=== PATIENT | female | born 1930 | race Caucasian/White ===

== ENCOUNTER → 2017-01-14 | Outpatient (CLI) | payer MEDICARE, OTHER ==
--- NOTE | 2017-01-14 13:16 | Diagnostic Imaging Report ---
INDICATION: Followup renal cyst. COMPARISON: 02/08/2016 and 02/04/2015. DISCUSSION: Transabdominal sonographic evaluation of the bilateral kidneys was performed. Multiple cysts are again noted bilaterally. The largest on the right measures up to 12.1 cm. The largest on the left measures 8.8 cm. Overall appearance is very similar to the previous exam. The bilateral ureteral jets were visualized. Urinary bladder is unremarkable. The right kidney measures 12.7 cm. Left kidney measures 10 cm. No suspicious solid renal mass identified. IMPRESSION: 1. Extensive cystic changes of the bilateral kidneys appear stable. Dictated by: Dictated on workstation # [id number]
== END ==
LOC: RAD 11:58
PROVIDERS: ATTEND Nurse Practitioner
DX: I13.10 Hypertensive heart and chronic kidney disease without heart failure, with stage 1 through stage 4 chronic kidney disease, or unspecified chronic kidney disease (principal); N18.3 Chronic kidney disease, stage 3 (moderate); E66.9 Obesity, unspecified; E78.5 Hyperlipidemia, unspecified; R73.01 Impaired fasting glucose; R80.9 Proteinuria, unspecified; Q61.2 Polycystic kidney, adult type; N25.81 Secondary hyperparathyroidism of renal origin; E88.09 Other disorders of plasma-protein metabolism, not elsewhere classified; E87.1 Hypo-osmolality and hyponatremia; E87.6 Hypokalemia; D64.9 Anemia, unspecified
CPT/HCPCS: 76770

== ENCOUNTER 2018-08-15 10:44 | Inpatient (IN) | payer MEDICARE, OTHER ==
[~2018-08-15] VITALS: Ht 152.4 cm; Wt 76.8 kg
[2018-08-15 11:07] LABS: BASOPHILS # (AUTO) 0.1 10^3/uL (0.0-0.1); BASOPHILS % (AUTO) 1 % (0-10); EOSINOPHILS # (AUTO) 0.3 10^3/uL (0.0-0.3); EOSINOPHILS % (AUTO) 4 % (0-10); HEMATOCRIT 47 % (35-52); HEMOGLOBIN 15.6 G/DL (11.5-16.0); LYMPHOCYTES # (AUTO) 1.8 X 10^3 (1.0-4.0); LYMPHOCYTES % (AUTO) 23 % (12-44); MEAN CORPUSCULAR HEMOGLOBIN 29 PG (25-34); MEAN CORPUSCULAR HGB CONC 33 G/DL (32-36); MEAN CORPUSCULAR VOLUME 88 FL (80-99); MEAN PLATELET VOLUME 9.9 FL (7.4-10.4); MONOCYTES # (AUTO) 0.6 X 10^3 (0.0-1.0); MONOCYTES % (AUTO) 7 % (0-12); NEUTROPHILS # (AUTO) 4.9 X 10^3 (1.8-7.8); NEUTROPHILS % (AUTO) 65 % (42-75); PLATELET COUNT 254 10^3/uL (130-400); RED BLOOD COUNT 5.36 10^6/uL (4.35-5.85); RED CELL DISTRIBUTION WIDTH 13.7 % (10.0-14.5); WHITE BLOOD COUNT 7.6 10^3/uL (4.3-11.0)
[2018-08-15] MEDS ORDERED: RECEIVED CONTRAST (Hold Metformin) IV SCH (11:15)
[2018-08-15] MEDS ORDERED: IOHEXOL 350 MG/ML 100 ML (OMNIPAQUE 350) VIAL IV ONE (11:15)
[2018-08-15] MEDS ORDERED: NS 250 ML (IVPB) BAG IV ONE (11:15)
--- NOTE | 2018-08-15 11:15 | Diagnostic Imaging Report ---
PROCEDURE: CT head wo r/o stroke. TECHNIQUE: Multiple contiguous axial images were obtained through the brain without the use of intravenous contrast. INDICATION: Facial droop and slurred speech. COMPARISON: No prior studies are available for comparison. FINDINGS: Ventricles and sulci are appropriate for the patient's age. There is moderate periventricular hypodensity noted consistent with senescent change. No sulcal effacement is seen. There is no midline shift. No acute intra-axial or extra-axial hemorrhage is detected. Cisterns are patent. Visualized paranasal sinuses are clear. IMPRESSION: No acute intracranial process is detected. Results were discussed with Dr. Atkins of the emergency department prior to this dictation. Dictated by: Dictated on workstation # [id number]
[2018-08-15 11:31] LABS: ALANINE AMINOTRANSFERASE 17 U/L (0-55); ALBUMIN 4.1 GM/DL (3.2-4.5); ALKALINE PHOSPHATASE 64 U/L (40-136); BILIRUBIN,TOTAL 0.8 MG/DL (0.1-1.0); BUN/CREATININE RATIO 16; CALCIUM 10.8 MG/DL (8.5-10.1); CARBON DIOXIDE 25 MMOL/L (21-32); CHLORIDE 102 MMOL/L (98-107); CREATININE SERUM 1.02 MG/DL (0.60-1.30); GFR ESTIMATED 51; GLUCOSE 103 MG/DL (70-105); POTASSIUM 3.8 MMOL/L (3.6-5.0); SODIUM 139 MMOL/L (135-145); TOTAL PROTEIN 8.4 GM/DL (6.4-8.2)
[2018-08-15 11:39] LABS: FIBRIN DEGRADATION PRODUCTS 2.2 UG/ML (0.00-0.49)
--- NOTE | 2018-08-15 12:00 | Diagnostic Imaging Report ---
INDICATION: Facial droop and possible stroke. TIME OF EXAM: 11:26 AM No prior studies are available for comparison. FINDINGS: There is eventration of right hemidiaphragm. Lungs are clear. No infiltrate, effusion or pneumothorax is seen. There is some ectasia and tortuosity of the descending thoracic aorta. IMPRESSION: No acute cardiopulmonary process is detected. Dictated by: Dictated on workstation # [id number]
--- NOTE | 2018-08-15 12:02 | Diagnostic Imaging Report ---
PROCEDURE: CT angiography of the head and CT angiography of the neck with and without contrast. TECHNIQUE: Contiguous noncontrast images were obtained from the skull base through the vertex. After intravenous contrast administration, helical CT angiography of the neck was performed. Source data was reformatted into multiple MIP projections. Delayed post contrast acquisition was also obtained. INDICATION: Stroke. FINDINGS: The overall quality of the study is suboptimal. There is suboptimal opacification of the arterial system. There is dense opacification of the venous system. Findings are consistent with poor bolus timing. There is marked tortuosity of the brachiocephalic artery as well as the left common carotid artery. A moderate calcified plaque at the great vessel origins is seen. No high-grade stenosis is identified. Both common carotid arteries show calcified plaque. There is some plaquing identified at the bifurcations. Assessment for stenosis is difficult due to poor opacification. Both internal carotid arteries appear to be patent. There is a moderate plaque identified in the carotid siphons. No large branch occlusion is seen. Both middle cerebral arteries are opacified. No definite filling defect is seen. There is an azygos anterior cerebral artery, a normal variant which shows large amount of calcified plaque. There is calcified plaquing in both vertebral arteries and the basilar artery. Posterior cerebral arteries appear to be opacified. No large branch occlusion is seen. IMPRESSION: Significantly limited study due to poor arterial opacification. No large branch occlusion is identified. Dictated by: Dictated on workstation # [id number]
[2018-08-15 12:07] LABS: BILIRUBIN,URINE NEGATIVE (NEGATIVE); CLARITY,URINE CLEAR; COLOR,URINE YELLOW; GLUCOSE, URINE (UA) NEGATIVE (NEGATIVE); KETONES,URINE NEGATIVE (NEGATIVE); LEUKOCYTE ESTERASE ,URINE 1+ (NEGATIVE); NITRITE,URINE NEGATIVE (NEGATIVE); PH,URINE 8 (5-9); PROTEIN,URINE 2+ (NEGATIVE); UROBILINOGEN,URINE NORMAL (NORMAL)
--- NOTE | 2018-08-15 12:08 | ED Neurological Problem ---
General Chief Complaint: Neuro-Stroke Like Symptoms Stated Complaint: STROKE SYMPTOMS Source: patient, family Exam Limitations: no limitations History of Present Illness Date Seen by Provider: Aug 15, 2018 Time Seen by Provider: 11:50 Initial Comments Here onset of right facial droop. Noted at 10 a.m. when the patient woke up. Patient arrives with her daughter via POV. Last night went to bed without any symptoms. Does have advanced dementia but does not have history of stroke. Does have history of kidney disease that apparently is better. She is now living with her daughter. Patient is able to transfer with some assistance and the daughter was able to move her from the house to the car and the car to the emergency department without any other assistance besides herself and a wheelchair. No report of recent illness. Patient denies chest pain, breathing problems or problems with urination but has had some constipation. Denies pain overall. Timing/Duration: unknown (some time in the last 14 hours) Severity: moderate Associated Symptoms: No confusion, No fever/chills, No loss of consciousness, No nausea/vomiting; slurred speech, weakness Allergies and Home Medications Allergies Coded Allergies: No Known Drug Allergies (Unverified , 08/15/18) Patient Home Medication List Home Medication List Reviewed: Yes Review of Systems Review of Systems Constitutional: see HPI; No chills, No fever Eyes: No Symptoms Reported Ears, Nose, Mouth, Throat: no symptoms reported Respiratory: No short of breath, No wheezing Cardiovascular: chest pain (*), edema Gastrointestinal: No abdominal pain; constipation; No nausea, No vomiting Genitourinary: no symptoms reported Musculoskeletal: no symptoms reported All Other Systems Reviewed Negative Unless Noted: Yes Past [place] Hx Past Med/Social Hx: Reviewed Nursing Past Med/Soc Hx Patient Social History Alcohol Use: Denies Use Recreational Drug Use: No Smoking Status: Unknown if Ever Smoked Past Medical History Respiratory: No Cardiac: Yes High Cholesterol, Hypertension Neurological: Yes Dementia Psychosocial: Yes Depression Family Medical History Reviewed Nursing Family Hx Physical Exam Vital Signs Vital Signs - First Documented 08/15/18 10:58 Temp 99.1 Pulse 95 Resp 22 B/P (MAP) 200/111 (140) Pulse Ox 96 O2 Delivery Room Air Capillary Refill : Height, Weight, BMI Height: '" Weight: lbs. oz. kg; BMI Method: General Appearance: WD/WN, no apparent distress HEENT: PERRL/EOMI, other (tongue weakness noted on right and right facial droop ) Neck: full range of motion, supple Respiratory: lungs clear, normal breath sounds Cardiovascular: regular rate, rhythm, no murmur Gastrointestinal: non tender, soft Extremities: non-tender, normal inspection Neurologic/Psychiatric: alert, normal mood/affect, oriented x 3 Crainal Nerves: PERRL, abnormal speech, facial asymmetry, facial droop (and right-sided), facial weakness (right-sided) Coordination/Gait: normal gait, ABN nose to finger (R) Motor/Sensory: no sensory deficit, pronator drift (R), weak motor strength RUE , weak motor strength RLE, other (barely able to lift right arm off the bed. Able to hold his right leg off the bed for approximately 4-5 seconds bit weaker than left. Unable to do finger to nose on right.) Skin: normal color, warm/dry Progress/Results/Core Measures Results/Orders Lab Results Laboratory Tests Test 08/15/18 10:58 08/15/18 12:00 Range/Units White Blood Count 7.6 4.3-11.0 10^3/uL Red Blood Count 5.36 4.35-5.85 10^6/uL Hemoglobin 15.6 11.5-16.0 G/DL Hematocrit 47 35-52 % Mean Corpuscular Volume 88 80-99 FL Mean Corpuscular Hemoglobin 29 25-34 PG Mean Corpuscular Hemoglobin Concent 33 32-36 G/DL Red Cell Distribution Width 13.7 10.0-14.5 % Platelet Count 254 130-400 10^3/uL Mean Platelet Volume 9.9 7.4-10.4 FL Neutrophils (%) (Auto) 65 42-75 % Lymphocytes (%) (Auto) 23 12-44 % Monocytes (%) (Auto) 7 0-12 % Eosinophils (%) (Auto) 4 0-10 % Basophils (%) (Auto) 1 0-10 % Neutrophils # (Auto) 4.9 1.8-7.8 X 10^3 Lymphocytes # (Auto) 1.8 1.0-4.0 X 10^3 Monocytes # (Auto) 0.6 0.0-1.0 X 10^3 Eosinophils # (Auto) 0.3 0.0-0.3 10^3/uL Basophils # (Auto) 0.1 0.0-0.1 10^3/uL Prothrombin Time 13.0 12.2-14.7 SEC INR Comment 1.0 0.8-1.4 Activated Partial Thromboplast Time 31 24-35 SEC D-Dimer 2.20 H 0.00-0.49 UG/ML Sodium Level 139 135-145 MMOL/L Potassium Level 3.8 3.6-5.0 MMOL/L Chloride Level 102 98-107 MMOL/L Carbon Dioxide Level 25 21-32 MMOL/L Anion Gap 12 5-14 MMOL/L Blood Urea Nitrogen 16 7-18 MG/DL Creatinine 1.02 0.60-1.30 MG/DL Estimat Glomerular Filtration Rate 51 BUN/Creatinine Ratio 16 Glucose Level 103 70-105 MG/DL Calcium Level 10.8 H 8.5-10.1 MG/DL Corrected Calcium 10.7 H 8.5-10.1 MG/DL Total Bilirubin 0.8 0.1-1.0 MG/DL Aspartate Amino Transf (AST/SGOT) 34 5-34 U/L Alanine Aminotransferase (ALT/SGPT) 17 0-55 U/L Alkaline Phosphatase 64 40-136 U/L Troponin I < 0.30 <0.30 NG/ML Total Protein 8.4 H 6.4-8.2 GM/DL Albumin 4.1 3.2-4.5 GM/DL Urine Color YELLOW Urine Clarity CLEAR Urine pH 8 5-9 Urine Specific [place] 1.010 L 1.016-1.022 Urine Protein 2+ H NEGATIVE Urine Glucose (UA) NEGATIVE NEGATIVE Urine Ketones NEGATIVE NEGATIVE Urine Nitrite NEGATIVE NEGATIVE Urine Bilirubin NEGATIVE NEGATIVE Urine Urobilinogen NORMAL NORMAL MG/DL Urine Leukocyte Esterase 1+ H NEGATIVE Urine RBC (Auto) 1+ H NEGATIVE Urine RBC 2-5 H /HPF Urine WBC 2-5 /HPF Urine Crystals PRESENT H /LPF Urine Amorphous Sediment LARGE DEN PHOSPHATE H /LPF Urine Bacteria FEW H /HPF Urine Casts NONE /LPF Urine Mucus NEGATIVE /LPF Urine Culture Indicated YES My Orders Orders - NAMITA DESIR MD Cbc With Automated Diff (08/15/18 10:56) Protime With Inr (08/15/18 10:56) Partial Thromboplastin Time (08/15/18 10:56) Comprehensive Metabolic Panel (08/15/18 10:56) Fibrin Degradation Products (08/15/18 10:56) Troponin I (08/15/18 10:56) Ua Culture If Indicated (08/15/18 10:56) Chest 1 View, Ap/Pa Only (08/15/18 10:56) Catheter(Urinary) Insert & Ass 03,15 (08/15/18 10:56) Ekg Tracing (08/15/18 10:56) Nothing By Mouth (08/15/18 Dinner) Accucheck Stat ONCE (08/15/18 10:56) Saline Lock/Iv-Start (08/15/18 10:56) Saline Lock/Iv-Start (08/15/18 10:56) Vital Signs Stroke Patient Q15M (08/15/18 10:56) Ct Head Wo-R/O Stroke (08/15/18 10:56) O2 (08/15/18 10:56) Intake & Output 06,14,22 (08/15/18 10:56) Monitor-Rhythm Ecg Trace Only (08/15/18 10:56) Dysphagia Screening Tool (08/15/18 10:56) Lipid Panel (08/16/18 06:00) I-Stat Bedside Testing (08/15/18 10:56) Ct Angio Head/Neck (08/15/18 11:13) Iohexol Injection (Omnipaque 350 Mg/Ml 1 (08/15/18 11:15) Contrast Received (Contrast Received) (08/15/18 11:15) Ns (Ivpb) (Sodium Chloride 0.9%) (08/15/18 11:15) Urine Culture (08/15/18 12:00) Aspirin Suppository (Aspirin Suppository (08/15/18 12:45) Vital Signs/I&O 08/15/18 10:58 Temp 99.1 Pulse 95 Resp 22 B/P (MAP) 200/111 (140) Pulse Ox 96 O2 Delivery Room Air iStat Bedside Lab Testing Sodium (Na): 140.00 Potassium (K): 3.30 Chloride (CI): 100.00 TCO2: 28.00 Glucose (Glu): 106.00 Urea Nitrogen (BUN)/Urea: 19.00 Creatinine (Crea): 1.00 Anion Gap*: 16.00 Progress Progress Note : Progress Note Seen and evaluated on arrival. Stroke team activation initiated. Initially reported as onset at 10 a.m. but found that patient was wakeup stroke with last known well time at approximately 9 p.m. last night. We will initiate stroke order set and i-STAT and evaluate for possibility of CT angiogram of the head and neck. We will go ahead and send to CT for noncontrast study while i-STAT is pending. I-STAT does show patient can receive contrast CT angiogram of the head and neck was ordered. Monitor patient. 1230: No large vessel occlusion. Patient does have findings of stroke. Aspirin 300 mg per rectum ordered as patient failed dysphagia screening. I did discuss the findings and concerns with the patient and daughter and they accepted admission to the hospital, inpatient status for further evaluation. Patient is outside the TPA window as patient arrived with unknown last well time. That an age would exclude her. There is no large vessel occlusion requiring transfer. 1310: I did discuss the case with Dr. NAVARRO and he accepts patient for admission, inpatient status. Initial ECG Impression Date: Aug 15, 2018 Initial ECG Impression Time: 11:44 Initial ECG Rate: 81 Initial ECG Rhythm: Normal Sinus Comment Sinus rhythm with flat T waves inferiorly leads. Normal axis. No evidence of ST elevation MT. No previous available for comparison. Interpreted by me. Departure Communication (Admissions) Time/Spoke to Admitting Phy: 13:10 Impression Primary Impression: Cerebrovascular accident due to cerebral artery occlusion Additional Impression: Acute right-sided weakness Disposition: ADMITTED INPATIENT Condition: Stable Admissions Decision to Admit Reason: Admit from ER (General) Decision to Admit/Date: Aug 15, 2018 Time/Decision to Admit Time: 13:10 Departure-Patient Inst. Referrals: JUVENAL NAVARRO MD (PCP) Primary Care Physician TYE FARLEY DO (Family) Primary Care Physician NAMITA DESIR MD Aug 15, 2018 12:08
[2018-08-15 12:15] LABS: AMORPHOUS SEDIMENT,UR LARGE AMOR PHOSPHATE /LPF; BACTERIA,URINE FEW /HPF
[2018-08-15] MEDS ORDERED: ASPIRIN 300 MG (5 GR) SUPPOSITORY PR PRN (12:45)
--- OUTSIDE RECORDS SUMMARY | 2018-08-15 13:12 | XMS REPORT | Continuity of Care Document ---
Author Author [facility] Organization [facility] Address Unknown Phone Unavailable Allergies Active Description Code Type Severity Reaction Onset Reported/Identified Relationship to Patient Clinical Status Yes No Allergy Information Available [id number] Drug Allergy Unknown N/A 2017 Medications There is no data. Problems Date Dx Coded Attending Type Code Diagnosis Diagnosed By 03/11/2015 GRICELDA MADDOX RN UROLOGY-C Ot 585.9 03/16/2015 NEWGRICELDA RN UROLOGY-C Ot 585.9 02/08/2016 NEWGRICELDA CahseMichelle RN UROLOGY-C Ot 585.9 CHRONIC KIDNEY DISEASE, UNSPECIFIED 02/09/2016 NEW GRICELDA ChaseMichelle RN UROLOGY-C Ot N18.3 CHRONIC KIDNEY DISEASE, STAGE 3 (MODERAT 02/10/2016 NEW, GRICELDA ChaseMichelle RN UROLOGY-C Ot N18.9 CHRONIC KIDNEY DISEASE, UNSPECIFIED 02/14/2016 NEW, GRICELDA ChaseMcihelle RN UROLOGY-C Ot N18.9 CHRONIC KIDNEY DISEASE, UNSPECIFIED 03/06/2016 NEW, GRICELDA ChaseMichelle RN UROLOGY-C Ot N18.9 CHRONIC KIDNEY DISEASE, UNSPECIFIED 03/27/2016 NEW, GRICELDA ChaseMichelle RN UROLOGY-C Ot N18.9 CHRONIC KIDNEY DISEASE, UNSPECIFIED 01/14/2017 NEWGRICELDA ChaseMichelle RN UROLOGY-C Ot 585.9 CHRONIC KIDNEY DISEASE, UNSPECIFIED 01/14/2017 NEW, GRICELDA GMichelle RN UROLOGY-C Ot N18.9 CHRONIC KIDNEY DISEASE, UNSPECIFIED 01/20/2017 NEWCYNTHIAA G. RN UROLOGY-C Ot D64.9 ANEMIA, UNSPECIFIED 01/20/2017 NEW, GRICELDA G. RN UROLOGY-C Ot E66.9 OBESITY, UNSPECIFIED 01/20/2017 NEW, GRICELDA G. RN UROLOGY-C Ot E78.5 HYPERLIPIDEMIA, UNSPECIFIED 01/20/2017 NEW GRICELDA G. RN UROLOGY-C Ot E87.1 HYPO-OSMOLALITY AND HYPONATREMIA 01/20/2017 NEW, GRICELDA G. 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 RN UROLOGY-C Ot E87.6 HYPOKALEMIA 02/12/2017 NEW, GRICELDA G. 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, ADULT TYPE 02/12/2017 NEW, GRICELDA GMichelle RN UROLOGY-C Ot R73.01 IMPAIRED FASTING GLUCOSE 02/12/2017 NEW, GRICELDA ChaseMichelle RN UROLOGY-C Ot R80.9 PROTEINURIA, UNSPECIFIED 03/05/2017 NEW, GRICELDA ChaseMichelle RN UROLOGY-C Ot D64.9 ANEMIA, UNSPECIFIED 03/05/2017 GRICELDA MADDOX NP-C Ot E66.9 OBESITY, UNSPECIFIED 03/05/2017 GRICELDA MADDOX NP-C Ot E78.5 HYPERLIPIDEMIA, UNSPECIFIED 03/05/2017 GRICELDA MADDOX NP-C Ot E87.1 HYPO-OSMOLALITY AND HYPONATREMIA 03/05/2017 GRICELDA MADDOX NP-C Ot E87.6 HYPOKALEMIA 03/05/2017 GRICELDA MADDOX NP-C Ot E88.09 OTH DISORDERS OF PLASMA-PROTEIN METABOLI 03/05/2017 VARSHAGRICELDAC Ot 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 Results Test Result Range Complete blood count (CBC) with automated white blood cell (WBC) differential - 08/15/18 10:58 Blood leukocytes automated count (number/volume) 7.6 10*3/uL 4.3-11.0 Blood erythrocytes automated count (number/volume) 5.36 10*6/uL 4.35-5.85 Venous blood hemoglobin measurement (mass/volume) 15.6 g/dL 11.5-16.0 Blood hematocrit (volume fraction) 47 % 35-52 Automated erythrocyte mean corpuscular volume 88 [foz_us] 80-99 Automated erythrocyte mean corpuscular hemoglobin (mass per erythrocyte) 29 pg 25-34 Automated erythrocyte mean corpuscular hemoglobin concentration measurement ( mass/volume) 33 g/dL 32-36 Automated erythrocyte distribution width ratio 13.7 % 10.0-14.5 Automated blood platelet count (count/volume) 254 10*3/uL 130-400 Automated blood platelet mean volume measurement 9.9 [foz_us] 7.4-10.4 Automated blood neutrophils/100 leukocytes 65 % 42-75 Automated blood lymphocytes/100 leukocytes 23 % 12-44 Blood monocytes/100 leukocytes 7 % 0-12 Automated blood eosinophils/100 leukocytes 4 % 0-10 Automated blood basophils/100 leukocytes 1 % 0-10 Blood neutrophils automated count (number/volume) 4.9 10*3 1.8-7.8 Blood lymphocytes automated count (number/volume) 1.8 10*3 1.0-4.0 Blood monocytes automated count (number/volume) 0.6 10*3 0.0-1.0 Automated eosinophil count 0.3 10*3/uL 0.0-0.3 Automated blood basophil count (count/volume) 0.1 10*3/uL 0.0-0.1 Comprehensive metabolic panel - 08/15/18 10:58 Serum or plasma sodium measurement (moles/volume) 139 mmol/L 135-145 Serum or plasma potassium measurement (moles/volume) 3.8 mmol/L 3.6-5.0 Serum or plasma chloride measurement (moles/volume) 102 mmol/L 98-107 Carbon dioxide 25 mmol/L 21-32 Serum or plasma anion gap determination (moles/volume) 12 mmol/L 5-14 Serum or plasma urea nitrogen measurement (mass/volume) 16 mg/dL 7-18 Serum or plasma creatinine measurement (mass/volume) 1.02 mg/dL 0.60-1.30 Serum or plasma urea nitrogen/creatinine mass ratio 16 NRG Serum or plasma creatinine measurement with calculation of estimated glomerular filtration rate 51 NRG Serum or plasma glucose measurement (mass/volume) 103 mg/dL 70-105 Serum or plasma calcium measurement (mass/volume) 10.8 mg/dL 8.5-10.1 Serum or plasma total bilirubin measurement (mass/volume) 0.8 mg/dL 0.1-1.0 Serum or plasma alkaline phosphatase measurement (enzymatic activity/volume) 64 U/L 40-136 Serum or plasma aspartate aminotransferase measurement (enzymatic activity/ volume) 34 U/L 5-34 Serum or plasma alanine aminotransferase measurement (enzymatic activity/volume ) 17 U/L 0-55 Serum or plasma protein measurement (mass/volume) 8.4 g/dL 6.4-8.2 Serum or plasma albumin measurement (mass/volume) 4.1 g/dL 3.2-4.5 CALCIUM CORRECTED 10.7 mg/dL 8.5-10.1 Encounters ACCT No. Visit Date/Time Discharge Status Pt. Type Provider Facility Loc./Unit Complaint [id number] 01/14/2017 11:58:00 01/14/2017 23:59:59 CLS Outpatient GRICELDA MADDOX RN UROLOGY-C [facility] RAD OBESE,HYPERLIPIDEMIA [id number] 02/08/2016 12:49:00 02/08/2016 23:59:59 CLS Outpatient GRICELDA MADDOX RN UROLOGY-C [facility] RAD CKD [id number] 02/04/2015 10:08:00 02/04/2015 23:59:59 CLS Outpatient GRICELDA MADDOX RN UROLOGY-C [facility] RAD CHRONIC KIDNEY DISEASE [id number] 12/29/2018 09:00:00 PEN Preadmit MARISABEL HOFF APRN [facility] RAD OBESE,HYPERLIPIDEMIA,PROTEINURIA [id number] 08/15/2018 10:46:00 ACT Emergency NAMITA DESIR MD [facility] ER STROKE SYMPTOMS
[2018-08-15] MEDS ORDERED: NS IV 500 ML 500 ML IV ONE (13:26)
--- OUTSIDE RECORDS SUMMARY | 2018-08-15 13:50 | XMS REPORT | Continuity of Care Document ---
Author Author [facility] Organization [facility] Address Unknown Phone Unavailable Allergies Active Description Code Type Severity Reaction Onset Reported/Identified Relationship to Patient Clinical Status Yes No Allergy Information Available [id number] Drug Allergy Unknown N/A 2017 Yes No Known Drug Allergies [id number] Drug Allergy Unknown N/A 08/15/2018 Medications There is no data. Problems Date Dx Coded Attending Type Code Diagnosis Diagnosed By 03/11/2015 GRICELDA MADDOX JUDICIAL REGISTRAR-C Ot 585.9 03/16/2015 GRICELDA MADDOX JUDICIAL REGISTRAR-C Ot 585.9 02/08/2016 GRICELDA MADDOX JUDICIAL REGISTRAR-C Ot 585.9 CHRONIC KIDNEY DISEASE, UNSPECIFIED 02/09/2016 GRICELDA MADDOX JUDICIAL REGISTRAR-C Ot N18.3 CHRONIC KIDNEY DISEASE, STAGE 3 (MODERAT 02/10/2016 NEW, GRICELDA ChaseMichelle JUDICIAL REGISTRAR-C Ot N18.9 CHRONIC KIDNEY DISEASE, UNSPECIFIED 02/14/2016 NEWGRICELDA ChaseMichelle JUDICIAL REGISTRAR-C Ot N18.9 CHRONIC KIDNEY DISEASE, UNSPECIFIED 03/06/2016 NEWGRICELDA ChaseMichelle JUDICIAL REGISTRAR-C Ot N18.9 CHRONIC KIDNEY DISEASE, UNSPECIFIED 03/27/2016 NEWGRICELDA JUDICIAL REGISTRAR-C Ot N18.9 CHRONIC KIDNEY DISEASE, UNSPECIFIED 01/14/2017 NEWGRICELDA ChaseMichelle JUDICIAL REGISTRAR-C Ot 585.9 CHRONIC KIDNEY DISEASE, UNSPECIFIED 01/14/2017 NEWGRICELDA ChaseMichelle JUDICIAL REGISTRAR-C Ot N18.9 CHRONIC KIDNEY DISEASE, UNSPECIFIED 01/20/2017 NEWGRICELDA JUDICIAL REGISTRAR-C Ot D64.9 ANEMIA, UNSPECIFIED 01/20/2017 NEWGRICELDA JUDICIAL REGISTRAR-C Ot E66.9 OBESITY, UNSPECIFIED 01/20/2017 NEWGRICELDA JUDICIAL REGISTRAR-C Ot E78.5 HYPERLIPIDEMIA, UNSPECIFIED 01/20/2017 NEWGRICELDA GMichelle JUDICIAL REGISTRAR-C Ot E87.1 HYPO-OSMOLALITY AND HYPONATREMIA 01/20/2017 NEW, GRICELDA Reese JUDICIAL REGISTRAR-C Ot E87.6 HYPOKALEMIA 01/20/2017 NEW, GRICELDA Reese JUDICIAL REGISTRAR-C Ot E88.09 OTH DISORDERS OF PLASMA-PROTEIN METABOLI 01/20/2017 NEW, GRICELDA Reese JUDICIAL REGISTRAR-C Ot 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, W S 01/20/2017 NEW, GRICELDA Reese JUDICIAL REGISTRAR-C Ot N18.3 CHRONIC KIDNEY DISEASE, STAGE 3 (MODERAT 01/20/2017 NEW, GRICELDA Reese JUDICIAL REGISTRAR-C Ot N25.81 SECONDARY HYPERPARATHYROIDISM OF RENAL O 01/20/2017 NEW, GRICELDA Reese JUDICIAL REGISTRAR-C Ot 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 JUDICIAL REGISTRAR-C Ot E87.1 HYPO-OSMOLALITY AND HYPONATREMIA 02/12/2017 NEW, GRICELDA G. 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, ADULT TYPE 02/12/2017 NEW, GRICELDA Reese JUDICIAL REGISTRAR-C Ot R73.01 IMPAIRED FASTING GLUCOSE 02/12/2017 NEW, GRICELDA Reese JUDICIAL REGISTRAR-C Ot R80.9 PROTEINURIA, UNSPECIFIED 03/05/2017 GRICELDA MADDOX NP-C Ot D64.9 ANEMIA, UNSPECIFIED 03/05/2017 NEWGRICELDA JUDICIAL REGISTRAR-C Ot E66.9 OBESITY, UNSPECIFIED 03/05/2017 NEWGRICELDA JUDICIAL REGISTRAR-C Ot E78.5 HYPERLIPIDEMIA, UNSPECIFIED 03/05/2017 GRICELDA MADDOX NP-C Ot E87.1 HYPO-OSMOLALITY AND HYPONATREMIA 03/05/2017 GRICELDA MADDOX NP-C Ot E87.6 HYPOKALEMIA 03/05/2017 NEWGRICELDA NP-C Ot E88.09 OTH DISORDERS OF PLASMA-PROTEIN METABOLI 03/05/2017 GRICELDA MADDOX NP-C Ot 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, W S 03/05/2017 GRICELDA MADDOX NP-C Ot N18.3 CHRONIC KIDNEY DISEASE, STAGE 3 (MODERAT 03/05/2017 GRICELDA MADDOX NP-C Ot N25.81 SECONDARY HYPERPARATHYROIDISM OF RENAL O 03/05/2017 VARSHA GRICELDA Reese NP-C Ot 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, ADULT TYPE 03/05/2017 GRICELDA MADDOX NP-C Ot R73.01 IMPAIRED FASTING GLUCOSE 03/05/2017 GRICELDA MADDOX JUDICIAL REGISTRAR-C Ot R80.9 PROTEINURIA, UNSPECIFIED Procedures There is [...] g/dL 3.2-4.5 CALCIUM CORRECTED 10.7 mg/dL 8.5-10.1 Complete urinalysis with reflex to culture - 08/15/18 12:00 Urine color determination YELLOW NRG Urine clarity determination CLEAR NRG Urine pH measurement by test strip 8 5-9 Specific gravity of urine by test strip 1.010 1.016- 1.022 Urine protein assay by test strip, semi-quantitative 2+ NEGATIVE Urine glucose detection by automated test strip NEGATIVE NEGATIVE Erythrocytes detection in urine sediment by light microscopy 1+ NEGATIVE Urine ketones detection by automated test strip NEGATIVE NEGATIVE Urine nitrite detection by test strip NEGATIVE NEGATIVE Urine total bilirubin detection by test strip NEGATIVE NEGATIVE Urine urobilinogen measurement by automated test strip (mass/volume) NORMAL NORMAL Urine leukocyte esterase detection by dipstick 1+ NEGATIVE Automated urine sediment erythrocyte count by microscopy (number/high power field) [HPF] NRG Automated urine sediment leukocyte count by microscopy (number/high power field ) [HPF] NRG Bacteria detection in urine sediment by light microscopy FEW NRG Crystals detection in urine sediment by light microscopy PRESENT NRG Casts detection in urine sediment by light microscopy NONE NRG Mucus detection in urine sediment by light microscopy NEGATIVE NRG Complete urinalysis with reflex to culture YES NRG Amorphous sediment detection in urine sediment by light microscopy LARGE DEN PHOSPHATE NRG Encounters ACCT No. Visit Date/Time Discharge Status Pt. Type Provider Facility Loc./Unit Complaint [id number] 01/14/2017 11:58:00 01/14/2017 23:59:59 CLS Outpatient GRICELDA MADDOX JUDICIAL REGISTRAR-C [facility] OBESE,HYPERLIPIDEMIA [id number] 02/08/2016 12:49:00 02/08/2016 23:59:59 CLS Outpatient GRICELDA MADDOX JUDICIAL REGISTRAR-C [facility] CKD [id number] 02/04/2015 10:08:00 02/04/2015 23:59:59 CLS Outpatient GRICELDA MADDOX JUDICIAL REGISTRAR-C [facility] CHRONIC KIDNEY DISEASE [id number] 12/29/2018 09:00:00 PEN Preadmit MARISABEL HOFF APRN [facility] OBESE,HYPERLIPIDEMIA,PROTEINURIA [id number] 08/15/2018 13:32:00 ACT Inpatient RAMON SON, JUVENAL Heart [facility] 4TH CVA;RT SIDED WEAKNESS
[2018-08-15 15:40] VITALS: BP 129/60
[2018-08-15] MEDS ORDERED: CATHETER FLUSH 10 ML SYR IV PRN (15:45)
[2018-08-15] MEDS: NS IV 1000 ML 1,000 ML IV SCH (15:50)
[2018-08-15] MEDS ORDERED: RIVA1PAT3 TD (15:51)
[2018-08-15] MEDS ORDERED: UBID1CAP53 PO (15:51)
[2018-08-15] MEDS ORDERED: VERA120T2 PO (15:51)
[2018-08-15] MEDS ORDERED: MULT-1029 PO (15:51)
[2018-08-15] MEDS ORDERED: ATOR10TA66 PO (15:51)
[2018-08-15] MEDS ORDERED: GLUC100016 PO (15:51)
[2018-08-15] MEDS ORDERED: CITA10TA7 PO (15:51)
[2018-08-15] MEDS ORDERED: HYDR12.56 PO (15:51)
[2018-08-15] MEDS ORDERED: COCO1000 PO (15:51)
[2018-08-15] MEDS ORDERED: VERA120T84 PO (15:51)
--- NOTE | 2018-08-15 17:27 | Diagnostic Imaging Report ---
PROCEDURE: US carotid duplex, bilateral. TECHNIQUE: Multiple real-time grayscale images were obtained over the carotid arteries in various projections, bilaterally. Additional duplex Doppler and color Doppler images were also obtained. INDICATION: CVA. COMPARISON: None. FINDINGS: There is moderate plaque in the left common carotid artery which partially obscures the lumen, but no elevated velocity is seen. Mild plaque is seen at the origin of the left ECA. The right mid common carotid artery demonstrates moderate calcific plaque, with approximately 40% narrowing. There is moderate plaque with 40% narrowing at the proximal ICA on the right as well. There is tortuosity of the right internal carotid artery, causing mildly elevated velocity, no narrowing is seen in this region. The vertebral arteries are antegrade bilaterally. Parameters based on the consensus panel Cui-Scale and Doppler ultrasound criteria published July 2003, Radiology, Volume 229. DOPPLER (peak systolic velocity M/S Right Left CCA .49 .61 ICA Proximal .60 .57 ICA Mid 1.17 .82 ICA Distal .73 .92 RATIO 2.4 1.3 ECA .98 .91 VERT .66 .95 IMPRESSION: 1. Moderate atherosclerosis in the bilateral common carotid arteries and in the right internal carotid artery. There is mildly elevated velocity in the right ICA due to tortuosity, however no hemodynamically significant stenosis is seen. Dictated by: Dictated on workstation # [id number]
[2018-08-15] MEDS ORDERED: GADOBUTROL 10 MMOL/10 ML (GADAVIST) VIAL IV ONE (18:45)
[2018-08-15 19:25] VITALS: BP 175/72
--- NOTE | 2018-08-15 20:46 | Diagnostic Imaging Report ---
PROCEDURE: MR imaging of the brain with and without contrast. TECHNIQUE: Multiplanar, multisequence MR imaging of the brain was performed with and without contrast. INDICATION: Question CVA. Slurred speech and right-sided weakness. EXAMINATION: MRI brain with and without contrast 08/15/2018 Correlation is made to CT brain from 08/15/2018 FINDINGS: There is restricted diffusion within the left parietal lobe slightly posteriorly and towards the vertex. It extends down towards the [place] radiata. A few smaller linear foci of slightly restricted diffusion anterior to this region towards the vertex could represent separate areas of acute infarct as well but much smaller in nature. On FLAIR imaging diffuse periventricular and deep white matter chronic appearing ischemic disease seen. There is no mass effect or midline shift. Ventricles are prominent but likely due to the surrounding age-appropriate atrophy. No acute hemorrhage is appreciated. Postcontrast images demonstrate no evidence for any significant abnormal enhancement. There is, however, a single tiny rounded focus of hyperintensity noted within the left lenticular region, image #13 of 24 on axial sequence also seen on the coronal sequence. This is of uncertain etiology. It appears far separate from the adjacent MCA to suggest aneurysm. A small enhancing nodule would be the primary consideration. Followup recommended. There is an additional area of enhancement in the right posterior cerebellum. This is nonspecific but given the enhancement and a second smaller nodularity, metastatic process cannot be excluded and clinical correlation and followup would be recommended. Visualized paranasal sinuses and mastoid air cells grossly unremarkable. On diffusion-weighted imaging, not mentioned above, there are few linear foci of hyperintensity posteriorly and in the posterior fossa likely areas of restricted diffusion versus artifact. These are rather small in nature. IMPRESSION: 1. Acute appearing infarct small in nature but involving the left parietal lobe as described and extending towards the vertex. Second more linear areas of possible acute infarct versus artifact in the posterior cerebellum. 2. Two enhancing nodular densities as described above; see above discussion and recommendations. Dictated by: Dictated on workstation # [id number]
[2018-08-16] VITALS: BP 160/91
[2018-08-16 04:00] VITALS: BP 181/84
[2018-08-16 05:57] LABS: BASOPHILS % (AUTO) 0 % (0-10); EOSINOPHILS # (AUTO) 0.1 10^3/uL (0.0-0.3); EOSINOPHILS % (AUTO) 1 % (0-10); HEMATOCRIT 40 % (35-52); HEMOGLOBIN 13.4 G/DL (11.5-16.0); LYMPHOCYTES % (AUTO) 15 % (12-44); MEAN CORPUSCULAR HEMOGLOBIN 29 PG (25-34); MEAN CORPUSCULAR HGB CONC 33 G/DL (32-36); MEAN CORPUSCULAR VOLUME 88 FL (80-99); MEAN PLATELET VOLUME 9.7 FL (7.4-10.4); MONOCYTES # (AUTO) 0.5 X 10^3 (0.0-1.0); MONOCYTES % (AUTO) 7 % (0-12); NEUTROPHILS # (AUTO) 5.3 X 10^3 (1.8-7.8); NEUTROPHILS % (AUTO) 76 % (42-75); PLATELET COUNT 209 10^3/uL (130-400); RED BLOOD COUNT 4.58 10^6/uL (4.35-5.85); RED CELL DISTRIBUTION WIDTH 13.5 % (10.0-14.5); WHITE BLOOD COUNT 6.9 10^3/uL (4.3-11.0)
[2018-08-16 06:18] LABS: ALBUMIN 3.4 GM/DL (3.2-4.5); BILIRUBIN,TOTAL 0.7 MG/DL (0.1-1.0); CALCIUM 9.7 MG/DL (8.5-10.1); CREATININE SERUM 0.9 MG/DL (0.60-1.30); POTASSIUM 3.3 MMOL/L (3.6-5.0); TOTAL PROTEIN 6.6 GM/DL (6.4-8.2)
[2018-08-16 08:00] VITALS: BP 168/82
[2018-08-16] MEDS: VERAPAMIL SR 240 MG (CALAN SR) TAB PO SCH (10:26)
[2018-08-16] MEDS: HYDROCHLOROTHIAZIDE 12.5 MG (HCTZ) CAP PO SCH (10:27)
[2018-08-16] MEDS ORDERED: PATIENT MAY USE OWN MED,SINGLE MED PO SCH (11:00)
--- NOTE | 2018-08-16 11:18 | Occupational Therapy Eval ---
OT Evaluation-General/PLF Medical Diagnosis Admission Date Aug 15, 2018 at 13:32 Medical Diagnosis: CVA with right sided weakness Onset Date: Aug 15, 2018 Therapy Diagnosis Therapy Diagnosis: Weakness Height/Weight Height (Feet): 5 Height (Inches): 0.00 Weight (Pounds): 169 Weight (Ounces): 6.4 Precautions Precautions/Isolations: Fall Prevention, Standard Precautions Safety Interventions: Bed Exit Alarm Weight Bear Status Weight Bearing Restriction: Weight Bearing/Tolerated Referral Physician: Dr. Atkins Referral Reason: Activity Tolerance, Self Care, Evaluation/Treatment, Strengthening/ROM Medical History Pertinent Medical History: HTN Additional Medical History Advanced dementia, Kidney disease Current History Pt. lives with daughter. Daughter woke her up and found that she had right facial droop. Brought her to hospital. Reviewed History: Yes Social History Home: Single Level Current Living Status: Children Entry Into Home: Level Entry ADL-Prior Level of Function Functional [place] Measure 0=Not Assessed/NA 4=Minimal Assistance 1=Total Assistance 5=Supervision or Setup 2=Maximal Assistance 6=Modified [place] 3=Moderate Assistance 7=Complete [place] ADL PLOF Comments Daughter assists her with all ADLs, including bathing and dressing. Pt. is able to ambulate to bathroom with walker. Self Care Self Care: (Code the patient's need for assistance with bathing, dressing, using the toilet, or eating prior to the current illness, exacerbation, or injury.) Functional Cognition Functional Cognition: (Code the patient's need for assistance with planning regular tasks, such as shopping or remembering to take medicaiton prior to the current illness, exacerbation, or injury.) DME/Equipment: Tub/Shower DME/Equipment Comments Pt. has walker. Either daughter or son in law are with her at all times. OT Current Status Subjective Pt. reports no pain. Appearance Pt. is in bed smiling. Attempts to speak but speech is garbled. Daughter in room and is able to give history. Pt. is agreeable to work with OT. Mental Status/Objective Patient Orientation: Person, Place Attachments: Hernandez Catheter, IV Current Glasses/Contacts: Yes Upper Extremity ROM Pt. is able to flex right shoulder to approximately 80 degrees. Daughter states that this is substantially better than yesterday. Left shoulder is WFL. Upper Extremity Coordination Right is limited. Left WFL. Note that pt. does have right sided neglect and requires cues to attend to right side at times. Daughter does verbalize that she is unaware if pt. requires cues due to possible CVA or baseline dementia. ADL-Treatment Functional [place] Measure 0=Not Assessed/NA 4=Minimal Assistance 1=Total Assistance 5=Supervision or Setup 2=Maximal Assistance 6=Modified [place] 3=Moderate Assistance 7=Complete IndependenceIRFPAI Quality Coding Scale 6 Independent with activity with or without an assistive device 5 Patient requires set up or clean up by helper. Patient completes activity by themselves 4 Supervision or touching assist (CGA). [place] provide cues , steadying assist 3 The helper provides less than half the effort to complete the activity 2 The helper provides more than half the effort to complete the activity 1 Dependent. The helper does all the effort to complete an activity 7 Patient refused to complete or attempt activity 9 The patient did not perform the activity before the current illness or injury 88 Not attempted due to Medical conditions or safety concerns Grooming (FIM): 2 (Pt. attempts to brush hair, but only "dabs" at it with brush. OT does this for her.) Bathing (FIM): 2 (Pt. will hold washcloth and wash parts briefly with cues. Washed shoulders but then did not wash under arms, even with cues. OT did this for her. Pt. able to wash under breasts but OT washed rest of chest and torso. OT pointed to pt's upper thigh on right side and pt. unable to attend to that side to initiate washing. OT washed bilateral legs and feet. Stood with min assist and required full assist to wash front and rear pravin areas.) Lower Body Dressing (FIM): 1 (Pt. is dependent with doffing/donning slipper socks.) Transfers (B, C, W/C) (FIM): 3 (Pt. is able to transfer supine-sit with min assist but requires increased time and struggles greatly with this. Min assist to scoot to EOB and to stand at walker. Able to take steps toward HOB. Mod assist sit-supine. Max assist bed mobility.) Other Treatments Pt. is agreeable to work with OT. Declines showering but does agree to spongebathe on side of bed. Daughter is very supportive and provides a lot of assistance at home. Pt. has difficulty swallowing and speaking. Will continue to address mobility, ADL skills, and right UE strength/ROM needs. Education OT Patient Education: Modified ADL techniques, Progress toward Goal/Update tx plan, Purpose of tx/functional activities, Reviewed precautions, Rehab process, Transfer techniques Teaching Recipient: Patient Teaching Methods: Demonstration, Discussion Response to Teaching: Verbalize Understanding, Return Demonstration OT Short Term Goals Short Term Goals Time Frame: Aug 23, 2018 Eating(FIM): 4 Grooming(FIM): 4 Bathing(FIM): 3 Upper Body Dressing(FIM): 3 Lower Body Dressing(FIM): 3 Toileting(FIM): 3 Transfers (B,C,W/C) (FIM): 5 Toilet/Commode Transfer(FIM): 5 Shower Transfer(FIM): 4 Additional Short Term Goals: 1-Demonstrate ADL Tasks, 2-Verbalize Understanding , 3-ImproveStrength/[place] 1=Demonstrate adherence to instructed precautions during ADL tasks. 2=Patient will verbalize/demonstrate understanding of assistive devices/ modifications for ADL. 3=Patient will improve strength/tolerance for activity to enable patient to perform ADL's. OT Quality Control Director Goals Quality Control Director Goals Time Frame: Aug 30, 2018 Eating (FIM): 5 Grooming(FIM): 5 Bathing(FIM): 4 Upper Body Dressing(FIM): 4 Lower Body Dressing(FIM): 4 Toileting(FIM): 6 Transfers (B,C,W/C) (FIM): 6 Toilet/Commode Transfer(FIM): 6 Shower Transfer(FIM): 5 Additional Goals: 1-Demonstrate ADL Tasks, 2-Verbalize Understanding, 3- ImproveStrength/[place] 1=Demonstrate adherence to instructed precautions during ADL tasks. 2=Patient will verbalize/demonstrate understanding of assistive devices/ modifications for ADL. 3=Patient will improve strength/tolerance for activity to enable patient to perform ADL's. OT Education/Plan Problem List/Assessment Assessment: Decreased Activ Tolerance, Decreased UE Strength, Dependent Transfers, Impaired Bed Mobility, Impaired Cognition, Impaired Coordination, Impaired Funct Balance, Impaired I ADL's, Impaired Self-Care Skills, Restricted Funct UE ROM Discharge Recommendations Plan/Recommendations: Continue POC Therapy D/C Recommendations: 24 hr Supervision Treatment Plan/Plan of Care Treatment,Training & Education: Yes Patient would benefit from OT for education, treatment and training to promote independence in ADL's, mobility, safety and/or upper extremity function for ADL' s. Plan of Care: ADL Retraining, Functional Mobility, UE Funct Exercise/Act Treatment Duration: Aug 30, 2018 Frequency: 5 times per week Estimated Hrs Per Day: .5 hour per day Agreement: Yes Rehab Potential: Fair Time/GCodes Start Time: 10:40 Stop Time: 11:05 Total Time Billed (hr/min): 25 Billed Treatment Time 1, EVH x 10minutes, ADL x 15minutes KATIE MCGRATH OT Aug 16, 2018 11:18
[2018-08-16] MEDS: EXELON PATCH REMOVAL TP SCH (11:32)
[2018-08-16] MEDS: RIVASTIGMINE 9.5 MG PATCH (EXELON) NON-FORMULARY TD SCH (11:36)
--- NOTE | 2018-08-16 11:43 | History & Physical-Hospitalist ---
History of Present Illness HPI/Chief Complaint The patient is an 88-year-old white female who was brought to the emergency room yesterday by her daughter with whom she lives. The daughter noted that at approximately 10 a.m. when the patient awakened, she had a right facial droop and altered speech. The daughter was able to get her to the car and bring her to the emergency room. She required a wheelchair and was able to unload her to the wheelchair and bring her to the emergency room waiting room. The patient has moderately advanced to advanced dementia which is what caused the daughter to assume her care. There is no past history of heart disease or stroke. The last known well time was 15 hours. She had a bedside swallowing test done after admission and was thought to be capable of eating and drinking. This morning this has not proven to be the case and she is back on nothing by mouth status. Date Seen 08/16/18 Time Seen by a Provider: 11:38 Attending Physician Charbel Navarro MD PCP Charbel Navarro MD Referring Physician Date of Admission Aug 15, 2018 at 13:32 Home Medications & Allergies Home Medications Reviewed patient Home Medication Reconciliation performed by pharmacy medication reconciliations phone technician and/or nursing. Patients Allergies have been reviewed. Allergies Allergies Coded Allergies No Known Drug Allergies (Fipoivmzfw26/16/18) Past Psxklfs-Sqhzpn-Wbuakr Hx Past Med/Social Hx: Reviewed Nursing Past Med/Soc Hx Patient Social History Alcohol Use: Denies Use Recreational Drug Use: No Smoking Status: Unknown if Ever Smoked Physical Abuse Screen: No Sexual Abuse: No Recent Foreign Travel: No Contact w/other who traveled: No Recent Hopitalizations: No Recent Infectious Disease Expo: No Immunizations Up To Date Date of Pneumonia Vaccine: Nov 08, 2016 Date of Influenza Vaccine: Jul 02, 2018 Seasonal Allergies Seasonal Allergies: No Past Medical History Surgeries: Abdominal, Hysterectomy Cardiac: High Cholesterol, Hypertension Neurological: Dementia HEENT: Cataract Psychosocial: Depression Family History Reviewed Nursing Family Hx Review of Systems Constitutional: see HPI EENTM: hearing loss, dental problems Respiratory: no symptoms reported Cardiovascular: no symptoms reported Gastrointestinal: constipation Genitourinary: incontinence Musculoskeletal: muscle weakness Skin: no symptoms reported Psychiatric/Neurological: No Symptoms Reported Physical Exam Physical Exam Vital Signs Vital Signs - First Documented 08/15/18 10:58 Temp 99.1 Pulse 95 Resp 22 B/P (MAP) 200/111 (140) Pulse Ox 96 O2 Delivery Room Air Capillary Refill : Less Than 3 Seconds Height, Weight, BMI Height: 5'0.00" Weight: 169lbs. 6.4oz. 76.296475qd; 33.1 BMI Method:Estimated General Appearance: No Apparent Distress, WD/WN, Other (there is an obvious right facial droop. Her speech is unintelligible.) Eyes: Bilateral Eye Normal Inspection HEENT: Normal ENT Inspection Neck: Normal Inspection Respiratory: Chest Non Tender, Lungs Clear, Normal Breath Sounds, No Accessory Muscle Use, No Respiratory Distress Cardiovascular: Regular Rate, Rhythm, No Edema, No Gallop, No JVD, No Murmur, Normal Peripheral Pulses Gastrointestinal: Normal Bowel Sounds, No Organomegaly, No Pulsatile Mass, Non Tender, Soft, Other (no bowel movement since Saturday) Back: Normal Inspection Comments There is an obvious right facial droop. The tongue points to the right on extrusion. Speech is without recognizable words. The lap welder bilaterally appears to be 2+ and equal. She is not able to perform alternating finger to thumb movements. It is not clear whether she does not understand the instructions or whether this is a coordination problem. Extremities show equal and normal straight leg lift bilaterally. Results Results/Procedures Labs Laboratory Tests 08/15/18 10:58 08/16/18 05:45 Patient resulted labs reviewed. Assessment/Plan Admission Diagnosis CVA with right facial nerve weakness. 2. There is dysphasia and apparent loss of dexterity. 3.dysphagia. 4.moderate to moderately severe dementia Admission Status: Inpatient Order (span 2 midnights) Reason for Inpatient Admission: Stabilization and physical and occupational therapy Clinical Quality Measures DVT/VTE Risk/Contraindication: Risk Factor Score Per Nursin RFS Level Per Nursing on Admit: 4+=Very High CHARBEL NAVARRO MD Aug 16, 2018 11:43
[2018-08-16 12:00] VITALS: BP 147/65
[2018-08-16] MEDS: NS IV 1000 ML 1,000 ML IV SCH ×2 (12:12→22:48)
[2018-08-16 16:00] VITALS: BP 170/75
[2018-08-16 19:20] VITALS: BP 160/82
[2018-08-16] MEDS: ATORVASTATIN 10 MG (LIPITOR) TABLET PO SCH (20:02)
[2018-08-17] VITALS: BP 170/80
[2018-08-17 04:00] VITALS: BP 172/80
[2018-08-17 08:00] VITALS: BP 174/82
[2018-08-17] MEDS ORDERED: NON-FORMULARY MEDICATION 1 EA EA (Rivastigmine (Exelon) 9.5 MG) TD SCH (09:00)
[2018-08-17] MEDS ORDERED: VERAPAMIL HCL 120 MG PO SCH (09:00)
[2018-08-17] MEDS ORDERED: NON-FORMULARY MEDICATION 1 EA EA (Hydrochlorothiazide 12.5 MG) PO SCH (09:00)
[2018-08-17] MEDS: NS IV 1000 ML 1,000 ML IV SCH ×2 (09:04→19:28)
[2018-08-17] MEDS: EXELON PATCH REMOVAL TP SCH (09:04)
[2018-08-17] MEDS: RIVASTIGMINE 9.5 MG PATCH (EXELON) NON-FORMULARY TD SCH (09:05)
[2018-08-17] MEDS: VERAPAMIL SR 240 MG (CALAN SR) TAB PO SCH (09:34)
[2018-08-17] MEDS: HYDROCHLOROTHIAZIDE 12.5 MG (HCTZ) CAP PO SCH (09:34)
[2018-08-17 12:00] VITALS: BP 135/70
--- NOTE | 2018-08-17 13:46 | Progress Note-Hospitalist ---
Progress Note Progress Notes/Assess & Plan Date Seen 08/17/18 Time Seen by Provider: 13:43 Assessment & Plan The patient shows evidence of improvement today. She appears bright and alert. She is now able to speak such that I can understand albeit with some slurring. Physical exam: There remains a right facial droop. There is effacement of the right nasolabial fold. The tongue deviates to the right on extrusion. Lungs are clear to auscultation. CV is regular. She is able to straight leg lift bilaterally and equally. Today her diet supervisor is 2+ and equal bilaterally. She is able to perform alternating finger to thumb movements bilaterally when yesterday she could not. Impression: CVA with speech, swallowing and minor right sided weakness. Plan: PT and OT eval plus IRF JUVENAL NAVARRO MD Aug 17, 2018 13:46
[2018-08-17 16:40] VITALS: BP 138/88
[2018-08-17] MEDS: ATORVASTATIN 10 MG (LIPITOR) TABLET PO SCH (19:32)
[2018-08-17 19:35] VITALS: BP 166/78
[2018-08-18] VITALS (7 sets, daily range): BP systolic 148–189; BP diastolic 68–85
[2018-08-18] MEDS: NS IV 1000 ML 1,000 ML IV SCH (05:30)
[2018-08-18] MEDS: VERAPAMIL SR 240 MG (CALAN SR) TAB PO SCH (09:50)
[2018-08-18] MEDS: HYDROCHLOROTHIAZIDE 12.5 MG (HCTZ) CAP PO SCH (09:50)
[2018-08-18] MEDS: RIVASTIGMINE 9.5 MG PATCH (EXELON) NON-FORMULARY TD SCH (09:51)
[2018-08-18] MEDS: EXELON PATCH REMOVAL TP SCH (09:51)
--- NOTE | 2018-08-18 10:33 | Occupational Ther Daily Note ---
OT Current Status-Daily Note Subjective Pt alert, lying in bed. Nrsg in room. Pt agrees to therapy. Aphasic, no c/o pain. Mental Status/Objective Patient Orientation: Person, Place, Time, Situation Functional [place] Measure 0=Not Assessed/NA 4=Minimal Assistance 1=Total Assistance 5=Supervision or Setup 2=Maximal Assistance 6=Modified [place] 3=Moderate Assistance 7=Complete [place] Attachments: Hernandez Catheter, IV ADL-Treatment Pt agrees to sponge bath. Supine to EOB with min A. Dancing SPT from EOB to recliner. Pt required verbal and physical cues to wash parts of body. Pt able to standing with FWW and CGA while assist to wash buttocks and pravin area. Pt unable to doff/don hospital gown or socks, assist needed. After therapy, pt sitting in recliner with call light/phone in reach. Reported to nrsg, breakfast tray beside pt. All needs met in room. Eating (FIM): 3 Bathing (FIM): 2 Lower Body Dressing (FIM): 2 OT Short Term Goals Short Term Goals Time Frame: Aug 23, 2018 Eating(FIM): 4 Grooming(FIM): 4 Bathing(FIM): 3 Upper Body Dressing(FIM): 3 Lower Body Dressing(FIM): 3 Toileting(FIM): 3 Transfers (B,C,W/C) (FIM): 5 Toilet/Commode Transfer(FIM): 5 Shower Transfer(FIM): 4 Additional Short Term Goals: 1-Demonstrate ADL Tasks, 2-Verbalize Understanding , 3-ImproveStrength/[place] 1=Demonstrate adherence to instructed precautions during ADL tasks. 2=Patient will verbalize/demonstrate understanding of assistive devices/ modifications for ADL. 3=Patient will improve strength/tolerance for activity to enable patient to perform ADL's. OT Residential Goals Residential Goals Time Frame: Aug 30, 2018 Eating (FIM): 5 Grooming(FIM): 5 Bathing(FIM): 4 Upper Body Dressing(FIM): 4 Lower Body Dressing(FIM): 4 Toileting(FIM): 6 Transfers (B,C,W/C) (FIM): 6 Toilet/Commode Transfer(FIM): 6 Shower Transfer(FIM): 5 Additional Goals: 1-Demonstrate ADL Tasks, 2-Verbalize Understanding, 3- ImproveStrength/Mal[place] 1=Demonstrate adherence to instructed precautions during ADL tasks. 2=Patient will verbalize/demonstrate understanding of assistive devices/ modifications for ADL. 3=Patient will improve strength/tolerance for activity to enable patient to perform ADL's. OT Education/Plan Discharge Recommendations Plan/Recommendations: Continue POC Treatment Plan/Plan of Care Patient would benefit from OT for education, treatment and training to promote independence in ADL's, mobility, safety and/or upper extremity function for ADL' s. Plan of Care: ADL Retraining, Functional Mobility, UE Funct Exercise/Act Treatment Duration: Aug 30, 2018 Frequency: 5 times per week Estimated Hrs Per Day: .5 hour per day Agreement: Yes Rehab Potential: Fair Time/GCodes Start Time: 10:55 Stop Time: 10:25 Total Time Billed (hr/min): 30 Billed Treatment Time 1 visit-ADL 2 (30 min) VIC BAKER Aug 18, 2018 10:33
--- NOTE | 2018-08-18 11:14 | ST Dysphagia Evaluation ---
Speech Evaluation-General Medical Diagnosis CVA with right sided weakness Onset Date: Aug 15, 2018 Therapy Diagnosis Therapy Diagnosis: Dysphagia Precautions Precautions: Aspiration Precautions/Isolations: Fall Prevention, Standard Precautions Referral Referring Physician: Dr. Charbel Atkins Reason for Referral: Evaluation/Treatment Medical History Pertinent Medical History: HTN Current History CVA Reviewed History: Yes Social History Current Living Status: Children Speech PLF/Current-Dysphagia Prior Level of Function Pt has hx of moderately advanced hx of Dementia. Pt lives with her dtr due to this. Subjective Pt in bed. Alert and cooperative. Oral Motor Skills Dentition: Natural Ability to Follow Directions: Fair Pt is currently NPO. Oral Expression Ability: Severe Impairment (pt has significant word retrieval deficits.) Voice Voice Phonatory-Based Quality: Normal Voice Pitch: Normal Voice Loudness: Normal Face Facial Symmetry: Asymmetrical (droop on right) Oral-Facial Assessment Oral-Facial Dentition: Normal Labial Seal Description: Droops Right Smile: Droops Right Puff Cheeks: Reduced Strength Lingual Protrusion: Abnormal (deviates off to right) Lingual ROM: Abnormal DNT Dysphagia Evaluation Consistencies Presented: Thin Liquid, Mechanical Soft, [place] Thick Liquid, Pureed Oral Phase: Reduced Oral Transit (for mech soft texture) Pharyngeal Phase: Delayed Laryngeal Elevation Funct. Velo/Pharyngeal Symptom: Cough After Swallow (for thin liquids) Dietary Recommendations: Pureed Liquid Recommendations: [place] Consistancy Swallowing Precautions: Oral Supervision Staff, Small Bites and Sips, Sitting Upright 90 Degrees, Sitting 90 Degrees 30 Post Intake Dysphagia Evaluation Summary Pt has moderate oropharyngeal dysphagia. Pt is dysphagic for thin liquids. Pt noted to cough x1 after the swallow. When thickened to nectar consistency the pt did not display any s/s of aspiration. Pt unable to propel the mech soft texture posteriorly to swallow. She had no difficulty with the pureed texture. Speech Short Term Goals Short Term Goals Short Term Goals Pt will tolerate current recommended diet without s/s of aspiration. Time Frame-ST week Speech Director Of Social Work Goals Longterm Goals Pt will tolerate least restrictive diet with no s/s of aspiration. Time Frame: 1.5 weeks Speech-Plan Patient/Family Goals Patient/Family Goals: Pt unable to state goals due to dementia and word retrieval difficulty. Treatment Plan Speech Therapy Treatment Plan: Modify Plan, See Comments (Skilled ST recommended to address pt's dysphagia.) Skilled ST indicated for oropharyngeal dysphagia. Frequency: 3 times per week Estimated Hrs Per Day: .25 hour per day Rehab Potential: Fair Safety Risks/Education Teaching Recipient: Patient Teaching Methods: Discussion Response to Teaching: Unable to Comprehend Time Speech Therapy Time In: 08:30 Speech Therapy Time Out: 08:50 Total Billed Time: 20 Billed Treatment Time 1, JULIANNE Schwartz Aug 18, 2018 11:14
--- NOTE | 2018-08-18 11:35 | Progress Note-Hospitalist ---
Subjective HPI/CC On Admission Date Seen by Provider: Aug 18, 2018 Time Seen by Provider: 08:30 The patient is an 88-year-old white female who was brought to the emergency room yesterday by her daughter with whom she lives. The daughter noted that at approximately 10 a.m. when the patient awakened, she had a right facial droop and altered speech. The daughter was able to get her to the car and bring her to the emergency room. She required a wheelchair and was able to unload her to the wheelchair and bring her to the emergency room waiting room. The patient has moderately advanced to advanced dementia which is what caused the daughter to assume her care. There is no past history of heart disease or stroke. The last known well time was 15 hours. She had a bedside swallowing test done after admission and was thought to be capable of eating and drinking. This morning this has not proven to be the case and she is back on nothing by mouth status. Subjective/Events-last exam Pt reports doing well. Just met with speech therapy. Has not been up and ambulated yet. Objective Exam Vital Signs Vital Signs Date Time Temp Pulse Resp B/P (MAP) Pulse Ox O2 Delivery O2 Flow Rate FiO2 08/18/18 12:00 99.8 70 16 150/78 (102) 94 Room Air Capillary Refill : Less Than 3 Seconds General Appearance: No Apparent Distress, Chronically ill Respiratory: Lungs Clear, No Respiratory Distress Cardiovascular: Regular Rate, Rhythm, No Murmur Neurologic/Psychiatric: Other (alert, pleasant) Results/Procedures Lab Patient resulted labs reviewed. Assessment/Plan Assessment and Plan Assess & Plan/Chief Complaint Acute CVA Diagnosis/Problems Diagnosis/Problems (1) Acute ischemic stroke Assessment & Plan: MRI shows acute infarct ASA given and statin ordered but held for NPO status due to dysphagia PT/OT/ST consulted Likely will DC to IRU tomorrow pending PT eval Called and discussed with daughter Dulce who is agreeable with plan (2) Acute right-sided weakness Status: Acute Assessment & Plan: PT/OT as above (3) Dysphagia due to recent cerebrovascular accident Assessment & Plan: ST ordered Pureed diet and [place] thick liquids (4) Essential (primary) hypertension Assessment & Plan: Improving control trend Clinical Quality Measures DVT/VTE Risk/Contraindication: Risk Factor Score Per Nursin RFS Level Per Nursing on Admit: 4+=Very High JOEL VAZQUEZ MD Aug 18, 2018 11:35 am
--- NOTE | 2018-08-18 14:24 | Physical Therapy Evaluation ---
PT Evaluation-General Medical Diagnosis Admission Date Aug 15, 2018 at 13:32 Medical Diagnosis: CVA with right sided weakness Onset Date: Aug 15, 2018 Therapy Diagnosis Therapy Diagnosis: General weakness, Right side weakness, Height/Weight Height (Feet): 5 Height (Inches): 0.00 Weight (Pounds): 169 Weight (Ounces): 6.4 Precautions Precautions/Isolations: Fall Prevention, Standard Precautions Weight Bear Status Right Lower Extremity: Right Weight Bearing/Tolerated Left Lower Extremity: Left Weight Bearing/Tolerated Referral Physician: oJcelyne Mckeon MD Reason for Referral: Evaluation/Treatment Medical History Pertinent Medical History: Dementia, HTN Current History Pt brought into ER by daughter Reviewed History: Yes Social History Home: Single Level Current Living Status: Children Entry Into Home: Level Entry PT Steps Into Home: 0 PT Steps Inside Home: 0 Prior/Core FIM Prior Level of Function Functional [place] Measure 0=Not Assessed/NA 4=Minimal Assistance 1=Total Assistance 5=Supervision or Setup 2=Maximal Assistance 6=Modified [place] 3=Moderate Assistance 7=Complete IndependenceIRFPAI Quality Coding Scale 6 Independent with activity with or without an assistive device 5 Patient requires set up or clean up by helper. Patient completes activity by themselves 4 Supervision or touching assist (CGA). [place] provide cues , steadying assist 3 The helper provides less than half the effort to complete the activity 2 The helper provides more than half the effort to complete the activity 1 Dependent. The helper does all the effort to complete an activity 7 Patient refused to complete or attempt activity 9 The patient did not perform the activity before the current illness or injury 88 Not attempted due to Medical conditions or safety concerns Bed Mobility: 4 Transfers (B,C,W/C) (FIM): 4 Gait: 4 Stairs: 4 PT Evaluation-Current Subjective Pt awake in chair visiting with her daughter when PT arrived. Pt agreed to evaluation by PT. Pain Numeric Pain Scale: 0-No Pain Location: No Pain Reported Objective Patient Orientation: Confused, [place] Attachments: Hernandez Catheter, IV ROM/Strength ROM Upper Extremities WNL ROM Lower Extremities WNL Strength Upper Extremities Unable to follow directions for strength testing. Strength Lower Extremities Patient unable to follow direction to perform gross motor assessment, Integumentary/Posture Bowel Incontinence: No Bladder Incontinence: No Sensory Hearing: Functional Sensation Right Upper Extremit: Intact Sensation Left Upper Extremity: Intact Sensation Right Lower Extremit: Intact Sensation Left Lower Extremity: Intact Transfers Functional [place] Measure 0=Not Assessed/NA 4=Minimal Assistance 1=Total Assistance 5=Supervision or Setup 2=Maximal Assistance 6=Modified [place] 3=Moderate Assistance 7=Complete [place] Transfers (B, C, W/C) (FIM): 4 Scootin Supine to/from Sit: 4 Gait Mode of Locomotion: Walk Anticipated Mode of Locomotion: Walk Gait (FIM): 2 Distance (FIM): 1=733-51 ft Distance: 50' Gait Level of Assist: 4 Gait Persons Needed: 1 Gait Assistive Device: FWW Balance Sitting Static: Good Sitting Dynamic: Good Standing Static: Fair Standing Dynamic: Fair Assessment/Needs Pt has trouble following direction for proper muscle grading. Patient showed normal ROM for UE and LEs during evaluation. Patient was able to ambulate for 50 ' with a FWW requiring CGA. Patients speech has been impacted by stroke and difficult to understand responses. Patients daughter stated that her PLOF is similar to where she is currently at. Patient will be looked at closer and assessed on being move to inpatient rehabilitation. Rehab Potential: Fair PT Short Term Goals Short Term Goals Transfers (B,C,W/C) (FIM): 5 PT Snf Goals Chef Concierge Goals PT Chef Concierge Goals Time Frame: Aug 30, 2018 Transfers (B,C,W/C) (FIM): 5 Gait (FIM): 2 Gait distance (FIM): 9=554-20 ft Distance: 75' Gait Level of Assist: 4 Gait Assistive Device: FWW PT Plan Problem List Problem List: Activity Tolerance, Functional Strength, Safety, Balance, Gait, Transfer, Bed Mobility, ROM Treatment/Plan Treatment Plan: Continue Plan of Care Treatment Plan: Bed Mobility, Education, Functional Activity [place], Functional Strength, Group Therapy, Gait, Safety, Therapeutic Exercise, Transfers Treatment Duration: Aug 30, 2018 Frequency: 6 times per week Estimated Hrs Per Day: .25 hour per day Patient and/or Family Agrees t: Yes Time/GCodes Time In: 1340 Time Out: 1355 Total Billed Treatment Time: 15 Total [facility] Aug 18, 2018 14:24
[2018-08-18] MEDS: ATORVASTATIN 10 MG (LIPITOR) TABLET PO SCH (21:50)
[2018-08-19 03:30] VITALS: BP 188/85
[2018-08-19 07:50] VITALS: BP 180/90
[2018-08-19] MEDS ORDERED: ASPI-586 PO (08:00)
--- NOTE | 2018-08-19 08:30 | Discharge Summary-Hospitalist ---
Diagnosis/Chief Complaint Date of Admission Aug 15, 2018 at 1:32 pm Date of Discharge Discharge Date: Aug 19, 2018 Admission Diagnosis CVA with right facial nerve weakness. 2. There is dysphasia and apparent loss of dexterity. 3.dysphagia. 4.moderate to moderately severe dementia Discharge Diagnosis (1) Acute ischemic stroke Assessment & Plan: MRI shows acute infarct ASA given and statin ordered but held for NPO status due to dysphagia PT/OT/ST consulted Likely will DC to IRU tomorrow pending PT jasmin Called and discussed with daughter Dulce who is agreeable with plan (2) Acute right-sided weakness Status: Acute Assessment & Plan: PT/OT as above (3) Dysphagia due to recent cerebrovascular accident Assessment & Plan: ST ordered Pureed diet and [place] thick liquids (4) Essential (primary) hypertension Assessment & Plan: Improving control trend Discharge Summary Discharge Physical Exam Allergies: Coded Allergies: No Known Drug Allergies (Unverified , 08/15/18) Vitals & I&Os Vital Signs Date Time Temp Pulse Resp B/P (MAP) Pulse Ox O2 Delivery O2 Flow Rate FiO2 08/19/18 10:45 71 18 180/90 96 Room Air 08/19/18 07:50 98.4 General Appearance: No Apparent Distress, WD/WN Respiratory: Lungs Clear, No Respiratory Distress Cardiovascular: Regular Rate, Rhythm, No Murmur Hospital Course Pt was admitted for focal deficits and right sided weakness and found to have an acute CVA on MRI. She had residual weakness and dysphagia and was evaluated by therapy services and deemed an appropriate candidate for inpatient rehab. She was discharged to IRU for intensive therapy. Labs (last 24 hrs) Microbiology 08/15/18 Urine Culture - Final, Complete Aerococcus sanguinicola Aerococcus urinae Patient resulted labs reviewed. Discussion & Recommendations Discharge Planning: >30 minutes discharge planning Discharge Home Medications: Active Scripts Active Reported Calan Sr (Verapamil HCl) 120 Mg Tablet.er 120 Mg PO DAILY Exelon (Rivastigmine) 9.5 Mg Patch 9.5 Mg TD DAILY Hydrochlorothiazide 12.5 Mg Tablet 12.5 Mg PO DAILY Glucosamine (Glucosamine Sulfate 2Kcl) 1,000 Mg Tablet 1,000 Mg PO DAILY Co Q-10 100 mg Softgel (Ubidecarenone/Vit E Acetate) 1 Each Capsule 100 Mg PO DAILY Coconut Oil 1,000 Mg Capsule 1,000 Mg PO DAILY Citalopram HBr (Citalopram Hydrobromide) 10 Mg Tablet 10 Mg PO DAILY Centrum Silver Tablet (Multivit-Min/FA/Lycopene/Lut) 1 Each Tablet 1 Tab PO DAILY Atorvastatin Calcium 10 Mg Tablet 10 Mg PO DAILY Instructions to patient/family Please see electronic discharge instructions given to patient. Clinical Quality Measures DVT/VTE Risk/Contraindication: Risk Factor Score Per Nursin RFS Level Per Nursing on Admit: 4+=Very High OJEL VAZQUEZ MD Aug 19, 2018 08:30
[2018-08-19] MEDS: VERAPAMIL SR 240 MG (CALAN SR) TAB PO SCH (08:49)
[2018-08-19] MEDS: HYDROCHLOROTHIAZIDE 12.5 MG (HCTZ) CAP PO SCH (08:49)
[2018-08-19] MEDS: RIVASTIGMINE 9.5 MG PATCH (EXELON) NON-FORMULARY TD SCH (08:50)
[2018-08-19] MEDS: EXELON PATCH REMOVAL TP SCH (08:50)
--- NOTE | 2018-08-19 10:30 | Speech Therapy Daily Note ---
Speech Daily Progress Note Subjective Date Seen by Provider: Aug 19, 2018 Time Seen by Provider: 08:00 Pt in bed....breakfast try next to bed. Pt pleasant as always. Pain Numeric Pain Scale: 0-No Pain Objective Set pt up with tray. Pt began feeding herself. Pt would place food in mouth and attempt to swallow. Pt observed to push food out of mouth with her tongue. Pt verbally cued to swallow food but this continued on. Pt noted to cough x2 after swallow of food. Instructed pt to drink some thickened liquids. Same result, with some unintentional leakage from mouth. No coughing noted for the nectar thick liquid. Attempted feeding of pt but got the same results. Informed nursing and will call Dr to inform her of results. Pt is to be transferred to the ARU today according to nursing. Will reassess when she moves to ARU and when pt more alert. Assessment Assessment Current Status: Poor Progress Treatment Plan Continue Plan of Care Speech Short Term Goals Short Term Goals Short Term Goals Pt will tolerate current recommended diet without s/s of aspiration. Time Frame-ST week Speech Photo Lab Technician Goals [facility] Goals Pt will tolerate least restrictive diet with no s/s of aspiration. Time Frame: 1.5 weeks Speech-Plan Patient/Family Goals Patient/Family Goals: Pt unable to state goals due to speech difficulty. Treatment Plan Speech Therapy Treatment Plan: Discontinue ST (DC skilled ST from acute. Will follow on ARU.) Continue to follow pt for swallowing/communication deficits on ARU. Frequency: 3 times per week Estimated Hrs Per Day: .25 hour per day Rehab Potential: Guarded Barriers to Learning: Decreased cognition Safety Risks/Education Teaching Recipient: Patient Teaching Methods: Discussion Response to Teaching: Unable to Comprehend Time Speech Therapy Time In: 08:00 Speech Therapy Time Out: 08:20 Total Billed Time: 20 Billed Treatment Time 1, DYST No JULIANNE ZULUAGA Aug 19, 2018 10:30
[2018-08-19 10:45] VITALS: BP 180/90
== END 2018-08-19 10:45 | DRG 65 ==
LOC: EDUNIT# 10:44 → ER 10:46 → 4TH 13:32
PROVIDERS: ADMIT Internal Medicine; ATTEND Family Medicine
DX: I63.50 Cerebral infarction due to unspecified occlusion or stenosis of unspecified cerebral artery (principal); G81.91 Hemiplegia, unspecified affecting right dominant side; R29.810 Facial weakness; R47.02 Dysphasia; I69.391 Dysphagia following cerebral infarction; R13.10 Dysphagia, unspecified; F03.90 Unspecified dementia, unspecified severity, without behavioral disturbance, psychotic disturbance, mood disturbance, and anxiety; I10 Essential (primary) hypertension; Z66 Do not resuscitate; K59.00 Constipation, unspecified; E78.00 Pure hypercholesterolemia, unspecified; F32.9 Major depressive disorder, single episode, unspecified; R32 Unspecified urinary incontinence; N28.9 Disorder of kidney and ureter, unspecified
CPT/HCPCS: 36415; 51702; 70450; 70496; 70498; 70553; 71045; 80053; 80061; 81000; 84484; 85025; 85379; 85610; 85730; 87077; 87088; 93005; 93041; 93880; 96360

== ENCOUNTER 2018-09-23 14:11 | Emergency (ER) | payer MEDICARE, OTHER ==
[~2018-09-23] VITALS: Ht 152.4 cm; Wt 72.3 kg
[~2018-09-23 14:11] MED LIST: ASPI-586 PO; ATOR10TA66 PO; CEPH250C PO; CITA10TA7 PO; COCO1000 PO; GLUC100016 PO; HYDR12.56 PO; MULT-1029 PO; POTA10TA6 PO; RIVA1PAT3 TD; UBID1CAP53 PO; VERA120T2 PO; VERA120T84 PO
--- OUTSIDE RECORDS SUMMARY | 2018-09-23 14:20 | XMS REPORT | Continuity of Care Document ---
Author Author [facility] Organization [facility] Address Unknown Phone Unavailable Allergies Active Description Code Type Severity Reaction Onset Reported/Identified Relationship to Patient Clinical Status Yes No Allergy Information Available [id number] Drug Allergy Unknown N/A 2017 Yes No Known Drug Allergies [id number] Drug Allergy Unknown N/A 08/15/2018 Medications There is no data. Problems Date Dx Coded Attending Type Code Diagnosis Diagnosed By 03/11/2015 GRICELDA MADDOX COMMERCIAL ACCOUNT EXECUTIVE-C Ot 585.9 03/16/2015 GRICELDA MADDOX COMMERCIAL ACCOUNT EXECUTIVE-C Ot 585.9 02/08/2016 GRICELDA MADDOX COMMERCIAL ACCOUNT EXECUTIVE-C Ot 585.9 CHRONIC KIDNEY DISEASE, UNSPECIFIED 02/09/2016 GRICELDA MADDOX [employer] COMMERCIAL ACCOUNT EXECUTIVE-C Ot N18.3 CHRONIC KIDNEY DISEASE, STAGE 3 (MODERAT 02/10/2016 NEW, GRICELDA [employer]le COMMERCIAL ACCOUNT EXECUTIVE-C Ot N18.9 CHRONIC KIDNEY DISEASE, UNSPECIFIED 02/14/2016 NEW GRICELDA StoneMichelle COMMERCIAL ACCOUNT EXECUTIVE-C Ot N18.9 CHRONIC KIDNEY DISEASE, UNSPECIFIED 03/06/2016 NEW GRICELDA StoneMichelle COMMERCIAL ACCOUNT EXECUTIVE-C Ot N18.9 CHRONIC KIDNEY DISEASE, UNSPECIFIED 03/27/2016 NEWGRICELDA [employer]Michelle COMMERCIAL ACCOUNT EXECUTIVE-C Ot N18.9 CHRONIC KIDNEY DISEASE, UNSPECIFIED 01/14/2017 NEW GRICELDA [employer]le COMMERCIAL ACCOUNT EXECUTIVE-C Ot 585.9 CHRONIC KIDNEY DISEASE, UNSPECIFIED 01/14/2017 NEW, GRICELDA StoneMichelle COMMERCIAL ACCOUNT EXECUTIVE-C Ot N18.9 CHRONIC KIDNEY DISEASE, UNSPECIFIED 01/20/2017 NEWGRICELDA [employer]Michelle COMMERCIAL ACCOUNT EXECUTIVE-C Ot D64.9 ANEMIA, UNSPECIFIED 01/20/2017 NEWGRICELDA [employer]Michelle COMMERCIAL ACCOUNT EXECUTIVE-C Ot E66.9 OBESITY, UNSPECIFIED 01/20/2017 NEWGRICELDA COMMERCIAL ACCOUNT EXECUTIVE-C Ot E78.5 HYPERLIPIDEMIA, UNSPECIFIED 01/20/2017 NEWGRICELDA COMMERCIAL ACCOUNT EXECUTIVE-C Ot E87.1 HYPO-OSMOLALITY AND HYPONATREMIA 01/20/2017 NEW, GRICELDA Reese COMMERCIAL ACCOUNT EXECUTIVE-C Ot E87.6 HYPOKALEMIA 01/20/2017 NEW, GRICELDA Reese COMMERCIAL ACCOUNT EXECUTIVE-C Ot E88.09 OTH DISORDERS OF PLASMA-PROTEIN METABOLI 01/20/2017 NEW, GRICELDA Reese COMMERCIAL ACCOUNT EXECUTIVE-C Ot 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, W S 01/20/2017 NEW, GRICELDA Reese COMMERCIAL ACCOUNT EXECUTIVE-C Ot N18.3 CHRONIC KIDNEY DISEASE, STAGE 3 (MODERAT 01/20/2017 NEW, GRICELDA Reese COMMERCIAL ACCOUNT EXECUTIVE-C Ot N25.81 SECONDARY HYPERPARATHYROIDISM OF RENAL O 01/20/2017 NEW, GRICELDA Reese COMMERCIAL ACCOUNT EXECUTIVE-C Ot 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, ADULT TYPE 01/20/2017 NEW, GRICELDA Reese COMMERCIAL ACCOUNT EXECUTIVE-C Ot R73.01 IMPAIRED FASTING GLUCOSE 01/20/2017 NEW, GRICELDA Reese COMMERCIAL ACCOUNT EXECUTIVE-C Ot R80.9 PROTEINURIA, UNSPECIFIED 02/12/2017 NEW, GRICELDA Reese COMMERCIAL ACCOUNT EXECUTIVE-C Ot D64.9 ANEMIA, UNSPECIFIED 02/12/2017 NEW, GRICELDA Reese COMMERCIAL ACCOUNT EXECUTIVE-C Ot E66.9 OBESITY, UNSPECIFIED 02/12/2017 NEW, GRICELDA Reese COMMERCIAL ACCOUNT EXECUTIVE-C Ot E78.5 HYPERLIPIDEMIA, UNSPECIFIED 02/12/2017 NEW, GRICELDA Reese COMMERCIAL ACCOUNT EXECUTIVE-C Ot E87.1 HYPO-OSMOLALITY AND HYPONATREMIA 02/12/2017 NEW, GRICELDA Reese COMMERCIAL ACCOUNT EXECUTIVE-C Ot E87.6 HYPOKALEMIA 02/12/2017 NEW, GRICELDA Reese COMMERCIAL ACCOUNT EXECUTIVE-C Ot E88.09 OTH DISORDERS OF PLASMA-PROTEIN METABOLI 02/12/2017 NEW, GRICELDA Reese COMMERCIAL ACCOUNT EXECUTIVE-C Ot 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, W S 02/12/2017 NEW, GRICELDA Reese COMMERCIAL ACCOUNT EXECUTIVE-C Ot N18.3 CHRONIC KIDNEY DISEASE, STAGE 3 (MODERAT 02/12/2017 NEW, GRICELDA Reese COMMERCIAL ACCOUNT EXECUTIVE-C Ot N25.81 SECONDARY HYPERPARATHYROIDISM OF RENAL O 02/12/2017 NEW, GRICELDA Reese COMMERCIAL ACCOUNT EXECUTIVE-C Ot 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, ADULT TYPE 02/12/2017 NEW, GRICELDA Reese COMMERCIAL ACCOUNT EXECUTIVE-C Ot R73.01 IMPAIRED FASTING GLUCOSE 02/12/2017 NEW, GRICELDA Reese COMMERCIAL ACCOUNT EXECUTIVE-C Ot R80.9 PROTEINURIA, UNSPECIFIED 03/05/2017 NEW, GRICELDA Reese COMMERCIAL ACCOUNT EXECUTIVE-C Ot D64.9 ANEMIA, UNSPECIFIED 03/05/2017 NEW, GRICELDA Reese COMMERCIAL ACCOUNT EXECUTIVE-C Ot E66.9 OBESITY, UNSPECIFIED 03/05/2017 NEW, GRICELDA Reese COMMERCIAL ACCOUNT EXECUTIVE-C Ot E78.5 HYPERLIPIDEMIA, UNSPECIFIED 03/05/2017 NEW, GRICELDA Reese COMMERCIAL ACCOUNT EXECUTIVE-C Ot E87.1 HYPO-OSMOLALITY AND HYPONATREMIA 03/05/2017 NEW, GRICELDA G. COMMERCIAL ACCOUNT EXECUTIVE-C Ot E87.6 HYPOKALEMIA 03/05/2017 NEW, GRICELDA G. 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 COMMERCIAL ACCOUNT EXECUTIVE-C Ot 585.9 CHRONIC KIDNEY DISEASE, UNSPECIFIED 08/15/2018 NEW, GRICELDA G. COMMERCIAL ACCOUNT EXECUTIVE-C Ot N18.9 CHRONIC KIDNEY DISEASE, UNSPECIFIED 08/15/2018 NEW, GRICELDA Reese COMMERCIAL ACCOUNT EXECUTIVE-C Ot D64.9 ANEMIA, UNSPECIFIED 08/15/2018 NEW, GRICELDA G. COMMERCIAL ACCOUNT EXECUTIVE-C Ot E66.9 OBESITY, UNSPECIFIED 08/15/2018 NEW, GRICELDA Reese COMMERCIAL ACCOUNT EXECUTIVE-C Ot E78.5 HYPERLIPIDEMIA, UNSPECIFIED 08/15/2018 NEW, GRICELDA G. COMMERCIAL ACCOUNT EXECUTIVE-C Ot E87.1 HYPO-OSMOLALITY AND HYPONATREMIA 08/15/2018 NEW, GRICELDA Mary Ann COMMERCIAL ACCOUNT EXECUTIVE-C Ot E87.6 HYPOKALEMIA 08/15/2018 NEW, GRICELDA G. 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, ADULT TYPE 08/15/2018 CYNTHIA MADDOXPorsha [employer]le COMMERCIAL ACCOUNT EXECUTIVE-C Ot R73.01 IMPAIRED FASTING GLUCOSE 08/15/2018 CYNTHIA MADDOXPorsha [employer]le COMMERCIAL ACCOUNT EXECUTIVE-C Ot R80.9 PROTEINURIA, UNSPECIFIED 08/18/2018 JOEL VAZQUEZ MD Ot E78.00 PURE HYPERCHOLESTEROLEMIA, UNSPECIFIED 08/18/2018 JOEL VAZQUEZ MD Ot F03.90 UNSPECIFIED DEMENTIA WITHOUT BEHAVIORAL 08/18/2018 JOEL VAZQUEZ MD Ot F32.9 MAJOR DEPRESSIVE DISORDER, SINGLE EPISOD 08/18/2018 JOEL VAZQUEZ MD Ot G81.91 HEMIPLEGIA, UNSPECIFIED AFFECTING RIGHT 08/18/2018 JOEL VAZQUEZ MD Ot I10 ESSENTIAL (PRIMARY) HYPERTENSION 08/18/2018 JOEL VAZQUEZ MD Ot 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 08/18/2018 JOEL VAZQUEZ MD, Ot K59.00 CONSTIPATION, UNSPECIFIED 08/18/2018 JOEL VAZQUEZ MD Ot N28.9 DISORDER OF KIDNEY AND URETER, UNSPECIFI 08/18/2018 JOEL VAZQUEZ MD Ot R13.10 DYSPHAGIA, UNSPECIFIED 08/18/2018 JOEL VAZQUEZ MD Ot R29.810 FACIAL WEAKNESS 08/18/2018 JOEL VAZQUEZ MD Ot R32 UNSPECIFIED URINARY INCONTINENCE 08/18/2018 JOEL VAZQUEZ MD Ot R47.02 DYSPHASIA 08/18/2018 JOEL VAZQUEZ MD Ot Z66 DO NOT RESUSCITATE 08/19/2018 JOEL VAZQUEZ MD, Ot E78.00 PURE HYPERCHOLESTEROLEMIA, UNSPECIFIED 08/19/2018 JOEL VAZQUEZ MD Ot F03.90 UNSPECIFIED DEMENTIA WITHOUT BEHAVIORAL 08/19/2018 JOEL VAZQUEZ MD Ot F32.9 MAJOR DEPRESSIVE DISORDER, SINGLE EPISOD 08/19/2018 JOEL VAZQUEZ MD Ot G81.91 HEMIPLEGIA, UNSPECIFIED AFFECTING RIGHT 08/19/2018 JOEL VAZQUEZ MD Ot I10 ESSENTIAL (PRIMARY) HYPERTENSION 08/19/2018 JOEL VAZQUEZ MD Ot 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 08/19/2018 JOEL VAZQUEZ MD Ot K59.00 CONSTIPATION, UNSPECIFIED 08/19/2018 JOEL VAZQUEZ MD Ot N28.9 DISORDER OF KIDNEY AND URETER, UNSPECIFI 08/19/2018 JOEL VAZQUEZ MD Ot R13.10 DYSPHAGIA, UNSPECIFIED 08/19/2018 JOEL VAZQUEZ MD Ot R29.810 FACIAL WEAKNESS 08/19/2018 JOEL VAZQUEZ MD Ot R32 UNSPECIFIED URINARY INCONTINENCE 08/19/2018 JOEL VAZQUEZ MD Ot R47.02 DYSPHASIA 08/19/2018 JOEL VAZQUEZ MD Ot Z66 DO NOT RESUSCITATE 08/19/2018 JOEL VAZQUEZ MD Ot E78.00 PURE HYPERCHOLESTEROLEMIA, UNSPECIFIED 08/19/2018 JOEL VAZQUEZ MD Ot F03.90 UNSPECIFIED DEMENTIA WITHOUT BEHAVIORAL 08/19/2018 JOEL VAZQUEZ MD Ot F32.9 MAJOR DEPRESSIVE DISORDER, SINGLE EPISOD 08/19/2018 JOEL VAZQUEZ MD Ot G81.91 HEMIPLEGIA, UNSPECIFIED AFFECTING RIGHT 08/19/2018 JOEL VAZQUEZ MD Ot I10 ESSENTIAL (PRIMARY) HYPERTENSION 08/19/2018 JOEL VAZQUEZ MD Ot 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 08/19/2018 JOEL VAZQUEZ MD Ot I69.391 DYSPHAGIA FOLLOWING CEREBRAL INFARCTION 08/19/2018 JOEL VAZQUEZ MD Ot K59.00 CONSTIPATION, UNSPECIFIED 08/19/2018 JOEL VAZQUEZ MD Ot N28.9 DISORDER OF KIDNEY AND URETER, UNSPECIFI 08/19/2018 JOEL VAZQUEZ MD Ot R13.10 DYSPHAGIA, UNSPECIFIED 08/19/2018 JOEL VAZQUEZ MD, Ot R29.810 FACIAL WEAKNESS 08/19/2018 JOEL VAZQUEZ MD Ot R32 UNSPECIFIED URINARY INCONTINENCE 08/19/2018 JOEL VAZQUEZ MD Ot R47.02 DYSPHASIA 08/19/2018 JOEL VAZQUEZ MD Ot Z66 DO NOT RESUSCITATE 08/30/2018 SHAQUILLE BERMUDEZ MD Ot B96.20 UNSP ESCHERICHIA COLI THE CAUSE OF DI 08/30/2018 SHAQUILLE BERMUDEZ MD E Ot E87.6 HYPOKALEMIA 08/30/2018 SHAQUILLE BERMUDEZ MD E Ot F03.90 UNSPECIFIED DEMENTIA WITHOUT BEHAVIORAL 08/30/2018 SHAQUILLE BERMUDEZ MD E Ot I10 ESSENTIAL (PRIMARY) HYPERTENSION 08/30/2018 SHAQUILLE BERMUDEZ MD Ot I69.320 APHASIA FOLLOWING CEREBRAL INFARCTION 08/30/2018 SHAQUILLE BERMUDEZ MD Ot I69.322 DYSARTHRIA FOLLOWING CEREBRAL INFARCTION 08/30/2018 SHAQUILLE BERMUDEZ MD Ot I69.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 Results Test [...] by light microscopy LARGE DEN PHOSPHATE NRG Bacterial urine culture - 08/15/18 12:00 Bacterial urine culture [id number] NRG COLONY COUNT >100,000/ML NRG FTX;REPORTABLE SEE COMMENTS NRG Complete blood count (CBC) with automated white blood cell (WBC) differential - 08/16/18 05:45 Blood leukocytes automated count (number/volume) 6.9 10*3/uL 4.3-11.0 Blood erythrocytes automated count (number/volume) 4.58 10*6/uL 4.35-5.85 Venous blood hemoglobin measurement (mass/volume) 13.4 g/dL 11.5-16.0 Blood hematocrit (volume fraction) 40 % 35-52 Automated erythrocyte mean corpuscular volume 88 [foz_us] 80-99 Automated erythrocyte mean corpuscular hemoglobin (mass per erythrocyte) 29 pg 25-34 Automated erythrocyte mean corpuscular hemoglobin concentration measurement ( mass/volume) 33 g/dL 32-36 Automated erythrocyte distribution width ratio 13.5 % 10.0-14.5 Automated blood platelet count (count/volume) 209 10*3/uL 130-400 Automated blood platelet mean volume measurement 9.7 [foz_us] 7.4-10.4 Automated blood neutrophils/100 leukocytes 76 % 42-75 Automated blood lymphocytes/100 leukocytes 15 % 12-44 Blood monocytes/100 leukocytes 7 % 0-12 Automated blood eosinophils/100 leukocytes 1 % 0-10 Automated blood basophils/100 leukocytes 0 % 0-10 Blood neutrophils automated count (number/volume) 5.3 10*3 1.8-7.8 Blood lymphocytes automated count (number/volume) 1.0 10*3 1.0-4.0 Blood monocytes automated count (number/volume) 0.5 10*3 0.0-1.0 Automated eosinophil count 0.1 10*3/uL 0.0-0.3 Automated blood basophil count (count/volume) 0.0 10*3/uL 0.0-0.1 Comprehensive metabolic panel - 08/16/18 05:45 Serum or plasma sodium measurement (moles/volume) 140 mmol/L 135-145 Serum or plasma potassium measurement (moles/volume) 3.3 mmol/L 3.6-5.0 Serum or plasma chloride measurement (moles/volume) 106 mmol/L 98-107 Carbon dioxide 26 mmol/L 21-32 Serum or plasma anion gap determination (moles/volume) 8 mmol/L 5-14 Serum or plasma urea nitrogen measurement (mass/volume) 14 mg/dL 7-18 Serum or plasma creatinine measurement (mass/volume) 0.90 mg/dL 0.60-1.30 Serum or plasma urea nitrogen/creatinine mass ratio 16 NRG Serum or plasma creatinine measurement with calculation of estimated glomerular filtration rate 59 NRG Serum or plasma glucose measurement (mass/volume) 98 mg/dL 70-105 Serum or plasma calcium measurement (mass/volume) 9.7 mg/dL 8.5-10.1 Serum or plasma total bilirubin measurement (mass/volume) 0.7 mg/dL 0.1-1.0 Serum or plasma alkaline phosphatase measurement (enzymatic activity/volume) 53 U/L 40-136 Serum or plasma aspartate aminotransferase measurement (enzymatic activity/ volume) 18 U/L 5-34 Serum or plasma alanine aminotransferase measurement (enzymatic activity/volume ) 14 U/L 0-55 Serum or plasma protein measurement (mass/volume) 6.6 g/dL 6.4-8.2 Serum or plasma albumin measurement (mass/volume) 3.4 g/dL 3.2-4.5 CALCIUM CORRECTED 10.2 mg/dL 8.5-10.1 Lipid 1996 panel - 08/16/18 05:45 Serum or plasma triglyceride measurement (mass/volume) 98 mg/dL <150 Serum or plasma cholesterol measurement (mass/volume) 177 mg/dL < 200 Serum or plasma cholesterol in HDL measurement (mass/volume) 45 mg/ dL 40-60 Cholesterol in LDL [mass/volume] in serum or plasma by direct assay 110 mg/dL 1-129 Serum or plasma cholesterol in VLDL measurement (mass/volume) 20 mg/ dL 5-40 Whole blood basic metabolic panel - 08/28/18 05:48 Serum or plasma sodium measurement (moles/volume) 141 mmol/L 135-145 Serum or plasma potassium measurement (moles/volume) 3.1 mmol/L 3.6-5.0 Serum or plasma chloride measurement (moles/volume) 99 mmol/L 98-107 Carbon dioxide 30 mmol/L 21-32 Serum or plasma anion gap determination (moles/volume) 12 mmol/L 5-14 Serum or plasma urea nitrogen measurement (mass/volume) 25 mg/dL 7-18 Serum or plasma creatinine measurement (mass/volume) 0.88 mg/dL 0.60-1.30 Serum or plasma urea nitrogen/creatinine mass ratio 28 NRG Serum or plasma creatinine measurement with calculation of estimated glomerular filtration rate > NRG Serum or plasma glucose measurement (mass/volume) 98 mg/dL 70-105 Serum or plasma calcium measurement (mass/volume) 10.3 mg/dL 8.5-10.1 Complete urinalysis with reflex to culture - 08/29/18 13:10 Urine color determination MARGARITA NRG Urine clarity determination VERY CLOUDY NRG Urine pH measurement by test strip 8 5-9 Specific gravity of urine by test strip 1.010 1.016- 1.022 Urine protein assay by test strip, semi-quantitative 2+ NEGATIVE Urine glucose detection by automated test strip NEGATIVE NEGATIVE Erythrocytes detection in urine sediment by light microscopy 1+ NEGATIVE Urine ketones detection by automated test strip 2+ NEGATIVE Urine nitrite detection by test strip POSITIVE NEGATIVE Urine total bilirubin detection by test strip 1+ NEGATIVE Urine urobilinogen measurement by automated test strip (mass/volume) 1 mg/dL NORMAL Urine leukocyte esterase detection by dipstick 2+ NEGATIVE Automated urine sediment erythrocyte count by microscopy (number/high power field) RARE NRG Automated urine sediment leukocyte count by microscopy (number/high power field ) [HPF] NRG Bacteria detection in urine sediment by light microscopy LARGE NRG Squamous epithelial cells detection in urine sediment by light microscopy NONE NRG Crystals detection in urine sediment by light microscopy NONE NRG Casts detection in urine sediment by light microscopy NONE NRG Mucus detection in urine sediment by light microscopy NEGATIVE NRG Complete urinalysis with reflex to culture YES NRG Bacterial urine culture - 08/29/18 13:10 Bacterial urine culture [id number] NRG COLONY COUNT >100,000/ML NRG FTX;REPORTABLE SUSCEPTIBILITY REPORT 08-31-18,1205 NRG FREE TEXT ENTRY 2 PLUS >100,000 CFU/ML OF GRAM POSITIVE NRG FREE TEXT ENTRY 3 MIXED BACTERIAL TOMMIE NRG RML Sensitivity Panel - 08/29/18 13:10 Gentamicin susceptibility test by minimum inhibitory concentration < = NRG Trimethoprim/sulfamethoxazole susceptibility test by minimum inhibitoryconcentration <= NRG Levofloxacin susceptibility test by minimum inhibitory concentration <= NRG Ampicillin susceptibility test by minimum inhibitory concentration < = NRG Cefazolin susceptibility test by minimum inhibitory concentration 2 NRG Ceftriaxone susceptibility test by minimum inhibitory concentration <= NRG Ciprofloxacin susceptibility test by minimum inhibitory concentration <= NRG Meropenem susceptibility test by minimum inhibitory concentration < = NRG Nitrofurantoin susceptibility test by minimum inhibitory concentration <= NRG Amoxicillin and clavulanate potassium susc RANJAN <= NRG Encounters ACCT No. Visit Date/Time Discharge Status Pt. Type Provider Facility Loc./Unit Complaint [id number] 08/19/2018 11:00:00 08/30/2018 14:00:00 DIS Inpatient AIDAN SON, SHAQUILLE Bueno [facility] IRF CVA [id number] 08/15/2018 13:32:00 08/19/2018 10:45:00 DIS Inpatient GEORGE SON, JOEL Trejo 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 RAD OBESE,HYPERLIPIDEMIA [id number] 02/08/2016 12:49:00 02/08/2016 23:59:59 CLS Outpatient GRICELDA MADDOX NP-C [facility] CKD [id number] 02/04/2015 10:08:00 02/04/2015 23:59:59 CLS Outpatient GRICELDA MADDOX COMMERCIAL ACCOUNT EXECUTIVE-C [facility] RAD CHRONIC KIDNEY DISEASE [id number] 12/29/2018 09:00:00 MARISABEL Kay APRN [facility] RAD OBESE,HYPERLIPIDEMIA,PROTEINURIA
[2018-09-23 14:43] LABS: BASOPHILS # (AUTO) 0.1 10^3/uL (0.0-0.1); BASOPHILS % (AUTO) 1 % (0-10); EOSINOPHILS # (AUTO) 0.2 10^3/uL (0.0-0.3); EOSINOPHILS % (AUTO) 2 % (0-10); HEMATOCRIT 43 % (35-52); HEMOGLOBIN 14.1 G/DL (11.5-16.0); LYMPHOCYTES # (AUTO) 1.4 X 10^3 (1.0-4.0); LYMPHOCYTES % (AUTO) 19 % (12-44); MEAN CORPUSCULAR HEMOGLOBIN 29 PG (25-34); MEAN CORPUSCULAR HGB CONC 33 G/DL (32-36); MEAN CORPUSCULAR VOLUME 88 FL (80-99); MEAN PLATELET VOLUME 9.8 FL (7.4-10.4); MONOCYTES # (AUTO) 0.6 X 10^3 (0.0-1.0); MONOCYTES % (AUTO) 9 % (0-12); NEUTROPHILS # (AUTO) 4.9 X 10^3 (1.8-7.8); NEUTROPHILS % (AUTO) 69 % (42-75); PLATELET COUNT 259 10^3/uL (130-400); RED BLOOD COUNT 4.85 10^6/uL (4.35-5.85); RED CELL DISTRIBUTION WIDTH 13.8 % (10.0-14.5); WHITE BLOOD COUNT 7.1 10^3/uL (4.3-11.0)
[2018-09-23 14:58] LABS: BILIRUBIN,URINE NEGATIVE (NEGATIVE); CLARITY,URINE VERY CLOUDY; COLOR,URINE YELLOW; GLUCOSE, URINE (UA) NEGATIVE (NEGATIVE); KETONES,URINE NEGATIVE (NEGATIVE); LEUKOCYTE ESTERASE ,URINE 3+ (NEGATIVE); NITRITE,URINE POSITIVE (NEGATIVE); PH,URINE 7 (5-9); PROTEIN,URINE 2+ (NEGATIVE); UROBILINOGEN,URINE NORMAL (NORMAL)
[2018-09-23 15:00] LABS: ALBUMIN 3.5 GM/DL (3.2-4.5); BILIRUBIN,TOTAL 0.7 MG/DL (0.1-1.0); CALCIUM 9.9 MG/DL (8.5-10.1); CREATININE SERUM 1.18 MG/DL (0.60-1.30); POTASSIUM 3.5 MMOL/L (3.6-5.0); TOTAL PROTEIN 6.9 GM/DL (6.4-8.2)
[2018-09-23 15:05] LABS: BACTERIA,URINE LARGE /HPF; WBC,URINE 25-50 /HPF
[2018-09-23] MEDS ORDERED: cefTRIAXone FOR IV USE 1,000 MG in NS (IVPB) 50 ML IV ONE (15:15)
[2018-09-23] MEDS ORDERED: CEFU250T80 PO (15:37)
--- NOTE | 2018-09-23 15:37 | ED Syncope ---
General Chief Complaint: Dizziness/Syncope Stated Complaint: SYNCOPE Nursing Triage Note: TO ED PER EMS WHO REPORTS PATIENT PASSED OUT. ON ADMIT APPEARS CONFUSED AND SLOW TO RESPOND TO QUESTIONS. EMS REPORT FAMILY STATES THIS IS HER NORMAL Source of Information: Patient, EMS, Family Exam Limitations: No Limitations History of Present Illness Date Seen by Provider: Sep 23, 2018 Time Seen by Provider: 15:33 Initial Comments To ER per EMS from home with reports of syncope. Patient had a stroke around things giving of this year with deficits of dysphasia and facial droop. Today, she had been in the bathroom at her daughter's house having an episode of diarrhea. She been standing up for some time as the daughter was cleaning her. While walking back to the living room she then had a syncopal episode and was out for less than a minute. She seems back to baseline at this time according to the daughter. Patient is alert. Timing/Prior Episodes: No Prior History Symptoms Prior to Episode: None Loss of Consciousness: Brief (Seconds) Current Symptoms: Back to Normal Allergies and Home Medications Allergies Coded Allergies: No Known Drug Allergies (Unverified , 08/15/18) Home Medications Atorvastatin Calcium 10 Mg Tablet, 10 MG PO DAILY, (Reported) Cephalexin 250 Mg Capsule, 500 MG PO Q8HR TAKE FOR 5 DAYS TOTAL. STARTED 08-29-18 AT 10:00 PM Prescribed by: DANNY BUENROSTRO on 08/29/18 1815 Citalopram Hydrobromide 10 Mg Tablet, 10 MG PO DAILY, (Reported) Coconut Oil 1,000 Mg Capsule, 1,000 MG PO DAILY, (Reported) Glucosamine Sulfate 2Kcl 1,000 Mg Tablet, 1,000 MG PO DAILY, (Reported) Hydrochlorothiazide 12.5 Mg Tablet, 12.5 MG PO DAILY, (Reported) Multivit-Min/FA/Lycopene/Lut 1 Each Tablet, 1 TAB PO DAILY, (Reported) Potassium Chloride 10 Meq Tablet.er, 10 MEQ PO DAILY@0700 Prescribed by: SHAQUILLE BERMUDEZ on 08/29/18 0845 Rivastigmine 9.5 Mg Patch, 9.5 MG TD DAILY, (Reported) Ubidecarenone/Vit E Acetate 1 Each Capsule, 100 MG PO DAILY, (Reported) Verapamil HCl 120 Mg Tablet.er, 120 MG PO DAILY, (Reported) Patient Home Medication List Home Medication List Reviewed: Yes Review of Systems Constitutional: see HPI EENTM: see HPI Respiratory: no symptoms reported Cardiovascular: see HPI, syncope Genitourinary: no symptoms reported Musculoskeletal: no symptoms reported Skin: no symptoms reported Psychiatric/Neurological: No Symptoms Reported Past Twgmnei-Qjyjar-Htghpx Hx Patient Social History Alcohol Use: Denies Use Recreational Drug Use: No Smoking Status: Never a Smoker Recent Foreign Travel: No Contact w/Someone Who Travel: No Recent Infectious Disease Expo: No Recent Hopitalizations: Yes (CVA) Immunizations Up To Date Date of Pneumonia Vaccine: Nov 08, 2016 Date of Influenza Vaccine: Jul 02, 2018 Seasonal Allergies Seasonal Allergies: No Past Medical History Surgeries: Yes Abdominal, Hysterectomy Respiratory: No Cardiac: Yes High Cholesterol, Hypertension Neurological: Yes Dementia Genitourinary: Yes (KIDNEY DISEASE) Gastrointestinal: No Chronic Constipation Musculoskeletal: Yes Arthritis Endocrine: No HEENT: Yes Cataract Hearing Impairment: Hard of Hearing Cancer: No Psychosocial: Yes Depression Integumentary: Yes (SCRATCHY AREAS OF ABDOMEN) Physical Exam Vital Signs Vital Signs - First Documented 09/23/18 14:11 Temp 98.5 Pulse 65 Resp 18 B/P (MAP) 142/78 (99) Pulse Ox 94 O2 Delivery Room Air Capillary Refill : Less Than 3 Seconds Height, Weight, BMI Height: 5'0.00" Weight: 159lbs. 6.4oz. [id number]; 32.2 BMI Method:Estimated General Appearance: No Apparent Distress, WD/WN HEENT: PERRL/EOMI, TMs Normal, Other (persistent right facial droop as well as some dysphasia though she is able to speak. She is smiling and very pleasant) Neck: Full Range of Motion, Normal Inspection Cardiovascular: Regular Rate, Rhythm, Normal Peripheral Pulses Respiratory: Normal Breath Sounds, No Accessory Muscle Use, No Respiratory Distress Gastrointestinal: Normal Bowel Sounds, Non Tender, Soft Neurologic/Psychiatric: Alert, Oriented x3 Cranial Nerves: Normal Hearing, Normal Speech Progress/Results/Core Measures Results/Orders Lab Results Laboratory Tests Test 09/23/18 14:27 09/23/18 14:50 Range/Units White Blood Count 7.1 4.3-11.0 10^3/uL Red Blood Count 4.85 4.35-5.85 10^6/uL Hemoglobin 14.1 11.5-16.0 G/DL Hematocrit 43 35-52 % Mean Corpuscular Volume 88 80-99 FL Mean Corpuscular Hemoglobin 29 25-34 PG Mean Corpuscular Hemoglobin Concent 33 32-36 G/DL Red Cell Distribution Width 13.8 10.0-14.5 % Platelet Count 259 130-400 10^3/uL Mean Platelet Volume 9.8 7.4-10.4 FL Neutrophils (%) (Auto) 69 42-75 % Lymphocytes (%) (Auto) 19 12-44 % Monocytes (%) (Auto) 9 0-12 % Eosinophils (%) (Auto) 2 0-10 % Basophils (%) (Auto) 1 0-10 % Neutrophils # (Auto) 4.9 1.8-7.8 X 10^3 Lymphocytes # (Auto) 1.4 1.0-4.0 X 10^3 Monocytes # (Auto) 0.6 0.0-1.0 X 10^3 Eosinophils # (Auto) 0.2 0.0-0.3 10^3/uL Basophils # (Auto) 0.1 0.0-0.1 10^3/uL Sodium Level 140 135-145 MMOL/L Potassium Level 3.5 L 3.6-5.0 MMOL/L Chloride Level 102 98-107 MMOL/L Carbon Dioxide Level 25 21-32 MMOL/L Anion Gap 13 5-14 MMOL/L Blood Urea Nitrogen 16 7-18 MG/DL Creatinine 1.18 0.60-1.30 MG/DL Estimat Glomerular Filtration Rate 43 BUN/Creatinine Ratio 14 Glucose Level 110 H 70-105 MG/DL Calcium Level 9.9 8.5-10.1 MG/DL Corrected Calcium 10.3 H 8.5-10.1 MG/DL Total Bilirubin 0.7 0.1-1.0 MG/DL Aspartate Amino Transf (AST/SGOT) 16 5-34 U/L Alanine Aminotransferase (ALT/SGPT) 12 0-55 U/L Alkaline Phosphatase 61 40-136 U/L Total Protein 6.9 6.4-8.2 GM/DL Albumin 3.5 3.2-4.5 GM/DL Urine Color YELLOW Urine Clarity VERY CLOUDY H Urine pH 7 5-9 Urine Specific [place] 1.010 L 1.016-1.022 Urine Protein 2+ H NEGATIVE Urine Glucose (UA) NEGATIVE NEGATIVE Urine Ketones NEGATIVE NEGATIVE Urine Nitrite POSITIVE H NEGATIVE Urine Bilirubin NEGATIVE NEGATIVE Urine Urobilinogen NORMAL NORMAL MG/DL Urine Leukocyte Esterase 3+ H NEGATIVE Urine RBC (Auto) 4+ H NEGATIVE Urine RBC 10-25 H /HPF Urine WBC 25-50 H /HPF Urine Squamous Epithelial Cells 2-5 /HPF Urine Crystals NONE /LPF Urine Bacteria LARGE H /HPF Urine Casts NONE /LPF Urine Mucus MODERATE H /LPF Urine Culture Indicated YES My Orders Orders - LIBAN WEISS APRN Cbc With Automated Diff (09/23/18 14:21) Ekg Tracing (09/23/18 14:21) Comprehensive Metabolic Panel (09/23/18 14:21) Ct Head Wo (09/23/18 14:21) Ua Culture If Indicated (09/23/18 14:21) Iv Heplock-Insert (Order) (09/23/18 14:21) Urine Culture (09/23/18 14:50) Ceftriaxone For Iv Use (Rocephin For I (09/23/18 15:15) Medications Given in ED Current Medications Medications Dose Ordered Sig/Wil Route Start Time Stop Time Status Last Admin Dose Admin Ceftriaxone Sodium 1000 mg/ Sodium Chloride 50 ml @ 100 mls/hr ONCE ONCE IV 09/23/18 15:15 09/23/18 15:44 09/23/18 15:25 100 MLS/HR Vital Signs/I&O 09/23/18 14:11 Temp 98.5 Pulse 65 Resp 18 B/P (MAP) 142/78 (99) Pulse Ox 94 O2 Delivery Room Air Blood Pressure Mean: 99 Departure Impression Primary Impression: Urinary tract infection Qualified Codes: N30.00 - Acute cystitis without hematuria Additional Impression: Syncope Qualified Codes: R55 - Syncope and collapse Disposition: 01 HOME, SELF-CARE Condition: Stable Departure-Patient Inst. Referrals: NO,LOCAL PHYSICIAN (PCP) Primary Care Physician TYE FARLEY DO (Family) Primary Care Physician Patient Instructions: Syncope (Fainting) (DC), Urinary Tract Infection, Adult ( DC) Add. Discharge Instructions: 1. Increase her fluid intake. Antibiotic as directed. Call your family physician later this week for recheck. Return to ER for any recurrent or worsening symptoms. All discharge instructions reviewed with patient and/or family. Voiced understanding. Scripts Cefuroxime Axetil (Cefuroxime) 250 Mg Tablet 250 MG PO BID, #10 TAB Prov: LIBAN WEISS APRN 09/23/18 LIBAN WEISS APRN Sep 23, 2018 15:37
--- NOTE | 2018-09-23 15:41 | Diagnostic Imaging Report ---
Clinical indication: Patient with syncope. Exam: Head CT without IV contrast. Comparison: MRI of the brain performed without and with IV contrast dated 08/15/2018. Head CT without contrast dated 08/15/2018. Findings: There is no significant change to the small areas of chronic cerebral infarct involving the posterior left frontal lobe and left parietal lobe region. There is no significant change to the patchy and confluent diffuse low-attenuation white matter changes throughout both cerebral hemispheres involving the centrum semiovale and [place] radiata regions. There is stable diffuse brain parenchymal volume loss. There is no brain herniation or midline shift. There are no new areas of acute cerebral infarct, intracranial hemorrhage, brain herniation, or midline shift. Atherosclerotic disease of the [place] vascular structures are seen. The visualized portions of the brainstem are obscured by skull base streak artifact. The extracranial soft tissue, skull, and orbits are unremarkable. Hyperostosis frontalis interna and laterally is noted. Paranasal sinuses and mastoid air cells are clear. Impression: 1: There is no definite CT evidence of interval acute cerebral infarction, intracranial hemorrhage, or mass seen. Given the diffuse low attenuation changes throughout the brain parenchyma which can obscure more subtle findings, if there is clinical concern for acute cerebral infarction, MRI of the brain would better evaluate. 2: Again seen, diffuse chronic small vessel ischemic disease and leukoaraiosis. 3: Again seen, small chronic cerebral infarcts involving the posterior left frontal lobe and left parietal lobe. Dictated by: Dictated on workstation # [id number]
[2018-09-23] MEDS ORDERED: NS IV 500 ML 500 ML IV SCH (15:45)
[2018-09-23 16:46] VITALS: BP 103/78
[2018-09-26] MEDS ORDERED: SULF1TAB35 PO (15:46)
== END 2018-09-23 16:46 | disposition home or self-care (01) ==
LOC: EDUNIT# 14:11 → ER 14:12
DX: R55 Syncope and collapse (principal); N39.0 Urinary tract infection, site not specified; I10 Essential (primary) hypertension; E78.00 Pure hypercholesterolemia, unspecified; F03.90 Unspecified dementia, unspecified severity, without behavioral disturbance, psychotic disturbance, mood disturbance, and anxiety; F32.9 Major depressive disorder, single episode, unspecified; Z90.710 Acquired absence of both cervix and uterus
CPT/HCPCS: 36415; 70450; 80053; 81000; 85025; 87077; 87088; 87186; 93005

== ENCOUNTER → 2018-11-17 | Outpatient (CLI) | payer MEDICARE, OTHER ==
[~2018-11-17] MED LIST changes: +CEFU250T80 PO; +GADOBUTROL 7.5 MMOL/7.5 ML (GADAVIST) VIAL IV ONE; +SULF1TAB35 PO
[2018-11-17 11:54] LABS: CREATININE SERUM 1.1 MG/DL (0.60-1.30)
--- NOTE | 2018-11-17 14:23 | Diagnostic Imaging Report ---
PROCEDURE: MR imaging of the brain with and without contrast. TECHNIQUE: Multiplanar, multisequence MR imaging of the brain was performed with and without contrast. INDICATION: Prior history of stroke and dementia. In addition, prior MRI demonstrated questionable enhancing nodule in the left basal ganglia region. Study is performed for followup. COMPARISON: Correlation is made with prior MRI from 08/15/2018. FINDINGS: Previously noted regions of diffusion restriction have resolved. Normal expected flow-voids within the carotid siphons are seen. There continues to be extensive periventricular and subcortical white matter signal abnormalities consistent with chronic microvascular ischemia. There is a small area of enhancement identified in the right cerebellar hemisphere measuring 9-10 mm in size, not definitely seen on prior MRI. There was a small region of enhancement in the right occipital lobe on prior exam that was not appreciated on today's study. The small region of nodular enhancement in the left basal ganglia on prior study is not appreciated on today's study. No definite supratentorial enhancement is seen. Enhancement does have some linear component to it. It is possible that this represents an enhancing subacute infarct. No significant mass effect is seen. No other abnormalities are identified. Corpus callosum is unremarkable. Sella and parasellar structures are unremarkable. IMPRESSION: Cerebral atrophy, senescent changes and changes of chronic microvascular ischemia. Previously noted nodular enhancement in the left lentiform nucleus is not appreciated on today's study. There is a new area of enhancement in the right cerebellar hemisphere, indeterminate. This could conceivably represent an area of enhancement within a subacute infarct. Continued close MRI followup is recommended with repeat study in 3-4 months. Dictated by: Dictated on workstation # [id number]
== END ==
LOC: RAD 11:26
PROVIDERS: ATTEND Family Medicine
DX: D49.6 Neoplasm of unspecified behavior of brain (principal); G31.9 Degenerative disease of nervous system, unspecified; I67.82 Cerebral ischemia; Z86.73 Personal history of transient ischemic attack (TIA), and cerebral infarction without residual deficits
CPT/HCPCS: 36415; 70553; 82565; 84520

== ENCOUNTER → 2018-12-04 | Outpatient (CLI) | payer MEDICARE, OTHER ==
[~2018-12-04] MED LIST changes: -GADOBUTROL 7.5 MMOL/7.5 ML (GADAVIST) VIAL IV ONE; +VERA120T10 PO; -VERA120T84 PO
--- NOTE | 2018-12-04 12:32 | Diagnostic Imaging Report ---
CLINICAL INDICATION: Patient with hypertension and CVA. COMPARISON: Ultrasound of the carotid arteries dated 08/15/2018. EXAM: Real-time carotid Doppler duplex imaging is performed bilaterally. Peak systolic velocity, ICA/CCA peak systolic ratio, spectral analysis, and vascular morphology are studied. FINDINGS: ARTERY VELOCITY Right Left CCA 0.60 m/s 0.45 m/s ICA 0.94 m/s 0.64 m/s ECA 1.14 m/s 0.96 m/s ICA/CCA 1.55 1.40 VERT.ART Antegrade Antegrade There is progression of bilateral carotid artery atherosclerotic disease shows no significant grayscale evidence of stenosis. Tortuous proximal to mid left ICA is noted. Tortuous left ECA is seen. IMPRESSION: There is progression of bilateral carotid artery atherosclerotic disease with no grayscale or Doppler evidence of significant vascular stenosis. Dictated by: Dictated on workstation # [id number]
== END ==
LOC: RAD 08:57
PROVIDERS: ATTEND Family Medicine
DX: I65.23 Occlusion and stenosis of bilateral carotid arteries (principal); I63.9 Cerebral infarction, unspecified; I10 Essential (primary) hypertension
CPT/HCPCS: 93880

== ENCOUNTER → 2018-12-29 | Outpatient (CLI) | payer MEDICARE, OTHER ==
--- NOTE | 2018-12-29 14:07 | Diagnostic Imaging Report ---
PROCEDURE: US Renal Bilateral. INDICATION: Hyperlipidemia, proteinuria, renal cysts. TECHNIQUE: Multiple real-time grayscale sonographic images were obtained of the kidneys. COMPARISON: 01/14/2017. FINDINGS: RIGHT KIDNEY: 10.7 x 6.8 x 6.0 cm. LEFT KIDNEY: 10.3 x 4.6 x 5.3 cm. Hypoechoic masses noted in both kidneys, compatible with cysts. Largest on the right 11.5 x 7.5 x 11.5 cm. Largest on the left 10.7 x 7.0 x 6.7 cm. Large portion of the renal parenchyma is replaced by the cystic changes. No overt hydronephrosis. URINARY BLADDER: Urinary bladder is unremarkable. The left ureteral jet is present. Right ureteral jet is not visualized. Volume of 52 mL. IMPRESSION: 1. Bilateral renal cysts with a significant amount of renal parenchyma replaced by the cysts. No overt hydronephrosis. Dictated by: Dictated on workstation # [id number]
== END ==
LOC: RAD 11:53
PROVIDERS: ATTEND Nurse Practitioner
DX: I13.10 Hypertensive heart and chronic kidney disease without heart failure, with stage 1 through stage 4 chronic kidney disease, or unspecified chronic kidney disease (principal); N18.3 Chronic kidney disease, stage 3 (moderate); E66.9 Obesity, unspecified; E78.5 Hyperlipidemia, unspecified; R73.01 Impaired fasting glucose; N25.81 Secondary hyperparathyroidism of renal origin; E87.1 Hypo-osmolality and hyponatremia; E87.6 Hypokalemia; D64.9 Anemia, unspecified; E87.3 Alkalosis; E55.9 Vitamin D deficiency, unspecified; N28.1 Cyst of kidney, acquired
CPT/HCPCS: 76770

== ENCOUNTER 2019-01-27 14:12 | Outpatient (CLI) | payer MEDICARE, OTHER ==
[~2019-01-27] VITALS: Ht 152.4 cm; Wt 72.3 kg
[2019-01-27] MEDS ORDERED: NS IV 1000 ML 1,000 ML ONE (14:32)
[2019-01-27 14:35] VITALS: BP 171/86
[2019-01-27 14:39] LABS: HEMOGLOBIN 14.1 G/DL (11.5-16.0); MEAN PLATELET VOLUME 10.1 FL (7.4-10.4); RED CELL DISTRIBUTION WIDTH 13.8 % (10.0-14.5); WHITE BLOOD COUNT 7.8 10^3/uL (4.3-11.0)
[2019-01-27] MEDS ORDERED: NS IV 1000 ML 1,000 ML IV SCH (14:45)
[2019-01-27 15:02] LABS: ALBUMIN 3.7 GM/DL (3.2-4.5); BILIRUBIN,TOTAL 0.7 MG/DL (0.1-1.0); CALCIUM 10.6 MG/DL (8.5-10.1); CREATININE SERUM 1.01 MG/DL (0.60-1.30); TOTAL PROTEIN 7.2 GM/DL (6.4-8.2)
[2019-01-27] MEDS ORDERED: CLOP75TA28 PO (15:27)
--- NOTE | 2019-01-27 16:40 | NUR ---
FLUIDS INFUSED, PATIENT TOLERATED WELL, UA OBTAINED AND SENT TO LAB, DISMISSED PER W/C WITH DAUGHTERS.
[2019-01-27 16:56] LABS: BILIRUBIN,URINE NEGATIVE (NEGATIVE); CLARITY,URINE SLIGHTLY CLOUDY; COLOR,URINE YELLOW; GLUCOSE, URINE (UA) NEGATIVE (NEGATIVE); KETONES,URINE NEGATIVE (NEGATIVE); LEUKOCYTE ESTERASE ,URINE 3+ (NEGATIVE); NITRITE,URINE NEGATIVE (NEGATIVE); PH,URINE 7 (5-9); PROTEIN,URINE 1+ (NEGATIVE); UROBILINOGEN,URINE NORMAL (NORMAL)
[2019-01-27 17:06] LABS: BACTERIA,URINE FEW /HPF
== END 2019-01-27 16:50 | disposition home or self-care (01) ==
LOC: SDC 14:12
PROVIDERS: ATTEND Nurse Practitioner Family
DX: E86.0 Dehydration (principal); N39.0 Urinary tract infection, site not specified; R19.7 Diarrhea, unspecified
CPT/HCPCS: 36415; 80053; 81000; 85027; 87088; 96360; 96361

== ENCOUNTER 2019-05-04 15:21 | Emergency (ER) | payer MEDICARE, OTHER ==
[~2019-05-04] VITALS: Ht 152.4 cm; Wt 72.6 kg
[~2019-05-04 15:21] MED LIST changes: +CLOP75TA28 PO
--- NOTE | 2019-05-04 15:31 | ED General ---
General Stated Complaint: SYNCOPE Source of Information: Patient, EMS Exam Limitations: No Limitations History of Present Illness Date Seen by Provider: May 04, 2019 Time Seen by Provider: 15:28 Initial Comments To ER per EMS with reports of near syncope. Patient was on the toilet having an episode of diarrhea when her vision went black but she could still hear people talking around her. She never completely lost consciousness. She's had 2-3 episodes of diarrhea today. She's had several episodes of urinary tract infections this year and has been on antibiotics, but diarrhea just started today she states. Has had reduced fluid intake and urine output. No chest pain no palpitations. Upon arrival to ER she feels back to normal. Severity: Moderate Associated Systoms: No Nausea/Vomiting; Weakness Allergies and Home Medications Allergies Coded Allergies: No Known Drug Allergies (Unverified , 08/15/18) Home Medications Atorvastatin Calcium 10 Mg Tablet, 10 MG PO DAILY, (Reported) Citalopram Hydrobromide 10 Mg Tablet, 10 MG PO DAILY, (Reported) Clopidogrel Bisulfate 75 Mg Tablet, 75 MG PO DAILY, (Reported) Glucosamine Sulfate 2Kcl 1,000 Mg Tablet, 1,000 MG PO DAILY, (Reported) Multivit-Min/FA/Lycopene/Lut 1 Each Tablet, 1 TAB PO DAILY, (Reported) Rivastigmine 9.5 Mg Patch, 9.5 MG TD DAILY, (Reported) Ubidecarenone/Vit E Acetate 1 Each Capsule, 100 MG PO DAILY, (Reported) Verapamil HCl 120 Mg Tablet.er, 120 MG PO DAILY, (Reported) Patient Home Medication List Home Medication List Reviewed: Yes Review of Systems Review of Systems Constitutional: see HPI EENTM: see HPI Respiratory: no symptoms reported Cardiovascular: no symptoms reported Gastrointestinal: diarrhea Genitourinary: no symptoms reported Musculoskeletal: no symptoms reported Skin: no symptoms reported Psychiatric/Neurological: No Symptoms Reported Past Rabgweo-Ftloml-Vgukep Hx Patient Social History Recent Foreign Travel: No Contact w/Someone Who Travel: No Recent Hopitalizations: Yes (CVA) Immunizations Up To Date Date of Pneumonia Vaccine: Nov 08, 2016 Date of Influenza Vaccine: Jul 02, 2018 Seasonal Allergies Seasonal Allergies: No Past Medical History Surgeries: Yes Abdominal, Hysterectomy Respiratory: No Cardiac: Yes High Cholesterol, Hypertension Neurological: Yes Dementia Genitourinary: Yes (KIDNEY DISEASE) Gastrointestinal: No Chronic Constipation Musculoskeletal: Yes Arthritis Endocrine: No HEENT: Yes Cataract Hearing Impairment: Hard of Hearing Cancer: No Psychosocial: Yes Depression Integumentary: Yes (SCRATCHY AREAS OF ABDOMEN) Physical Exam Vital Signs Vital Signs - First Documented 05/04/19 15:22 Temp 98.1 Pulse 76 Resp 18 B/P (MAP) 133/63 (86) Pulse Ox 97 O2 Delivery Room Air Capillary Refill : Height, Weight, BMI Height: 5'0.00" Weight: 159lbs. 6.4oz. 72.984463dp; 32.2 BMI Method:Estimated General Appearance: No Apparent Distress, WD/WN Eyes: Bilateral Eye Normal Inspection, Bilateral Eye PERRL, Bilateral Eye EOMI HEENT: PERRL/EOMI Neck: Full Range of Motion, Normal Inspection Respiratory: No Accessory Muscle Use, No Respiratory Distress Cardiovascular: Regular Rate, Rhythm, Normal Peripheral Pulses Gastrointestinal: Normal Bowel Sounds, Non Tender, Soft Extremity: Normal Capillary Refill, Normal Inspection, Normal Range of Motion Neurologic/Psychiatric: Alert, Oriented x3, No Motor/Sensory Deficits Progress/Results/Core Measures Suspected Sepsis SIRS Temperature: Pulse: Respiratory Rate: Laboratory Tests 05/04/19 15:25: White Blood Count 7.4 Blood Pressure / Mean: Laboratory Tests 05/04/19 15:25: Creatinine 1.01, Platelet Count 232, Total Bilirubin 0.5 Results/Orders Lab Results Laboratory Tests Test 05/04/19 15:25 05/04/19 15:50 Range/Units White Blood Count 7.4 4.3-11.0 10^3/uL Red Blood Count 5.02 4.35-5.85 10^6/uL Hemoglobin 14.4 11.5-16.0 G/DL Hematocrit 45 35-52 % Mean Corpuscular Volume 89 80-99 FL Mean Corpuscular Hemoglobin 29 25-34 PG Mean Corpuscular Hemoglobin Concent 32 32-36 G/DL Red Cell Distribution Width 13.6 10.0-14.5 % Platelet Count 232 130-400 10^3/uL Mean Platelet Volume 10.3 7.4-10.4 FL Neutrophils (%) (Auto) 76 H 42-75 % Lymphocytes (%) (Auto) 15 12-44 % Monocytes (%) (Auto) 6 0-12 % Eosinophils (%) (Auto) 2 0-10 % Basophils (%) (Auto) 0 0-10 % Neutrophils # (Auto) 5.6 1.8-7.8 X 10^3 Lymphocytes # (Auto) 1.1 1.0-4.0 X 10^3 Monocytes # (Auto) 0.4 0.0-1.0 X 10^3 Eosinophils # (Auto) 0.2 0.0-0.3 10^3/uL Basophils # (Auto) 0.0 0.0-0.1 10^3/uL Sodium Level 140 135-145 MMOL/L Potassium Level 4.1 3.6-5.0 MMOL/L Chloride Level 106 98-107 MMOL/L Carbon Dioxide Level 22 21-32 MMOL/L Anion Gap 12 5-14 MMOL/L Blood Urea Nitrogen 12 7-18 MG/DL Creatinine 1.01 0.60-1.30 MG/DL Estimat Glomerular Filtration Rate 52 BUN/Creatinine Ratio 12 Glucose Level 109 H 70-105 MG/DL Calcium Level 9.9 8.5-10.1 MG/DL Corrected Calcium 10.2 H 8.5-10.1 MG/DL Total Bilirubin 0.5 0.1-1.0 MG/DL Aspartate Amino Transf (AST/SGOT) 25 5-34 U/L Alanine Aminotransferase (ALT/SGPT) 24 0-55 U/L Alkaline Phosphatase 73 40-136 U/L Troponin I < 0.028 <0.028 NG/ML Total Protein 7.0 6.4-8.2 GM/DL Albumin 3.6 3.2-4.5 GM/DL Urine Color YELLOW Urine Clarity SLIGHTLY CLOUDY Urine pH 6.5 5-9 Urine Specific [place] 1.015 L 1.016-1.022 Urine Protein 2+ H NEGATIVE Urine Glucose (UA) NEGATIVE NEGATIVE Urine Ketones NEGATIVE NEGATIVE Urine Nitrite POSITIVE H NEGATIVE Urine Bilirubin NEGATIVE NEGATIVE Urine Urobilinogen 1 NORMAL MG/DL Urine Leukocyte Esterase 3+ H NEGATIVE Urine RBC (Auto) 1+ H NEGATIVE Urine RBC NONE /HPF Urine WBC 50-100 H /HPF Urine Squamous Epithelial Cells NONE /HPF Urine Crystals NONE /LPF Urine Bacteria LARGE H /HPF Urine Casts NONE /LPF Urine Mucus NEGATIVE /LPF Urine Culture Indicated YES My Orders Orders - LIBAN WEISS APRN Cbc With Automated Diff (05/04/19 15:25) Troponin I (8/5/19 15:25) Ekg Tracing (05/04/19 15:25) Comprehensive Metabolic Panel (05/04/19 15:25) Ed Iv/Invasive Line Start (05/04/19 15:25) Ua Culture If Indicated (05/04/19 15:25) Urine Culture (05/04/19 15:50) Ceftriaxone For Iv Use (Rocephin For I (05/04/19 16:30) Vital Signs/I&O 05/04/19 15:22 Temp 98.1 Pulse 76 Resp 18 B/P (MAP) 133/63 (86) Pulse Ox 97 O2 Delivery Room Air Capillary Refill : Departure Communication (Admissions) 1631-she is feeling much better at this time we will discharge to home after 1 g of Rocephin IV on oral Ceftin. Impression Primary Impression: Urinary tract infection Qualified Codes: N30.00 - Acute cystitis without hematuria Disposition: HOME, SELF-CARE Condition: Stable Departure-Patient Inst. Decision time for Depature: 16:31 Referrals: AVANI JARA MD (PCP/Family) Primary Care Physician Patient Instructions: Urinary Tract Infections in Adults Add. Discharge Instructions: 1. Increase her fluid intake 2. Take the antibiotics as directed and follow-up with your doctor later this week. Scripts Cefuroxime Axetil (Cefuroxime) 250 Mg Tablet 250 MG PO BID, #10 TAB Prov: LIBAN WEISS APRN 05/04/19 LIBAN WEISS APRN May 04, 2019 15:31
--- NOTE | 2019-05-04 15:38 | NUR ---
ekg by me and to by me
[2019-05-04 15:51] LABS: BASOPHILS % (AUTO) 0 % (0-10); EOSINOPHILS # (AUTO) 0.2 10^3/uL (0.0-0.3); EOSINOPHILS % (AUTO) 2 % (0-10); HEMATOCRIT 45 % (35-52); HEMOGLOBIN 14.4 G/DL (11.5-16.0); LYMPHOCYTES # (AUTO) 1.1 X 10^3 (1.0-4.0); LYMPHOCYTES % (AUTO) 15 % (12-44); MEAN CORPUSCULAR HEMOGLOBIN 29 PG (25-34); MEAN CORPUSCULAR HGB CONC 32 G/DL (32-36); MEAN CORPUSCULAR VOLUME 89 FL (80-99); MEAN PLATELET VOLUME 10.3 FL (7.4-10.4); MONOCYTES # (AUTO) 0.4 X 10^3 (0.0-1.0); MONOCYTES % (AUTO) 6 % (0-12); NEUTROPHILS # (AUTO) 5.6 X 10^3 (1.8-7.8); NEUTROPHILS % (AUTO) 76 % (42-75); PLATELET COUNT 232 10^3/uL (130-400); RED CELL DISTRIBUTION WIDTH 13.6 % (10.0-14.5); WHITE BLOOD COUNT 7.4 10^3/uL (4.3-11.0)
[2019-05-04 15:57] LABS: BILIRUBIN,URINE NEGATIVE (NEGATIVE); CLARITY,URINE SLIGHTLY CLOUDY; COLOR,URINE YELLOW; GLUCOSE, URINE (UA) NEGATIVE (NEGATIVE); KETONES,URINE NEGATIVE (NEGATIVE); LEUKOCYTE ESTERASE ,URINE 3+ (NEGATIVE); NITRITE,URINE POSITIVE (NEGATIVE); PH,URINE 6.5 (5-9); PROTEIN,URINE 2+ (NEGATIVE); UROBILINOGEN,URINE 1 MG/DL (NORMAL)
[2019-05-04 16:06] LABS: ALANINE AMINOTRANSFERASE 24 U/L (0-55); ALBUMIN 3.6 GM/DL (3.2-4.5); ALKALINE PHOSPHATASE 73 U/L (40-136); BILIRUBIN,TOTAL 0.5 MG/DL (0.1-1.0); BUN/CREATININE RATIO 12; CALCIUM 9.9 MG/DL (8.5-10.1); CARBON DIOXIDE 22 MMOL/L (21-32); CHLORIDE 106 MMOL/L (98-107); CREATININE SERUM 1.01 MG/DL (0.60-1.30); GFR ESTIMATED 52; GLUCOSE 109 MG/DL (70-105); POTASSIUM 4.1 MMOL/L (3.6-5.0); SODIUM 140 MMOL/L (135-145)
[2019-05-04 16:16] LABS: WBC,URINE 50-100 /HPF
[2019-05-04 16:17] LABS: BACTERIA,URINE LARGE /HPF
[2019-05-04] MEDS ORDERED: cefTRIAXone FOR IV USE 1,000 MG in WATER (STERILE) FOR INJECTION 10 ML IV ONE (16:30)
[2019-05-04] MEDS ORDERED: CEFU250T80 PO (16:32)
[2019-05-04 16:49] VITALS: BP 155/86
== END 2019-05-04 16:49 | disposition home or self-care (01) ==
LOC: EDUNIT# 15:21 → ER 15:22
DX: N39.0 Urinary tract infection, site not specified (principal); I10 Essential (primary) hypertension; F32.9 Major depressive disorder, single episode, unspecified; F03.90 Unspecified dementia, unspecified severity, without behavioral disturbance, psychotic disturbance, mood disturbance, and anxiety; E78.00 Pure hypercholesterolemia, unspecified; Z90.710 Acquired absence of both cervix and uterus; Z79.02 Long term (current) use of antithrombotics/antiplatelets; Z86.73 Personal history of transient ischemic attack (TIA), and cerebral infarction without residual deficits
CPT/HCPCS: 36415; 80053; 81000; 84484; 85025; 87077; 87088; 87186; 93005

== ENCOUNTER 2019-05-06 10:55 | Inpatient (IN) | payer MEDICARE, OTHER ==
[~2019-05-06] VITALS: Ht 152.4 cm; Wt 71.8 kg
--- OUTSIDE RECORDS SUMMARY | 2019-05-06 10:59 | XMS REPORT | CCD ---
Author Author [facility]ita H[facility]ins Organization [facility] Address [address] [place] [address] Phone Care Team Providers Care O And M Supervisor Name Role Phone PP Unavailable CCM Unavailable Summary Purpose Interface Exchange Insurance Providers Payer name Policy type / Coverage type Covered republican ID Effective Begin Date Effective End Date WPS Medicare Part B Medicare Part B [id number] Unknown Unknown FOR LIFE WPS Medicare Part B No Plan Member ID Provided Unknown Unknown Family history Son Diagnosis Age At Onset kidney disease Unknown Hypertension Unknown Daughter Diagnosis Age At Onset Hypertension Unknown Coronary Artery Disease Unknown Social History Social History Element Codes Description Effective Dates Marital status Unknown 10/21/2018 Number of children Unknown 4 10/21/2018 Employment Unknown Retired 10/21/[address]: 620689525 Never smoker 10/21/[address]: 967392344 Never drinks alcohol 10/21/2018 Allergies, Adverse Reactions, Alerts Substance Reaction Codes Entered Date Inactivated Date Status * NO KNOWN DRUG ALLERGIES Unknown 10/21/2018 No Inactive Date Active Past Medical History Illness Codes Condition Status Onset Date Resolved Date 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 disturbance ICD-9: 294.10 ICD-10: F02.80 Active 11/27/2018 Unknown Essential (primary) hypertension ICD-9: 401.1 ICD-10: I10 Active 10/21/2018 Unknown Major depressive disorder, recurrent, moderate ICD-9: 296.32 ICD-10: F33.1 Active 10/21/2018 Unknown Dehydration ICD-9: 276.51 ICD-10: E86.0 Active 01/27/2019 Unknown Diarrhea, unspecified ICD- 9: 787.91 ICD-10: R19.7 Active 01/27/2019 Unknown Urinary tract infection, site not specified ICD-9: 599.0 ICD-10: N39.0 Active 01/27/2019 Unknown Mixed hyperlipidemia ICD- 9: 272.2 ICD-10: E78.2 Active 10/21/2018 Unknown chronic kidney disease Unknown Active 10/21/2018 Unknown Dementia Unknown Active 10/21/2018 Unknown Hypertension Unknown Active 10/21/2018 Unknown Stroke Unknown Active 10/21/2018 Unknown 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 10/21/2018 Unknown Problems Condition Codes Effective Dates Condition Status 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 disturbance ICD-9: 294.10 ICD-10: F02.80 11/27/2018 Active Essential (primary) hypertension ICD-9: 401.1 ICD-10: I10 10/21/2018 Active Major depressive disorder, recurrent, moderate ICD-9: 296.32 ICD-10: F33.1 10/21/2018 Active Dehydration ICD-9: 276.51 ICD-10: E86.0 01/27/2019 Active Diarrhea, unspecified ICD- 9: 787.91 ICD-10: R19.7 01/27/2019 Active Urinary tract infection, site not specified ICD-9: 599.0 ICD-10: N39.0 01/27/2019 Active Mixed hyperlipidemia ICD- 9: 272.2 ICD-10: E78.2 10/21/2018 Active chronic kidney disease Unknown 10/21/2018 Active Dementia Unknown 10/21/2018 Active Hypertension Unknown 10/21/2018 Active Stroke Unknown 10/21/2018 Active 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 10/21/2018 Active Medications Medication Codes Instructions Start Date Stop Date Status Fill Instructions Exelon Patch 9.5 mg/24 hr transdermal RxNorm: 947975 1 TD daily 02/18/2019 02/12/2020 Active Plavix 75 mg tablet RxNorm: 319261 1 Tablet(s) PO daily 02/18/2019 02/12/2020 Active citalopram 10 mg tablet RxNorm: 002421 1 Tablet(s) PO daily 02/18/2019 02/12/2020 Active atorvastatin 10 mg tablet RxNorm: 941890 1 Tablet(s) PO daily 02/18/2019 02/12/2020 Active verapamil 120 mg tablet RxNorm: 107576 1 Tablet(s) PO daily 02/18/2019 02/12/2020 Active Diflucan 150 mg tablet RxNorm: 024785 1 Tablet(s) PO daily 01/30/2019 02/05/2019 Inactive Diflucan 150 mg tablet RxNorm: 154408 1 Tablet(s) PO daily 01/30/2019 01/29/2019 Inactive Augmentin 500 mg-125 mg tablet RxNorm: 164510 1 Tablet(s) PO TID 01/20/2019 01/26/2019 Inactive Augmentin 500 mg-125 mg tablet RxNorm: 359384 1 Tablet(s) PO TID 01/20/2019 01/19/2019 Inactive Augmentin 250 mg-125 mg tablet RxNorm: 711536 1 Tablet(s) PO TID 01/19/2019 01/20/2019 Inactive Augmentin 250 mg-125 mg tablet RxNorm: 186929 1 Tablet(s) PO TID 01/19/2019 01/18/2019 Inactive Keflex 500 mg capsule RxNorm: 179200 1 Capsule(s) PO TID 01/16/2019 01/22/2019 Inactive Keflex 500 mg capsule RxNorm: 624498 1 Capsule(s) PO TID 12/26/2018 01/01/2019 Inactive Keflex 500 mg capsule RxNorm: 141699 1 Capsule(s) PO TID 12/26/2018 12/25/2018 Inactive Plavix 75 mg tablet RxNorm: 594729 1 Tablet(s) PO daily 11/20/2018 02/17/2019 Inactive Plavix 75 mg tablet RxNorm: 662189 1 Tablet(s) PO daily 11/20/2018 11/19/2018 Inactive Centrum Silver Women 8 mg iron-400 mcg-300 mcg tablet RxNorm: 1 Tablet(s) PO daily No Start Date Active Glucosamine Relief 1,000 mg tablet RxNorm: 529371 1 Tablet(s) PO daily No Start Date Active coenzyme Q10 100 mg capsule RxNorm: 798744 1 Capsule(s) PO daily No Start Date Active atorvastatin 10 mg tablet RxNorm: 943476 1 Tablet(s) PO daily No Start Date 02/16/2019 Inactive verapamil 120 mg tablet RxNorm: 355011 1 Tablet(s) PO daily No Start Date 02/17/2019 Inactive hydrochlorothiazide 12.5 mg tablet RxNorm: 791811 1 Tablet(s) PO daily No Start Date 11/26/2018 Inactive citalopram 10 mg tablet RxNorm: 026577 1 Tablet(s) PO daily No Start Date 02/17/2019 Inactive Exelon Patch 9.5 mg/24 hr transdermal RxNorm: 502357 1 TD daily No Start Date 02/17/2019 Inactive Medication Administered No Medication Administered data Immunizations Vaccine Codes Date Status Influenza CVX: 141 07/02/2018 completed Pneumococcal CVX: 133 11/24/2015 completed Pneumococcal CVX: 33 04/28/2013 completed Assessments Condition Codes Effective Dates Essential (primary) hypertension ICD-10: I10 ICD-9: 401.1 03/12/2019 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 disturbance ICD-10: F02.80 ICD-9: 294.10 03/12/2019 Major depressive disorder, recurrent, moderate ICD-10: F33.1 ICD-9: 296.32 03/12/2019 Diarrhea, unspecified ICD-10: R19.7 ICD-9: 787.91 01/27/2019 Dehydration ICD-10: E86.0 ICD-9: 276.51 01/27/2019 Urinary tract infection, site not specified ICD-10: N39.0 ICD-9: 599.0 01/27/2019 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 10/21/2018 Mixed hyperlipidemia ICD-10: E78.2 ICD-9: 272.2 10/21/2018 Reason For Visit Reason For Visit Effective Dates Notes hypertension 03/12/2019 diarrhea 01/27/2019 hypertension 11/27/2018 hypertension 10/21/2018 Results Observation Observation Code Item Item Code Result Date Comp Metabolic Get673 NA 142 mEq/L 03/09/2019 Comp Metabolic Ljh936 K 3.6 mEq/L 03/09/2019 Comp Metabolic Jzw543 CL 106 mEq/L 03/09/2019 Comp Metabolic Scx897 CO2 28.0 mEq/L 03/09/2019 Comp Metabolic Ari869 ANION GAP 12 03/09/2019 Comp Metabolic Lev652 GLUCOSE 100 mg/dL 03/09/2019 Comp Metabolic Det687 Creat 1.0 mg/dL 03/09/2019 Comp Metabolic Rvt763 eGFR 57 ml/min/1.73m2 03/09/2019 Comp Metabolic Php250 BUN 10 mg/dL 03/09/2019 Comp Metabolic Bgi850 B/C Ratio 10.3 Ratio 03/09/2019 Comp Metabolic Ndh432 CALCIUM 9.5 mg/dL 03/09/2019 Comp Metabolic Ojb875 ALK PHOS 50 U/L 03/09/2019 Comp Metabolic Vkw744 AST(SGOT) 14 U/L 03/09/2019 Comp Metabolic Uyh654 ALT(SGPT) 11 U/L 03/09/2019 Comp Metabolic Liy193 BILI T 0.7 mg/dL 03/09/2019 Comp Metabolic Yon567 ALBUMIN 3.6 g/dL 03/09/2019 Comp Metabolic Ocw262 TPRO 6.5 g/dL 03/09/2019 Comp Metabolic Oew186 GLOB 3.0 g/dL 03/09/2019 Comp Metabolic Pot806 A/G Ratio 1.2 Ratio 03/09/2019 Comp Metabolic Vla779 Osmo 282 mOsmo 03/09/2019 B12 Aml514 B12 573.00 pg/ml 03/09/2019 Lipid Ord30 CHOL 175 mg/dL 03/09/2019 Lipid Ord30 HDL 44.0 mg/dl 03/09/2019 Lipid Ord30 TRIG 170 mg/dL 03/09/2019 Lipid Ord30 LDL 97 mg/dL 03/09/2019 Lipid Ord30 C/HDL 4.0 Ratio 03/09/2019 Tsh Ord6 TSH (3rd IS) 2.22 uIU/mL 03/09/2019 Cbc With Differential Ord2 WBC 6.29 K/ul 03/09/2019 Cbc With Differential Ord2 RBC 4.84 M/ul 03/09/2019 Cbc With Differential Ord2 HGB 14.1 g/dl 03/09/2019 Cbc With Differential Ord2 HCT 43.1 % 03/09/2019 Cbc With Differential Ord2 Neut% 65.8 % 03/09/2019 Cbc With Differential Ord2 MCV 89.0 fl 03/09/2019 Cbc With Differential Ord2 Lymph% 21.8 % 03/09/2019 Cbc With Differential Ord2 MCH 29.1 pg 03/09/2019 Cbc With Differential Ord2 Nance% 6.8 % 03/09/2019 Cbc With Differential Ord2 MCHC 32.7 pg 03/09/2019 Cbc With Differential Ord2 Eos% 4.8 % 03/09/2019 Cbc With Differential Ord2 PLT 206 K/ul 03/09/2019 Cbc With Differential Ord2 Baso% 0.8 % 03/09/2019 Cbc With Differential Ord2 RDW 14.1 % 03/09/2019 Cbc With Differential Ord2 Neut ABS# 4.14 K/ul 03/09/2019 Cbc With Differential Ord2 Lymph ABS# 1.37 K/ul 03/09/2019 Cbc With Differential Ord2 Nance ABS# 0.4 K/ul 03/09/2019 Cbc With Differential Ord2 Eos ABS# 0.3 K/ul 03/09/2019 Cbc With Differential Ord2 Baso ABS# 0.1 K/ul 03/09/2019 Urinalysis Ord28 U-Color Yellow 01/16/2019 Urinalysis Ord28 U-Clarity Slightly Cloudy 01/16/2019 Urinalysis Ord28 U-Gluc Negative 01/16/2019 Urinalysis Ord28 U-Bili Negative 01/16/2019 Urinalysis Ord28 U-Ketone Negative 01/16/2019 Urinalysis Ord28 U-SG 1.015 01/16/2019 Urinalysis Ord28 U-Blood Negative 01/16/2019 Urinalysis Ord28 U-pH 7.5 01/16/2019 Urinalysis Ord28 U-Protein Negative 01/16/2019 Urinalysis Ord28 U-Urobilin 0.2 E.U./dL E.U./dL 01/16/2019 Urinalysis Ord28 U-Nitrites Negative 01/16/2019 Urinalysis Ord28 U-Leuk Trace 01/16/2019 Urinalysis Ord28 U-Bact 1+ 01/16/2019 Urinalysis Ord28 U-Squamous Epi 0-5 per/HPF 01/16/2019 Urinalysis Ord28 U-Crystal None per/HPF 01/16/2019 Urinalysis Ord28 U-Mucus 1+ 01/16/2019 Urinalysis Ord28 U-Renal tubular epi None 01/16/2019 Urinalysis Ord28 U-RBC None per/HPF 01/16/2019 Urinalysis Ord28 U-Transitional epi None per/HPF 01/16/2019 Urinalysis Ord28 U-WBC 10-20 per/HPF 01/16/2019 Urinalysis Ord28 U-Cast None per/lpf 01/16/2019 Urinalysis Ord28 U-VOL VOLUME SUFFICIENT (10mL) 01/16/2019 Urinalysis Ord28 U-Com Culture to follow 01/16/2019 Urinalysis Ord28 U-Yeast NEGATIVE 01/16/2019 Urinalysis Ord28 U-Color Yellow 12/26/2018 Urinalysis Ord28 U-Clarity Cloudy 12/26/2018 Urinalysis Ord28 U-Gluc Negative 12/26/2018 Urinalysis Ord28 U-Bili Negative 12/26/2018 Urinalysis Ord28 U-Ketone Negative 12/26/2018 Urinalysis Ord28 U-SG 1.020 12/26/2018 Urinalysis Ord28 U-Blood Negative 12/26/2018 Urinalysis Ord28 U-pH 6.5 12/26/2018 Urinalysis Ord28 U-Protein Trace 12/26/2018 Urinalysis Ord28 U-Urobilin 0.2 E.U./dL E.U./dL 12/26/2018 Urinalysis Ord28 U-Nitrites Negative 12/26/2018 Urinalysis Ord28 U-Leuk Small 12/26/2018 Urinalysis Ord28 U-Bact 3+ 12/26/2018 Urinalysis Ord28 U-Squamous Epi 0-5 per/HPF 12/26/2018 Urinalysis Ord28 U-Crystal None per/HPF 12/26/2018 Urinalysis Ord28 U-Mucus 1+ 12/26/2018 Urinalysis Ord28 U-Renal tubular epi None 12/26/2018 Urinalysis Ord28 U-RBC None per/HPF 12/26/2018 Urinalysis Ord28 U-Transitional epi None per/HPF 12/26/2018 Urinalysis Ord28 U-WBC 10-20 per/HPF 12/26/2018 Urinalysis Ord28 U-Cast None per/lpf 12/26/2018 Urinalysis Ord28 U-VOL VOLUME SUFFICIENT (10mL) 12/26/2018 Urinalysis Ord28 U-Com Culture to follow 12/26/2018 Urinalysis Ord28 U-Yeast NEGATIVE 12/26/2018 Review of Systems System Result Effective Dates Constitutional No recent illness 03/12/2019 Constitutional No chills 03/12/2019 Constitutional fatigue 03/12/2019 Constitutional No fever 03/12/2019 Constitutional No insomnia 03/12/2019 Constitutional malaise 03/12/2019 Eyes No vision change 03/12/2019 Ears/Nose/Throat/Neck No dizziness 03/12/2019 Ears/Nose/Throat/Neck No dysphagia 03/12/2019 Ears/Nose/Throat/Neck No headache 03/12/2019 Ears/Nose/Throat/Neck No hearing loss 03/12/2019 Ears/Nose/Throat/Neck No nasal allergies 03/12/2019 Ears/Nose/Throat/Neck No sore throat 03/12/2019 Ears/Nose/Throat/Neck No postnasal drip 03/12/2019 Ears/Nose/Throat/Neck No sinus congestion 03/12/2019 Cardiovascular No chest pain/pressure 03/12/2019 Cardiovascular No dyspnea 03/12/2019 Cardiovascular No edema 03/12/2019 Cardiovascular No exercise intolerance 03/12/2019 Cardiovascular fatigue 03/12/2019 Cardiovascular hypertension 03/12/2019 Cardiovascular No near-syncope/dizziness 03/12/2019 Respiratory No chest tightness 03/12/2019 Respiratory No cough 03/12/2019 Respiratory No dyspnea 03/12/2019 Respiratory No pedal edema 03/12/2019 Gastrointestinal No abdominal pain 03/12/2019 Gastrointestinal No constipation 03/12/2019 Gastrointestinal No diarrhea 03/12/2019 Gastrointestinal No gastroesophageal reflux 03/12/2019 Gastrointestinal No nausea 03/12/2019 Gastrointestinal No vomiting 03/12/2019 Genitourinary/Nephrology No dysuria 03/12/2019 Genitourinary/Nephrology No urinary incontinence 03/12/2019 Musculoskeletal stiffness 03/12/2019 Musculoskeletal No swelling 03/12/2019 Musculoskeletal muscle weakness 03/12/2019 Musculoskeletal No myalgias 03/12/2019 Dermatologic No rash 03/12/2019 Neurologic No dizziness 03/12/2019 Neurologic No headache 03/12/2019 Neurologic No neck pain 03/12/2019 Neurologic paresis 03/12/2019 Neurologic No syncope 03/12/2019 Neurologic weakness 03/12/2019 Psychiatric No anxiety 03/12/2019 Psychiatric No depression 03/12/2019 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 Constitutional recent illness 01/27/2019 Constitutional No night sweats 01/27/2019 Constitutional No chills 01/27/2019 Constitutional No diaphoresis 01/27/2019 Constitutional fatigue 01/27/2019 Constitutional No fever 01/27/2019 Constitutional No insomnia 01/27/2019 Constitutional No malaise 01/27/2019 Constitutional No weight loss 01/27/2019 Constitutional No weight gain 01/27/2019 Eyes No eye erythema 01/27/2019 Eyes No eye discharge 01/27/2019 Ears/Nose/Throat/Neck dizziness 01/27/2019 Ears/Nose/Throat/Neck No headache 01/27/2019 Cardiovascular No chest pain/pressure 01/27/2019 Cardiovascular No dyspnea 01/27/2019 Cardiovascular edema 01/27/2019 Respiratory No cough 01/27/2019 Gastrointestinal No abdominal pain 01/27/2019 Gastrointestinal No constipation 01/27/2019 Gastrointestinal diarrhea 01/27/2019 Gastrointestinal nausea 01/27/2019 Gastrointestinal vomiting 01/27/2019 Genitourinary/Nephrology dysuria 01/27/2019 Musculoskeletal No joint complaint 01/27/2019 Dermatologic No rash 01/27/2019 Neurologic memory loss 01/27/2019 Endocrine No dry or coarse skin 01/27/2019 Constitutional No recent illness 11/27/2018 Constitutional No chills 11/27/2018 Constitutional fatigue 11/27/2018 Constitutional No fever 11/27/2018 Constitutional No insomnia 11/27/2018 Constitutional malaise 11/27/2018 Eyes No vision change 11/27/2018 Ears/Nose/Throat/Neck No dizziness 11/27/2018 Ears/Nose/Throat/Neck No dysphagia 11/27/2018 Ears/Nose/Throat/Neck No headache 11/27/2018 Ears/Nose/Throat/Neck No hearing loss 11/27/2018 Ears/Nose/Throat/Neck No nasal allergies 11/27/2018 Ears/Nose/Throat/Neck No sore throat 11/27/2018 Ears/Nose/Throat/Neck No postnasal drip 11/27/2018 Ears/Nose/Throat/Neck No sinus congestion 11/27/2018 Cardiovascular No chest pain/pressure 11/27/2018 Cardiovascular No dyspnea 11/27/2018 Cardiovascular No edema 11/27/2018 Cardiovascular No exercise intolerance 11/27/2018 Cardiovascular fatigue 11/27/2018 Cardiovascular hypertension 11/27/2018 Cardiovascular No near-syncope/dizziness 11/27/2018 Respiratory No chest tightness 11/27/2018 Respiratory No cough 11/27/2018 Respiratory No dyspnea 11/27/2018 Respiratory No pedal edema 11/27/2018 Gastrointestinal No abdominal pain 11/27/2018 Gastrointestinal No constipation 11/27/2018 Gastrointestinal No diarrhea 11/27/2018 Gastrointestinal No gastroesophageal reflux 11/27/2018 Gastrointestinal No nausea 11/27/2018 Gastrointestinal No vomiting 11/27/2018 Genitourinary/Nephrology No dysuria 11/27/2018 Genitourinary/Nephrology No urinary incontinence 11/27/2018 Musculoskeletal stiffness 11/27/2018 Musculoskeletal No swelling 11/27/2018 Musculoskeletal muscle weakness 11/27/2018 Musculoskeletal No myalgias 11/27/2018 Dermatologic No rash 11/27/2018 Neurologic No dizziness 11/27/2018 Neurologic No headache 11/27/2018 Neurologic No neck pain 11/27/2018 Neurologic paresis 11/27/2018 Neurologic No syncope 11/27/2018 Neurologic weakness 11/27/2018 Psychiatric No anxiety 11/27/2018 Psychiatric No depression 11/27/2018 Constitutional No recent illness 10/21/2018 Constitutional No chills 10/21/2018 Constitutional fatigue 10/21/2018 Constitutional No fever 10/21/2018 Constitutional No insomnia 10/21/2018 Constitutional malaise 10/21/2018 Eyes No vision change 10/21/2018 Ears/Nose/Throat/Neck No dizziness 10/21/2018 Ears/Nose/Throat/Neck No dysphagia 10/21/2018 Ears/Nose/Throat/Neck No headache 10/21/2018 Ears/Nose/Throat/Neck No hearing loss 10/21/2018 Ears/Nose/Throat/Neck No nasal allergies 10/21/2018 Ears/Nose/Throat/Neck No sore throat 10/21/2018 Ears/Nose/Throat/Neck No postnasal drip 10/21/2018 Ears/Nose/Throat/Neck No sinus congestion 10/21/2018 Cardiovascular No chest pain/pressure 10/21/2018 Cardiovascular No dyspnea 10/21/2018 Cardiovascular No edema 10/21/2018 Cardiovascular No exercise intolerance 10/21/2018 Cardiovascular fatigue 10/21/2018 Cardiovascular No near-syncope/dizziness 10/21/2018 Respiratory No chest tightness 10/21/2018 Respiratory No cough 10/21/2018 Respiratory No dyspnea 10/21/2018 Respiratory No pedal edema 10/21/2018 Gastrointestinal No abdominal pain 10/21/2018 Gastrointestinal No constipation 10/21/2018 Gastrointestinal No diarrhea 10/21/2018 Gastrointestinal No gastroesophageal reflux 10/21/2018 Gastrointestinal No nausea 10/21/2018 Gastrointestinal No vomiting 10/21/2018 Genitourinary/Nephrology No dysuria 10/21/2018 Genitourinary/Nephrology No nocturia 10/21/2018 Genitourinary/Nephrology No urinary incontinence 10/21/2018 Musculoskeletal stiffness 10/21/2018 Musculoskeletal No swelling 10/21/2018 Musculoskeletal muscle weakness 10/21/2018 Musculoskeletal No myalgias 10/21/2018 Dermatologic No rash 10/21/2018 Dermatologic No sores 10/21/2018 Neurologic No dizziness 10/21/2018 Neurologic No headache 10/21/2018 Neurologic No neck pain 10/21/2018 Neurologic No syncope 10/21/2018 Psychiatric No anxiety 10/21/2018 Psychiatric No depression 10/21/2018 Neurologic weakness 10/21/2018 Neurologic paresis 10/21/2018 Cardiovascular hypertension 10/21/2018 Physical Exam Exam Name System Name Item Name Status Result Effective Dates Notes Full Exam - General 1994 Constitutional general appearance Development: well developed 03/12/2019 None Full Exam - General 1994 Constitutional general appearance Development: appears stated age 0603/12/2019 None Full Exam - General 1994 Constitutional general appearance Hygiene/Attention to Grooming: good hygiene 03/12/2019 None Full Exam - General 1994 Eyes conjunctiva/eyelids Overall: conjunctiva clear 03/12/2019 None Full Exam - General 1994 Eyes conjunctiva/eyelids Overall: cornea clear 03/12/2019 None Full Exam - General 1994 Eyes conjunctiva/eyelids Overall: eyelids normal 03/12/2019 None Full Exam - General 1994 Eyes pupils and irises Overall: pupils equal, round, reactive to light and accomodation 03/12/2019 None Full Exam - General 1994 Ears/Nose/Throat otoscopic exam Overall: external auditory canals clear 03/12/2019 None Full Exam - General 1994 Ears/Nose/Throat otoscopic exam Overall: tympanic membranes clear 03/12/2019 None Full Exam - General 1994 Ears/Nose/Throat lips/teeth/gingiva Overall: benign lips 03/12/2019 None Full Exam - General 1994 Ears/Nose/Throat lips/teeth/gingiva Overall: normal dentition 03/12/2019 None Full Exam - General 1994 Ears/Nose/Throat oral cavity/pharynx/larynx Overall: oral mucosa clear 03/12/2019 None Full Exam - General 1994 Ears/Nose/Throat oral cavity/pharynx/larynx Overall: oropharyngeal mucosa clear 03/12/2019 None Full Exam - General 1994 Ears/Nose/Throat oral cavity/pharynx/larynx Overall: hypopharynx benign 03/12/2019 None Full Exam - General 1994 Ears/Nose/Throat oral cavity/pharynx/larynx Overall: no masses 03/12/2019 None Full Exam - General 1994 Respiratory auscultation Overall: breath sounds clear bilaterally 03/12/2019 None Full Exam - General 1994 Respiratory respiratory effort/rhythm Overall: no retractions 03/12/2019 None Full Exam - General 1994 Respiratory respiratory effort/rhythm Overall: normal rate 03/12/2019 None Full Exam - General 1994 Cardiovascular extremities Overall: no clubbing 03/12/2019 None Full Exam - General 1994 Cardiovascular auscultation of heart Overall: regular rate 03/12/2019 None Full Exam - General 1994 Cardiovascular auscultation of heart Overall: normal heart sounds 03/12/2019 None Full Exam - General 1994 Abdomen abdominal exam Overall: no tenderness 03/12/2019 None Full Exam - General 1994 Abdomen abdominal exam Overall: normal bowel sounds 03/12/2019 None Full Exam - General 1994 Lymphatic neck nodes Overall: anterior cervical chain benign 03/12/2019 None Full Exam - General 1994 Lymphatic neck nodes Overall: posterior cervical chain benign 03/12/2019 None Full Exam - General 1994 Musculoskeletal spine, ribs and pelvis Posture: kyphosis 03/12/2019 None Full Exam - General 1994 Musculoskeletal head and neck Overall: head atraumatic 03/12/2019 None Full Exam - General 1994 Musculoskeletal head and neck Overall: cervical spine benign 03/12/2019 None Full Exam - General 1994 Integument inspection of skin Overall: few scattered moles, no gross abnormalities 03/12/2019 None Full Exam - General 1994 Neurologic cranial nerves Overall: crainial nerves 2 - 12 grossly intact 03/12/2019 None Full Exam - General 1994 Psychiatric orientation/consciousness Overall: oriented to person, place and time 03/12/2019 None Full Exam - General 1994 Psychiatric mood and affect Overall: normal mood and affect 03/12/2019 None Full Exam - General 1994 Constitutional general appearance Development: well developed 01/27/2019 None Full Exam - General 1994 Constitutional general appearance Development: appears stated age 0401/27/2019 None Full Exam - General 1994 Constitutional general appearance Hygiene/Attention to Grooming: good hygiene 01/27/2019 None Full Exam - General 1994 Eyes conjunctiva/eyelids Overall: conjunctiva clear 01/27/2019 None Full Exam - General 1994 Eyes conjunctiva/eyelids Overall: cornea clear 01/27/2019 None Full Exam - General 1994 Eyes conjunctiva/eyelids Overall: eyelids normal 01/27/2019 None Full Exam - General 1994 Eyes pupils and irises Overall: pupils equal, round, reactive to light and accomodation 01/27/2019 None Full Exam - General 1994 Ears/Nose/Throat otoscopic exam Overall: external auditory canals clear 01/27/2019 None Full Exam - General 1994 Ears/Nose/Throat otoscopic exam Overall: tympanic membranes clear 01/27/2019 None Full Exam - General 1994 Ears/Nose/Throat lips/teeth/gingiva Overall: benign lips 01/27/2019 None Full Exam - General 1994 Ears/Nose/Throat lips/teeth/gingiva Overall: normal dentition 01/27/2019 None Full Exam - General 1994 Ears/Nose/Throat oral cavity/pharynx/larynx Overall: oral mucosa clear 01/27/2019 None Full Exam - General 1994 Ears/Nose/Throat oral cavity/pharynx/larynx Overall: oropharyngeal mucosa clear 01/27/2019 None Full Exam - General 1994 Ears/Nose/Throat oral cavity/pharynx/larynx Overall: hypopharynx benign 01/27/2019 None Full Exam - General 1994 Ears/Nose/Throat oral cavity/pharynx/larynx Overall: no masses 01/27/2019 None Full Exam - General 1994 Respiratory auscultation Overall: breath sounds clear bilaterally 01/27/2019 None Full Exam - General 1994 Respiratory respiratory effort/rhythm Overall: no retractions 01/27/2019 None Full Exam - General 1994 Respiratory respiratory effort/rhythm Overall: normal rate 01/27/2019 None Full Exam - General 1994 Cardiovascular extremities Overall: no clubbing 01/27/2019 None Full Exam - General 1994 Cardiovascular auscultation of heart Overall: regular rate 01/27/2019 None Full Exam - General 1994 Cardiovascular auscultation of heart Overall: normal heart sounds 01/27/2019 None Full Exam - General 1994 Abdomen abdominal exam Overall: no tenderness 01/27/2019 None Full Exam - General 1994 Abdomen abdominal exam Overall: normal bowel sounds 01/27/2019 None Full Exam - General 1994 Lymphatic neck nodes Overall: anterior cervical chain benign 01/27/2019 None Full Exam - General 1994 Lymphatic neck nodes Overall: posterior cervical chain benign 01/27/2019 None Full Exam - General 1994 Musculoskeletal spine, ribs and pelvis Posture: kyphosis 01/27/2019 None Full Exam - General 1994 Musculoskeletal head and neck Overall: head atraumatic 01/27/2019 None Full Exam - General 1994 Musculoskeletal head and neck Overall: cervical spine benign 01/27/2019 None Full Exam - General 1994 Integument inspection of skin Overall: few scattered moles, no gross abnormalities 01/27/2019 None Full Exam - General 1994 Neurologic cranial nerves Overall: crainial nerves 2 - 12 grossly intact 01/27/2019 None Full Exam - General 1994 Psychiatric orientation/consciousness Overall: oriented to person, place and time 01/27/2019 None Full Exam - General 1994 Psychiatric mood and affect Overall: normal mood and affect 01/27/2019 None Full Exam - Cardiology Constitutional general appearance Assistive Device: wheelchair 01/27/2019 None Full Exam - Cardiology Ears/Nose/Throat oral mucosa Oral mucosa: dry 01/27/2019 None Full Exam - General 1994 Constitutional general appearance Development: well developed 11/27/2018 None Full Exam - General 1994 Constitutional general appearance Development: appears stated age 0211/27/2018 None Full Exam - General 1994 Constitutional general appearance Hygiene/Attention to Grooming: good hygiene 11/27/2018 None Full Exam - General 1994 Eyes conjunctiva/eyelids Overall: conjunctiva clear 11/27/2018 None Full Exam - General 1994 Eyes conjunctiva/eyelids Overall: cornea clear 11/27/2018 None Full Exam - General 1994 Eyes conjunctiva/eyelids Overall: eyelids normal 11/27/2018 None Full Exam - General 1994 Eyes pupils and irises Overall: pupils equal, round, reactive to light and accomodation 11/27/2018 None Full Exam - General 1994 Ears/Nose/Throat otoscopic exam Overall: external auditory canals clear 11/27/2018 None Full Exam - General 1994 Ears/Nose/Throat otoscopic exam Overall: tympanic membranes clear 11/27/2018 None Full Exam - General 1994 Ears/Nose/Throat lips/teeth/gingiva Overall: benign lips 11/27/2018 None Full Exam - General 1994 Ears/Nose/Throat lips/teeth/gingiva Overall: normal dentition 11/27/2018 None Full Exam - General 1994 Ears/Nose/Throat oral cavity/pharynx/larynx Overall: oral mucosa clear 11/27/2018 None Full Exam - General 1995 Ears/Nose/Throat oral cavity/pharynx/larynx Overall: oropharyngeal mucosa clear 11/27/2018 None Full Exam - General 1994 Ears/Nose/Throat oral cavity/pharynx/larynx Overall: hypopharynx benign 11/27/2018 None Full Exam - General 1994 Ears/Nose/Throat oral cavity/pharynx/larynx Overall: no masses 11/27/2018 None Full Exam - General 1994 Respiratory auscultation Overall: breath sounds clear bilaterally 11/27/2018 None Full Exam - General 1994 Respiratory respiratory effort/rhythm Overall: no retractions 11/27/2018 None Full Exam - General 1994 Respiratory respiratory effort/rhythm Overall: normal rate 11/27/2018 None Full Exam - General 1994 Cardiovascular extremities Overall: no clubbing 11/27/2018 None Full Exam - General 1994 Cardiovascular auscultation of heart Overall: regular rate 11/27/2018 None Full Exam - General 1994 Cardiovascular auscultation of heart Overall: normal heart sounds 11/27/2018 None Full Exam - General 1994 Abdomen abdominal exam Overall: no tenderness 11/27/2018 None Full Exam - General 1994 Abdomen abdominal exam Overall: normal bowel sounds 11/27/2018 None Full Exam - General 1994 Lymphatic neck nodes Overall: anterior cervical chain benign 11/27/2018 None Full Exam - General 1994 Lymphatic neck nodes Overall: posterior cervical chain benign 11/27/2018 None Full Exam - General 1994 Musculoskeletal spine, ribs and pelvis Posture: kyphosis 11/27/2018 None Full Exam - General 1994 Musculoskeletal head and neck Overall: head atraumatic 11/27/2018 None Full Exam - General 1994 Musculoskeletal head and neck Overall: cervical spine benign 11/27/2018 None Full Exam - General 1994 Integument inspection of skin Overall: few scattered moles, no gross abnormalities 11/27/2018 None Full Exam - General 1994 Neurologic cranial nerves Overall: crainial nerves 2 - 12 grossly intact 11/27/2018 None Full Exam - General 1994 Psychiatric orientation/consciousness Overall: oriented to person, place and time 11/27/2018 None Full Exam - General 1994 Psychiatric mood and affect Overall: normal mood and affect 11/27/2018 None Full Exam - General 1994 Constitutional general appearance Development: well developed 10/21/2018 None Full Exam - General 1994 Constitutional general appearance Development: appears stated age 0110/21/2018 None Full Exam - General 1994 Constitutional general appearance Hygiene/Attention to Grooming: good hygiene 10/21/2018 None Full Exam - General 1994 Eyes conjunctiva/eyelids Overall: conjunctiva clear 10/21/2018 None Full Exam - General 1994 Eyes conjunctiva/eyelids Overall: cornea clear 10/21/2018 None Full Exam - General 1994 Eyes conjunctiva/eyelids Overall: eyelids normal 10/21/2018 None Full Exam - General 1994 Eyes pupils and irises Overall: pupils equal, round, reactive to light and accomodation 10/21/2018 None Full Exam - General 1994 Ears/Nose/Throat otoscopic exam Overall: external auditory canals clear 10/21/2018 None Full Exam - General 1994 Ears/Nose/Throat otoscopic exam Overall: tympanic membranes clear 10/21/2018 None Full Exam - General 1994 Ears/Nose/Throat lips/teeth/gingiva Overall: benign lips 10/21/2018 None Full Exam - General 1994 Ears/Nose/Throat lips/teeth/gingiva Overall: normal dentition 10/21/2018 None Full Exam - General 1994 Ears/Nose/Throat oral cavity/pharynx/larynx Overall: oral mucosa clear 10/21/2018 None Full Exam - General 1994 Ears/Nose/Throat oral cavity/pharynx/larynx Overall: oropharyngeal mucosa clear 10/21/2018 None Full Exam - General 1994 Ears/Nose/Throat oral cavity/pharynx/larynx Overall: hypopharynx benign 10/21/2018 None Full Exam - General 1994 Ears/Nose/Throat oral cavity/pharynx/larynx Overall: no masses 10/21/2018 None Full Exam - General 1994 Respiratory auscultation Overall: breath sounds clear bilaterally 10/21/2018 None Full Exam - General 1994 Respiratory respiratory effort/rhythm Overall: no retractions 10/21/2018 None Full Exam - General 1994 Respiratory respiratory effort/rhythm Overall: normal rate 10/21/2018 None Full Exam - General 1994 Cardiovascular extremities Overall: no clubbing 10/21/2018 None Full Exam - General 1994 Cardiovascular auscultation of heart Overall: regular rate 10/21/2018 None Full Exam - General 1994 Cardiovascular auscultation of heart Overall: normal heart sounds 10/21/2018 None Full Exam - General 1994 Abdomen abdominal exam Overall: no tenderness 10/21/2018 None Full Exam - General 1994 Abdomen abdominal exam Overall: normal bowel sounds 10/21/2018 None Full Exam - General 1994 Musculoskeletal head and neck Overall: head atraumatic 10/21/2018 None Full Exam - General 1994 Musculoskeletal head and neck Overall: cervical spine benign 10/21/2018 None Full Exam - General 1994 Integument inspection of skin Overall: few scattered moles, no gross abnormalities 10/21/2018 None Full Exam - General 1994 Neurologic cranial nerves Overall: crainial nerves 2 - 12 grossly intact 10/21/2018 None Full Exam - General 1994 Psychiatric orientation/consciousness Overall: oriented to person, place and time 10/21/2018 None Full Exam - General 1994 Psychiatric mood and affect Overall: normal mood and affect 10/21/2018 None Full Exam - General 1994 Musculoskeletal spine, ribs and pelvis Posture: kyphosis 10/21/2018 None Full Exam - General 1994 Lymphatic neck nodes Overall: anterior cervical chain benign 10/21/2018 None Full Exam - General 1994 Lymphatic neck nodes Overall: posterior cervical chain benign 10/21/2018 None Procedures No Procedures data Vital Signs Date Vital 03/12/2019 Blood Pressure 1: 146/66 Code: 8480-6 Heart Rate 1: 75 bpm Height: Respiratory Rate: 16 bpm SpO2: 97% Weight: 01/27/2019 Blood Pressure 1: 122/74 Code: 8480-6 Heart Rate 1: 67 bpm Height: SpO2: 97% Temperature: 37.1 (C) / 98.7 (F) Weight: 11/27/2018 Blood Pressure 1: 122/78 Code: 8480-6 Heart Rate 1: 76 bpm Height: 5' SpO2: 97% Weight: 10/21/2018 Blood Pressure 1: 130/82 Code: 8480-6 BMI: 31.8 Code: 92322-3 Heart Rate 1: 75 bpm Height: 5' SpO2: 95% Weight: 163 lbs Functional Status No Functional Status data History of Present Illness Symptom Name Status Result Effective Date Notes Quality chronic 03/12/2019 None Quality primary hypertension 03/12/2019 None Onset and Resolution ongoing 03/12/2019 None Blood Pressure Values patient checking blood pressure at home - did not bring in readings 03/12/2019 None Severity mild 03/12/2019 None Pertinent Findings Denies dizziness 03/12/2019 None Pertinent Findings dyspnea 03/12/2019 occ with walking Quality constant 01/27/2019 None Quality loose 01/27/2019 None Quality watery 01/27/2019 None Onset and Resolution sudden in onset 01/27/2019 None Onset of Symptom 4 days ago 01/27/2019 None Frequency of Episodes 4-6 stools per day 01/27/2019 None Onset of Symptom 4 days ago 01/27/2019 None Quality chronic 11/27/2018 None Quality primary hypertension 11/27/2018 None Onset and Resolution ongoing 11/27/2018 None Blood Pressure Values patient checking blood pressure at home - did not bring in readings 11/27/2018 None Severity mild 11/27/2018 None Pertinent Findings Denies dizziness 11/27/2018 None Pertinent Findings dyspnea 11/27/2018 occ with walking Quality primary hypertension 10/21/2018 None Onset and Resolution ongoing 10/21/2018 None Blood Pressure Values patient checking blood pressure at home - did not bring in readings 10/21/2018 None Pertinent Findings Denies dizziness 10/21/2018 None Pertinent Findings dyspnea 10/21/2018 occ with walking Quality chronic 10/21/2018 None Severity mild 10/21/2018 None Advance Directives No Advance Directive data Encounters Encounter Performer Location Codes Date ([id number]) [id number] EST. 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 CPT-4: 87684 03/12/2019 ([id number]) [id number] EST. PATIENT, LEVEL IV Diagnosis: Dehydration[ICD10: E86.0] Diagnosis: Diarrhea, unspecified[ICD10: R19.7] Diagnosis: Urinary tract infection, site not specified[ICD10: N39.0] Jeny Haskins MD, [facility] CPT-4: [id number] 01/27/2019 ([id number]) [id number] EST. 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 Pt has been encouraged to exercise daily. The pt has been advised to call the office if there are any acute concerns about change in blood pressure readings at home. Chronic Depression and anxiety - the pt has symptoms of chronic anxiety and depression that have been fairly well controlled since the last office visit. The pt has expected periods of exacerbation with abatement of the symptoms with change in situational exposure. No change in current medications. 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 We will no pursue an MRI of the head on repeat recommendations as there is not any surgical intervention that the pt would desire to have done, her dtr is in agreement with this recommendation. 03/12/2019 [facility]ment[facility] [phone] [id number] [place] (15 min) Moderate 03/12/2019 Patient Education: Patient Medication Summary Completed 03/12/2019 Patient Education: Depression Completed 03/12/2019 Visit Plan: Dehydration -patient sent to the hospital for IVF and labs -will treat as appropriate -discussed encouraging adequate intake Diarrhea- recent abx use -recommend probiotics twice daily -call if not impro ving or if any worse Recurrent UTI-check UA today 01/27/2019 [facility]ment: [facility] [phone] [phone] [place] (30 min) Complex 01/27/2019 Patient Education: Patient Medication Summary Completed 01/27/2019 Visit Plan: Hypertension - well controlled - continue with current medications, continue with no added salt diet. Pt has been encouraged to exercise daily. The pt has been advised to call the office if there are any acute concerns about change in blood pressure readings at home. Chronic Depression and anxiety - the pt has symptoms of chronic anxiety and depression that have been fairly well controlled since the last office visit. The pt has expected periods of exacerbation with abatement of the symptoms with change in situational exposure. No change in current medications. 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 11/27/2018 Appointment: [facility] [phone] [phone] (15 min) Moderate 11/27/2018 Patient Education: Patient Medication Summary Completed 11/27/2018 Patient Education: Depression Completed 11/27/2018 Patient Education: Cholesterol Management Completed 11/27/2018 Visit Plan: HX of stroke - Pt needs a repeat MRI of brain with and without contrast in Oct 2017 - follow up appt about 1 week later. There were possible tumors seen on the scan - this is to see if these tumors are enlarging. Hypertension - well controlled - continue with current medications, continue with no added salt diet. Pt has been encouraged to exercise daily. The pt has been advised to call the office if there are any acute concerns about change in blood pressure readings at home. Hyperlipidemia - pt has been counseled about appropriate diet, exercise, and need for low fat food choices. I have discussed the need for the patient to take medications as prescribed. If the patient has negative side effects from the medication, they are to CALL the office and not abruptly discontinue the medication without discussion with a practitioner in the office. We will check labs in 3-6 months for follow up on the patient's chronic medical problem and to assure normal liver response to medications. Depression - continue with citalopram. Brain tumor - three lesions seen on MRI from hospitalization - these needs follow up - will do the MRI about a week prior to appt in October. 10/21/2018 Appointment: [facility]askins [facility] [phone] [phone] New Patient 10/21/2018 Patient Education: Patient Medication Summary Completed 10/21/2018 Patient Education: Cholesterol Management Completed 10/21/2018 Patient Education: Depression Completed 10/21/2018 Instructions Comment NS 1 LITER IV CHECK LABS -CBC,CMP,UA PROBIOTIC TWICE DAILY . Dehydration -patient sent to the hospital for IVF and labs -will treat as appropriate -discussed encouraging adequate intake Diarrhea- recent abx use -recommend probiotics twice daily -call if not improving or if any worse Recurrent UTI-check UA today . Hypertension - well controlled - continue with current medications, continue with no added salt diet. Pt has been encouraged to exercise daily. The pt has been advised to call the office if there are any acute concerns about change in blood pressure readings at home. Chronic Depression and anxiety - the pt has symptoms of chronic anxiety and depression that have been fairly well controlled since the last office visit. The pt has expected periods of exacerbation with abatement of the symptoms with change in situational exposure. No change in current medications. 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 . Hypertension - well controlled - continue with current medications, continue with no added salt diet. Pt has been encouraged to exercise daily. The pt has been advised to call the office if there are any acute concerns about change in blood pressure readings at home. Chronic Depression and anxiety - the pt has symptoms of chronic anxiety and depression that have been fairly well controlled since the last office visit. The pt has expected periods of exacerbation with abatement of the symptoms with change in situational exposure. No change in current medications. 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 We will no pursue an MRI of the head on repeat recommendations as there is not any surgical intervention that the pt would desire to have done, her dtr is in agreement with this recommendation. . HX of stroke - Pt needs a repeat MRI of brain with and without contrast in Oct 2017 - follow up appt about 1 week later. There were possible tumors seen on the scan - this is to see if these tumors are enlarging. Hypertension - well controlled - continue with current medications, continue with no added salt diet. Pt has been encouraged to exercise daily. The pt has been advised to call the office if there are any acute concerns about change in blood pressure readings at home. Hyperlipidemia - pt has been counseled about appropriate diet, exercise, and need for low fat food choices. I have discussed the need for the patient to take medications as prescribed. If the patient has negative side effects from the medication, they are to CALL the office and not abruptly discontinue the medication without discussion with a practitioner in the office. We will check labs in 3-6 months for follow up on the patient's chronic medical problem and to assure normal liver response to medications. Depression - continue with citalopram. Brain tumor - three lesions seen on MRI from hospitalization - these needs follow up - will do the MRI about a week prior to appt in October.
--- OUTSIDE RECORDS SUMMARY | 2019-05-06 11:00 | XMS REPORT | CCD ---
Author Author Annita Haskins Organization [facility] Address [address] [place] [address] Phone Care Team Providers Care Receptionist Scheduler Name Role Phone PP Unavailable CCM Unavailable Summary Purpose Interface Exchange Insurance Providers Payer name Policy type / Coverage type Covered alliance party ID Effective Begin Date Effective End Date WPS Medicare Part B Medicare Part B [id number] Unknown Unknown FOR LIFE WPS Medicare Part [...] Unknown Retired 10/21/[address]: 844675710 Never smoker 10/21/[address]: 999093435 Never drinks alcohol 10/21/2018 Allergies, Adverse Reactions, Alerts Substance Reaction Codes Entered Date Inactivated Date Status * NO KNOWN DRUG ALLERGIES Unknown 10/21/2018 No Inactive Date Active Past Medical History Illness Codes Condition Status Onset Date Resolved Date Dehydration ICD-9: 276.51 ICD-10: E86.0 Active 01/27/2019 Unknown Diarrhea, unspecified ICD- 9: 787.91 ICD-10: R19.7 Active 01/27/2019 Unknown Urinary tract infection, site not specified ICD-9: 599.0 ICD-10: N39.0 Active 01/27/2019 Unknown 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 disturbance ICD-9: 294.10 ICD-10: F02.80 Active 11/27/2018 Unknown Essential (primary) hypertension ICD-9: 401.1 ICD-10: I10 Active 10/21/2018 Unknown Major depressive disorder, recurrent, moderate ICD-9: 296.32 ICD-10: F33.1 Active 10/21/2018 Unknown Mixed hyperlipidemia ICD- 9: 272.2 ICD-10: E78.2 Active 10/21/2018 Unknown chronic kidney disease Unknown Active 10/21/2018 Unknown Dementia Unknown Active 10/21/2018 Unknown Hypertension Unknown Active 10/21/2018 Unknown Stroke Unknown Active 10/21/2018 Unknown 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 10/21/2018 Unknown Problems Condition Codes Effective Dates Condition Status Dehydration ICD-9: 276.51 ICD-10: E86.0 01/27/2019 Active Diarrhea, unspecified ICD- 9: 787.91 ICD-10: R19.7 01/27/2019 Active Urinary tract infection, site not specified ICD-9: 599.0 ICD-10: N39.0 01/27/2019 Active 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 disturbance ICD-9: 294.10 ICD-10: F02.80 11/27/2018 Active Essential (primary) hypertension ICD-9: 401.1 ICD-10: I10 10/21/2018 Active Major depressive disorder, recurrent, moderate ICD-9: 296.32 ICD-10: F33.1 10/21/2018 Active Mixed hyperlipidemia ICD- 9: 272.2 ICD-10: E78.2 10/21/2018 Active chronic kidney disease Unknown 10/21/2018 Active Dementia Unknown 10/21/2018 Active Hypertension Unknown 10/21/2018 Active Stroke Unknown 10/21/2018 Active 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 10/21/2018 Active Medications Medication Codes Instructions Start Date Stop Date Status Fill Instructions Exelon Patch 9.5 mg/24 hr transdermal RxNorm: 358740 1 TD daily 02/18/2019 02/12/2020 Active Plavix 75 mg tablet RxNorm: 700556 1 Tablet(s) PO daily 02/18/2019 02/12/2020 Active citalopram 10 mg tablet RxNorm: 286065 1 Tablet(s) PO daily 02/18/2019 02/12/2020 Active atorvastatin 10 mg tablet RxNorm: 364145 1 Tablet(s) PO daily 02/18/2019 02/12/2020 Active verapamil 120 mg tablet RxNorm: 807641 1 Tablet(s) PO daily 02/18/2019 02/12/2020 Active Diflucan 150 mg tablet RxNorm: 444971 1 Tablet(s) PO daily 01/30/2019 02/05/2019 Inactive Diflucan 150 mg tablet RxNorm: 401989 1 Tablet(s) PO daily 01/30/2019 01/29/2019 Inactive Augmentin 500 mg-125 mg tablet RxNorm: 983606 1 Tablet(s) PO TID 01/20/2019 01/26/2019 Inactive Augmentin 500 mg-125 mg tablet RxNorm: 386736 1 Tablet(s) PO TID 01/20/2019 01/19/2019 Inactive Augmentin 250 mg-125 mg tablet RxNorm: 459258 1 Tablet(s) PO TID 01/19/2019 01/20/2019 Inactive Augmentin 250 mg-125 mg tablet RxNorm: 262312 1 Tablet(s) PO TID 01/19/2019 01/18/2019 Inactive Keflex 500 mg capsule RxNorm: 829325 1 Capsule(s) PO TID 01/16/2019 01/22/2019 Inactive Keflex 500 mg capsule RxNorm: 078142 1 Capsule(s) PO TID 12/26/2018 01/01/2019 Inactive Keflex 500 mg capsule RxNorm: 394974 1 Capsule(s) PO TID 12/26/2018 12/25/2018 Inactive Plavix 75 mg tablet RxNorm: 558935 1 Tablet(s) PO daily 11/20/2018 02/17/2019 Inactive Plavix 75 mg tablet RxNorm: 430597 1 Tablet(s) PO daily 11/20/2018 11/19/2018 Inactive Centrum Silver Women 8 mg iron-400 mcg-300 mcg tablet RxNorm: 1 Tablet(s) PO daily No Start Date Active Glucosamine Relief 1,000 mg tablet RxNorm: 261613 1 Tablet(s) PO daily No Start Date Active coenzyme Q10 100 mg capsule RxNorm: 098909 1 Capsule(s) PO daily No Start Date Active atorvastatin 10 mg tablet RxNorm: 684737 1 Tablet(s) PO daily No Start Date 02/16/2019 Inactive verapamil 120 mg tablet RxNorm: 721694 1 Tablet(s) PO daily No Start Date 02/17/2019 Inactive hydrochlorothiazide 12.5 mg tablet RxNorm: 010443 1 Tablet(s) PO daily No Start Date 11/26/2018 Inactive citalopram 10 mg tablet RxNorm: 649695 1 Tablet(s) PO daily No Start Date 02/17/2019 Inactive Exelon Patch 9.5 mg/24 hr transdermal RxNorm: 145573 1 TD daily No Start Date 02/17/2019 Inactive Medication Administered No Medication Administered data Immunizations Vaccine Codes Date Status Influenza CVX: 141 07/02/2018 completed Pneumococcal CVX: 133 11/24/2015 completed Pneumococcal CVX: 33 04/28/2013 completed Assessments Condition Codes Effective Dates Diarrhea, unspecified ICD-10: R19.7 ICD-9: 787.91 01/27/2019 Dehydration ICD-10: E86.0 ICD-9: 276.51 01/27/2019 Urinary tract infection, site not specified ICD-10: N39.0 ICD-9: 599.0 01/27/2019 Major depressive disorder, recurrent, moderate ICD-10: F33.1 ICD-9: 296.32 11/27/2018 Essential (primary) hypertension ICD-10: I10 ICD-9: 401.1 11/27/2018 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 disturbance ICD-10: F02.80 ICD-9: 294.10 11/27/2018 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 10/21/2018 Mixed hyperlipidemia ICD-10: E78.2 ICD-9: 272.2 10/21/2018 Reason For Visit Reason For Visit Effective Dates Notes diarrhea 01/27/2019 hypertension 11/27/2018 hypertension 10/21/2018 Results Observation Observation Code Item Item Code Result Date Cbc With Differential Ord2 WBC 6.29 K/ul [...] 29.1 pg 03/09/2019 Cbc With Differential Ord2 [place]% 6.8 % 03/09/2019 Cbc With Differential Ord2 [...] 1.37 K/ul 03/09/2019 Cbc With Differential Ord2 [place] ABS# 0.4 K/ul 03/09/2019 Cbc With Differential [...] of Systems System Result Effective Dates 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 Constitutional recent illness 01/27/2019 [...] lips 11/27/2018 None Full Exam - General 1995 Ears/Nose/Throat lips/teeth/gingiva Overall: normal dentition 11/27/2018 None [...] sounds 11/27/2018 None Full Exam - General 1995 Abdomen abdominal exam Overall: no tenderness 11/27/2018 [...] dentition 10/21/2018 None Full Exam - General 1995 Ears/Nose/Throat oral cavity/pharynx/larynx Overall: oral mucosa clear 10/21/2018 None Full Exam - General 1995 Ears/Nose/Throat [...] No Procedures data Vital Signs Date Vital 01/27/2019 Blood Pressure 1: 122/74 Code: 8480-6 Heart Rate 1: 67 bpm Height: SpO2: 97% Temperature: 37.1 (C) / 98.7 (F) Weight: 11/27/2018 Blood Pressure 1: 122/78 Code: 8480-6 Heart Rate 1: 76 bpm Height: 5' SpO2: 97% Weight: 10/21/2018 Blood Pressure 1: 130/82 Code: 8480-6 BMI: 31.8 Code: 16078-1 Heart Rate 1: 75 bpm Height: 5' SpO2: 95% Weight: 163 lbs Functional Status No Functional Status data History of Present Illness Symptom Name Status Result Effective Date Notes Quality constant 01/27/2019 None Quality loose 01/27/2019 [...] data Encounters Encounter Performer Location Codes Date ([id number]) 23081 EST. PATIENT, LEVEL IV Diagnosis: Dehydration[ICD10: E86.0] Diagnosis: Diarrhea, unspecified[ICD10: R19.7] Diagnosis: Urinary tract infection, site not specified[ICD10: N39.0] Jeny Haskins MD, [facility] CPT-4: 11002 01/27/2019 ([id number]) 87766 EST. 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] [facility] CPT-4: 02800 11/27/2018 ([id number]) OFFICE VISIT, NEW - LEVEL 4 Diagnosis: Essential (primary) hypertension[ICD10: I10] Diagnosis: Mixed hyperlipidemia[ICD10: E78.2] Diagnosis: Major depressive disorder, recurrent, moderate[ICD10: F33.1] Diagnosis: Neoplasm of unspecified behavior of brain[ICD10: D49.6] [facility] CPT-4: 22372 10/21/2018 Plan of Care Planned Activity Notes Codes Status Date Visit Plan: Dehydration -patient sent to the hospital for IVF and labs -will treat as appropriate -discussed encouraging adequate intake Diarrhea- recent abx use -recommend probiotics twice daily -call if not impro ving or if any worse Recurrent UTI-check UA today 01/27/2019 Appointment: Jeny Romero WPtel: [phone] [phone] [place] (30 min) Complex 01/27/2019 Patient Education: [...] up. 11/27/2018 Appointment: Annita Haskins WPtel: [phone] [facility] [place] (15 min) Moderate 11/27/2018 Patient Education: Patient [...] in October. 10/21/2018 Appointment: Annita Haskins WPtel: [address] [place], [place] [address] [place] New Patient 10/21/2018 Patient Education: Patient Medication [...] the ultrasound has been set up. . HX of stroke - Pt needs [...]
--- OUTSIDE RECORDS SUMMARY | 2019-05-06 11:02 | XMS REPORT | CCD ---
Author Author Annita Haskins Organization [facility] Address [address] [place] [address] Phone Care Team Providers Care Cosmetic Sales Consultant Name Role Phone PP Unavailable CCM Unavailable Summary Purpose Interface Exchange Insurance Providers Payer name Policy type / Coverage type Covered alliance party ID Effective Begin Date Effective End Date WPS Medicare Part B Medicare Part B [id number] Unknown Unknown FOR LIFE WPS Medicare Part [...] Unknown Retired 10/21/[address]: 338534027 Never smoker 10/21/[address]: 757284102 Never drinks alcohol 10/21/2018 Allergies, Adverse Reactions, [...] Exelon Patch 9.5 mg/24 hr transdermal RxNorm: 446354 1 TD daily 02/18/2019 02/12/2020 Active Plavix 75 mg tablet RxNorm: 353269 1 Tablet(s) PO daily 02/18/2019 02/12/2020 Active citalopram 10 mg tablet RxNorm: 062331 1 Tablet(s) PO daily 02/18/2019 02/12/2020 Active atorvastatin 10 mg tablet RxNorm: 259046 1 Tablet(s) PO daily 02/18/2019 02/12/2020 Active verapamil 120 mg tablet RxNorm: 975868 1 Tablet(s) PO daily 02/18/2019 02/12/2020 Active Diflucan 150 mg tablet RxNorm: 774904 1 Tablet(s) PO daily 01/30/2019 02/05/2019 Inactive Diflucan 150 mg tablet RxNorm: 128706 1 Tablet(s) PO daily 01/30/2019 01/29/2019 Inactive Augmentin 500 mg-125 mg tablet RxNorm: 388061 1 Tablet(s) PO TID 01/20/2019 01/26/2019 Inactive Augmentin 500 mg-125 mg tablet RxNorm: 340969 1 Tablet(s) PO TID 01/20/2019 01/19/2019 Inactive Augmentin 250 mg-125 mg tablet RxNorm: 204632 1 Tablet(s) PO TID 01/19/2019 01/20/2019 Inactive Augmentin 250 mg-125 mg tablet RxNorm: 403711 1 Tablet(s) PO TID 01/19/2019 01/18/2019 Inactive Keflex 500 mg capsule RxNorm: 697582 1 Capsule(s) PO TID 01/16/2019 01/22/2019 Inactive Keflex 500 mg capsule RxNorm: 909196 1 Capsule(s) PO TID 12/26/2018 01/01/2019 Inactive Keflex 500 mg capsule RxNorm: 699486 1 Capsule(s) PO TID 12/26/2018 12/25/2018 Inactive Plavix 75 mg tablet RxNorm: 353908 1 Tablet(s) PO daily 11/20/2018 02/17/2019 Inactive Plavix 75 mg tablet RxNorm: 879625 1 Tablet(s) PO daily 11/20/2018 11/19/2018 Inactive Centrum Silver Women 8 mg iron-400 mcg-300 mcg tablet RxNorm: 1 Tablet(s) PO daily No Start Date Active Glucosamine Relief 1,000 mg tablet RxNorm: 745258 1 Tablet(s) PO daily No Start Date Active coenzyme Q10 100 mg capsule RxNorm: 339656 1 Capsule(s) PO daily No Start Date Active atorvastatin 10 mg tablet RxNorm: 638349 1 Tablet(s) PO daily No Start Date 02/16/2019 Inactive verapamil 120 mg tablet RxNorm: 474637 1 Tablet(s) PO daily No Start Date 02/17/2019 Inactive hydrochlorothiazide 12.5 mg tablet RxNorm: 862480 1 Tablet(s) PO daily No Start Date 11/26/2018 Inactive citalopram 10 mg tablet RxNorm: 711500 1 Tablet(s) PO daily No Start Date 02/17/2019 Inactive Exelon Patch 9.5 mg/24 hr transdermal RxNorm: 217318 1 TD daily No Start Date 02/17/2019 [...] Observation Code Item Item Code Result Date Urinalysis Ord28 U-Color Yellow 01/16/2019 Urinalysis Ord28 [...] dentition 11/27/2018 None Full Exam - General 1995 Ears/Nose/Throat oral cavity/pharynx/larynx Overall: oral mucosa clear 11/27/2018 None Full Exam - General 1995 Ears/Nose/Throat oral cavity/pharynx/larynx Overall: oropharyngeal mucosa clear 11/27/2018 None Full Exam - General 1995 Ears/Nose/Throat oral cavity/pharynx/larynx Overall: hypopharynx benign 11/27/2018 [...] lips 10/21/2018 None Full Exam - General 1995 Ears/Nose/Throat lips/teeth/gingiva Overall: normal dentition 10/21/2018 None [...] benign 10/21/2018 None Full Exam - General 1995 Lymphatic neck nodes Overall: posterior cervical chain [...] 1: 130/82 Code: 8480-6 BMI: 31.8 Code: 64939-3 Heart Rate 1: 75 bpm Height: 5' [...] data Encounters Encounter Performer Location Codes Date () 75100 EST. PATIENT, LEVEL IV Diagnosis: Dehydration[ICD10: E86.0] Diagnosis: Diarrhea, unspecified[ICD10: R19.7] Diagnosis: Urinary tract infection, site not specified[ICD10: N39.0] Jeny Haskins MD, [facility] CPT-4: 31599 01/27/2019 ([id number]) 79504 EST. 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 11/27/2018 [facility]ment[phone] [facility] ([facility]) Moderate 11/27/2018 Patient Education: Patient [...] October. 10/21/2018 [facility]ment[facility] [phone] [facility] [facility] 10/21/2018 Patient Education: Patient Medication [...]
--- OUTSIDE RECORDS SUMMARY | 2019-05-06 11:03 | XMS REPORT | CCD ---
Author Author Annita Haskins Organization [facility] Address [address] [place] [address] Phone Care Team Providers Care Applications Engineer Name Role Phone PP Unavailable CCM Unavailable Summary Purpose Interface Exchange Insurance Providers Payer name Policy type / Coverage type Covered constitution party ID Effective Begin Date Effective End Date WPS Medicare Part B Medicare Part B [id number] Unknown Unknown FOR LIFE WPS Medicare Part [...] Unknown Retired 10/21/[address]: 579587850 Never smoker 10/21/[address]: 869378095 Never drinks alcohol 10/21/2018 Allergies, Adverse Reactions, [...] Start Date Stop Date Status Fill Instructions Diflucan 150 mg tablet RxNorm: 378437 1 Tablet(s) PO daily 01/30/2019 02/05/2019 Active Diflucan 150 mg tablet RxNorm: 447808 1 Tablet(s) PO daily 01/30/2019 01/29/2019 Inactive Augmentin 500 mg-125 mg tablet RxNorm: 608257 1 Tablet(s) PO TID 01/20/2019 01/26/2019 Inactive Augmentin 500 mg-125 mg tablet RxNorm: 758322 1 Tablet(s) PO TID 01/20/2019 01/19/2019 Inactive Augmentin 250 mg-125 mg tablet RxNorm: 941798 1 Tablet(s) PO TID 01/19/2019 01/20/2019 Inactive Augmentin 250 mg-125 mg tablet RxNorm: 321577 1 Tablet(s) PO TID 01/19/2019 01/18/2019 Inactive Keflex 500 mg capsule RxNorm: 451883 1 Capsule(s) PO TID 01/16/2019 01/22/2019 Inactive Keflex 500 mg capsule RxNorm: 498444 1 Capsule(s) PO TID 12/26/2018 01/01/2019 Inactive Keflex 500 mg capsule RxNorm: 530698 1 Capsule(s) PO TID 12/26/2018 12/25/2018 Inactive Plavix 75 mg tablet RxNorm: 950694 1 Tablet(s) PO daily 11/20/2018 03/19/2019 Active Plavix 75 mg tablet RxNorm: 501095 1 Tablet(s) PO daily 11/20/2018 11/19/2018 Inactive Centrum Silver Women 8 mg iron-400 mcg-300 mcg tablet RxNorm: 1 Tablet(s) PO daily No Start Date Active atorvastatin 10 mg tablet RxNorm: 067152 1 Tablet(s) PO daily No Start Date Active verapamil 120 mg tablet RxNorm: 982641 1 Tablet(s) PO daily No Start Date Active citalopram 10 mg tablet RxNorm: 165373 1 Tablet(s) PO daily No Start Date Active Exelon Patch 9.5 mg/24 hr transdermal RxNorm: 965021 1 TD daily No Start Date Active Glucosamine Relief 1,000 mg tablet RxNorm: 978539 1 Tablet(s) PO daily No Start Date Active coenzyme Q10 100 mg capsule RxNorm: 638414 1 Capsule(s) PO daily No Start Date Active hydrochlorothiazide 12.5 mg tablet RxNorm: 927008 1 Tablet(s) PO daily No Start Date 11/26/2018 Inactive Medication Administered No Medication Administered data [...] benign 11/27/2018 None Full Exam - General 1995 Ears/Nose/Throat oral cavity/pharynx/larynx Overall: no masses 11/27/2018 [...] 1: 130/82 Code: 8480-6 BMI: 31.8 Code: 42586-2 Heart Rate 1: 75 bpm Height: 5' [...] data Encounters Encounter Performer Location Codes Date ([id number]) 23502 EST. PATIENT, LEVEL IV Diagnosis: Dehydration[ICD10: E86.0] Diagnosis: Diarrhea, unspecified[ICD10: R19.7] Diagnosis: Urinary tract infection, site not specified[ICD10: N39.0] Jeny Haskins MD, [facility] CPT-4: 24162 01/27/2019 ([id number]) 89228 EST. 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 11/27/2018 Appointment: Annita Haskins WPtel: [facility] [place] (15 min) Moderate 11/27/2018 Patient Education: [...] in October. 10/21/2018 Appointment: Annita Haskins WPtel: [address] [place], [place] [address] [place] New Patient 10/21/2018 Patient Education: Patient [...]
--- OUTSIDE RECORDS SUMMARY | 2019-05-06 11:03 | XMS REPORT | CCD ---
Author Author Annita Haskins Organization [facility] Address [address] [place] [address] Phone Care Team Providers Care Caddy/Caddie Supervisor Name Role Phone PP Unavailable CCM Unavailable Summary Purpose Interface Exchange Insurance Providers Payer name Policy type / Coverage type Covered alliance party ID Effective Begin Date Effective End Date WPS Medicare Part B Medicare Part B [id number] Unknown Unknown FOR LIFE WPS Medicare Part [...] Unknown Retired 10/21/[address]: 069783850 Never smoker 10/21/[address]: 834047421 Never drinks alcohol 10/21/2018 Allergies, Adverse Reactions, [...] Start Date Stop Date Status Fill Instructions Augmentin 500 mg-125 mg tablet RxNorm: 140906 1 Tablet(s) PO TID 01/20/2019 01/26/2019 Inactive Augmentin 500 mg-125 mg tablet RxNorm: 929504 1 Tablet(s) PO TID 01/20/2019 01/19/2019 Inactive Augmentin 250 mg-125 mg tablet RxNorm: 680947 1 Tablet(s) PO TID 01/19/2019 01/20/2019 Inactive Augmentin 250 mg-125 mg tablet RxNorm: 939574 1 Tablet(s) PO TID 01/19/2019 01/18/2019 Inactive Keflex 500 mg capsule RxNorm: 978075 1 Capsule(s) PO TID 01/16/2019 01/22/2019 Inactive Keflex 500 mg capsule RxNorm: 502718 1 Capsule(s) PO TID 12/26/2018 01/01/2019 Inactive Keflex 500 mg capsule RxNorm: 004503 1 Capsule(s) PO TID 12/26/2018 12/25/2018 Inactive Plavix 75 mg tablet RxNorm: 236563 1 Tablet(s) PO daily 11/20/2018 03/19/2019 Active Plavix 75 mg tablet RxNorm: 537834 1 Tablet(s) PO daily 11/20/2018 11/19/2018 Inactive Centrum Silver Women 8 mg iron-400 mcg-300 mcg tablet RxNorm: 1 Tablet(s) PO daily No Start Date Active atorvastatin 10 mg tablet RxNorm: 051723 1 Tablet(s) PO daily No Start Date Active verapamil 120 mg tablet RxNorm: 611148 1 Tablet(s) PO daily No Start Date Active citalopram 10 mg tablet RxNorm: 326687 1 Tablet(s) PO daily No Start Date Active Exelon Patch 9.5 mg/24 hr transdermal RxNorm: 917647 1 TD daily No Start Date Active Glucosamine Relief 1,000 mg tablet RxNorm: 783227 1 Tablet(s) PO daily No Start Date Active coenzyme Q10 100 mg capsule RxNorm: 479047 1 Capsule(s) PO daily No Start Date Active hydrochlorothiazide 12.5 mg tablet RxNorm: 607826 1 Tablet(s) PO daily No Start Date [...] hygiene 11/27/2018 None Full Exam - General 1995 Eyes conjunctiva/eyelids Overall: conjunctiva clear 11/27/2018 None Full Exam - General 1995 Eyes conjunctiva/eyelids Overall: cornea clear 11/27/2018 None Full Exam - General 1995 Eyes conjunctiva/eyelids Overall: eyelids normal 11/27/2018 None Full Exam - General 1994 Eyes pupils and irises Overall: pupils equal, round, reactive to light and accomodation 11/27/2018 None Full Exam - General 1995 Ears/Nose/Throat otoscopic exam Overall: external auditory canals clear 11/27/2018 None Full Exam - General 1995 Ears/Nose/Throat otoscopic exam Overall: tympanic membranes clear 11/27/2018 None Full Exam - General 1995 Ears/Nose/Throat lips/teeth/gingiva Overall: benign lips 11/27/2018 None [...] kyphosis 11/27/2018 None Full Exam - General 1995 Musculoskeletal head and neck Overall: head atraumatic 11/27/2018 None Full Exam - General 1995 Musculoskeletal head and neck Overall: cervical spine [...] 1995 Ears/Nose/Throat oral cavity/pharynx/larynx Overall: hypopharynx benign 10/21/2018 [...] 1: 130/82 Code: 8480-6 BMI: 31.8 Code: 20267-0 Heart Rate 1: 75 bpm Height: 5' [...] data Encounters Encounter Performer Location Codes Date ([id number]) 60216 EST. PATIENT, LEVEL IV Diagnosis: Dehydration[ICD10: E86.0] Diagnosis: Diarrhea, unspecified[ICD10: R19.7] Diagnosis: Urinary tract infection, site not specified[ICD10: N39.0] Jeny Haskins MD, [facility] CPT-4: 31718 01/27/2019 ([id number]) 11048 EST. 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 11/27/2018 Appointment: [facility] [phone] [facility] [place] [place] (15 min) Moderate 11/27/2018 Patient Education: [...] in October. 10/21/2018 Appointment: Annita Haskins WPtel: [address] [place], [place] [id number] New Patient 10/21/2018 Patient Education: Patient Medication [...]
--- OUTSIDE RECORDS SUMMARY | 2019-05-06 11:04 | XMS REPORT | CCD ---
Author Author Annita Haskins Organization [facility] Address [address] [place] [address] Phone Care Team Providers Care Software Programmer Name Role Phone PP Unavailable CCM Unavailable Summary Purpose Interface Exchange Insurance Providers Payer name Policy type / Coverage type Covered libertarian ID Effective Begin Date Effective End Date WPS Medicare Part B Medicare Part B [id number] Unknown Unknown FOR LIFE WPS Medicare Part [...] Unknown Retired 10/21/[address]: 572096535 Never smoker 10/21/[address]: 562795504 Never drinks alcohol 10/21/2018 Allergies, Adverse Reactions, [...] Instructions Augmentin 500 mg-125 mg tablet RxNorm: 634080 1 Tablet(s) PO TID 01/20/2019 01/26/2019 Inactive Augmentin 500 mg-125 mg tablet RxNorm: 283819 1 Tablet(s) PO TID 01/20/2019 01/19/2019 Inactive Augmentin 250 mg-125 mg tablet RxNorm: 193479 1 Tablet(s) PO TID 01/19/2019 01/20/2019 Inactive Augmentin 250 mg-125 mg tablet RxNorm: 115406 1 Tablet(s) PO TID 01/19/2019 01/18/2019 Inactive Keflex 500 mg capsule RxNorm: 840947 1 Capsule(s) PO TID 01/16/2019 01/22/2019 Inactive Keflex 500 mg capsule RxNorm: 710387 1 Capsule(s) PO TID 12/26/2018 01/01/2019 Inactive Keflex 500 mg capsule RxNorm: 557378 1 Capsule(s) PO TID 12/26/2018 12/25/2018 Inactive Plavix 75 mg tablet RxNorm: 230432 1 Tablet(s) PO daily 11/20/2018 03/19/2019 Active Plavix 75 mg tablet RxNorm: 046983 1 Tablet(s) PO daily 11/20/2018 11/19/2018 Inactive Centrum Silver Women 8 mg iron-400 mcg-300 mcg tablet RxNorm: 1 Tablet(s) PO daily No Start Date Active atorvastatin 10 mg tablet RxNorm: 893606 1 Tablet(s) PO daily No Start Date Active verapamil 120 mg tablet RxNorm: 614843 1 Tablet(s) PO daily No Start Date Active citalopram 10 mg tablet RxNorm: 145570 1 Tablet(s) PO daily No Start Date Active Exelon Patch 9.5 mg/24 hr transdermal RxNorm: 691337 1 TD daily No Start Date Active Glucosamine Relief 1,000 mg tablet RxNorm: 554244 1 Tablet(s) PO daily No Start Date Active coenzyme Q10 100 mg capsule RxNorm: 623230 1 Capsule(s) PO daily No Start Date Active hydrochlorothiazide 12.5 mg tablet RxNorm: 883284 1 Tablet(s) PO daily No Start Date [...] 1: 130/82 Code: 8480-6 BMI: 31.8 Code: 20272-6 Heart Rate 1: 75 bpm Height: 5' [...] data Encounters Encounter Performer Location Codes Date (55269) 71593 EST. PATIENT, LEVEL IV Diagnosis: Dehydration[ICD10: E86.0] Diagnosis: Diarrhea, unspecified[ICD10: R19.7] Diagnosis: Urinary tract infection, site not specified[ICD10: N39.0] Jeny Haskins MD, [facility] CPT-4: 76256 01/27/2019 ([id number]) 73749 EST. 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 11/27/2018 Appointment: Annita Haskins WPtel: [address] [place], [place] [id number] [place] (15 min) Moderate 11/27/2018 Patient Education: [...] in October. 10/21/2018 Appointment: Annita Haskins WPtel: [address] [place], [place] [id number] New Patient 10/21/2018 Patient Education: Patient Medication [...]
--- OUTSIDE RECORDS SUMMARY | 2019-05-06 11:04 | XMS REPORT | CCD ---
Author Author Annita Haskins Organization [facility] Address [address] [place] [address] Phone Care Team Providers Care Railroad Brake Operator Name Role Phone PP Unavailable CCM Unavailable Summary Purpose Interface Exchange Insurance Providers Payer name Policy type / Coverage type Covered republican ID Effective Begin Date Effective End Date WPS Medicare Part B Medicare Part B [id number] Unknown Unknown FOR LIFE WPS Medicare Part [...] Unknown Retired 10/21/[address]: 928455648 Never smoker 10/21/[address]: 426163593 Never drinks alcohol 10/21/2018 Allergies, Adverse Reactions, [...] Instructions Augmentin 500 mg-125 mg tablet RxNorm: 170193 1 Tablet(s) PO TID 01/20/2019 01/26/2019 Active Augmentin 500 mg-125 mg tablet RxNorm: 083034 1 Tablet(s) PO TID 01/20/2019 01/19/2019 Inactive Augmentin 250 mg-125 mg tablet RxNorm: 708164 1 Tablet(s) PO TID 01/19/2019 01/20/2019 Inactive Augmentin 250 mg-125 mg tablet RxNorm: 761239 1 Tablet(s) PO TID 01/19/2019 01/18/2019 Inactive Keflex 500 mg capsule RxNorm: 873099 1 Capsule(s) PO TID 01/16/2019 01/22/2019 Active Keflex 500 mg capsule RxNorm: 672672 1 Capsule(s) PO TID 12/26/2018 01/01/2019 Inactive Keflex 500 mg capsule RxNorm: 080608 1 Capsule(s) PO TID 12/26/2018 12/25/2018 Inactive Plavix 75 mg tablet RxNorm: 989494 1 Tablet(s) PO daily 11/20/2018 03/19/2019 Active Plavix 75 mg tablet RxNorm: 844071 1 Tablet(s) PO daily 11/20/2018 11/19/2018 Inactive Centrum Silver Women 8 mg iron-400 mcg-300 mcg tablet RxNorm: 1 Tablet(s) PO daily No Start Date Active atorvastatin 10 mg tablet RxNorm: 574195 1 Tablet(s) PO daily No Start Date Active verapamil 120 mg tablet RxNorm: 659357 1 Tablet(s) PO daily No Start Date Active citalopram 10 mg tablet RxNorm: 540968 1 Tablet(s) PO daily No Start Date Active Exelon Patch 9.5 mg/24 hr transdermal RxNorm: 704259 1 TD daily No Start Date Active Glucosamine Relief 1,000 mg tablet RxNorm: 487149 1 Tablet(s) PO daily No Start Date Active coenzyme Q10 100 mg capsule RxNorm: 179165 1 Capsule(s) PO daily No Start Date Active hydrochlorothiazide 12.5 mg tablet RxNorm: 374070 1 Tablet(s) PO daily No Start Date 11/26/2018 Inactive Medication Administered No Medication Administered data Immunizations Vaccine Codes Date Status Influenza CVX: 141 07/02/2018 completed Pneumococcal CVX: 133 11/24/2015 completed Pneumococcal CVX: 33 04/28/2013 completed Assessments Condition Codes Effective Dates Major depressive disorder, recurrent, moderate ICD-10: F33.1 ICD-9: 296.32 11/27/2018 Essential (primary) hypertension ICD-10: I10 ICD-9: 401.1 11/27/2018 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 disturbance ICD-10: F02.80 ICD-9: 294.10 11/27/2018 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 10/21/2018 Mixed hyperlipidemia ICD-10: E78.2 ICD-9: 272.2 10/21/2018 Reason For Visit Reason For Visit Effective Dates Notes hypertension 11/27/2018 hypertension 10/21/2018 Results Observation Observation [...] Result Effective Dates Constitutional No recent illness 11/27/2018 Constitutional No [...] No Procedures data Vital Signs Date Vital 11/27/2018 Blood Pressure 1: 122/78 Code: 8480-6 Heart Rate 1: 76 bpm Height: 5' SpO2: 97% Weight: 10/21/2018 Blood Pressure 1: 130/82 Code: 8480-6 BMI: 31.8 Code: 56762-8 Heart Rate 1: 75 bpm Height: 5' SpO2: 95% Weight: 163 lbs Functional Status No Functional Status data History of Present Illness Symptom Name Status Result Effective Date Notes Quality chronic 11/27/2018 None Quality primary hypertension [...] data Encounters Encounter Performer Location Codes Date (62926) 98995 EST. 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 11/27/2018 Appointment: Annita Haskins WPtel: [address] [place], [place] [phone] [place] (15 min) Moderate 11/27/2018 Patient Education: [...] in October. 10/21/2018 Appointment: [facility] [phone] [facility] [place] New Patient 10/21/2018 Patient Education: Patient Medication Summary Completed 10/21/2018 Patient Education: Cholesterol Management Completed 10/21/2018 Patient Education: Depression Completed 10/21/2018 Instructions Comment . Hypertension - well controlled - continue [...]
--- OUTSIDE RECORDS SUMMARY | 2019-05-06 11:05 | XMS REPORT | CCD ---
Author Author Annita Haskins Organization [facility] Address [address] [place] [address] Phone Care Team Providers Care Director Of Exhibit Development Name Role Phone PP Unavailable CCM Unavailable Summary Purpose Interface Exchange Insurance Providers Payer name Policy type / Coverage type Covered constitution party ID Effective Begin Date Effective End Date WPS Medicare Part B Medicare Part B [id number] Unknown Unknown FOR LIFE WPS Medicare Part [...] Unknown Retired 10/21/[address]: 121444675 Never smoker 10/21/[address]: 319405444 Never drinks alcohol 10/21/2018 Allergies, Adverse Reactions, [...] Start Date Stop Date Status Fill Instructions Keflex 500 mg capsule RxNorm: 226901 1 Capsule(s) PO TID 12/26/2018 01/01/2019 Inactive Keflex 500 mg capsule RxNorm: 856906 1 Capsule(s) PO TID 12/26/2018 12/25/2018 Inactive Plavix 75 mg tablet RxNorm: 913062 1 Tablet(s) PO daily 11/20/2018 03/19/2019 Active Plavix 75 mg tablet RxNorm: 966261 1 Tablet(s) PO daily 11/20/2018 11/19/2018 Inactive Centrum Silver Women 8 mg iron-400 mcg-300 mcg tablet RxNorm: 1 Tablet(s) PO daily No Start Date Active atorvastatin 10 mg tablet RxNorm: 514901 1 Tablet(s) PO daily No Start Date Active verapamil 120 mg tablet RxNorm: 899059 1 Tablet(s) PO daily No Start Date Active citalopram 10 mg tablet RxNorm: 468689 1 Tablet(s) PO daily No Start Date Active Exelon Patch 9.5 mg/24 hr transdermal RxNorm: 835031 1 TD daily No Start Date Active Glucosamine Relief 1,000 mg tablet RxNorm: 578872 1 Tablet(s) PO daily No Start Date Active coenzyme Q10 100 mg capsule RxNorm: 885855 1 Capsule(s) PO daily No Start Date Active hydrochlorothiazide 12.5 mg tablet RxNorm: 182000 1 Tablet(s) PO daily No Start Date [...] Effective Dates Notes Full Exam - General 1995 Constitutional general appearance Development: well developed 11/27/2018 [...] 1: 130/82 Code: 8480-6 BMI: 31.8 Code: 44206-9 Heart Rate 1: 75 bpm Height: 5' [...] Encounters Encounter Performer Location Codes Date () 95436 EST. 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 11/27/2018 Appointment: [facility] [phone] [facility] (15 min) Moderate 11/27/2018 Patient Education: [...] October. 10/21/2018 App[facility]ment: [facility] [phone] [facility] [facility] Patient 10/21/2018 Patient Education: Patient [...]
--- OUTSIDE RECORDS SUMMARY | 2019-05-06 11:05 | XMS REPORT | CCD ---
Author Author Annita Haskins Organization [facility] Address [address] [place] [address] Phone Care Team Providers Care Loose Hand Packer Name Role Phone PP Unavailable CCM Unavailable Summary Purpose Interface Exchange Insurance Providers Payer name Policy type / Coverage type Covered alliance party ID Effective Begin Date Effective End Date WPS Medicare Part B Medicare Part B [id number] Unknown Unknown FOR LIFE WPS Medicare Part [...] Unknown Retired 10/21/[address]: 809817239 Never smoker 10/21/[address]: 675275363 Never drinks alcohol 10/21/2018 Allergies, Adverse Reactions, [...] Date Stop Date Status Fill Instructions Augmentin 250 mg-125 mg tablet RxNorm: 386177 1 Tablet(s) PO TID 01/19/2019 01/25/2019 Active Augmentin 250 mg-125 mg tablet RxNorm: 379593 1 Tablet(s) PO TID 01/19/2019 01/18/2019 Inactive Keflex 500 mg capsule RxNorm: 127797 1 Capsule(s) PO TID 01/16/2019 01/22/2019 Active Keflex 500 mg capsule RxNorm: 528884 1 Capsule(s) PO TID 12/26/2018 01/01/2019 Inactive Keflex 500 mg capsule RxNorm: 598214 1 Capsule(s) PO TID 12/26/2018 12/25/2018 Inactive Plavix 75 mg tablet RxNorm: 286589 1 Tablet(s) PO daily 11/20/2018 03/19/2019 Active Plavix 75 mg tablet RxNorm: 120953 1 Tablet(s) PO daily 11/20/2018 11/19/2018 Inactive Centrum Silver Women 8 mg iron-400 mcg-300 mcg tablet RxNorm: 1 Tablet(s) PO daily No Start Date Active atorvastatin 10 mg tablet RxNorm: 721319 1 Tablet(s) PO daily No Start Date Active verapamil 120 mg tablet RxNorm: 147504 1 Tablet(s) PO daily No Start Date Active citalopram 10 mg tablet RxNorm: 736612 1 Tablet(s) PO daily No Start Date Active Exelon Patch 9.5 mg/24 hr transdermal RxNorm: 346956 1 TD daily No Start Date Active Glucosamine Relief 1,000 mg tablet RxNorm: 256832 1 Tablet(s) PO daily No Start Date Active coenzyme Q10 100 mg capsule RxNorm: 217219 1 Capsule(s) PO daily No Start Date Active hydrochlorothiazide 12.5 mg tablet RxNorm: 895515 1 Tablet(s) PO daily No Start Date [...] 1: 130/82 Code: 8480-6 BMI: 31.8 Code: 79932-4 Heart Rate 1: 75 bpm Height: 5' [...] data Encounters Encounter Performer Location Codes Date (04924) 72093 EST. 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 11/27/2018 Appointment: Annita Haskins WPtel: [facility] [place] (15 min) Moderate 11/27/2018 Patient Education: [...] October. 10/21/2018 Appointment: [facility]ins [facility]Ptel[facility] [phone] [facility] New Patient 10/21/2018 Patient Education: Patient Medication [...]
--- OUTSIDE RECORDS SUMMARY | 2019-05-06 11:05 | XMS REPORT | CCD ---
Author Author Annita Haskins Organization [facility] Address [address] [place] [address] Phone Care Team Providers Care Inspector Glass Or Mirror Name Role Phone PP Unavailable CCM Unavailable Summary Purpose Interface Exchange Insurance Providers Payer name Policy type / Coverage type Covered libertarian ID Effective Begin Date Effective End Date WPS Medicare Part B Medicare Part B [id number] Unknown Unknown FOR LIFE WPS Medicare Part [...] Unknown Retired 10/21/[address]: 329825659 Never smoker 10/21/[address]: 893599216 Never drinks alcohol 10/21/2018 Allergies, Adverse Reactions, [...] Fill Instructions Keflex 500 mg capsule RxNorm: 771801 1 Capsule(s) PO TID 01/16/2019 01/22/2019 Active Keflex 500 mg capsule RxNorm: 205901 1 Capsule(s) PO TID 12/26/2018 01/01/2019 Inactive Keflex 500 mg capsule RxNorm: 726816 1 Capsule(s) PO TID 12/26/2018 12/25/2018 Inactive Plavix 75 mg tablet RxNorm: 432889 1 Tablet(s) PO daily 11/20/2018 03/19/2019 Active Plavix 75 mg tablet RxNorm: 151773 1 Tablet(s) PO daily 11/20/2018 11/19/2018 Inactive Centrum Silver Women 8 mg iron-400 mcg-300 mcg tablet RxNorm: 1 Tablet(s) PO daily No Start Date Active atorvastatin 10 mg tablet RxNorm: 855583 1 Tablet(s) PO daily No Start Date Active verapamil 120 mg tablet RxNorm: 939460 1 Tablet(s) PO daily No Start Date Active citalopram 10 mg tablet RxNorm: 814216 1 Tablet(s) PO daily No Start Date Active Exelon Patch 9.5 mg/24 hr transdermal RxNorm: 908097 1 TD daily No Start Date Active Glucosamine Relief 1,000 mg tablet RxNorm: 943742 1 Tablet(s) PO daily No Start Date Active coenzyme Q10 100 mg capsule RxNorm: 792649 1 Capsule(s) PO daily No Start Date Active hydrochlorothiazide 12.5 mg tablet RxNorm: 638020 1 Tablet(s) PO daily No Start Date [...] 11/27/2018 None Full Exam - General 1995 Lymphatic neck nodes Overall: anterior cervical chain [...] 1: 130/82 Code: 8480-6 BMI: 31.8 Code: 00742-0 Heart Rate 1: 75 bpm Height: 5' [...] data Encounters Encounter Performer Location Codes Date ) 22514 EST. 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 11/27/2018 Appointment: [facility]el[facility] [phone] [facility] (15 min) Moderate 11/27/2018 Patient Education: Patient [...] in October. 10/21/2018 Appointment: Annita Haskins WPtel: [facility] [facility] 10/21/2018 Patient Education: [...]
--- OUTSIDE RECORDS SUMMARY | 2019-05-06 11:06 | XMS REPORT | CCD ---
Author Author [facility]ita H[facility]ins Organization [facility] Address [address] [place] [address] Phone Care Team Providers Care Passenger Agent Name Role Phone PP Unavailable CCM Unavailable Summary Purpose Interface Exchange Insurance Providers Payer name Policy type / Coverage type Covered republican ID Effective Begin Date Effective End Date WPS Medicare Part B Medicare Part B [id number] Unknown Unknown FOR LIFE WPS Medicare Part [...] Unknown Retired 10/21/[address]: 774718132 Never smoker 10/21/[address]: 357204733 Never drinks alcohol 10/21/2018 Allergies, Adverse Reactions, [...] Fill Instructions Keflex 500 mg capsule RxNorm: 888459 1 Capsule(s) PO TID 12/26/2018 01/01/2019 Active Keflex 500 mg capsule RxNorm: 060109 1 Capsule(s) PO TID 12/26/2018 12/25/2018 Inactive Plavix 75 mg tablet RxNorm: 864367 1 Tablet(s) PO daily 11/20/2018 03/19/2019 Active Plavix 75 mg tablet RxNorm: 862195 1 Tablet(s) PO daily 11/20/2018 11/19/2018 Inactive Centrum Silver Women 8 mg iron-400 mcg-300 mcg tablet RxNorm: 1 Tablet(s) PO daily No Start Date Active atorvastatin 10 mg tablet RxNorm: 236430 1 Tablet(s) PO daily No Start Date Active verapamil 120 mg tablet RxNorm: 860944 1 Tablet(s) PO daily No Start Date Active citalopram 10 mg tablet RxNorm: 363859 1 Tablet(s) PO daily No Start Date Active Exelon Patch 9.5 mg/24 hr transdermal RxNorm: 102446 1 TD daily No Start Date Active Glucosamine Relief 1,000 mg tablet RxNorm: 704691 1 Tablet(s) PO daily No Start Date Active coenzyme Q10 100 mg capsule RxNorm: 733318 1 Capsule(s) PO daily No Start Date Active hydrochlorothiazide 12.5 mg tablet RxNorm: 130783 1 Tablet(s) PO daily No Start Date [...] Code Result Date Urinalysis Ord28 U-Color Yellow 12/26/2018 Urinalysis Ord28 [...] 1: 130/82 Code: 8480-6 BMI: 31.8 Code: 62892-2 Heart Rate 1: 75 bpm Height: 5' [...] data Encounters Encounter Performer Location Codes Date [address] EST. 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 11/27/2018 Appointment: [facility] [place] (15 min) Moderate 11/27/2018 [...] October. 10/21/2018 Appointment: [facility] [phone] [facility] New Patient 10/21/2018 Patient Education: [...]
--- OUTSIDE RECORDS SUMMARY | 2019-05-06 11:06 | XMS REPORT | CCD ---
Author Author Annita Haskins Organization [facility] Address [address] [place] [address] Phone Care Team Providers Care Centrex Radio Operator Name Role Phone PP Unavailable CCM Unavailable Summary Purpose Interface Exchange Insurance Providers Payer name Policy type / Coverage type Covered constitution party ID Effective Begin Date Effective End Date WPS Medicare Part B Medicare Part B [id number] Unknown Unknown FOR LIFE WPS Medicare Part [...] Unknown Retired 10/21/[address]: 280914176 Never smoker 10/21/[address]: 798840936 Never drinks alcohol 10/21/2018 Allergies, Adverse Reactions, [...] Start Date Stop Date Status Fill Instructions Plavix 75 mg tablet RxNorm: 385253 1 Tablet(s) PO daily 11/20/2018 03/19/2019 Active Plavix 75 mg tablet RxNorm: 381746 1 Tablet(s) PO daily 11/20/2018 11/19/2018 Inactive Centrum Silver Women 8 mg iron-400 mcg-300 mcg tablet RxNorm: 1 Tablet(s) PO daily No Start Date Active atorvastatin 10 mg tablet RxNorm: 289251 1 Tablet(s) PO daily No Start Date Active verapamil 120 mg tablet RxNorm: 258707 1 Tablet(s) PO daily No Start Date Active citalopram 10 mg tablet RxNorm: 923401 1 Tablet(s) PO daily No Start Date Active Exelon Patch 9.5 mg/24 hr transdermal RxNorm: 603877 1 TD daily No Start Date Active Glucosamine Relief 1,000 mg tablet RxNorm: 529429 1 Tablet(s) PO daily No Start Date Active coenzyme Q10 100 mg capsule RxNorm: 443256 1 Capsule(s) PO daily No Start Date Active hydrochlorothiazide 12.5 mg tablet RxNorm: 521487 1 Tablet(s) PO daily No Start Date [...] 1: 130/82 Code: 8480-6 BMI: 31.8 Code: 83397-9 Heart Rate 1: 75 bpm Height: 5' [...] data Encounters Encounter Performer Location Codes Date ( EST. 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 11/27/2018 [facility] [phone] [facility] [place] (15 min) Moderate 11/27/2018 Patient Education: [...] October. 10/21/2018 [facility]: [facility] [phone] [facility] New Patient 10/21/2018 Patient Education: Patient Medication [...]
--- OUTSIDE RECORDS SUMMARY | 2019-05-06 11:06 | XMS REPORT | CCD ---
Author Author Annita Haskins Organization [facility] Address [address] [place] [address] Phone Care Team Providers Care Gift Manager Name Role Phone PP Unavailable CCM Unavailable Summary Purpose Interface Exchange Insurance Providers Payer name Policy type / Coverage type Covered democrat ID Effective Begin Date Effective End Date WPS Medicare Part B Medicare Part B [id number] Unknown Unknown FOR LIFE WPS Medicare Part [...] Unknown Retired 10/21/[address]: 541665459 Never smoker 10/21/[address]: 871153925 Never drinks alcohol 10/21/2018 Allergies, Adverse Reactions, Alerts Substance Reaction Codes Entered Date Inactivated Date Status * NO KNOWN DRUG ALLERGIES Unknown 10/21/2018 No Inactive Date Active Past Medical History Illness Codes Condition Status Onset Date Resolved Date chronic kidney disease Unknown Active 10/21/2018 Unknown Dementia Unknown Active 10/21/2018 Unknown Hypertension Unknown Active 10/21/2018 Unknown Stroke Unknown Active 10/21/2018 Unknown Essential (primary) hypertension ICD-9: 401.1 ICD-10: I10 Active 10/21/2018 Unknown Major depressive disorder, recurrent, moderate ICD-9: 296.32 ICD-10: F33.1 Active 10/21/2018 Unknown Mixed hyperlipidemia ICD- 9: 272.2 ICD-10: E78.2 Active 10/21/2018 Unknown 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 10/21/2018 Unknown Problems Condition Codes Effective Dates Condition Status chronic kidney disease Unknown 10/21/2018 Active Dementia Unknown 10/21/2018 Active Hypertension Unknown 10/21/2018 Active Stroke Unknown 10/21/2018 Active Essential (primary) hypertension ICD-9: 401.1 ICD-10: I10 10/21/2018 Active Major depressive disorder, recurrent, moderate ICD-9: 296.32 ICD-10: F33.1 10/21/2018 Active Mixed hyperlipidemia ICD- 9: 272.2 ICD-10: E78.2 10/21/2018 Active 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 10/21/2018 Active Medications Medication Codes Instructions Start Date Stop Date Status Fill Instructions Plavix 75 mg tablet RxNorm: 747864 1 Tablet(s) PO daily 11/20/2018 03/19/2019 Active Plavix 75 mg tablet RxNorm: 062928 1 Tablet(s) PO daily 11/20/2018 11/19/2018 Inactive Centrum Silver Women 8 mg iron-400 mcg-300 mcg tablet RxNorm: 1 Tablet(s) PO daily No Start Date Active atorvastatin 10 mg tablet RxNorm: 950688 1 Tablet(s) PO daily No Start Date Active verapamil 120 mg tablet RxNorm: 310316 1 Tablet(s) PO daily No Start Date Active hydrochlorothiazide 12.5 mg tablet RxNorm: 998475 1 Tablet(s) PO daily No Start Date Active citalopram 10 mg tablet RxNorm: 237668 1 Tablet(s) PO daily No Start Date Active Exelon Patch 9.5 mg/24 hr transdermal RxNorm: 731393 1 TD daily No Start Date Active coenzyme Q10 100 mg capsule RxNorm: 265303 1 Capsule(s) PO daily No Start Date Active Medication Administered No Medication Administered data Immunizations Vaccine Codes Date Status Influenza CVX: 141 07/02/2018 completed Pneumococcal CVX: 133 11/24/2015 completed Pneumococcal CVX: 33 04/28/2013 completed Assessments Condition Codes Effective Dates Essential (primary) hypertension ICD-10: I10 ICD-9: 401.1 10/21/2018 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 10/21/2018 Mixed hyperlipidemia ICD-10: E78.2 ICD-9: 272.2 10/21/2018 Major depressive disorder, recurrent, moderate ICD-10: F33.1 ICD-9: 296.32 10/21/2018 Reason For Visit Reason For Visit Effective Dates Notes hypertension 10/21/2018 Results No Results data Review of Systems System Result Effective Dates Constitutional No recent illness 10/21/2018 Constitutional No [...] No Procedures data Vital Signs Date Vital 10/21/2018 Blood Pressure 1: 130/82 Code: 8480-6 BMI: 31.8 Code: 47690-1 Heart Rate 1: 75 bpm Height: 5' SpO2: 95% Weight: 163 lbs Functional Status No Functional Status data History of Present Illness Symptom Name Status Result Effective Date Notes Quality primary hypertension 10/21/2018 None Onset and Resolution ongoing 10/21/2018 None Blood Pressure Values patient checking blood pressure at home - did not bring in readings 10/21/2018 None Pertinent Findings Denies dizziness 10/21/2018 None Pertinent Findings dyspnea 10/21/2018 occ with walking Quality chronic 10/21/2018 None Severity mild 10/21/2018 None Advance Directives No Advance Directive data Encounters Encounter Performer Location Codes Date ([id number]) OFFICE VISIT, NEW - LEVEL 4 Diagnosis: Essential (primary) hypertension[ICD10: I10] Diagnosis: Mixed hyperlipidemia[ICD10: E78.2] Diagnosis: Major depressive disorder, recurrent, moderate[ICD10: F33.1] Diagnosis: 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 10/21/2018 Appointment: [facility] [phone] [facility] [place] New Patient 10/21/2018 Patient Education: Patient Medication Summary Completed 10/21/2018 Patient Education: Cholesterol Management Completed 10/21/2018 Patient Education: Depression Completed 10/21/2018 Instructions Comment . HX of stroke - Pt needs [...]
--- OUTSIDE RECORDS SUMMARY | 2019-05-06 11:07 | XMS REPORT | Continuity of Care Document ---
Author Organization Unknown Address Unknown Phone Unavailable Allergies Active Description Code Type Severity Reaction Onset Reported/Identified Relationship to Patient Clinical Status Yes No Allergy Information Available [id number] Drug Allergy Unknown N/A 08/15/2018 Yes No Known Drug Allergies [id number] Drug Allergy Unknown N/A 08/15/2018 Medications There is no data. Problems Date Dx Coded Attending Type Code Diagnosis Diagnosed By 03/11/2015 GRICELDA MADDOX MANUFACTURING CHIEF ENGINEER-C Ot 585.9 03/16/2015 NEWGRICELDA MANUFACTURING CHIEF ENGINEER-C Ot 585.9 02/08/2016 GRICELDA MADDOX MANUFACTURING CHIEF ENGINEER-C Ot 585.9 CHRONIC KIDNEY DISEASE, UNSPECIFIED 02/09/2016 NEWGRICELDA ChaseMichelle MANUFACTURING CHIEF ENGINEER-C Ot N18.3 CHRONIC KIDNEY DISEASE, STAGE 3 (MODERAT 02/10/2016 NEWGRICELDA ChaseMichelle MANUFACTURING CHIEF ENGINEER-C Ot N18.9 CHRONIC KIDNEY DISEASE, UNSPECIFIED 02/14/2016 NEW, GRICELDA ChaseMichelle MANUFACTURING CHIEF ENGINEER-C Ot N18.9 CHRONIC KIDNEY DISEASE, UNSPECIFIED 03/06/2016 NEW, GRICELDA GMichelle MANUFACTURING CHIEF ENGINEER-C Ot N18.9 CHRONIC KIDNEY DISEASE, UNSPECIFIED 03/27/2016 NEW GRICELDA ChaseMichelle MANUFACTURING CHIEF ENGINEER-C Ot N18.9 CHRONIC KIDNEY DISEASE, UNSPECIFIED 01/14/2017 NEW GRICELDA ChaseMichelle MANUFACTURING CHIEF ENGINEER-C Ot 585.9 CHRONIC KIDNEY DISEASE, UNSPECIFIED 01/14/2017 NEW, GRICELDA G. MANUFACTURING CHIEF ENGINEER-C Ot N18.9 CHRONIC KIDNEY DISEASE, UNSPECIFIED 01/20/2017 NEWGRICELDA G. MANUFACTURING CHIEF ENGINEER-C Ot D64.9 ANEMIA, UNSPECIFIED 01/20/2017 NEW GRICELDA G. MANUFACTURING CHIEF ENGINEER-C Ot E66.9 OBESITY, UNSPECIFIED 01/20/2017 NEW GRICELDA G. MANUFACTURING CHIEF ENGINEER-C Ot E78.5 HYPERLIPIDEMIA, UNSPECIFIED 01/20/2017 NEW GRICELDA G. MANUFACTURING CHIEF ENGINEER-C Ot E87.1 HYPO-OSMOLALITY AND HYPONATREMIA 01/20/2017 NEW GRICELDA G. 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, W S 02/12/2017 NEW, GRICELDA Reese MANUFACTURING CHIEF ENGINEER-C Ot N18.3 CHRONIC KIDNEY DISEASE, STAGE 3 (MODERAT 02/12/2017 NEW, GRICELDA GMichelle MANUFACTURING CHIEF ENGINEER-C Ot N25.81 SECONDARY HYPERPARATHYROIDISM OF RENAL O 02/12/2017 NEW, GRICELDA GMichelle MANUFACTURING CHIEF ENGINEER-C Ot 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, ADULT TYPE 02/12/2017 NEW, GRICELDA ChaseMichelle MANUFACTURING CHIEF ENGINEER-C Ot R73.01 IMPAIRED FASTING GLUCOSE 02/12/2017 NEW, GRICELDA Reese MANUFACTURING CHIEF ENGINEER-C Ot R80.9 PROTEINURIA, UNSPECIFIED 03/05/2017 NEW, GRICELDA Reese MANUFACTURING CHIEF ENGINEER-C Ot D64.9 ANEMIA, UNSPECIFIED 03/05/2017 NEW, GRICELDA Reese MANUFACTURING CHIEF ENGINEER-C Ot E66.9 OBESITY, UNSPECIFIED 03/05/2017 NEW, GRICELDA Reese MANUFACTURING CHIEF ENGINEER-C Ot E78.5 HYPERLIPIDEMIA, UNSPECIFIED 03/05/2017 NEW, GRICELDA Reese MANUFACTURING CHIEF ENGINEER-C Ot E87.1 HYPO-OSMOLALITY AND HYPONATREMIA 03/05/2017 NEW, GRICELDA Reese MANUFACTURING CHIEF ENGINEER-C Ot E87.6 HYPOKALEMIA 03/05/2017 NEW, GRICELDA Reese MANUFACTURING CHIEF ENGINEER-C Ot E88.09 OTH DISORDERS OF PLASMA-PROTEIN METABOLI 03/05/2017 NEW, GRICELDA Reese 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 MANUFACTURING CHIEF ENGINEER-C Ot 585.9 CHRONIC KIDNEY DISEASE, UNSPECIFIED 08/15/2018 NEW, GRICELDA G. MANUFACTURING CHIEF ENGINEER-C Ot N18.9 CHRONIC KIDNEY DISEASE, UNSPECIFIED 08/15/2018 NEW, GRICELDA Reese MANUFACTURING CHIEF ENGINEER-C Ot D64.9 ANEMIA, UNSPECIFIED 08/15/2018 NEW, GRICELDA Reese MANUFACTURING CHIEF ENGINEER-C Ot E66.9 OBESITY, UNSPECIFIED 08/15/2018 NEW, GRICELDA Reese MANUFACTURING CHIEF ENGINEER-C Ot E78.5 HYPERLIPIDEMIA, UNSPECIFIED 08/15/2018 NEW, GRICELDA Chase. MANUFACTURING CHIEF ENGINEER-C Ot E87.1 HYPO-OSMOLALITY AND HYPONATREMIA 08/15/2018 NEW, GRICELDA G. MANUFACTURING CHIEF ENGINEER-C Ot E87.6 HYPOKALEMIA 08/15/2018 NEW, GRICELDA G. MANUFACTURING CHIEF ENGINEER-C Ot E88.09 OTH DISORDERS OF PLASMA-PROTEIN METABOLI 08/15/2018 NEW, GRICELDA G. 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, ADULT TYPE 08/15/2018 VARSHA GRICELDA StoneMichelle MANUFACTURING CHIEF ENGINEER-C Ot R73.01 IMPAIRED FASTING GLUCOSE 08/15/2018 CYNTHIA MADDOXPorsha StoneMichelle MANUFACTURING CHIEF ENGINEER-C Ot R80.9 PROTEINURIA, UNSPECIFIED 08/18/2018 JOEL VAZQUEZ MD, Ot E78.00 PURE HYPERCHOLESTEROLEMIA, UNSPECIFIED 08/18/2018 JOEL VAZQUEZ MD, Ot F03.90 UNSPECIFIED DEMENTIA WITHOUT BEHAVIORAL 08/18/2018 JOEL VAZQUEZ MD, Ot F32.9 MAJOR DEPRESSIVE DISORDER, SINGLE EPISOD 08/18/2018 JOEL VAZQUEZ MD Ot G81.91 HEMIPLEGIA, UNSPECIFIED AFFECTING RIGHT 08/18/2018 JOEL VAZQUEZ MD Ot I10 ESSENTIAL (PRIMARY) HYPERTENSION 08/18/2018 JOEL VAZQUEZ MD Ot 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 08/18/2018 JOEL VAZQUEZ MD Ot K59.00 CONSTIPATION, UNSPECIFIED 08/18/2018 JOEL VAZQUEZ MD, Ot N28.9 DISORDER OF KIDNEY AND URETER, UNSPECIFI 08/18/2018 JOEL VAZQUEZ MD Ot R13.10 DYSPHAGIA, UNSPECIFIED 08/18/2018 JOEL VAZQUEZ MD, Ot R29.810 FACIAL WEAKNESS 08/18/2018 JOEL VAZQUEZ MD Ot R32 UNSPECIFIED URINARY INCONTINENCE 08/18/2018 JOEL VAZQUEZ MD Ot R47.02 DYSPHASIA 08/18/2018 JOEL VAZQUEZ MD Ot Z66 DO NOT RESUSCITATE 08/19/2018 JOEL VAZQUEZ MD, Ot E78.00 PURE HYPERCHOLESTEROLEMIA, UNSPECIFIED 08/19/2018 JOEL VAZQUEZ MD Ot F03.90 UNSPECIFIED DEMENTIA WITHOUT BEHAVIORAL 08/19/2018 GEORGE MD, JOEL M Ot F32.9 MAJOR DEPRESSIVE DISORDER, SINGLE EPISOD [...] UNSPECIFIED DEMENTIA WITHOUT BEHAVIORAL 08/19/2018 JOEL VAZQUEZ MD, Ot F32.9 MAJOR DEPRESSIVE DISORDER, SINGLE EPISOD [...] CAUSE OF DI 08/30/2018 SHAQUILLE BERMUDEZ MD Ot E87.6 HYPOKALEMIA 08/30/2018 AIDAN SON, SHAQUILLE E Ot F03.90 UNSPECIFIED DEMENTIA WITHOUT BEHAVIORAL 08/30/2018 SHAQUILLE BERMUDEZ MD E Ot I10 ESSENTIAL (PRIMARY) HYPERTENSION 08/30/2018 SHAQUILLE BERMUDEZ MD E Ot I69.320 APHASIA FOLLOWING CEREBRAL INFARCTION 08/30/2018 SHAQUILLE BERMUDEZ MD Ot I69.322 DYSARTHRIA FOLLOWING CEREBRAL INFARCTION 08/30/2018 SHAQUILLE BERMUDEZ MD E Ot 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 MANUFACTURING CHIEF ENGINEER-C Ot 585.9 CHRONIC KIDNEY DISEASE, UNSPECIFIED 09/23/2018 VARSHA GRICELDA G. MANUFACTURING CHIEF ENGINEER-C Ot N18.9 CHRONIC KIDNEY DISEASE, UNSPECIFIED 09/23/2018 NEWGRICELDA G. MANUFACTURING CHIEF ENGINEER-C Ot D64.9 ANEMIA, UNSPECIFIED 09/23/2018 NEW GRICELDA G. MANUFACTURING CHIEF ENGINEER-C Ot E66.9 OBESITY, UNSPECIFIED 09/23/2018 VARSHA GRICELDA G. MANUFACTURING CHIEF ENGINEER-C Ot E78.5 HYPERLIPIDEMIA, UNSPECIFIED 09/23/2018 GRICELDA MADDOX G. MANUFACTURING CHIEF ENGINEER-C Ot E87.1 HYPO-OSMOLALITY AND HYPONATREMIA 09/23/2018 GRICELDA MADDOX. MANUFACTURING CHIEF ENGINEER-C Ot E87.6 HYPOKALEMIA 09/23/2018 GRICELDA MADDOX G. 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, ADULT TYPE 09/23/2018 CYNTHIA MADDOXPorsha StoneMichelle MANUFACTURING CHIEF ENGINEER-C Ot R73.01 IMPAIRED FASTING GLUCOSE 09/23/2018 CYNTHIA MADDOXPorsha StoneMichelle MANUFACTURING CHIEF ENGINEER-C Ot R80.9 PROTEINURIA, UNSPECIFIED 09/23/2018 LIBAN WEISS APRN Ot E78.00 PURE HYPERCHOLESTEROLEMIA, UNSPECIFIED 09/23/2018 LIBAN WEISS MEDIA MARKETING DIRECTOR Ot F03.90 UNSPECIFIED DEMENTIA WITHOUT BEHAVIORAL 09/23/2018 LIBAN WEISS MEDIA MARKETING DIRECTOR Ot F32.9 MAJOR DEPRESSIVE DISORDER, SINGLE EPISOD 09/23/2018 LIBAN WEISS MEDIA MARKETING DIRECTOR Ot I10 ESSENTIAL (PRIMARY) HYPERTENSION 09/23/2018 LIBAN WEISS MEDIA MARKETING DIRECTOR Ot N39.0 URINARY TRACT INFECTION, SITE NOT SPECIF 09/23/2018 LIBAN WEISS APRN Ot R55 SYNCOPE AND COLLAPSE 09/23/2018 LIBAN WEISS MEDIA MARKETING DIRECTOR Ot Z90.710 ACQUIRED ABSENCE OF BOTH CERVIX AND UTER 09/25/2018 LIBAN WEISS APRN Ot E78.00 PURE HYPERCHOLESTEROLEMIA, UNSPECIFIED 09/25/2018 LIBAN WEISS MEDIA MARKETING DIRECTOR Ot F03.90 UNSPECIFIED DEMENTIA WITHOUT BEHAVIORAL 09/25/2018 LIBAN WEISS MEDIA MARKETING DIRECTOR Ot F32.9 MAJOR DEPRESSIVE DISORDER, SINGLE EPISOD 09/25/2018 LIBAN WEISS MEDIA MARKETING DIRECTOR Ot I10 ESSENTIAL (PRIMARY) HYPERTENSION 09/25/2018 LIBAN WEISS MEDIA MARKETING DIRECTOR Ot N39.0 URINARY TRACT INFECTION, SITE NOT SPECIF 09/25/2018 LIBAN WEISS MEDIA MARKETING DIRECTOR Ot R55 SYNCOPE AND COLLAPSE 09/25/2018 LIBAN WEISS MEDIA MARKETING DIRECTOR Ot Z90.710 ACQUIRED ABSENCE OF BOTH CERVIX AND UTER 11/17/2018 MAREK SON, AVANI Story Ot 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 11/17/2018 AVANI JARA MD Ot 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, 11/17/2018 AVANI JARA MD Ot I67.82 CEREBRAL ISCHEMIA 11/17/2018 AVANI JARA MD Ot Z86.73 PRSNL HX OF TIA (TIA), AND CEREB INFRC W 11/24/2018 AVANI JARA MD Ot 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 11/24/2018 AVANI JARA MD Ot 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 12/03/2018 AVANI JARA MD Ot 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 12/04/2018 AVANI JARA MD Ot 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 12/04/2018 AVANI JARA MD Ot 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 12/12/2018 AVANI JARA MD Ot 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 12/12/2018 AVANI JARA MD, Ot 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, 12/12/2018 AVANI JARA MD Ot I67.82 CEREBRAL ISCHEMIA 12/12/2018 AVANI JARA MD, Ot Z86.73 PRSNL HX OF TIA (TIA), AND CEREB INFRC W 12/14/2018 AVANI JARA MD Ot I10 ESSENTIAL (PRIMARY) HYPERTENSION 12/14/2018 AVANI JARA MD Ot I63.9 CEREBRAL INFARCTION, UNSPECIFIED 12/14/2018 AVANI JARA MD Ot 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1 HYPO-OSMOLALITY AND HYPONATREMIA 12/31/2018 MARISABEL HOFF APRN Ot E87.3 ALKALOSIS 12/31/2018 MARISABEL HOFF APRN Ot E87.6 HYPOKALEMIA 12/31/2018 MARISABEL HOFF APRN Ot 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, W S 12/31/2018 MARISABEL HOFF APRN Ot N18.3 CHRONIC KIDNEY DISEASE, STAGE 3 (MODERAT 12/31/2018 MARISABEL HOFF APRN Ot N25.81 SECONDARY HYPERPARATHYROIDISM OF RENAL O 12/31/2018 MARISABEL HOFF APRN Ot N28.1 CYST OF KIDNEY, ACQUIRED 12/31/2018 MARISABEL HOFF APRN Ot R73.01 IMPAIRED FASTING GLUCOSE 12/31/2018 MAREK SON, AVANI Story Ot I10 ESSENTIAL (PRIMARY) HYPERTENSION 12/31/2018 AVANI JARA MD Ot I63.9 CEREBRAL INFARCTION, UNSPECIFIED 12/31/2018 AVANI JARA MD Ot 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 01/19/2019 AVANI JARA MD Ot I10 ESSENTIAL (PRIMARY) HYPERTENSION 01/19/2019 AVANI JARA MD Ot I63.9 CEREBRAL INFARCTION, UNSPECIFIED 01/19/2019 AVANI JARA MD Ot 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 01/26/2019 MARISABEL HOFF APRN Ot D64.9 ANEMIA, UNSPECIFIED 01/26/2019 MARISABEL HOFF APRN Ot E55.9 VITAMIN D DEFICIENCY, UNSPECIFIED 01/26/2019 MARISABEL HOFF APRN Ot E66.9 OBESITY, UNSPECIFIED 01/26/2019 MARISABEL HOFF APRN Ot E78.5 HYPERLIPIDEMIA, UNSPECIFIED 01/26/2019 MARISABEL HOFF APRN Ot E87.1 HYPO-OSMOLALITY AND HYPONATREMIA 01/26/2019 MARISABEL HOFF APRN Ot E87.3 ALKALOSIS 01/26/2019 MARISABEL HOFF APRN Ot E87.6 HYPOKALEMIA 01/26/2019 MARISABEL HOFF APRN Ot 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, W S 01/26/2019 MARISABEL HOFF APRN Ot N18.3 CHRONIC KIDNEY DISEASE, STAGE 3 (MODERAT 01/26/2019 MARISABEL HOFF APRN Ot N25.81 SECONDARY HYPERPARATHYROIDISM OF RENAL O 01/26/2019 MARISABEL HOFF APRN Ot N28.1 CYST OF KIDNEY, ACQUIRED 01/26/2019 MARISABEL HOFF APRN Ot R73.01 IMPAIRED FASTING GLUCOSE 01/27/2019 ELIO WHITESIDE MACHINE DESIGNER Ot E86.0 DEHYDRATION 01/27/2019 ELIO WHITESIDE MACHINE DESIGNER Ot N39.0 URINARY TRACT INFECTION, SITE NOT SPECIF 01/27/2019 ELIO WHITESIDE MACHINE DESIGNER Ot R19.7 DIARRHEA, UNSPECIFIED 01/28/2019 ELIO WHITESIDE MACHINE DESIGNER Ot E86.0 DEHYDRATION 01/28/2019 ELIO WHITESIDE MACHINE DESIGNER Ot N39.0 URINARY TRACT INFECTION, SITE NOT SPECIF 01/28/2019 ELIO WHITESIDE MACHINE DESIGNER Ot R19.7 DIARRHEA, UNSPECIFIED 02/18/2019 MARISABEL HOFF APRN Ot D64.9 ANEMIA, UNSPECIFIED 02/18/2019 MARISABEL HOFF APRN Ot E55.9 VITAMIN D DEFICIENCY, UNSPECIFIED 02/18/2019 MARISABEL HOFF APRN Ot E66.9 OBESITY, UNSPECIFIED 02/18/2019 MARISABEL HOFF APRN Ot E78.5 HYPERLIPIDEMIA, UNSPECIFIED 02/18/2019 MARISABEL HOFF APRN Ot E87.1 HYPO-OSMOLALITY AND HYPONATREMIA 02/18/2019 MARISABEL HOFF APRN Ot E87.3 ALKALOSIS 02/18/2019 MARISABEL HOFF APRN Ot E87.6 HYPOKALEMIA 02/18/2019 MARISABEL HOFF APRN Ot 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 Results Test [...] Automated erythrocyte mean corpuscular hemoglobin concentration measurement (mass/volume) 33 g/dL 32-36 Automated erythrocyte distribution width ratio 13.7 % 10.0- 14.5 Automated blood platelet count (count/volume) 254 10*3/uL [...] Blood monocytes automated count (number/volume) 0.6 10*3 0.0- 1.0 Automated eosinophil count 0.3 10*3/uL 0.0-0.3 Automated [...] Serum or plasma aspartate aminotransferase measurement (enzymatic activity/volume) 34 U/L 5-34 Serum or plasma alanine aminotransferase measurement (enzymatic activity/volume) 17 U/L 0-55 Serum or plasma protein measurement (mass/volume) 8.4 g/dL 6.4-8.2 Serum or plasma albumin measurement (mass/volume) 4.1 g/dL 3.2-4.5 CALCIUM CORRECTED 10.7 mg/dL 8.5-10.1 Complete urinalysis with reflex to culture - 08/15/18 12:00 Urine color determination YELLOW NRG Urine clarity determination CLEAR NRG Urine pH measurement by test strip 8 5-9 Specific gravity of urine by test strip 1.010 1.016-1.022 Urine protein assay by test strip, semi-quantitative [...] sediment leukocyte count by microscopy (number/high power field) [HPF] NRG Bacteria detection in urine sediment [...] culture - 08/15/18 12:00 Bacterial urine culture [id number] NRG COLONY COUNT >100,000/ML NRG FTX;REPORTABLE SEE [...] Automated erythrocyte mean corpuscular hemoglobin concentration measurement (mass/volume) 33 g/dL 32-36 Automated erythrocyte distribution width ratio 13.5 % 10.0- 14.5 Automated blood platelet count (count/volume) 209 10*3/uL [...] Blood monocytes automated count (number/volume) 0.5 10*3 0.0- 1.0 Automated eosinophil count 0.1 10*3/uL 0.0-0.3 Automated [...] Serum or plasma aspartate aminotransferase measurement (enzymatic activity/volume) 18 U/L 5-34 Serum or plasma alanine aminotransferase measurement (enzymatic activity/volume) 14 U/L 0-55 Serum or plasma protein measurement (mass/volume) 6.6 g/dL 6.4-8.2 Serum or plasma albumin measurement (mass/volume) 3.4 g/dL 3.2-4.5 CALCIUM CORRECTED 10.2 mg/dL 8.5-10.1 Lipid 1996 panel - 08/16/18 05:45 Serum or plasma triglyceride measurement (mass/volume) 98 mg/dL <150 Serum or plasma cholesterol measurement (mass/volume) 177 mg/dL < 200 Serum or plasma cholesterol in HDL measurement (mass/volume) 45 mg/dL 40-60 Cholesterol in LDL [mass/volume] in serum or plasma by direct assay 110 mg/dL 1-129 Serum or plasma cholesterol in VLDL measurement (mass/volume) 20 mg/dL 5-40 Whole blood basic metabolic panel - [...] gravity of urine by test strip 1.010 1.016-1.022 Urine protein assay by test strip, semi-quantitative [...] sediment leukocyte count by microscopy (number/high power field) [HPF] NRG Bacteria detection in urine sediment [...] culture - 08/29/18 13:10 Bacterial urine culture [id number] NRG COLONY COUNT >100,000/ML NRG FTX;REPORTABLE SUSCEPTIBILITY REPORT [id number] NRG FREE TEXT ENTRY 2 PLUS >100,000 CFU/ML OF GRAM POSITIVE NRG FREE TEXT ENTRY 3 MIXED BACTERIAL TOMMIE NRG RML Sensitivity Panel - 08/29/18 13:10 Gentamicin susceptibility test by minimum inhibitory concentration <= NRG Trimethoprim/sulfamethoxazole susceptibility test by minimum inhibitoryconcentration <= NRG Levofloxacin susceptibility test by minimum inhibitory concentration <= NRG Ampicillin susceptibility test by minimum inhibitory concentration <= NRG Cefazolin susceptibility test by minimum inhibitory concentration 2 NRG Ceftriaxone susceptibility test by minimum inhibitory concentration <= NRG Ciprofloxacin susceptibility test by minimum inhibitory concentration <= NRG Meropenem susceptibility test by minimum inhibitory concentration <= NRG Nitrofurantoin susceptibility test by minimum inhibitory concentration <= NRG Amoxicillin and clavulanate potassium susc RANJAN <= NRG Complete blood count (CBC) with automated white blood cell (WBC) differential - 09/23/18 14:27 Blood leukocytes automated count (number/volume) 7.1 10*3/uL 4.3-11.0 Blood erythrocytes automated count (number/volume) 4.85 10*6/uL 4.35-5.85 Venous blood hemoglobin measurement (mass/volume) 14.1 g/dL 11.5-16.0 Blood hematocrit (volume fraction) 43 % 35-52 Automated erythrocyte mean corpuscular volume 88 [foz_us] 80-99 Automated erythrocyte mean corpuscular hemoglobin (mass per erythrocyte) 29 pg 25-34 Automated erythrocyte mean corpuscular hemoglobin concentration measurement (mass/volume) 33 g/dL 32-36 Automated erythrocyte distribution width ratio 13.8 % 10.0- 14.5 Automated blood platelet count (count/volume) 259 10*3/uL 130-400 Automated blood platelet mean volume measurement 9.8 [foz_us] 7.4-10.4 Automated blood neutrophils/100 leukocytes 69 % 42-75 Automated blood lymphocytes/100 leukocytes 19 % 12-44 Blood monocytes/100 leukocytes 9 % 0-12 Automated blood eosinophils/100 leukocytes 2 % 0-10 Automated blood basophils/100 leukocytes 1 % 0-10 Blood neutrophils automated count (number/volume) 4.9 10*3 1.8-7.8 Blood lymphocytes automated count (number/volume) 1.4 10*3 1.0-4.0 Blood monocytes automated count (number/volume) 0.6 10*3 0.0- 1.0 Automated eosinophil count 0.2 10*3/uL 0.0-0.3 Automated blood basophil count (count/volume) 0.1 10*3/uL 0.0-0.1 Comprehensive metabolic panel - 09/23/18 14:27 Serum or plasma sodium measurement (moles/volume) 140 mmol/L 135-145 Serum or plasma potassium measurement (moles/volume) 3.5 mmol/L 3.6-5.0 Serum or plasma chloride measurement (moles/volume) 102 mmol/L 98-107 Carbon dioxide 25 mmol/L 21-32 Serum or plasma anion gap determination (moles/volume) 13 mmol/L 5-14 Serum or plasma urea nitrogen measurement (mass/volume) 16 mg/dL 7-18 Serum or plasma creatinine measurement (mass/volume) 1.18 mg/dL 0.60-1.30 Serum or plasma urea nitrogen/creatinine mass ratio 14 NRG Serum or plasma creatinine measurement with calculation of estimated glomerular filtration rate 43 NRG Serum or plasma glucose measurement (mass/volume) 110 mg/dL 70-105 Serum or plasma calcium measurement (mass/volume) 9.9 mg/dL 8.5-10.1 Serum or plasma total bilirubin measurement (mass/volume) 0.7 mg/dL 0.1-1.0 Serum or plasma alkaline phosphatase measurement (enzymatic activity/volume) 61 U/L 40-136 Serum or plasma aspartate aminotransferase measurement (enzymatic activity/volume) 16 U/L 5-34 Serum or plasma alanine aminotransferase measurement (enzymatic activity/volume) 12 U/L 0-55 Serum or plasma protein measurement (mass/volume) 6.9 g/dL 6.4-8.2 Serum or plasma albumin measurement (mass/volume) 3.5 g/dL 3.2-4.5 CALCIUM CORRECTED 10.3 mg/dL 8.5-10.1 Complete urinalysis with reflex to culture - 09/23/18 14:50 Urine color determination YELLOW NRG Urine clarity determination VERY CLOUDY NRG Urine pH measurement by test strip 7 5-9 Specific gravity of urine by test strip 1.010 1.016-1.022 Urine protein assay by test strip, semi-quantitative 2+ NEGATIVE Urine glucose detection by automated test strip NEGATIVE NEGATIVE Erythrocytes detection in urine sediment by light microscopy 4+ NEGATIVE Urine ketones detection by automated test strip NEGATIVE NEGATIVE Urine nitrite detection by test strip POSITIVE NEGATIVE Urine total bilirubin detection by test strip NEGATIVE NEGATIVE Urine urobilinogen measurement by automated test strip (mass/volume) NORMAL NORMAL Urine leukocyte esterase detection by dipstick 3+ NEGATIVE Automated urine sediment erythrocyte count by microscopy (number/high power field) [HPF] NRG Automated urine sediment leukocyte count by microscopy (number/high power field) [HPF] NRG Bacteria detection in urine sediment by light microscopy LARGE NRG Squamous epithelial cells detection in urine sediment by light microscopy 2-5 NRG Crystals detection in urine sediment by light microscopy NONE NRG Casts detection in urine sediment by light microscopy NONE NRG Mucus detection in urine sediment by light microscopy MODERATE NRG Complete urinalysis with reflex to culture YES NRG Bacterial urine culture - 09/23/18 14:50 Bacterial urine culture [id number] NRG COLONY COUNT >100,000/ML NRG FTX;REPORTABLE ID REPORTED 09/24/18 16:05 NRG FREE TEXT ENTRY 2 SENSITIVITY REPORTED 09/25/18 11:05 NRG RML Sensitivity Panel - 09/23/18 14:50 Gentamicin susceptibility test by minimum inhibitory concentration <= NRG Trimethoprim/sulfamethoxazole susceptibility test by minimum inhibitoryconcentration S NRG Levofloxacin susceptibility test by minimum inhibitory concentration <= NRG Ampicillin susceptibility test by minimum inhibitory concentration R NRG Cefazolin susceptibility test by minimum inhibitory concentration R NRG Ceftriaxone susceptibility test by minimum inhibitory concentration 32 NRG Ciprofloxacin susceptibility test by minimum inhibitory concentration <= NRG Meropenem susceptibility test by minimum inhibitory concentration <= NRG Nitrofurantoin susceptibility test by minimum inhibitory concentration <= NRG Amoxicillin and clavulanate potassium susc RANJAN R NRG Automated blood complete blood count (hemogram) panel - 01/27/19 14:30 Blood leukocytes automated count (number/volume) 7.8 10*3/uL 4.3-11.0 Blood erythrocytes automated count (number/volume) 4.87 10*6/uL 4.35-5.85 Venous blood hemoglobin measurement (mass/volume) 14.1 g/dL 11.5-16.0 Blood hematocrit (volume fraction) 43 % 35-52 Automated erythrocyte mean corpuscular volume 89 [foz_us] 80-99 Automated erythrocyte mean corpuscular hemoglobin (mass per erythrocyte) 29 pg 25-34 Automated erythrocyte mean corpuscular hemoglobin concentration measurement (mass/volume) 33 g/dL 32-36 Automated erythrocyte distribution width ratio 13.8 % 10.0- 14.5 Automated blood platelet count (count/volume) 208 10*3/uL 130-400 Automated blood platelet mean volume measurement 10.1 [foz_us] 7.4-10.4 Comprehensive metabolic panel - 01/27/19 14:30 Serum or plasma sodium measurement (moles/volume) 141 mmol/L 135-145 Serum or plasma potassium measurement (moles/volume) 4.0 mmol/L 3.6-5.0 Serum or plasma chloride measurement (moles/volume) 105 mmol/L 98-107 Carbon dioxide 27 mmol/L 21-32 Serum or plasma anion gap determination (moles/volume) 9 mmol/L 5-14 Serum or plasma urea nitrogen measurement (mass/volume) 11 mg/dL 7-18 Serum or plasma creatinine measurement (mass/volume) 1.01 mg/dL 0.60-1.30 Serum or plasma urea nitrogen/creatinine mass ratio 11 NRG Serum or plasma creatinine measurement with calculation of estimated glomerular filtration rate 52 NRG Serum or plasma glucose measurement (mass/volume) 98 mg/dL 70-105 Serum or plasma calcium measurement (mass/volume) 10.6 mg/dL 8.5-10.1 Serum or plasma total bilirubin measurement (mass/volume) 0.7 mg/dL 0.1-1.0 Serum or plasma alkaline phosphatase measurement (enzymatic activity/volume) 50 U/L 40-136 Serum or plasma aspartate aminotransferase measurement (enzymatic activity/volume) 19 U/L 5-34 Serum or plasma alanine aminotransferase measurement (enzymatic activity/volume) 23 U/L 0-55 Serum or plasma protein measurement (mass/volume) 7.2 g/dL 6.4-8.2 Serum or plasma albumin measurement (mass/volume) 3.7 g/dL 3.2-4.5 CALCIUM CORRECTED 10.8 mg/dL 8.5-10.1 Complete urinalysis with reflex to culture - 01/27/19 16:45 Urine color determination YELLOW NRG Urine clarity determination SLIGHTLY CLOUDY NRG Urine pH measurement by test strip 7 5-9 Specific gravity of urine by test strip 1.010 1.016-1.022 Urine protein assay by test strip, semi-quantitative 1+ NEGATIVE Urine glucose detection by automated test strip NEGATIVE NEGATIVE Erythrocytes detection in urine sediment by light microscopy 2+ NEGATIVE Urine ketones detection by automated test strip NEGATIVE NEGATIVE Urine nitrite detection by test strip NEGATIVE NEGATIVE Urine total bilirubin detection by test strip NEGATIVE NEGATIVE Urine urobilinogen measurement by automated test strip (mass/volume) NORMAL NORMAL Urine leukocyte esterase detection by dipstick 3+ NEGATIVE Automated urine sediment erythrocyte count by microscopy (number/high power field) [HPF] NRG Automated urine sediment leukocyte count by microscopy (number/high power field) [HPF] NRG Bacteria detection in urine sediment by light microscopy FEW NRG Squamous epithelial cells detection in urine sediment by light microscopy 5-10 NRG Crystals detection in urine sediment by light microscopy NONE NRG Casts detection in urine sediment by light microscopy NONE NRG Mucus detection in urine sediment by light microscopy NEGATIVE NRG Complete urinalysis with reflex to culture YES NRG Bacterial urine culture - 01/27/19 16:45 Bacterial urine culture YEAST NRG COLONY COUNT 20,000 CFU/ML NRG Complete blood count (CBC) with automated white blood cell (WBC) differential - 05/04/19 15:25 Blood leukocytes automated count (number/volume) 7.4 10*3/uL 4.3-11.0 Blood erythrocytes automated count (number/volume) 5.02 10*6/uL 4.35-5.85 Venous blood hemoglobin measurement (mass/volume) 14.4 g/dL 11.5-16.0 Blood hematocrit (volume fraction) 45 % 35-52 Automated erythrocyte mean corpuscular volume 89 [foz_us] 80-99 Automated erythrocyte mean corpuscular hemoglobin (mass per erythrocyte) 29 pg 25-34 Automated erythrocyte mean corpuscular hemoglobin concentration measurement (mass/volume) 32 g/dL 32-36 Automated erythrocyte distribution width ratio 13.6 % 10.0- 14.5 Automated blood platelet count (count/volume) 232 10*3/uL 130-400 Automated blood platelet mean volume measurement 10.3 [foz_us] 7.4-10.4 Automated blood neutrophils/100 leukocytes 76 % 42-75 Automated blood lymphocytes/100 leukocytes 15 % 12-44 Blood monocytes/100 leukocytes 6 % 0-12 Automated blood eosinophils/100 leukocytes 2 % 0-10 Automated blood basophils/100 leukocytes 0 % 0-10 Blood neutrophils automated count (number/volume) 5.6 10*3 1.8-7.8 Blood lymphocytes automated count (number/volume) 1.1 10*3 1.0-4.0 Blood monocytes automated count (number/volume) 0.4 10*3 0.0- 1.0 Automated eosinophil count 0.2 10*3/uL 0.0-0.3 Automated blood basophil count (count/volume) 0.0 10*3/uL 0.0-0.1 Comprehensive metabolic panel - 05/04/19 15:25 Serum or plasma sodium measurement (moles/volume) 140 mmol/L 135-145 Serum or plasma potassium measurement (moles/volume) 4.1 mmol/L 3.6-5.0 Serum or plasma chloride measurement (moles/volume) 106 mmol/L 98-107 Carbon dioxide 22 mmol/L 21-32 Serum or plasma anion gap determination (moles/volume) 12 mmol/L 5-14 Serum or plasma urea nitrogen measurement (mass/volume) 12 mg/dL 7-18 Serum or plasma creatinine measurement (mass/volume) 1.01 mg/dL 0.60-1.30 Serum or plasma urea nitrogen/creatinine mass ratio 12 NRG Serum or plasma creatinine measurement with calculation of estimated glomerular filtration rate 52 NRG Serum or plasma glucose measurement (mass/volume) 109 mg/dL 70-105 Serum or plasma calcium measurement (mass/volume) 9.9 mg/dL 8.5-10.1 Serum or plasma total bilirubin measurement (mass/volume) 0.5 mg/dL 0.1-1.0 Serum or plasma alkaline phosphatase measurement (enzymatic activity/volume) 73 U/L 40-136 Serum or plasma aspartate aminotransferase measurement (enzymatic activity/volume) 25 U/L 5-34 Serum or plasma alanine aminotransferase measurement (enzymatic activity/volume) 24 U/L 0-55 Serum or plasma protein measurement (mass/volume) 7.0 g/dL 6.4-8.2 Serum or plasma albumin measurement (mass/volume) 3.6 g/dL 3.2-4.5 CALCIUM CORRECTED 10.2 mg/dL 8.5-10.1 Serum or plasma troponin i.cardiac measurement (mass/volume) - 05/04/19 15:25 Serum or plasma troponin i.cardiac measurement (mass/volume) < ng/mL <0.028 Complete urinalysis with reflex to culture - 05/04/19 15:50 Urine color determination YELLOW NRG Urine clarity determination SLIGHTLY CLOUDY NRG Urine pH measurement by test strip 6.5 5-9 Specific gravity of urine by test strip 1.015 1.016-1.022 Urine protein assay by test strip, semi-quantitative [...] NORMAL Urine leukocyte esterase detection by dipstick 3+ NEGATIVE Automated urine sediment erythrocyte count by microscopy (number/high power field) NONE NRG Automated urine sediment leukocyte count by microscopy (number/high power field) [HPF] NRG Bacteria detection in urine sediment by light microscopy LARGE NRG Squamous epithelial cells detection in urine sediment by light microscopy NONE NRG Crystals detection in urine sediment by light microscopy NONE NRG Casts detection in urine sediment by light microscopy NONE NRG Mucus detection in urine sediment by light microscopy NEGATIVE NRG Complete urinalysis with reflex to culture YES NRG Encounters ACCT No. Visit Date/Time Discharge Status Pt. Type Provider Facility Loc./Unit Complaint [id number] 05/04/2019 15:22:00 05/04/2019 16:49:00 DIS Emergency WEISSL[employer]AN [employer] DIRECT[employer] [facility] ER SYNCOPE [id number] 01/27/2019 14:12:00 01/27/2019 16:50:00 DIS Outpatient ELIO WHITESIDE [facility] SDC DEHYDRATION,RECURRENT UTI,DIARRHEA [id number] 12/29/2018 11:53:00 12/29/2018 23:59:59 CLS Outpatient MARISABEL HOFF APRN [facility] RAD OBESE,HYPERLIPIDEMIA,PROTEINURIA [id number] 12/04/2018 10:30:00 12/04/2018 23:59:59 CLS Preadmit AVANI JARA MD [facility] CARD HTN, CVA [id number] 12/04/2018 08:57:00 12/04/2018 23:59:59 CLS Outpatient AVANI JARA MD [facility] RAD HTN,CVA, OCCLUSION AND STENOSIS OF BILAT CAROTID [id number] 11/17/2018 11:26:00 11/17/2018 23:59:59 CLS Outpatient AVANI JARA MD A [facility] RAD NEOPLASM OF BRAIN FOLLOW UP [id number] 09/23/2018 14:12:00 09/23/2018 16:46:00 DIS Emergency LIBAN WEISS MEDIA MARKETING DIRECTOR [facility] ER SYNCOPE [id number] 08/19/2018 11:00:00 08/30/2018 14:00:00 DIS Inpatient AIDAN SON, SHAQUILLE Bueno [facility] IRF CVA [id number] 08/15/2018 13:32:00 08/19/2018 10:45:00 DIS Inpatient GEORGE SON, JOEL Trejo [facility] 4TH CVA;RT SIDED WEAKNESS [id number] 01/14/2017 11:58:00 01/14/2017 23:59:59 CLS Outpatient GRICELDA MADDOX [employer]UFACTURING CHIEF ENGINEER-C [facility] RAD OBESE,HYPERLIPIDEMIA [id number] 02/08/2016 12:49:00 02/08/2016 23:59:59 CLS Outpatient GRICELDA MADDOX MANUFACTURING CHIEF ENGINEER-C [facility] RAD CKD [id number] 02/04/2015 10:08:00 02/04/2015 23:59:59 CLS Outpatient GRICELDA MADDOX MANUFACTURING CHIEF ENGINEER-C [facility] RAD CHRONIC KIDNEY DISEASE
--- OUTSIDE RECORDS SUMMARY | 2019-05-06 11:07 | XMS REPORT | CCD ---
Author Author [facility] Organization [facility] Address [address] [place] [address] Phone Care Team Providers Care Deputy Insurance Commissioner Name Role Phone PP Unavailable CCM Unavailable Summary Purpose Interface Exchange Insurance Providers Payer name Policy type / Coverage type Covered libertarian ID Effective Begin Date Effective End Date WPS Medicare Part B Medicare Part B [id number] Unknown Unknown FOR LIFE WPS Medicare Part [...] Unknown Retired 10/21/[address]: 127280447 Never smoker 10/21/[address]: 772655387 Never drinks alcohol 10/21/2018 Allergies, Adverse Reactions, [...] Start Date Stop Date Status Fill Instructions Centrum Silver Women 8 mg iron-400 mcg-300 mcg tablet RxNorm: 1 Tablet(s) PO daily No Start Date Active atorvastatin 10 mg tablet RxNorm: 678591 1 Tablet(s) PO daily No Start Date Active verapamil 120 mg tablet RxNorm: 837729 1 Tablet(s) PO daily No Start Date Active hydrochlorothiazide 12.5 mg tablet RxNorm: 611744 1 Tablet(s) PO daily No Start Date Active citalopram 10 mg tablet RxNorm: 745338 1 Tablet(s) PO daily No Start Date Active Exelon Patch 9.5 mg/24 hr transdermal RxNorm: 706234 1 TD daily No Start Date Active coenzyme Q10 100 mg capsule RxNorm: 217911 1 Capsule(s) PO daily No Start Date [...] 1: 130/82 Code: 8480-6 BMI: 31.8 Code: 05865-1 Heart Rate 1: 75 bpm Height: 5' [...] Encounters Encounter Performer Location Codes Date () OFFICE VISIT, NEW - LEVEL 4 Diagnosis: Essential (primary) hypertension[ICD10: I10] Diagnosis: Mixed hyperlipidemia[ICD10: E78.2] Diagnosis: Major depressive disorder, recurrent, moderate[ICD10: F33.1] 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 10/21/2018 Appointment: [facility] WPtel: [address] [place], [place] [id number] [place] New Patient 10/21/2018 Patient Education: Patient [...]
[2019-05-06] MEDS: NS IV 1000 ML 1,000 ML IV SCH ×2 (12:29→17:01)
[2019-05-06 12:36] LABS: BASOPHILS % (AUTO) 1 % (0-10); EOSINOPHILS # (AUTO) 0.3 10^3/uL (0.0-0.3); EOSINOPHILS % (AUTO) 4 % (0-10); HEMATOCRIT 43 % (35-52); HEMOGLOBIN 13.9 G/DL (11.5-16.0); LYMPHOCYTES # (AUTO) 1.3 X 10^3 (1.0-4.0); LYMPHOCYTES % (AUTO) 19 % (12-44); MEAN CORPUSCULAR HEMOGLOBIN 29 PG (25-34); MEAN CORPUSCULAR HGB CONC 32 G/DL (32-36); MEAN CORPUSCULAR VOLUME 89 FL (80-99); MEAN PLATELET VOLUME 10.4 FL (7.4-10.4); MONOCYTES # (AUTO) 0.5 X 10^3 (0.0-1.0); MONOCYTES % (AUTO) 8 % (0-12); NEUTROPHILS # (AUTO) 4.4 X 10^3 (1.8-7.8); NEUTROPHILS % (AUTO) 68 % (42-75); PLATELET COUNT 220 10^3/uL (130-400); RED CELL DISTRIBUTION WIDTH 13.7 % (10.0-14.5); WHITE BLOOD COUNT 6.5 10^3/uL (4.3-11.0)
--- NOTE | 2019-05-06 12:39 | ED Respiratory ---
General Chief Complaint: Respiratory Problems Stated Complaint: SOA Nursing Triage Note: TO ED PER EMS WHO REPORT THAT PATIENT WAS SOA THIS AM AND DAUGHTER HAD CONCERN . SAO2 90% ON ADMIT PLACE ON 2L 02 Source: patient, family Exam Limitations: physical impairment History of Present Illness Date Seen by Provider: May 06, 2019 Time Seen by Provider: 12:34 Initial Comments 89-year-old white female presents with her family to the emergency department for evaluation of shortness of breath. Patient was found to have a urinary tract infection 2 days ago. She has subsequently developed shortness of breath without associated chest pain, productive cough, headache or stiff neck, nausea vomiting or diarrhea. The daughter who is the primary historian states that there has been no pressure type chest pain, diaphoresis, or palpitations. Allergies and Home Medications Allergies Coded Allergies: No Known Drug Allergies (Unverified , 08/15/18) Home Medications Atorvastatin Calcium 10 Mg Tablet, 10 MG PO DAILY, (Reported) Cefuroxime Axetil 250 Mg Tablet, 250 MG PO BID Prescribed by: LIBAN WEISS on 05/04/19 1632 Citalopram Hydrobromide 10 Mg Tablet, 10 MG PO DAILY, (Reported) Clopidogrel Bisulfate 75 Mg Tablet, 75 MG PO DAILY, (Reported) Glucosamine Sulfate 2Kcl 1,000 Mg Tablet, 1,000 MG PO DAILY, (Reported) Multivit-Min/FA/Lycopene/Lut 1 Each Tablet, 1 TAB PO DAILY, (Reported) Rivastigmine 9.5 Mg Patch, 9.5 MG TD DAILY, (Reported) Ubidecarenone/Vit E Acetate 1 Each Capsule, 100 MG PO DAILY, (Reported) Verapamil HCl 120 Mg Tablet.er, 120 MG PO DAILY, (Reported) Patient Home Medication List Home Medication List Reviewed: Yes Review of Systems Review of Systems Constitutional: No chills, No fever; weakness EENTM: no symptoms reported Respiratory: see HPI, short of breath Cardiovascular: No chest pain; edema; No syncope Gastrointestinal: No abdominal pain, No diarrhea, No nausea, No vomiting Genitourinary: dysuria, frequency Musculoskeletal: no symptoms reported Skin: No change in color, No rash Psychiatric/Neurological: No Symptoms Reported Hematologic/Lymphatic: No Symptoms Reported Past Olnxkxy-Xczret-Wooqym Hx Past Med/Social Hx: Reviewed Nursing Past Med/Soc Hx Patient Social History Alcohol Use: Denies Use Recreational Drug Use: No Smoking Status: Never a Smoker 2nd Hand Smoke Exposure: No Recent Foreign Travel: No Contact w/Someone Who Travel: No Recent Infectious Disease Expo: No Recent Hopitalizations: Yes (CVA) Immunizations Up To Date Date of Pneumonia Vaccine: Nov 08, 2016 Date of Influenza Vaccine: Jul 02, 2018 Seasonal Allergies Seasonal Allergies: No Past Medical History Surgeries: Yes Abdominal, Hysterectomy Respiratory: No Cardiac: Yes High Cholesterol, Hypertension Neurological: Yes Dementia Genitourinary: Yes (KIDNEY DISEASE) Gastrointestinal: No Chronic Constipation Musculoskeletal: Yes Arthritis Endocrine: No HEENT: Yes Cataract Hearing Impairment: Hard of Hearing Cancer: No Psychosocial: Yes Depression Integumentary: Yes (SCRATCHY AREAS OF ABDOMEN) Physical Exam Vital Signs - First Documented 05/06/19 10:55 Temp 99.0 Pulse 89 Resp 18 B/P (MAP) 147/110 (122) Pulse Ox 90 O2 Delivery Room Air Capillary Refill : Less Than 3 Seconds Height: 5'0" Weight: 160lbs. 6.4oz. 72.578326mb; 32.2 BMI Method:Stated General Appearance: WD/WN, no apparent distress Eyes: Bilateral Eye Normal Inspection HEENT: normal ENT inspection Neck: full range of motion, supple, normal inspection Respiratory: decreased breath sounds, crackles, wheezing Cardiovascular: normal peripheral pulses, regular rate, rhythm Gastrointestinal: normal bowel sounds, soft Extremities: normal range of motion, pedal edema, swelling Neurologic/Psychiatric: no motor/sensory deficits, normal mood/affect, oriented x 3 Skin: normal color, warm/dry Progress/Results/Core Measures Suspected Sepsis Recent Fever Within 48 Hours: No Infection Criteria Present: None New/Unexplained Altered Menta: No Sepsis Screen: No Definite Risk SIRS Temperature:99.0 Pulse: 89 Respiratory Rate: 18 Laboratory Tests 05/06/19 11:12: White Blood Count 6.5 Blood Pressure 147 /110 Mean: 122 Laboratory Tests 05/06/19 11:12: Creatinine 1.03, Platelet Count 220, Total Bilirubin 0.7 Results/Orders Lab Results Laboratory Tests Test 05/06/19 11:12 05/06/19 12:38 05/06/19 13:49 Range/Units White Blood Count 6.5 4.3-11.0 10^3/uL Red Blood Count 4.86 4.35-5.85 10^6/uL Hemoglobin 13.9 11.5-16.0 G/DL Hematocrit 43 35-52 % Mean Corpuscular Volume 89 80-99 FL Mean Corpuscular Hemoglobin 29 25-34 PG Mean Corpuscular Hemoglobin Concent 32 32-36 G/DL Red Cell Distribution Width 13.7 10.0-14.5 % Platelet Count 220 130-400 10^3/uL Mean Platelet Volume 10.4 7.4-10.4 FL Neutrophils (%) (Auto) 68 42-75 % Lymphocytes (%) (Auto) 19 12-44 % Monocytes (%) (Auto) 8 0-12 % Eosinophils (%) (Auto) 4 0-10 % Basophils (%) (Auto) 1 0-10 % Neutrophils # (Auto) 4.4 1.8-7.8 X 10^3 Lymphocytes # (Auto) 1.3 1.0-4.0 X 10^3 Monocytes # (Auto) 0.5 0.0-1.0 X 10^3 Eosinophils # (Auto) 0.3 0.0-0.3 10^3/uL Basophils # (Auto) 0.0 0.0-0.1 10^3/uL Sodium Level 140 135-145 MMOL/L Potassium Level 3.7 3.6-5.0 MMOL/L Chloride Level 105 98-107 MMOL/L Carbon Dioxide Level 28 21-32 MMOL/L Anion Gap 7 5-14 MMOL/L Blood Urea Nitrogen 10 7-18 MG/DL Creatinine 1.03 0.60-1.30 MG/DL Estimat Glomerular Filtration Rate 50 BUN/Creatinine Ratio 10 Glucose Level 105 70-105 MG/DL Calcium Level 10.2 H 8.5-10.1 MG/DL Corrected Calcium 10.4 H 8.5-10.1 MG/DL Total Bilirubin 0.7 0.1-1.0 MG/DL Aspartate Amino Transf (AST/SGOT) 16 5-34 U/L Alanine Aminotransferase (ALT/SGPT) 17 0-55 U/L Alkaline Phosphatase 72 40-136 U/L Troponin I < 0.028 <0.028 NG/ML B-Type Natriuretic Peptide 151.9 H <100.0 PG/ML Total Protein 7.1 6.4-8.2 GM/DL Albumin 3.7 3.2-4.5 GM/DL D-Dimer 3.10 H 0.00-0.49 UG/ML Urine Color YELLOW Urine Clarity SLIGHTLY CLOUDY Urine pH 7 5-9 Urine Specific [place] 1.010 L 1.016-1.022 Urine Protein 1+ H NEGATIVE Urine Glucose (UA) NEGATIVE NEGATIVE Urine Ketones NEGATIVE NEGATIVE Urine Nitrite NEGATIVE NEGATIVE Urine Bilirubin NEGATIVE NEGATIVE Urine Urobilinogen NORMAL NORMAL MG/DL Urine Leukocyte Esterase 2+ H NEGATIVE Urine RBC (Auto) 3+ H NEGATIVE Urine RBC 10-25 H /HPF Urine WBC 5-10 H /HPF Urine Squamous Epithelial Cells 10-25 H /HPF Urine Crystals NONE /LPF Urine Bacteria MODERATE H /HPF Urine Casts NONE /LPF Urine Mucus NEGATIVE /LPF Urine Culture Indicated YES My Orders Orders - CONNIE RIVERA MD Cbc With Automated Diff (05/06/19 12:19) Comprehensive Metabolic Panel (05/06/19 12:19) Fibrin Degradation Products (05/06/19 12:19) Chest 1 View, Ap/Pa Only (05/06/19 12:19) Ekg Tracing (05/06/19 12:19) Troponin I (05/06/19 12:19) Ns Iv 1000 Ml (Sodium Chloride 0.9%) (05/06/19 12:30) Ua Culture If Indicated (05/06/19 12:19) BNP (05/06/19 12:21) Ct Angio Chest W (05/06/19 13:46) Iohexol Injection (Omnipaque 350 Mg/Ml 1 (05/06/19 14:00) Received Contrast (Hold Metformin- Contr (05/06/19 14:00) Ns (Ivpb) (Sodium Chloride 0.9% Ivpb Bag (05/06/19 14:00) Urine Culture (05/06/19 13:49) Ct Abdomen/Pelvis W (05/06/19 14:24) Ceftriaxone For Iv Use (Rocephin For I (05/06/19 15:30) Medications Given in ED Current Medications Medications Dose Ordered Sig/Wil Route Start Time Stop Time Status Last Admin Dose Admin Ceftriaxone Sodium 1000 mg/ Sterile Water 10 ml @ 200 mls/hr ONCE ONCE IV 05/06/19 15:30 05/06/19 15:32 DC 05/06/19 15:33 200 MLS/HR Iohexol 100 ml ONCE ONCE IV 05/06/19 14:00 05/06/19 14:01 DC 05/06/19 14:16 100 ML Sodium Chloride 100 ml ONCE ONCE IV 05/06/19 14:00 05/06/19 14:01 DC 05/06/19 14:16 80 ML Vital Signs/I&O 05/06/19 05/06/19 10:55 15:40 Temp 99.0 Pulse 89 71 Resp 18 18 B/P (MAP) 147/110 (122) 155/85 (108) Pulse Ox 90 95 O2 Delivery Room Air Room Air Capillary Refill : Less Than 3 Seconds Blood Pressure Mean: 122 Progress Note : Time: 13:48 Progress Note The patient's laboratory evaluation demonstrated a clear chest x-ray with an elevated d-dimer. Patient's white count was not elevated. A PE study was ordered for the patient. Fortunately the PE study was negative. The patient's generalized weakness however precluded her from returning home. Dr. Haskins was kind enough to admit patient to observation for further evaluation of generalized weakness. The patient's previous urinalysis demonstrated pathogen which was susceptible to ceftriaxone which I ordered for the patient. Departure Communication (Admissions) Time/Spoke to Admitting Phy: 15:53 Dr. Haskins. Impression Primary Impression: Generalized weakness Additional Impression: Urinary tract infection Qualified Codes: N30.00 - Acute cystitis without hematuria Disposition: ADMITTED INPATIENT Condition: Improved Admissions Decision to Admit Reason: Admit from ER (General) Decision to Admit/Date: May 06, 2019 Time/Decision to Admit Time: 15:54 Departure-Patient Inst. Referrals: AVANI HASKINS MD (PCP/Family) Primary Care Physician CONNIE RIVERA MD May 06, 2019 12:39
--- NOTE | 2019-05-06 12:46 | Diagnostic Imaging Report ---
INDICATION: Shortness of air. Time of exam 12:31 PM Correlation is made with prior chest from 08/15/2018. The heart size is stable. There is some ectasia of the descending thoracic aorta. No infiltrate or failure is seen. No effusion or pneumothorax is identified. IMPRESSION: No acute cardiopulmonary process is detected. Dictated by: Dictated on workstation # [id number]
[2019-05-06 12:47] LABS: ALANINE AMINOTRANSFERASE 17 U/L (0-55); ALBUMIN 3.7 GM/DL (3.2-4.5); ALKALINE PHOSPHATASE 72 U/L (40-136); BILIRUBIN,TOTAL 0.7 MG/DL (0.1-1.0); BUN/CREATININE RATIO 10; CALCIUM 10.2 MG/DL (8.5-10.1); CARBON DIOXIDE 28 MMOL/L (21-32); CHLORIDE 105 MMOL/L (98-107); CREATININE SERUM 1.03 MG/DL (0.60-1.30); GFR ESTIMATED 50; GLUCOSE 105 MG/DL (70-105); POTASSIUM 3.7 MMOL/L (3.6-5.0); SODIUM 140 MMOL/L (135-145); TOTAL PROTEIN 7.1 GM/DL (6.4-8.2)
--- NOTE | 2019-05-06 13:54 | NUR ---
DAUGHTER REPORTS THAT PATIENT IS UNABLE TO WALK TODAY. HAD NOT BEEN TOLD THIS ON ADMIT. DR RIVERA NOTIFIED.
[2019-05-06 13:55] LABS: BILIRUBIN,URINE NEGATIVE (NEGATIVE); CLARITY,URINE SLIGHTLY CLOUDY; COLOR,URINE YELLOW; GLUCOSE, URINE (UA) NEGATIVE (NEGATIVE); KETONES,URINE NEGATIVE (NEGATIVE); LEUKOCYTE ESTERASE ,URINE 2+ (NEGATIVE); NITRITE,URINE NEGATIVE (NEGATIVE); PH,URINE 7 (5-9); PROTEIN,URINE 1+ (NEGATIVE); UROBILINOGEN,URINE NORMAL (NORMAL)
[2019-05-06] MEDS ORDERED: IOHEXOL 350 MG/ML 100 ML (OMNIPAQUE 350) VIAL IV ONE (14:00)
[2019-05-06] MEDS ORDERED: HOLD METFORMIN - RECEIVED CONTRAST 20 ML VIAL IV SCH (14:00)
[2019-05-06] MEDS ORDERED: NS 100 ML (IVPB) BAG IV ONE (14:00)
[2019-05-06 14:04] LABS: BACTERIA,URINE MODERATE /HPF
--- NOTE | 2019-05-06 14:50 | Diagnostic Imaging Report ---
PROCEDURE: CT angiography of the chest with contrast. TECHNIQUE: Multiple contiguous axial images were obtained through the chest after uneventful bolus administration of intravenous contrast. 3D reconstructed CTA MIP acquisitions were also performed. Auto Exposure Controls were utilized during the CT exam to meet ALARA standards for radiation dose reduction. INDICATION: Shortness of air. Hypoxia. COMPARISON: Chest x-ray from the same day. FINDINGS: The pulmonary arteries are diagnostic to the segmental level. No filling defect is seen to indicate pulmonary embolus. The heart is upper normal in size. No pericardial effusion is seen. There is calcific atherosclerosis of the aorta without dissection or aneurysm identified. A small hiatal hernia is present. No mediastinal adenopathy is seen. There is a trace right pleural effusion with dependent atelectasis. There is motion artifact throughout the exam. No pneumothorax is seen. The lung apices are incompletely included. No acute osseous abnormality is seen. There are degenerative changes throughout the spine. Please refer to the concurrent CT of the abdomen and pelvis for abdominal findings. IMPRESSION: 1. No pulmonary embolus. 2. Trace right pleural effusion. Dictated by: Dictated on workstation # [id number]
--- NOTE | 2019-05-06 15:00 | Diagnostic Imaging Report ---
PROCEDURE: CT abdomen and pelvis with contrast. TECHNIQUE: Multiple contiguous axial images were obtained through the abdomen and pelvis after administration of intravenous contrast. Auto Exposure Controls were utilized during the CT exam to meet ALARA standards for radiation dose reduction. INDICATION: Renal masses. FINDINGS: No discrete liver mass is identified. There are multiple stones within the gallbladder. No biliary ductal dilatation is seen. The pancreas and spleen are unremarkable. No adrenal mass is seen. The kidneys contain numerous circumscribed low-density masses consistent with cysts. These have been seen on the renal ultrasounds dating back to 2014. Largest cyst on the right is in the lower pole measuring approximately 12.7 x 10.7 cm. Largest cyst on the left involves the lateral left kidney measuring approximately 8.5 cm. No definite solid renal lesion is detected. Aorta is calcified but nonaneurysmal. Bowel loops are normal caliber. There is no ascites. Sigmoid shows diverticulosis but no evidence of acute diverticulitis. The bladder is unremarkable. Bony structures are nonacute. IMPRESSION: 1. Bilateral renal cysts. No definite solid renal mass is detected. 2. Cholelithiasis. 3. Uncomplicated diverticulosis. Dictated by: Dictated on workstation # [id number]
[2019-05-06] MEDS ORDERED: cefTRIAXone FOR IV USE 1,000 MG in WATER (STERILE) FOR INJECTION 10 ML IV ONE (15:30)
[2019-05-06 15:40] VITALS: BP 155/85
--- NOTE | 2019-05-06 15:51 | NUR ---
WATER GIVEN TO PATIENT
--- NOTE | 2019-05-06 16:06 | NUR ---
MED LIST TO CHART.,
--- NOTE | 2019-05-06 16:25 | NUR ---
pt admitted to room 416 for Uti and generalized weakness. pt family at bedside. a/o to self/person. IV to right ac intact. Pt denies any pain at this time. Oriented pt and family to room. call light within reach. pt fall risk. bed alarm on, non slip socks applied. x4 bed rails. Will monitor pt closely.
[2019-05-06 16:53] VITALS: BP 157/70
--- NOTE | 2019-05-06 19:42 | History & Physicial ---
History of Present Illness History of Present Illness Reason for visit/HPI PT IS AN 89 Y/O FEMALE WHO IS KNOWN TO ME FROM CLINIC. SHE PRESENTED TO THE ER TODAY DUE TO HER DTR BEING UNABLE TO GET HER MOM UP DUE TO WEAKNESS. HER MOM PRESENTED TO THE ER ON 05/04/19, WAS DIAGNOSED WITH A UTI AND WS SENT HOME ON THE ANTIBIOTIC CEFUROXIME. SHE APPARENTLY HAS BECOME PROGRESSIVELY WEAK AND WAS SO WEAK THAT HER DAUGHTER WAS WORRIED SOMETHING ELSE WAS GOING ON SO SHE BROUGHT HER MOM TO THE ER. SHE HAD EXTENSIVE TESTING AND PULMONARY EMBOLUS, ILEUS, ETC WAS RULED OUT ON CT SCAN OF CHEST/ABD/PELVIS. REPEAT URINALYSIS SHOWED A UTI. SHE WAS THUS ADMITTED TO THE HOSPITAL FOR IV FLUIDS AND IV ANTIBIOTICS DUE TO FAILURE OUTSIDE OF HOSPITAL. Date of Admission May 06, 2019 at 15:30 Date Seen by a Provider: May 06, 2019 Time Seen by a Provider: 19:40 I consulted on this patient on Attending Physician Avani Haskins MD Admitting Physician Avani Haskins MD Consult Allergies and Home Medications Allergies Coded Allergies: No Known Drug Allergies (Unverified , 08/15/18) Home Medications Atorvastatin Calcium 10 Mg Tablet, 10 MG PO DAILY, (Reported) Cefuroxime Axetil 250 Mg Tablet, 250 MG PO BID, (Reported) 5 DAY SUPPLY FILLED 05-04-19 Citalopram Hydrobromide 10 Mg Tablet, 10 MG PO DAILY, (Reported) Clopidogrel Bisulfate 75 Mg Tablet, 75 MG PO DAILY, (Reported) Docusate Sodium 100 Mg Capsule, 100 MG PO DAILY, (Reported) Glucosamine Sulfate 2Kcl 1,000 Mg Tablet, 1,000 MG PO DAILY, (Reported) L.acidoph & Paracasei,B.lactis 1 Each Capsule, 1 CAP PO DAILY, (Reported) Rivastigmine 1 Each Patch.td24, 1 PATCH TD DAILY, (Reported) Ubidecarenone/Vit E Acetate 1 Each Capsule, 100 MG PO DAILY, (Reported) Verapamil HCl 120 Mg Tablet, 120 MG PO DAILY, (Reported) Patient Home Medication List Home Medication List Reviewed: Yes Past Ftwagev-Ogdsvv-Jwvjrx Hx Patient Social History Marrital Status: Living Status: lives with dtr in her home Employed/Student: retired Alcohol Use: Denies Use Recreational Drug Use: No Smoking Status: Never a Smoker 2nd Hand Smoke Exposure: No Physical Abuse Screen: No Sexual Abuse: No Recent Foreign Travel: No Contact w/other who traveled: No Recent Hopitalizations: Yes (CVA) Recent Infectious Disease Expo: No Immunizations Up To Date Date of Pneumonia Vaccine: Nov 08, 2016 Date of Influenza Vaccine: Jul 02, 2018 Seasonal Allergies Seasonal Allergies: No Surgeries Yes Abdominal, Hysterectomy Respiratory No Cardiovascular Yes High Cholesterol, Hypertension Neurological Yes Dementia Reproductive System : No Female Reproductive Disorders: Denies DIRECTOR OF LAND History: Menopausal Genitourinary Yes (KIDNEY DISEASE) Gastrointestinal No Chronic Constipation Musculoskeletal Yes Arthritis Endocrine History of Endocrine Disorders: No HEENT History of HEENT Disorders: Yes HEENT Disorders: Cataract Hearing Impairment: Hard of Hearing Cancer No Psychosocial History of Psychiatric Problem: Yes Behavioral Health Disorders: Depression Integumentary History of Skin or Integumenta: Yes (SCRATCHY AREAS OF ABDOMEN) Reviewed Nursing Assessment Reviewed/Agree w Nursing PMH: Yes Family Medical History Significant Family History: Heart Disease, Hypertension Review of Systems Constitutional: No chills, No fever; malaise, weakness EENTM: No hoarseness, No throat pain Respiratory: No cough; dyspnea on exertion, short of breath Gastrointestinal: No abdominal pain, No loss of appetite, No nausea, No vomiting Genitourinary: frequency, incontinence Skin: no symptoms reported Psychiatric/Neurological: Denies Anxiety; Weakness, Other (memory loss) All Other Systems Reviewed Negative Unless Noted: Yes Physical Exam Vital Signs Vital Signs - First Documented 05/06/19 10:55 Temp 99.0 Pulse 89 Resp 18 B/P (MAP) 147/110 (122) Pulse Ox 90 O2 Delivery Room Air Capillary Refill : Less Than 3 Seconds Height, Weight, BMI Height: 5'0.00" Weight: 158lbs. 6.4oz. [id number]; 30.9 BMI Method:Stated General Appearance: No Apparent Distress, WD/WN, Other (confused) Eyes: Bilateral Eye Normal Inspection, Bilateral Eye PERRL, Bilateral Eye EOMI HEENT: Other (broken/missing, eroded teeth) Neck: Full Range of Motion Respiratory: Chest Non Tender, Lungs Clear, Normal Breath Sounds, No Accessory Muscle Use, No Respiratory Distress Cardiovascular: Regular Rate, Rhythm Gastrointestinal: Normal Bowel Sounds, Non Tender, Soft Rectal: Deferred Back: Normal Inspection, No Vertebral Tenderness Extremity: Normal Capillary Refill, Non Tender, No Calf Tenderness, No Pedal Edema Neurologic/Psychiatric: Alert, Normal Mood/Affect, personal injury paralegal II-XII Norm as Tested, Other (confused) Skin: Normal Color, Warm/Dry Lymphatic: No Adenopathy Assessment/Plan Assessment and Plan EC[facility]I URINARY TRACT INFECTION WEAKNESS HYPERTENSION HYPERLIPIDEMIA DEPRESSION EC[facility]I URINARY TRACT INFECTION - PT ADMITTED TO THE HOSPITAL - STARTED ON IV ROCEPHIN, WILL RE-CULTURE HER URINE AND MONITOR SYMPTOMS ON CURRENT REGIMEN, MAY NEED TO CHANGE ANTIBIOTICS DEPENDING ON THE REPEAT CULTURE WEAKNESS - PERSISTENT/PROGRESSIVE - START PHYSICAL THERAPY IN THE MORNING. HYPERTENSION - RESUME CALCIUM CHANNEL JACKY IN THE MORNING. HYPERLIPIDEMIA - DUE TO HER AGE AND WEAKNESS, WILL DISCUSS STOPPING THIS MEDICATION OUTPATIENT - WILL NOT RESTART IN THE HOSPITAL. DEPRESSION - WILL RESTART SSRI IN THE MORNING. ANTICIPATE AT LEAST 2 DAYS IN THE HOSPITAL Admission Diagnosis ECOLI URINARY TRACT INFECTION WEAKNESS HYPERTENSION HYPERLIPIDEMIA DEPRESSION Admission Status: Inpatient Order (span 2 midnights) Reason for Inpatient Admission: URINARY TRACT INFECTION WITH WORSENING WEAKNESS DESPITE ORAL ANTIBIOTICS FOR 48 HOURS. - WILL NEED IV ANTIBIOTICS AND FLUIDS FOR AT LEAST 48 HOURS. Clinical Quality Measures DVT/VTE Risk/Contraindication: Risk Factor Score Per Nursin RFS Level Per Nursing on Admit: 3=High AVANI HASKINS MD May 06, 2019 19:42
--- NOTE | 2019-05-06 20:07 | NUR ---
DR JARA ON FLOOR TO SEE PT. NEW PRN ORDER RECEIVED.
[2019-05-06] MEDS ORDERED: ACETAMINOPHEN 500 MG TAB (TYLENOL) PO PRN (20:15)
[2019-05-06 20:41] VITALS: BP 162/79
[2019-05-07] VITALS (7 sets, daily range): BP systolic 147–195; BP diastolic 77–88
[2019-05-07] MEDS: NS IV 1000 ML 1,000 ML IV SCH ×3 (03:02→22:23)
[2019-05-07 05:38] LABS: BASOPHILS % (AUTO) 0 % (0-10); EOSINOPHILS # (AUTO) 0.2 10^3/uL (0.0-0.3); EOSINOPHILS % (AUTO) 3 % (0-10); HEMATOCRIT 39 % (35-52); HEMOGLOBIN 12.6 G/DL (11.5-16.0); LYMPHOCYTES # (AUTO) 1.1 X 10^3 (1.0-4.0); LYMPHOCYTES % (AUTO) 17 % (12-44); MEAN CORPUSCULAR HEMOGLOBIN 29 PG (25-34); MEAN CORPUSCULAR HGB CONC 33 G/DL (32-36); MEAN CORPUSCULAR VOLUME 89 FL (80-99); MEAN PLATELET VOLUME 10.3 FL (7.4-10.4); MONOCYTES # (AUTO) 0.7 X 10^3 (0.0-1.0); MONOCYTES % (AUTO) 10 % (0-12); NEUTROPHILS # (AUTO) 4.6 X 10^3 (1.8-7.8); NEUTROPHILS % (AUTO) 70 % (42-75); PLATELET COUNT 188 10^3/uL (130-400); RED CELL DISTRIBUTION WIDTH 13.4 % (10.0-14.5); WHITE BLOOD COUNT 6.6 10^3/uL (4.3-11.0)
[2019-05-07 05:57] LABS: ALANINE AMINOTRANSFERASE 18 U/L (0-55); ALBUMIN 3.1 GM/DL (3.2-4.5); ALKALINE PHOSPHATASE 57 U/L (40-136); BILIRUBIN,TOTAL 0.5 MG/DL (0.1-1.0); BUN/CREATININE RATIO 9; CALCIUM 9.3 MG/DL (8.5-10.1); CARBON DIOXIDE 21 MMOL/L (21-32); CHLORIDE 109 MMOL/L (98-107); CREATININE SERUM 0.82 MG/DL (0.60-1.30); GFR ESTIMATED > 60; GLUCOSE 87 MG/DL (70-105); POTASSIUM 3.3 MMOL/L (3.6-5.0); SODIUM 140 MMOL/L (135-145); TOTAL PROTEIN 5.9 GM/DL (6.4-8.2)
--- NOTE | 2019-05-07 08:30 | Progress Note ---
Subjective Date Seen by a Provider: May 07, 2019 Time Seen by a Provider: 09:00 Subjective/Events-last exam PT REPORTS THAT SHE IS FEELING BETTER - SHE STATES THAT SHE IS NOT HAVING ANY CHEST PAIN, ABDOMINAL PAIN, NAUSEA. SHE STATES THAT SHE IS FEELING BETTER. NURSING STAFF STATES THAT SHE IS WEAK WITH AMBULATION. Review of Systems General: Fatigue HEENT: No Head Aches Pulmonary: No Dyspnea, No Cough Gastrointestinal: No: Nausea, Vomiting, Abdominal Pain Genitourinary: Frequency Musculoskeletal: No: neck pain, arm pain, back pain, leg pain Neurological: Weakness, Confusion Objective Exam Last Set of Vital Signs Vital Signs Date Time Temp Pulse Resp B/P (MAP) Pulse Ox O2 Delivery O2 Flow Rate FiO2 05/07/19 08:00 Room Air 05/07/19 07:45 97.4 74 20 195/88 (123) 92 Capillary Refill : Less Than 3 Seconds I&O Intake and Output 05/07/19 00:00 Intake Total 300 ml Balance 300 ml Intake Oral 300 ml # Voids 1 Daily Weight Change No No General: Alert, Cooperative, Other (ORIENTED TO PERSON, NOT PLACE OR TIME) HEENT: Atraumatic, PERRLA Neck: Supple Lungs: Clear to Auscultation Heart: Regular Rate Abdomen: Normal Bowel Sounds, Soft Extremities: No Edema Skin: No Breakdown Neuro: Normal Speech Psych/Mental Status: Mental Status NL Results Lab Laboratory Tests 05/06/19 11:12: White Blood Count 6.5, Red Blood Count 4.86, Hemoglobin 13.9, Hematocrit 43, Mean Corpuscular Volume 89, Mean Corpuscular Hemoglobin 29, Mean Corpuscular Hemoglobin Concent 32, Red Cell Distribution Width 13.7, Platelet Count 220, Mean Platelet Volume 10.4, Neutrophils (%) (Auto) 68, Lymphocytes (%) (Auto) 19, Monocytes (%) (Auto) 8, Eosinophils (%) (Auto) 4, Basophils (%) (Auto) 1, Neutrophils # (Auto) 4.4, Lymphocytes # (Auto) 1.3, Monocytes # (Auto) 0.5, Eosinophils # (Auto) 0.3, Basophils # (Auto) 0.0, Sodium Level 140, Potassium Level 3.7, Chloride Level 105, Carbon Dioxide Level 28, Anion Gap 7, Blood Urea Nitrogen 10, Creatinine 1.03, Estimat Glomerular Filtration Rate 50, BUN/Creatinine Ratio 10, Glucose Level 105, Calcium Level 10.2H, Corrected Calcium 10.4H, Total Bilirubin 0.7, Aspartate Amino Transf (AST/SGOT) 16, Alanine Aminotransferase (ALT/SGPT) 17, Alkaline Phosphatase 72, Troponin I < 0.028, B-Type Natriuretic Peptide 151.9H, Total Protein 7.1, Albumin 3.7 05/06/19 12:38: D-Dimer 3.10H 05/06/19 13:49: Urine Color YELLOW, Urine Clarity SLIGHTLY CLOUDY, Urine pH 7, Urine Specific [place] 1.010L, Urine Protein 1+H, Urine Glucose (UA) NEGATIVE, Urine Ketones NEGATIVE, Urine Nitrite NEGATIVE, Urine Bilirubin NEGATIVE, Urine Urobilinogen NORMAL, Urine Leukocyte Esterase 2+H, Urine RBC (Auto) 3+H, Urine RBC 10-25H, Urine WBC 5-10H, Urine Squamous Epithelial Cells 10-25H, Urine Crystals NONE, Urine Bacteria MODERATEH, Urine Casts NONE, Urine Mucus NEGATIVE, Urine Culture Indicated YES 05/07/19 04:35: Sodium Level 140, Potassium Level 3.3L, Chloride Level 109H, Carbon Dioxide Level 21, Anion Gap 10, Blood Urea Nitrogen 7, Creatinine 0.82, Estimat Glomerular Filtration Rate > 60, BUN/Creatinine Ratio 9, Glucose Level 87, Calcium Level 9.3, Corrected Calcium 10.0, Total Bilirubin 0.5, Aspartate Amino Transf (AST/SGOT) 16, Alanine Aminotransferase (ALT/SGPT) 18, Alkaline Phosphatase 57, Total Protein 5.9L, Albumin 3.1L 05/07/19 04:45: White Blood Count 6.6, Red Blood Count 4.35, Hemoglobin 12.6, Hematocrit 39, Mean Corpuscular Volume 89, Mean Corpuscular Hemoglobin 29, Mean Corpuscular Hemoglobin Concent 33, Red Cell Distribution Width 13.4, Platelet Count 188, M althea Platelet Volume 10.3, Neutrophils (%) (Auto) 70, Lymphocytes (%) (Auto) 17, Monocytes (%) (Auto) 10, Eosinophils (%) (Auto) 3, Basophils (%) (Auto) 0, Neutrophils # (Auto) 4.6, Lymphocytes # (Auto) 1.1, Monocytes # (Auto) 0.7, Eosinophils # (Auto) 0.2, Basophils # (Auto) 0.0 Assessment/Plan Assessment/Plan Assess & Plan/Chief Complaint ECOLI URINARY TRACT INFECTION WEAKNESS HYPERTENSION HYPERLIPIDEMIA DEPRESSION [facility] URINARY TRACT INFECTION - PT ADMITTED TO THE HOSPITAL - STARTED ON IV ROCEPHIN, WILL RE-CULTURE HER URINE AND MONITOR SYMPTOMS ON CURRENT REGIMEN, MAY NEED TO CHANGE ANTIBIOTICS DEPENDING ON THE REPEAT CULTURE WEAKNESS - PERSISTENT/PROGRESSIVE - START PHYSICAL THERAPY TODAY. HYPERTENSION - RESUME CALCIUM CHANNEL JACKY TODAY. HYPERLIPIDEMIA - DUE TO HER AGE AND WEAKNESS, WILL DISCUSS STOPPING THIS MEDICATION OUTPATIENT - WILL NOT RESTART IN THE HOSPITAL. DEPRESSION - WILL RESTART SSRI IN THE MORNING. ANTICIPATE AT LEAST 2 MORE DAYS IN THE HOSPITAL Clinical Quality Measures Admission Status Admission Dx EC[facility]I URINARY TRACT INFECTION WEAKNESS HYPERTENSION HYPERLIPIDEMIA DEPRESSION DVT/VTE Risk/Contraindication: Risk Factor Score Per Nursin RFS Level Per Nursing on Admit: 3=High AVANI JARA MD May 07, 2019 08:30
[2019-05-07] MEDS ORDERED: L.AC1CAP6 PO (09:29)
[2019-05-07] MEDS ORDERED: VERA120T6 PO (09:29)
[2019-05-07] MEDS ORDERED: RIVA1PAT12 TD (09:29)
[2019-05-07] MEDS ORDERED: CEFU250T80 PO (09:29)
[2019-05-07] MEDS ORDERED: DOCU-143 PO (09:29)
--- NOTE | 2019-05-07 09:36 | NUR ---
SPOKE WITH THE PATENTS DAUGHTER TULIO ABOUT MEDICATIONS. WE WENT OVER THE LIST SHE BROUGHT IN WELL COMPARING WITH THE EXT MED HX. IN ADDITION TO WHAT IS SHOWN ON THE EXT MED HX [facility] FILLED CEFUROXIME 250MG BID #10 8-5-. SHE TAKES GLUCOSAMINE DAILY, CO Q 10 DAILY, COLACE DAILY, AND A PROBIOTIC DAILY OTC.
[2019-05-07] MEDS: CLOPIDOGREL 75 MG (PLAVIX) TABLET PO SCH (09:41)
[2019-05-07] MEDS: DILTIAZEM 120 MG (CARDIZEM CD) CAP PO SCH (09:41)
[2019-05-07 10:10] LABS: BILIRUBIN,URINE NEGATIVE (NEGATIVE); CLARITY,URINE CLEAR; COLOR,URINE YELLOW; GLUCOSE, URINE (UA) NEGATIVE (NEGATIVE); KETONES,URINE 1+ (NEGATIVE); LEUKOCYTE ESTERASE ,URINE 1+ (NEGATIVE); NITRITE,URINE NEGATIVE (NEGATIVE); PH,URINE 7 (5-9); PROTEIN,URINE NEGATIVE (NEGATIVE); UROBILINOGEN,URINE NORMAL (NORMAL)
[2019-05-07 10:32] LABS: BACTERIA,URINE TRACE /HPF
--- NOTE | 2019-05-07 12:46 | Physical Therapy Evaluation ---
PT Evaluation-General Medical Diagnosis Admission Date May 06, 2019 at 19:45 Medical Diagnosis: UTI/weakness Onset Date: May 06, 2019 Therapy Diagnosis Therapy Diagnosis: debility/weakness Height/Weight Height (Feet): 5 Height (Inches): 0.00 Weight (Pounds): 158 Weight (Ounces): 6.4 Precautions Precautions/Isolations: Fall Prevention, Standard Precautions Referral Physician: Jozef Reason for Referral: Evaluation/Treatment Medical History Pertinent Medical History: CVA, Dementia, HTN, Renal Insufficiency Current History EMS secondary to SOA due to UTI Reviewed History: Yes Social History Home: Single Level Current Living Status: Children Prior/Core FIM Prior Level of Function Therapy Code Descriptions/Definitions Functional [place] Measure: 0=Not Assessed/NA 4=Minimal Assistance 1=Total Assistance 5=Supervision or Setup 2=Maximal Assistance 6=Modified [place] 3=Moderate Assistance 7=Complete [place] Therapy Quality Codes: 6 Independent with activity with or without an assistive device 5 Patient requires set up or clean up by helper. Patient completes activity by themselves 4 Supervision or touching assist (CGA). Strang provide cues , steadying assist 3 The helper provides less than half the effort to complete the activity 2 The helper provides more than half the effort to complete the activity 1 Dependent. The helper does all the effort to complete an activity 7 Patient refused to complete or attempt activity 9 The patient did not perform the activity before the current illness or injury 88 Not attempted due to Medical conditions or safety concerns Functional Abilities and Goals: Independent: Patient completed the activities by him/herself, with or without an assistive device, with no assistance from a helper. Needed Some Help: Patient needed partial assistance from another person to complete activities. Dependent: A helper completed the activities for the patient. Unknown: Not Applicable: Bed Mobility: 4 Transfers (B,C,W/C) (FIM): 4 Gait: 4 Indoor Mobility (Ambulation): Needed Some Help Prior Devices Use: Walker PT Evaluation-Current Subjective Patient is confused, however, agrees to PT. Pain Numeric Pain Scale: 0-No Pain Location: No Pain Reported Objective Patient Orientation: Confused Problem Solving: Poor Attachments: IV ROM/Strength ROM Lower Extremities bilateral LE WFL Strength Lower Extremities 3/5 grossly bilateral LE Integumentary/Posture Integumentary refer to nursing notes Bowel Incontinence: Yes Bladder Incontinence: Yes Posture WFL Neuromuscular (Tone, Coordination, Reflexes) diminished coordination due to age, confusion and debility Sensory Vision: Wears Glasses Hearing: Impaired Sensation Right Lower Extremit: Impaired Sensation Left Lower Extremity: Impaired Transfers Therapy Code Descriptions/Definitions Functional [place] Measure: 0=Not Assessed/NA 4=Minimal Assistance 1=Total Assistance 5=Supervision or Setup 2=Maximal Assistance 6=Modified [place] 3=Moderate Assistance 7=Complete [place] Transfers (B, C, W/C) (FIM): 3 Scootin Supine to/from Sit: 3 Sit to/from Stand: 3 patient was initially retropulsive and appeared fearful, however, did allow PT to correct balance and was able to ambulate CGA Gait Mode of Locomotion: Walk Anticipated Mode of Locomotion: Walk Gait (FIM): 1 Distance (FIM): 1=up to 49 ft Distance: 30' Gait Level of Assist: 4 Gait Persons Needed: 1 Gait Assistive Device: FWW Comments/Gait Description functional gait sequence with FWW Balance Sitting Static: Fair Sitting Dynamic: Fair Standing Static: Fair Standing Dynamic: Fair Assessment/Needs 89 y.o. female, will benefit from skilled PT to address functional strength and mobility to improve current LOF to safely return to home with family at maximum LOF. Rehab Potential: Fair PT Urban Renewal Manager Goals Halfway Goals PT Halfway Goals Time Frame: May 16, 2019 Transfers (B,C,W/C) (FIM): 4 Gait (FIM): 4 Gait distance (FIM): 3=150 ft Distance: 150' Gait Level of Assist: 4 Gait Assistive Device: FWW PT Plan Problem List Problem List: Activity Tolerance, Functional Strength, Safety, Balance, Gait, Transfer, Bed Mobility Treatment/Plan Treatment Plan: Continue Plan of Care Treatment Plan: Bed Mobility, Education, Functional Activity [place], Functional Strength, Gait, Safety, Therapeutic Exercise, Transfers Treatment Duration: May 16, 2019 Frequency: 6 times per week Estimated Hrs Per Day: .25 hour per day Patient and/or Family Agrees t: Yes Discharge Recommendations Therapy D/C Recommendations: Home w/ Family Support Time/GCodes Time In: 1145 Time Out: 1203 Total Billed Treatment Time: 18 Total Billed Treatment 1 visit EVMod 18 min RAMSES LOVE PT May 07, 2019 12:46
[2019-05-07] MEDS: cefTRIAXone 1,000 MG/SWFI 10 ML IV PUSH IV SCH ×2 (15:55)
--- NOTE | 2019-05-07 16:19 | NUR ---
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 Fr Oconnor provided sacraments.
[2019-05-08 00:27] VITALS: BP 179/87
[2019-05-08 04:00] VITALS: BP 187/84
[2019-05-08 06:47] LABS: HEMOGLOBIN 14.2 G/DL (11.5-16.0); MEAN PLATELET VOLUME 9.8 FL (7.4-10.4); RED CELL DISTRIBUTION WIDTH 13.6 % (10.0-14.5); WHITE BLOOD COUNT 7.4 10^3/uL (4.3-11.0)
[2019-05-08 07:12] LABS: ALANINE AMINOTRANSFERASE 14 U/L (0-55); ALBUMIN 3.2 GM/DL (3.2-4.5); ALKALINE PHOSPHATASE 63 U/L (40-136); BILIRUBIN,TOTAL 0.6 MG/DL (0.1-1.0); BUN/CREATININE RATIO 6; CALCIUM 9.6 MG/DL (8.5-10.1); CARBON DIOXIDE 22 MMOL/L (21-32); CHLORIDE 110 MMOL/L (98-107); CREATININE SERUM 0.77 MG/DL (0.60-1.30); GFR ESTIMATED > 60; GLUCOSE 87 MG/DL (70-105); POTASSIUM 3.2 MMOL/L (3.6-5.0); SODIUM 142 MMOL/L (135-145); TOTAL PROTEIN 6.2 GM/DL (6.4-8.2)
[2019-05-08 08:00] VITALS: BP 197/97
[2019-05-08] MEDS: NS IV 1000 ML 1,000 ML IV SCH ×2 (08:09→16:07)
[2019-05-08] MEDS: DILTIAZEM 120 MG (CARDIZEM CD) CAP PO SCH (08:09)
[2019-05-08] MEDS: CLOPIDOGREL 75 MG (PLAVIX) TABLET PO SCH (08:09)
[2019-05-08] MEDS ORDERED: KCL 20 MEQ TAB (K-DUR) PO NR (09:45)
--- NOTE | 2019-05-08 09:57 | Progress Note ---
Subjective Date Seen by a Provider: May 08, 2019 Time Seen by a Provider: 09:50 Subjective/Events-last exam PT REPORTS THAT SHE IS FEELING A LITTLE STRONGER - STAFF AT THE HOSPITAL REPORTS FAIRLY SIGNIFICANT WEAKNESS WITH STANDING FROM SEATED POSITION . SHE REPORTS THAT SHE IS STILL CONFUSED - BUT IS FEELING A LITTLE LESS WEAK THAN ON ADMISSION. HER DTR NOTES T HAT SHE IS NOT ABLE TO CARE FOR HER MOM AT HOME RIGHT NOW WITH HOW WEAK SHE IS HER "MUSCLES ARE LIKE JELLY" AND SHE CANNOT MANAGE HER MOM AT HOME IN HER WEAKENED STATE. Review of Systems General: Fatigue, Malaise HEENT: No Head Aches Pulmonary: No Dyspnea, No Cough Cardiovascular: No: Chest Pain, Palpitations Gastrointestinal: No: Nausea, Abdominal Pain Genitourinary: No Dysuria Neurological: Weakness, Confusion Objective Exam Last Set of Vital Signs Vital Signs Date Time Temp Pulse Resp B/P (MAP) Pulse Ox O2 Delivery O2 Flow Rate FiO2 05/08/19 04:00 97.6 79 18 187/84 (118) 95 Room Air Capillary Refill : Less Than 3 SecondsLess Than 3 Seconds I&O Intake and Output 05/08/19 00:00 Intake Total 2810 ml Output Total 200 ml Balance 2610 ml Intake Oral 800 ml IV Total 2010 ml Output Urine Total 200 ml # Voids 5 # Urine Diapers 3 General: Alert, Oriented X3, Cooperative, No Acute Distress HEENT: Atraumatic, PERRLA, EOMI, Mucous Memb Moist/[place] Neck: Supple Lungs: Clear to Auscultation Heart: Regular Rate Abdomen: Normal Bowel Sounds, Soft, No Tenderness Skin: No Rashes Neuro: Cranial Nerves 3-12 NL Psych/Mental Status: Mental Status NL, Mood NL Results Lab Laboratory Tests 05/07/19 09:58: Urine Color YELLOW, Urine Clarity CLEAR, Urine pH 7, Urine Specific [place] 1.005L, Urine Protein NEGATIVE, Urine Glucose (UA) NEGATIVE, Urine Ketones 1+H, Urine Nitrite NEGATIVE, Urine Bilirubin NEGATIVE, Urine Urobilinogen NORMAL, Urine Leukocyte Esterase 1+H, Urine RBC (Auto) NEGATIVE, Urine RBC NONE, Urine WBC 5-10H, Urine Squamous Epithelial Cells 10-25H, Urine Crystals NONE, Urine Bacteria TRACE, Urine Casts NONE, Urine Mucus NEGATIVE, Urine Culture Indicated NO 05/08/19 06:25: White Blood Count 7.4, Red Blood Count 4.82, Hemoglobin 14.2, Hematocrit 43, Mean Corpuscular Volume 89, Mean Corpuscular Hemoglobin 30, Mean Corpuscular Hemoglobin Concent 33, Red Cell Distribution Width 13.6, Platelet Count 178, Mean Platelet Volume 9.8, Sodium Level 142, Potassium Level 3.2L, Chloride Level 110H, Carbon Dioxide Level 22, Anion Gap 10, Blood Urea Nitrogen 5L, Creatinine 0.77, Estimat Glomerular Filtration Rate > 60, BUN/Creatinine Ratio 6, Glucose Level 87, Calcium Level 9.6, Corrected Calcium 10.2H, Total Bilirubin 0.6, Aspartate Amino Transf (AST/SGOT) 18, Alanine Aminotransferase (ALT/SGPT) 14, Alkaline Phosphatase 63, Total Protein 6.2L, Albumin 3.2 Microbiology 05/06/19 Urine Culture - Final, Complete 3 or more isolates Assessment/Plan Assessment/Plan Assess & Plan/Chief Complaint [facility] URINARY TRACT INFECTION WEAKNESS HYPERTENSION HYPERLIPIDEMIA DEPRESSION [facility] URINARY TRACT INFECTION - PT ADMITTED TO THE HOSPITAL - STARTED ON IV ROCEPHIN, THE REPEAT CULTURE WAS CONTAMINATED - CONTINUE WITH TREATMENT BASED ON THE PREVIOUS URINE CULTURE REPORT. CONTINUE WITH CURRENT IV ANTIBIOTIC REGIMEN, PLAN ON DISCHARGE OF CEFUROXIME ORALLY. WEAKNESS - PERSISTENT/PROGRESSIVE - STARTED PHYSICAL THERAPY YESTERDAY - THEY REPORT THAT SHE IS QUITE WEAK, RETROPULSIVE WITH STANDING, RECOMMENDATION IS FOR THE PATIENT TO BE DISCHARGED TO [facility]. HYPERTENSION - RESUMED CALCIUM CHANNEL JACKY. HYPERLIPIDEMIA - DUE TO HER AGE AND WEAKNESS, WILL DISCUSS STOPPING THIS MED ICATION OUTPATIENT - WILL NOT RESTART IN THE HOSPITAL. DEPRESSION - WILL RESTART SSRI IN THE MORNING. ANTICIPATE AT LEAST 1 MORE DAY IN THE HOSPITAL I HAVE DISCUSSED WITH HER DTR AND WE WILL PLAN ON DISCHARGE TO THE [facility] TOMORROW. - [facility]IA [facility] Clinical Quality Measures Admission Status Admission Dx [facility] URINARY TRACT INFECTION WEAKNESS HYPERTENSION HYPERLIPIDEMIA DEPRESSION DVT/VTE Risk/Contraindication: Risk Factor Score Per Nursin RFS Level Per Nursing on Admit: 3=High AVANI JARA MD May 08, 2019 09:57
[2019-05-08] MEDS: LACTOBACILLUS ACIDOPHILUS (PROBIOTIC) CAPSULE PO SCH (10:33)
--- NOTE | 2019-05-08 10:42 | NUR ---
provided prayer and Communion.
--- NOTE | 2019-05-08 11:07 | Physical Therapy Daily Note ---
PT Daily Note-Current Subjective Patient agrees to PT. Dr. Haskins in for assessment. Mental Status Patient Orientation: Confused Attachments: IV Transfers Therapy Code Descriptions/Definitions Functional Eddy Measure: 0=Not Assessed/NA 4=Minimal Assistance 1=Total Assistance 5=Supervision or Setup 2=Maximal Assistance 6=Modified Eddy 3=Moderate Assistance 7=Complete Eddy Therapy Quality Codes: 6 Independent with activity with or without an assistive device 5 Patient requires set up or clean up by helper. Patient completes activity by themselves 4 Supervision or touching assist (CGA). [place] provide cues , steadying assist 3 The helper provides less than half the effort to complete the activity 2 The helper provides more than half the effort to complete the activity 1 Dependent. The helper does all the effort to complete an activity 7 Patient refused to complete or attempt activity 9 The patient did not perform the activity before the current illness or injury 88 Not attempted due to Medical conditions or safety concerns Transfers (B, C, W/C) (FIM): 3 Scootin Sit to/from Stand: 3 patient is very resistive with sit to stand and slightly retropulsive Gait Training Gait (FIM): 2 Distance (FIM): 2=470-22 ft Distance: 75' Gait Level of Assist: 4 Gait Persons Needed: 1 Gait Assistive Device: FWW once in standing position, patient is CGA for mobility Assessment Per physician, patient will transfer to [place] in the next few days for continued care. Patient remains up in recliner with needs met and daughter is present d uring treatment session. PT Health Services Information Specialist Goals Health Services Information Specialist Goals PT Health Services Information Specialist Goals Time Frame: May 16, 2019 Transfers (B,C,W/C) (FIM): 4 Gait (FIM): 4 Gait distance (FIM): 3=150 ft Distance: 150' Gait Level of Assist: 4 Gait Assistive Device: FWW PT Plan Treatment/Plan Treatment Plan: Continue Plan of Care Treatment Plan: Bed Mobility, Education, Functional Activity Malick, Functional Strength, Gait, Safety, Therapeutic Exercise, Transfers Treatment Duration: May 16, 2019 Frequency: 6 times per week Estimated Hrs Per Day: .25 hour per day Patient and/or Family Agrees t: Yes Time/GCodes Time In: 1007 Time Out: 1025 Total Billed Treatment Time: 18 Total Billed Treatment 1 visit GT 18 min RAMSES LOVE PT May 08, 2019 11:07
[2019-05-08 12:00] VITALS: BP 161/83
--- NOTE | 2019-05-08 12:45 | Discharge Inst-Skilled Nursing ---
Discharge Inst-Skilled NF Reconcile Patient Problems Problems Reviewed?: Yes Patient Instructions Patient Problems: uti hypertension cad hx of stroke dementia Consult/Follow Up/Orders Follow Up Appt.: 1 [facility] Skilled NF Admit to: Via [facility] Certification (SNF) I certify that SNF services are required to be given on an inpatient basis because of the above named patient's need for assisted care on a continuing basis for the conditions(s) for which he/she was receiving inpatient hospital services prior to his/her transfer to the SNF. Fdc Facility Order: Nursing Services, Wax Pattern Assembler-Evaluate & Treat, Physical Therapy-Evaluate & Treat, Speech Language-Evaluate & Treat Oxygen Delivery Method: Room Air Daily Activity as Tolerated: Yes New & Resume Previous Orders Avani Haskins May 08, 2019 12:44 Medication List: Active Scripts Active Reported Cefuroxime (Cefuroxime Axetil) 250 Mg Tablet 250 Mg PO BID 5 Days 5 DAY SUPPLY FILLED 05-04-19 Colace (Docusate Sodium) 100 Mg Capsule 100 Mg PO DAILY Probiotic (L.acidoph & Paracasei,B.lactis) 1 Each Capsule 1 Cap PO DAILY Rivastigmine 1 Each Patch.td24 1 Patch TD DAILY Verapamil HCl 120 Mg Tablet 120 Mg PO DAILY Clopidogrel (Clopidogrel Bisulfate) 75 Mg Tablet 75 Mg PO DAILY Glucosamine (Glucosamine Sulfate 2Kcl) 1,000 Mg Tablet 1,000 Mg PO DAILY Co Q-10 100 mg Softgel (Ubidecarenone/Vit E Acetate) 1 Each Capsule 100 Mg PO DAILY Citalopram HBr (Citalopram Hydrobromide) 10 Mg Tablet 10 Mg PO DAILY Atorvastatin Calcium 10 Mg Tablet 10 Mg PO DAILY Lab results: Laboratory Tests Test 05/08/19 06:25 Range/Units White Blood Count 7.4 4.3-11.0 10^3/uL Red Blood Count 4.82 4.35-5.85 10^6/uL Hemoglobin 14.2 11.5-16.0 G/DL Hematocrit 43 35-52 % Mean Corpuscular Volume 89 80-99 FL Mean Corpuscular Hemoglobin 30 25-34 PG Mean Corpuscular Hemoglobin Concent 33 32-36 G/DL Red Cell Distribution Width 13.6 10.0-14.5 % Platelet Count 178 130-400 10^3/uL Mean Platelet Volume 9.8 7.4-10.4 FL Sodium Level 142 135-145 MMOL/L Potassium Level 3.2 L 3.6-5.0 MMOL/L Chloride Level 110 H 98-107 MMOL/L Carbon Dioxide Level 22 21-32 MMOL/L Anion Gap 10 5-14 MMOL/L Blood Urea Nitrogen 5 L 7-18 MG/DL Creatinine 0.77 0.60-1.30 MG/DL Estimat Glomerular Filtration Rate > 60 BUN/Creatinine Ratio 6 Glucose Level 87 70-105 MG/DL Calcium Level 9.6 8.5-10.1 MG/DL Corrected Calcium 10.2 H 8.5-10.1 MG/DL Total Bilirubin 0.6 0.1-1.0 MG/DL Aspartate Amino Transf (AST/SGOT) 18 5-34 U/L Alanine Aminotransferase (ALT/SGPT) 14 0-55 U/L Alkaline Phosphatase 63 40-136 U/L Total Protein 6.2 L 6.4-8.2 GM/DL Albumin 3.2 3.2-4.5 GM/DL My orders: Orders - AVANI HASKINS MD Patient Visit (05/07/19 ) Pt Eval Moderate Complexity (05/07/19 ) Potassium Chloride (Tablet) (K Dur Table (05/08/19 09:45) Financial Aid Officer Consult (05/08/19 09:52) Docusate Sodium Capsule (Colace Capsule) (05/09/19 09:00) (Nf) Glucosamine Sulfate 2kcl (Glucosami (05/09/19 09:00) (Nf) Rivastigmine (05/09/19 09:00) Citalopram Tablet (Celexa Tablet) (05/08/19 09:59) Lactobacillus Acidophilus Cap (Acidophil (05/08/19 12:00) Automatic Tray (05/08/19 11:23) Pending Discharge Order (05/08/19 12:41) AVANI HASKINS MD May 08, 2019 12:45
--- NOTE | 2019-05-08 13:02 | NUR ---
CM DISCHARGE PLANNING: Patient will discharge to [facility] on Saturday05/09/19 for continued skilled therapies. Daughter Dulce [phone] will transport her mom to the [facility] when she is dismissed. She indicated that if she is not here when she is ready for dismissal that she only lives a couple of miles from the hospital et will be happy to come when called. I encouraged Dulce that staff here at the hospital will help her get her mom into her vehicle et staff at [facility] will help them get out. I have updated [facility] staff et primary care nurse of above information.
[2019-05-08] MEDS: cefTRIAXone 1,000 MG/SWFI 10 ML IV PUSH IV SCH ×2 (16:06)
[2019-05-08 16:45] VITALS: BP 186/83
--- NOTE | 2019-05-08 17:40 | NUR ---
CARE assessment completed and faxed to [facility] [place] [facility], and copy placed in pt chart/
[2019-05-08] MEDS ORDERED: PATIENT MAY USE OWN MEDS, ALL MC SCH (18:15)
[2019-05-08 20:20] VITALS: BP 185/84
[2019-05-09] VITALS: BP 186/81
[2019-05-09 04:00] VITALS: BP 158/97
[2019-05-09] MEDS: NS IV 1000 ML 1,000 ML IV SCH ×2 (04:20→11:03)
[2019-05-09] MEDS: LACTOBACILLUS ACIDOPHILUS (PROBIOTIC) CAPSULE PO SCH (06:32)
[2019-05-09 07:55] VITALS: BP 190/90
[2019-05-09] MEDS: CLOPIDOGREL 75 MG (PLAVIX) TABLET PO SCH (08:44)
[2019-05-09] MEDS: DILTIAZEM 120 MG (CARDIZEM CD) CAP PO SCH (08:44)
[2019-05-09] MEDS ORDERED: PATCH REMOVAL TP SCH (08:59)
[2019-05-09] MEDS ORDERED: NON-FORMULARY MEDICATION 1 EA EA (Glucosamine Sulfate 2Kcl (Glucosamine) 1,000 MG) PO SCH (09:00)
[2019-05-09] MEDS ORDERED: RIVASTIGMINE 9.5 MG PATCH (EXELON) NON-FORMULARY TD SCH (09:00)
[2019-05-09] MEDS ORDERED: DOCUSATE SODIUM 100 MG (COLACE) CAP PO SCH (09:00)
[2019-05-09 12:00] VITALS: BP 142/74
--- NOTE | 2019-05-09 12:28 | Progress Note - Hospitalist ---
Subjective HPI/CC On Admission Date Seen by Provider: May 09, 2019 Time Seen by Provider: 12:00 Subjective/Events-last exam patient is without complaint but did not eat her lunch. She is ready to be discharged and is a little anxious but ready to go Objective Exam Vital Signs Vital Signs Date Time Temp Pulse Resp B/P (MAP) Pulse Ox O2 Delivery O2 Flow Rate FiO2 05/09/19 08:00 Room Air 05/09/19 07:55 97.5 73 18 190/90 [phone]) 93 Capillary Refill : Less Than 3 SecondsLess Than 3 Seconds General Appearance: No Apparent Distress, WD/WN HEENT: Normal ENT Inspection Respiratory: Chest Non Tender, Lungs Clear, Normal Breath Sounds, No Accessory Muscle Use, No Respiratory Distress Cardiovascular: Regular Rate, Rhythm, No Gallop Gastrointestinal: Normal Bowel Sounds, Non Tender, Soft Extremity: Pedal Edema Results/Procedures Lab Patient resulted labs reviewed. Assessment/Plan Assessment and Plan Assess & Plan/Chief Complaint generalized weakness- improved urinary tract infection hypercalcemia hypertension hyperlipidemia patient currently stable for discharge with close follow-up with Dr. Haskins. custodial to call Saturday with blood pressure follow-up Clinical Quality Measures DVT/VTE Risk/Contraindication: Risk Factor Score Per Nursin RFS Level Per Nursing on Admit: 3=High SALLIE MULLINS MD May 09, 2019 12:27
== END 2019-05-09 12:50 | DRG 690 ==
LOC: EDUNIT# 10:55 → ER 10:56 → 4TH 15:30 → UNDOADMOB 15:30 → 4TH 16:25 → OBSVTOIN 19:45 → INTOOBSV 19:45 → 4TH 05-08 13:08 → UNDODISIN 05-09 12:50
PROVIDERS: ADMIT Family Medicine; ATTEND Family Medicine
DX: N30.00 Acute cystitis without hematuria (principal); B96.20 Unspecified Escherichia coli [E. coli] as the cause of diseases classified elsewhere; R53.1 Weakness; I10 Essential (primary) hypertension; E78.00 Pure hypercholesterolemia, unspecified; F03.90 Unspecified dementia, unspecified severity, without behavioral disturbance, psychotic disturbance, mood disturbance, and anxiety; M19.91 Primary osteoarthritis, unspecified site; F32.9 Major depressive disorder, single episode, unspecified; K59.09 Other constipation; H91.90 Unspecified hearing loss, unspecified ear; H26.9 Unspecified cataract; E83.52 Hypercalcemia; Z86.73 Personal history of transient ischemic attack (TIA), and cerebral infarction without residual deficits
CPT/HCPCS: 36415; 71045; 71275; 74177; 80053; 81000; 83880; 84484; 85025; 85027; 85379; 87088; 93005; G0378

== ENCOUNTER → 2019-06-12 | Outpatient (CLI) | payer MEDICARE, OTHER ==
[~2019-06-12] MED LIST changes: +DOCU-143 PO; +L.AC1CAP6 PO; +RIVA1PAT12 TD; +VERA120T6 PO
[2019-06-12 21:52] LABS: BILIRUBIN,URINE NEGATIVE (NEGATIVE); CLARITY,URINE SLIGHTLY CLOUDY; COLOR,URINE YELLOW; GLUCOSE, URINE (UA) NEGATIVE (NEGATIVE); KETONES,URINE NEGATIVE (NEGATIVE); LEUKOCYTE ESTERASE ,URINE 3+ (NEGATIVE); NITRITE,URINE POSITIVE (NEGATIVE); PH,URINE 6 (5-9); PROTEIN,URINE 2+ (NEGATIVE); UROBILINOGEN,URINE NORMAL (NORMAL)
[2019-06-12 22:09] LABS: WBC,URINE TNTC /HPF
[2019-06-12 22:10] LABS: BACTERIA,URINE LARGE /HPF; SQUAMOUS EPITHELIAL CELL,UR 25-50 /HPF
== END ==
LOC: CVS 21:46
PROVIDERS: ATTEND Family Medicine
DX: T78.40XA Allergy, unspecified, initial encounter (principal)
CPT/HCPCS: 81000; 87077; 87088; 87186

== ENCOUNTER 2019-08-07 20:17 | Emergency (ER) | payer MEDICARE, OTHER ==
[~2019-08-07] VITALS: Ht 165 cm; Wt 65.3 kg
[2019-08-07] MEDS ORDERED: LACTATED RINGERS 1,000 ML IV ONE (20:26)
[2019-08-07] MEDS ORDERED: ONDANSETRON 4 MG/2 ML (SDV) Z0FRAN IVP ONE (20:30)
--- NOTE | 2019-08-07 20:35 | ED GI ---
General Chief Complaint: Abdominal/GI Problems Stated Complaint: VOMITTING Source of Information: EMS, Old Records Exam Limitations: Other (PT WITH DEMENTIA) History of Present Illness Date Seen by Provider: Aug 07, 2019 Time Seen by Provider: 20:20 Initial Comments PT ARRIVES VIA EMS FROM HOME--LIVES WITH DAUGHTER PT HAS HAD ONGOING NAUSEA AND "VOMITING MOSTLY SALIVA" AFTER SHE EATS IN THE EVENINGS, FOR OVER A WEEK TODAY SHE SPIT UP SALIVA A FEW TIMES--MORE THAN WHAT SHE HAD BEEN DOING, SO DAUGHTER WANTED TO SEE IF SHE HAD SOMETHING ELSE GOING ON HAS NOT ATTEMPTED TO CONTACT DR. JARA AT ANY TIME FOR THIS PROBLEM, NOR SOUGHT CARE UNTIL /SATURDAY NIGHT PT WAS SEEN IN ER 05/04/19 FOR UTI, THEN ADMITTED 05/06-05/09 FOR PROGRESSIVE WEAKNESS AND UTI. SHE THEN WAS ADMITTED TO [facility] FROM 05/09/19-06/30/19 FOR PHYSICAL THERAPY AND CONTINUED TREATMENT OF UTI. PT HAS BEEN BACK HOME WITH DAUGHTER SINCE THEN NO FEVER NO DIARRHEA NO C/O ABDOMINAL PAIN NO URINARY COMPLAINTS, EXCEPT DAUGHTER STATES THAT HER URINE OUTPUT HAS BEEN LESS HAD NOT HAD A BM FOR SEVERAL DAYS, BUT HAD A LARGE, NORMAL BM TODAY PT HAS CONTINUED TO EAT AND DRINK USUAL NO SICK CONTACTS OR SUSPICIOUS FOODS. PCP: DR. JARA Allergies and Home Medications Allergies Coded Allergies: No Known Drug Allergies (Unverified , 08/07/19) Home Medications Atorvastatin Calcium 10 Mg Tablet, 10 MG PO DAILY, (Reported) Cefdinir 300 Mg Capsule, 300 MG PO BID FOR INFECTION Prescribed by: GRICELDA EVANS on 08/07/192242 Cefuroxime Axetil 250 Mg Tablet, 250 MG PO BID, (Reported) 5 DAY SUPPLY FILLED 05-04-19 Citalopram Hydrobromide 10 Mg Tablet, 10 MG PO DAILY, (Reported) Clopidogrel Bisulfate 75 Mg Tablet, 75 MG PO DAILY, (Reported) Docusate Sodium 100 Mg Capsule, 100 MG PO DAILY, (Reported) Glucosamine Sulfate 2Kcl 1,000 Mg Tablet, 1,000 MG PO DAILY, (Reported) L.acidoph & Paracasei,B.lactis 1 Each Capsule, 1 CAP PO DAILY, (Reported) Ondansetron 4 Mg Tab.rapdis, 4 MG PO Q4H Prescribed by: GRICELDA EVANS on 11/8/19 2244 Rivastigmine 1 Each Patch.td24, 1 PATCH TD DAILY, (Reported) Ubidecarenone/Vit E Acetate 1 Each Capsule, 100 MG PO DAILY, (Reported) Verapamil HCl 120 Mg Tablet, 120 MG PO DAILY, (Reported) Patient Home Medication List Home Medication List Reviewed: Yes Review of Systems Review of Systems Constitutional: no symptoms reported; No fever, No malaise, No weakness Respiratory: No Symptoms Reported; Denies Cough, Denies Shortness of Air Cardiovascular: No Symptoms Reported; Denies Chest Pain Gastrointestinal: See HPI; Denies Abdominal Pain, Denies Constipated, Denies Diarrhea; Nausea, Vomiting Genitourinary: See HPI Musculoskeletal: no symptoms reported Skin: no symptoms reported Psychiatric/Neurological: Pre-Existing Deficit (PT WITH DEMENTIA AND HX OF CVA) Endocrine: No Symptoms Reported Hematologic/Lymphatic: No Symptoms Reported Past Xhqdhiv-Rwzlpz-Wakdvh Hx Patient Social History Alcohol Use: Denies Use Recreational Drug Use: No Smoking Status: Never a Smoker 2nd Hand Smoke Exposure: No Recent Foreign Travel: No Contact w/Someone Who Travel: No Recent Hopitalizations: Yes (CVA) Immunizations Up To Date Date of Pneumonia Vaccine: Nov 08, 2016 Date of Influenza Vaccine: Jul 02, 2018 Seasonal Allergies Seasonal Allergies: No Past Medical History Surgeries: Yes (HYST/OVARIES INTACT; HERNIA REPAIR 1974) Abdominal, Hysterectomy Respiratory: No Cardiac: Yes High Cholesterol, Hypertension Neurological: Yes (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; MODERATE TO SEVERE DEMENTIA) Dementia, Stroke Female Reproductive Disorders: Denies COMMUNITY DIRECTOR History: Hysterectomy (OVARIES INTACT), Menopausal Genitourinary: Yes (KIDNEY DISEASE) Bladder Infection Gastrointestinal: Yes (HERNIA REPAIR 1974) Abdominal Hernia, Chronic Constipation Musculoskeletal: Yes Arthritis Endocrine: No HEENT: Yes Cataract, Dysphagia (DUE TO CVA) Hearing Impairment: Hard of Hearing Cancer: No Psychosocial: Yes Depression Integumentary: No Blood Disorders: No Family Medical History Heart Disease, Hypertension Physical Exam Vital Signs Vital Signs - First Documented 08/07/19 20:23 Temp 35.9 Pulse 64 Resp 20 B/P (MAP) 152/84 (106) Pulse Ox 98 Capillary Refill : Height/Weight/BMI Height: 5'0.00" Weight: 158lbs. 6.4oz. [id number]; 30.9 BMI Method:Stated General Appearance: WD/WN, no apparent distress, other (SMILING, LAUGHING, DOES NOT APPEAR TO BE ILL OR IN ANY DISCOMFORT OR DISTRESS) Respiratory: normal breath sounds, no respiratory distress, no accessory muscle use Cardiovascular: regular rate, rhythm, no edema, no JVD, no murmur Gastrointestinal: normal bowel sounds, non tender, soft Extremities: normal inspection, no pedal edema, normal capillary refill Back: no CVA tenderness Neurologic/Psychiatric: alert, normal mood/affect (PRIOR CVA WITH RIGHT SIDE WEAKNESS, SLURRED SPEECH AND DYSPHAGIA), other (ORIENTED TO SELF AND DAUGHTER, PT IS AT NORMAL BASELINE, PER DAUGHTER. PT HAS EXPRESSIVE APHASIA. ) Skin: normal color, warm/dry Focused Exam Lactate Level 08/07/19 20:35: Lactic Acid Level 0.91 Lactic Acid Level Laboratory Tests Test 08/07/19 20:35 Lactic Acid Level 0.91 MMOL/L (0.50-2.00) Progress/Results/Core Measures Results/Orders Lab Results Laboratory Tests Test 08/07/19 20:25 08/07/19 20:35 08/07/19 20:55 Range/Units White Blood Count 5.7 4.3-11.0 10^3/uL Red Blood Count 4.94 4.35-5.85 10^6/uL Hemoglobin 13.8 11.5-16.0 G/DL Hematocrit 43 35-52 % Mean Corpuscular Volume 87 80-99 FL Mean Corpuscular Hemoglobin 28 25-34 PG Mean Corpuscular Hemoglobin Concent 32 32-36 G/DL Red Cell Distribution Width 14.4 10.0-14.5 % Platelet Count 240 130-400 10^3/uL Mean Platelet Volume 10.5 H 7.4-10.4 FL Neutrophils (%) (Auto) 73 42-75 % Lymphocytes (%) (Auto) 15 12-44 % Monocytes (%) (Auto) 9 0-12 % Eosinophils (%) (Auto) 3 0-10 % Basophils (%) (Auto) 0 0-10 % Neutrophils # (Auto) 4.1 1.8-7.8 X 10^3 Lymphocytes # (Auto) 0.9 L 1.0-4.0 X 10^3 Monocytes # (Auto) 0.5 0.0-1.0 X 10^3 Eosinophils # (Auto) 0.2 0.0-0.3 10^3/uL Basophils # (Auto) 0.0 0.0-0.1 10^3/uL Prothrombin Time 13.3 12.2-14.7 SEC INR Comment 1.0 0.8-1.4 Activated Partial Thromboplast Time 28 24-35 SEC Sodium Level 138 135-145 MMOL/L Potassium Level 3.8 3.6-5.0 MMOL/L Chloride Level 106 98-107 MMOL/L Carbon Dioxide Level 20 L 21-32 MMOL/L Anion Gap 12 5-14 MMOL/L Blood Urea Nitrogen 17 7-18 MG/DL Creatinine 1.12 0.60-1.30 MG/DL Estimat Glomerular Filtration Rate 46 BUN/Creatinine Ratio 15 Glucose Level 142 H 70-105 MG/DL Calcium Level 9.9 8.5-10.1 MG/DL Corrected Calcium 10.2 H 8.5-10.1 MG/DL Magnesium Level 1.7 1.6-2.4 MG/DL Total Bilirubin 0.5 0.1-1.0 MG/DL Aspartate Amino Transf (AST/SGOT) 39 H 5-34 U/L Alanine Aminotransferase (ALT/SGPT) 45 0-55 U/L Alkaline Phosphatase 69 40-136 U/L Troponin I < 0.028 <0.028 NG/ML Total Protein 6.7 6.4-8.2 GM/DL Albumin 3.6 3.2-4.5 GM/DL Amylase Level 60 25-125 U/L Lipase 41 8-78 U/L Lactic Acid Level 0.91 0.50-2.00 MMOL/L Urine Color YELLOW Urine Clarity CLEAR Urine pH 6.0 5-9 Urine Specific [place] >=1.030 1.016-1.022 Urine Protein TRACE NEGATIVE Urine Glucose (UA) NEGATIVE NEGATIVE Urine Ketones TRACE H NEGATIVE Urine Nitrite NEGATIVE NEGATIVE Urine Bilirubin NEGATIVE NEGATIVE Urine Urobilinogen 0.2 < = 1.0 MG/DL Urine Leukocyte Esterase 1+ H NEGATIVE Urine RBC (Auto) NEGATIVE NEGATIVE Urine RBC NONE /HPF Urine WBC 25-50 H /HPF Urine Squamous Epithelial Cells 5-10 /HPF Urine Crystals PRESENT H /LPF Urine Amorphous Sediment MOD DEN URATES H /LPF Urine Bacteria LARGE H /HPF Urine Casts NONE /LPF Urine Mucus MODERATE H /LPF Urine Culture Indicated YES My Orders Orders - CRISTINA,GRICELDA K DO Ed Iv/Invasive Line Start (08/07/19:) Ekg Tracing (08/07/19) Monitor-Rhythm Ecg Trace Only (08/07/19) Straight Cath For Spec.-Adult (08/07/19:) Chest 1 View, Ap/Pa Only (08/07/19) Amylase (08/07/19) Cbc With Automated Diff (08/07/19) Comprehensive Metabolic Panel (08/07/19) Lactic Acid Analyzer (08/07/19) Lipase (08/07/19) Magnesium (08/07/19) Protime With Inr (08/07/19) Partial Thromboplastin Time (08/07/19) Ua Culture If Indicated (08/07/19) Blood Culture (08/07/19) Troponin I (08/07/19) Ed Iv/Invasive Line Start (08/07/19:) Lactated Ringers (Lr 1000 Ml Iv Solution (08/07/19:26) Ondansetron Injection (Zofran Injectio (08/07/19 20:30) Ct Sneha Chest/Noang Abd-Pelv W (08/07/19 21:08) Iohexol Injection (Omnipaque 350 Mg/Ml 1 (08/07/19 21:30) Received Contrast (Hold Metformin- Contr (08/07/19 21:30) Ns (Ivpb) (Sodium Chloride 0.9% Ivpb Bag (08/07/19 21:30) Urine Culture (08/07/19 20:55) Ceftriaxone For Iv Use (Rocephin For I (08/07/19 21:45) Ed Iv/Invasive Line Start (08/07/19 21:43) Ns Iv 1000 Ml (Sodium Chloride 0.9%) (08/07/19 21:43) Rx-Ondansetron Po (Rx-Zofran Po) (08/07/19 22:58) Medications Given in ED Current Medications Medications Dose Ordered Sig/Wil Route Start Time Stop Time Status Last Admin Dose Admin Ceftriaxone Sodium 1000 mg/ Sterile Water 10 ml @ 200 mls/hr ONCE ONCE IV 08/07/19 21:45 08/07/19 21:47 DC 08/07/19 22:01 200 MLS/HR Iohexol 100 ml ONCE ONCE IV 08/07/19 21:30 08/07/19 21:31 DC 08/07/19 21:47 62 ML Lactated Ringer's 1,000 ml @ 0 mls/hr Q0M ONCE IV 08/07/19 20:26 08/07/19 20:28 DC 08/07/19 20:44 1,000 MLS/HR Ondansetron HCl 4 mg ONCE ONCE IVP 08/07/19 20:30 08/07/19 20:31 DC 08/07/19 20:44 4 MG Sodium Chloride 100 ml ONCE ONCE IV 08/07/19 21:30 08/07/19 21:31 DC 08/07/19 21:47 80 ML Vital Signs/I&O 08/07/19 08/07/19 20:23 20:35 Temp 35.9 35.9 Pulse 64 64 Resp 20 20 B/P (MAP) 152/84 (106) 152/84 Pulse Ox 98 98 Progress Progress Note : Progress Note UNEVENTFUL ER STAY PT REMAINS SMILING, ANIMATED, COOPERATIVE, AND NO VOMITING OR SPITTING UP SALIVA OR COMPLAINTS OF NAUSEA DAUGHTER LATER STATES THAT THESE ARE EXACT SYMPTOMS SHE HAD WITH PREVIOUS UTI, BUT NOT NEARLY BAD--THE NAUSEA/SPITTING UP, SCRATCHING HER ABDOMEN, ETC. Initial ECG Impression Date: Aug 07, 2019 Initial ECG Impression Time: 20:44 Initial ECG Rate: 60 Initial ECG Rhythm: Normal Sinus Diagnostic Imaging Comments CT ANGIO CHEST/ ABDOMEN-PELVIS--CHOLELITHIASIS, SMALL HIATAL HERNIA, OLD RIB FRACTURES, CARDIOMEGALY. NO P.E. OR PNEUMONIA. CHOLELITHIASIS, UNDERDISTENDED AND MILDLY THICKENED BLADDER , COLONIC DIVERTICULA WITHOUT ACUTE DIVERTICULITIS--PER [facility] VIA FAX AF [id number] Reviewed: Reviewed by Me Departure Impression Primary Impression: Urinary tract infection Additional Impressions: NAUSEA Dementia Disposition: 01 HOME, SELF-CARE Condition: Stable Departure-Patient Inst. Referrals: AVANI JARA MD (PCP/Family) Primary Care Physician Patient Instructions: Nausea and Vomiting, Adult (DC), Urinary Tract Infection, Adult (DC) Add. Discharge Instructions: CLEAR LIQUIDS--WATER, BROTH, JELLO, GATORADE BRATS DIET--BANANAS, RICE, APPLESAUCE, TOAST, SALTINES CONTINUE YOUR REGULAR MEDICATIONS PRESCRIBED FOLLOW UP WITH DR. JARA IN 3-4 DAYS, RETURN TO ER IF WORSE All discharge instructions reviewed with patient and/or family. Voiced understanding. Scripts Ondansetron (Ondansetron Odt) 4 Mg Tab.rapdis 4 MG PO Q4H for Nausea/Vomiting, #15 TAB Prov: GRICELDA EVANS DO 08/07/19 Cefdinir (Cefdinir) 300 Mg Capsule 300 MG PO BID, #20 CAP FOR INFECTION Prov: GRICELDA EVANS DO 08/07/19 GRICELDA EVANS DO Aug 07, 2019 20:35 POS
[2019-08-07 20:36] LABS: BASOPHILS % (AUTO) 0 % (0-10); EOSINOPHILS # (AUTO) 0.2 10^3/uL (0.0-0.3); EOSINOPHILS % (AUTO) 3 % (0-10); HEMATOCRIT 43 % (35-52); HEMOGLOBIN 13.8 G/DL (11.5-16.0); LYMPHOCYTES # (AUTO) 0.9 X 10^3 (1.0-4.0); LYMPHOCYTES % (AUTO) 15 % (12-44); MEAN CORPUSCULAR HEMOGLOBIN 28 PG (25-34); MEAN CORPUSCULAR HGB CONC 32 G/DL (32-36); MEAN CORPUSCULAR VOLUME 87 FL (80-99); MEAN PLATELET VOLUME 10.5 FL (7.4-10.4); MONOCYTES # (AUTO) 0.5 X 10^3 (0.0-1.0); MONOCYTES % (AUTO) 9 % (0-12); NEUTROPHILS # (AUTO) 4.1 X 10^3 (1.8-7.8); NEUTROPHILS % (AUTO) 73 % (42-75); PLATELET COUNT 240 10^3/uL (130-400); RED CELL DISTRIBUTION WIDTH 14.4 % (10.0-14.5); WHITE BLOOD COUNT 5.7 10^3/uL (4.3-11.0)
[2019-08-07 20:50] LABS: PROTHROMBIN TIME PATIENT 13.3 SEC (12.2-14.7)
[2019-08-07 21:00] LABS: ALANINE AMINOTRANSFERASE 45 U/L (0-55); ALBUMIN 3.6 GM/DL (3.2-4.5); ALKALINE PHOSPHATASE 69 U/L (40-136); AMYLASE 60 U/L (25-125); BILIRUBIN,TOTAL 0.5 MG/DL (0.1-1.0); BUN/CREATININE RATIO 15; CALCIUM 9.9 MG/DL (8.5-10.1); CARBON DIOXIDE 20 MMOL/L (21-32); CHLORIDE 106 MMOL/L (98-107); CREATININE SERUM 1.12 MG/DL (0.60-1.30); GFR ESTIMATED 46; GLUCOSE 142 MG/DL (70-105); LIPASE 41 U/L (8-78); MAGNESIUM 1.7 MG/DL (1.6-2.4); POTASSIUM 3.8 MMOL/L (3.6-5.0); SODIUM 138 MMOL/L (135-145); TOTAL PROTEIN 6.7 GM/DL (6.4-8.2)
[2019-08-07 21:19] LABS: BILIRUBIN,URINE NEGATIVE (NEGATIVE); CLARITY,URINE CLEAR; COLOR,URINE YELLOW; GLUCOSE, URINE (UA) NEGATIVE (NEGATIVE); KETONES,URINE TRACE (NEGATIVE); LEUKOCYTE ESTERASE ,URINE 1+ (NEGATIVE); NITRITE,URINE NEGATIVE (NEGATIVE); PROTEIN,URINE TRACE (NEGATIVE)
[2019-08-07 21:26] LABS: BACTERIA,URINE LARGE /HPF; WBC,URINE 25-50 /HPF
[2019-08-07 21:27] LABS: AMORPHOUS SEDIMENT,UR MOD AMOR URATES /LPF
[2019-08-07] MEDS ORDERED: HOLD METFORMIN - RECEIVED CONTRAST 20 ML VIAL IV SCH (21:30)
[2019-08-07] MEDS ORDERED: IOHEXOL 350 MG/ML 100 ML (OMNIPAQUE 350) VIAL IV ONE (21:30)
[2019-08-07] MEDS ORDERED: NS 100 ML (IVPB) BAG IV ONE (21:30)
[2019-08-07] MEDS ORDERED: NS IV 1000 ML 1,000 ML IV SCH (21:43)
[2019-08-07] MEDS ORDERED: cefTRIAXone FOR IV USE 1,000 MG in WATER (STERILE) FOR INJECTION 10 ML IV ONE (21:45)
[2019-08-07] MEDS ORDERED: CEFD300C3 PO (22:43)
[2019-08-07] MEDS ORDERED: ONDA4TAB11 PO (22:44)
[2019-08-07] MEDS ORDERED: RX-ONDANSETRON 4 MG ODT (ZOFRAN) PPK #4 PO STA (22:58)
[2019-08-07 23:10] VITALS: BP 160/74
--- NOTE | 2019-08-08 06:26 | Diagnostic Imaging Report ---
INDICATION: Nausea. FINDINGS: There is cardiomegaly. There is some patchy right basilar infiltrate. There is no pleural effusion or pneumothorax. The mediastinum is unremarkable. IMPRESSION: Cardiomegaly and patchy right basilar infiltrate Dictated by: Dictated on workstation # [id number]
--- NOTE | 2019-08-08 07:25 | Diagnostic Imaging Report ---
INDICATION: Nausea with vomiting x1 week. TECHNIQUE: CT imaging of the chest, abdomen and pelvis following administration of decreased contrast. Multiplanar including MIP reformatted images. Auto Exposure Controls were utilized during the CT exam to meet ALARA standards for radiation dose reduction. CORRELATION STUDY: 05/06/2019 FINDINGS: CTA CHEST: The pulmonary arteries demonstrate no filling defects to suggest pulmonary embolism. Heart size is enlarged. No pericardial effusion. Scattered coronary artery calcification. Thoracic aortic contour appearing unremarkable with scattered wall calcification. No aneurysmal dilatation or evidence for dissection. No periaortic fluid collection. A few mildly prominent but nonpathologic enlarged mediastinal lymph nodes. The lung luong demonstrate no acute consolidating infiltrate. No effusion. Small hiatal hernia. Osseous structures demonstrate no acute abnormality. Old rib fracture deformities are present. CT ABDOMEN and PELVIS: Liver demonstrates some degree of hepatic steatosis. Too small to characterize right low-attenuation foci is present. The spleen, pancreas and adrenal glands appear unremarkable. Multiple gallstones are present. Gallbladder mildly distended. No bile duct dilatation. There are multiple cysts of various sizes of both kidneys. These range in size from a few millimeters up to largest at the inferior pole, 12.8 x 10.6 x 13.5 cm. There is some thin peripheral calcification of several of these cysts. No suggestion for obstructive uropathy. Gastrointestinal tract infiltrates a mild/moderate severity fecal retention. Colonic diverticulosis. The sigmoid colon without evidence of acute diverticulitis. No findings to suggest acute appendicitis. No abdominal ascites or free air. Dense aortoiliac vascular calcification. Urinary bladder relatively decompressed. The uterus is absent. There is approximately 17 mm left adnexal cystic foci present. Small fat-containing umbilical hernia. IMPRESSION: 1. No CT evidence for pulmonary embolism or otherwise acute abdomen about the chest. 2. Dense aortoiliac vascular calcification of the abdominal aorta. 3. Cholelithiasis. 4. Diverticulosis without evidence for acute diverticulitis. No bowel obstruction. Negative for appendicitis. 5. 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 A preliminary report was provided by Lida. Dictated by: Dictated on workstation # [id number]
== END 2019-08-07 23:10 | disposition home or self-care (01) ==
LOC: ER 20:17 → EDUNIT# 20:17 → ER 23:10
DX: N39.0 Urinary tract infection, site not specified (principal); F03.90 Unspecified dementia, unspecified severity, without behavioral disturbance, psychotic disturbance, mood disturbance, and anxiety; I10 Essential (primary) hypertension; E78.00 Pure hypercholesterolemia, unspecified; F32.9 Major depressive disorder, single episode, unspecified; Z79.02 Long term (current) use of antithrombotics/antiplatelets; Z86.73 Personal history of transient ischemic attack (TIA), and cerebral infarction without residual deficits; Z90.710 Acquired absence of both cervix and uterus; Z82.49 Family history of ischemic heart disease and other diseases of the circulatory system
CPT/HCPCS: 36415; 51701; 71045; 71275; 74177; 80053; 81000; 82150; 83605; 83690; 83735; 84484; 85025; 85610; 85730; 87040; 87077; 87088; 87186; 93005; 93041

== ENCOUNTER 2019-09-16 11:02 | Outpatient (CLI) | payer MEDICARE, OTHER ==
[~2019-09-16] VITALS: Ht 165 cm; Wt 65.3 kg
[~2019-09-16 11:02] MED LIST changes: +CEFD300C3 PO; +ONDA4TAB11 PO
[2019-09-16] MEDS ORDERED: NS IV 1000 ML 1,000 ML ONE (11:27)
[2019-09-16] MEDS ORDERED: NS IV 1000 ML 1,000 ML IV SCH (11:45)
[2019-09-16 15:30] VITALS: BP 145/63
== END 2019-09-16 15:30 | disposition home or self-care (01) ==
LOC: SDC 11:02
PROVIDERS: ATTEND Family Medicine
DX: E86.0 Dehydration (principal)
CPT/HCPCS: 96360; 96361

== ENCOUNTER 2019-09-18 16:26 | Inpatient (IN) | payer MEDICARE, OTHER ==
[~2019-09-18] VITALS: Ht 154 cm; Wt 62.7 kg
[2019-09-18] MEDS ORDERED: NS IV 500 ML 500 ML IV ONE (16:37)
--- NOTE | 2019-09-18 16:37 | ED General ---
General Stated Complaint: ALTERED LOC Source of Information: Patient, EMS Exam Limitations: Physical Impairments History of Present Illness Date Seen by Provider: Sep 18, 2019 Time Seen by Provider: 16:27 Initial Comments Here by EMS with report of increased confusion over the last several days. Daughter lives with her and apparently she reported to EMS that she gets this way when she has a urinary tract infection. Patient is pleasantly demented and is smiling and answering with yes or no but does not appear to really understand what is going on. No report of injury. Afebrile currently. History limited due to patient understanding and underlying disease. Timing/Duration: 1 Week, Getting Worse Severity: Mild, Moderate Associated Systoms: No Cough, No Fever/Chills, No Nausea/Vomiting, No Shortness of Air; Weakness Allergies and Home Medications Allergies Coded Allergies: No Known Drug Allergies (Unverified , 08/07/19) Home Medications Atorvastatin Calcium 10 Mg Tablet, 10 MG PO DAILY, (Reported) Cefdinir 300 Mg Capsule, 300 MG PO BID FOR INFECTION Prescribed by: GRICELDA EVANS on 08/07/192242 Cefuroxime Axetil 250 Mg Tablet, 250 MG PO BID, (Reported) 5 DAY SUPPLY FILLED 05-04-19 Citalopram Hydrobromide 10 Mg Tablet, 10 MG PO DAILY, (Reported) Clopidogrel Bisulfate 75 Mg Tablet, 75 MG PO DAILY, (Reported) Docusate Sodium 100 Mg Capsule, 100 MG PO DAILY, (Reported) Glucosamine Sulfate 2Kcl 1,000 Mg Tablet, 1,000 MG PO DAILY, (Reported) L.acidoph & Paracasei,B.lactis 1 Each Capsule, 1 CAP PO DAILY, (Reported) Ondansetron 4 Mg Tab.rapdis, 4 MG PO Q4H Prescribed by: GRICELDA EVANS on 08/07/192243 Rivastigmine 1 Each Patch.td24, 1 PATCH TD DAILY, (Reported) Ubidecarenone/Vit E Acetate 1 Each Capsule, 100 MG PO DAILY, (Reported) Verapamil HCl 120 Mg Tablet, 120 MG PO DAILY, (Reported) Patient Home Medication List Home Medication List Reviewed: Yes Review of Systems Review of Systems Constitutional: see HPI; No chills, No fever Gastrointestinal: No nausea, No vomiting Genitourinary: see HPI Unable to complete review of systems due to altered mental status and underlying dementia Past Nbbiwqk-Dumgto-Pzkrnp Hx Past Med/Social Hx: Reviewed Nursing Past Med/Soc Hx Patient Social History 2nd Hand Smoke Exposure: No Recent Foreign Travel: No Contact w/Someone Who Travel: No Recent Hopitalizations: Yes (CVA) Immunizations Up To Date Date of Pneumonia Vaccine: Nov 08, 2016 Date of Influenza Vaccine: Jul 02, 2018 Seasonal Allergies Seasonal Allergies: No Past Medical History Surgeries: Yes (HYST/OVARIES INTACT; HERNIA REPAIR 1974) Abdominal, Hysterectomy Respiratory: No Cardiac: Yes High Cholesterol, Hypertension Neurological: Yes Dementia, Stroke Female 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 Patient unable to assist with interview. Family Medical History Heart Disease, Hypertension Physical Exam-Suspected Sepsis Physical Exam Vital Signs Vital Signs - First Documented 09/18/19 16:28 Temp 36.2 Pulse 61 Resp 20 B/P (MAP) 195/98 (130) Pulse Ox 96 Capillary Refill : Height, Weight, BMI Height: 5'0.00" Weight: 158lbs. 6.4oz. 71.306676wg; 23.00 BMI Method:Stated General Appearance: No Apparent Distress, WD/WN HEENT: PERRL/EOMI, Pharynx Normal Neck: Non Tender, Supple Respiratory: Lungs Clear, Normal Breath Sounds Cardiovascular: Regular Rate, Rhythm, No Murmur Gastrointestinal: Normal Bowel Sounds, Soft, Tenderness (suprapubic), Other (does appear to have some bladder distention on exam) Back: Normal Inspection, No CVA Tenderness, No Vertebral Tenderness Extremity: Normal Range of Motion, Non Tender Neurologic/Psychiatric: Alert, Other (answers simple questions and follows simple commands but unsure if answers are correct and she appears confused. Oriented to self only) Skin: normal color, warm/dry Focused Exam Lactate Level 09/18/19 16:35: Lactic Acid Level 1.30 Lactic Acid Level Laboratory Tests Test 09/18/19 16:35 Lactic Acid Level 1.30 MMOL/L (0.50-2.00) Progress/Results/Core Measures Suspected Sepsis SIRS Temperature: Pulse: Respiratory Rate: Laboratory Tests 09/18/19 16:35: White Blood Count 7.8 Blood Pressure / Mean: 09/18/19 16:35: Lactic Acid Level 1.30 Laboratory Tests 09/18/19 16:35: Creatinine 0.91, INR Comment 1.0, Platelet Count 212, Total Bilirubin 0.9 Results/Orders Lab Results Laboratory Tests Test 09/18/19 16:35 09/18/19 16:40 Range/Units White Blood Count 7.8 4.3-11.0 10^3/uL Red Blood Count 5.24 4.35-5.85 10^6/uL Hemoglobin 14.8 11.5-16.0 G/DL Hematocrit 45 35-52 % Mean Corpuscular Volume 86 80-99 FL Mean Corpuscular Hemoglobin 28 25-34 PG Mean Corpuscular Hemoglobin Concent 33 32-36 G/DL Red Cell Distribution Width 14.8 H 10.0-14.5 % Platelet Count 212 130-400 10^3/uL Mean Platelet Volume 11.2 H 7.4-10.4 FL Neutrophils (%) (Auto) 71 42-75 % Lymphocytes (%) (Auto) 16 12-44 % Monocytes (%) (Auto) 10 0-12 % Eosinophils (%) (Auto) 2 0-10 % Basophils (%) (Auto) 0 0-10 % Neutrophils # (Auto) 5.6 1.8-7.8 X 10^3 Lymphocytes # (Auto) 1.3 1.0-4.0 X 10^3 Monocytes # (Auto) 0.8 0.0-1.0 X 10^3 Eosinophils # (Auto) 0.2 0.0-0.3 10^3/uL Basophils # (Auto) 0.0 0.0-0.1 10^3/uL Prothrombin Time 13.6 12.2-14.7 SEC INR Comment 1.0 0.8-1.4 Activated Partial Thromboplast Time 27 24-35 SEC Sodium Level 137 135-145 MMOL/L Potassium Level 3.8 3.6-5.0 MMOL/L Chloride Level 103 98-107 MMOL/L Carbon Dioxide Level 23 21-32 MMOL/L Anion Gap 11 5-14 MMOL/L Blood Urea Nitrogen 19 H 7-18 MG/DL Creatinine 0.91 0.60-1.30 MG/DL Estimat Glomerular Filtration Rate 58 BUN/Creatinine Ratio 21 Glucose Level 96 70-105 MG/DL Lactic Acid Level 1.30 0.50-2.00 MMOL/L Calcium Level 9.6 8.5-10.1 MG/DL Corrected Calcium 10.1 8.5-10.1 MG/DL Total Bilirubin 0.9 0.1-1.0 MG/DL Aspartate Amino Transf (AST/SGOT) 37 H 5-34 U/L Alanine Aminotransferase (ALT/SGPT) 45 0-55 U/L Alkaline Phosphatase 60 40-136 U/L Total Protein 6.5 6.4-8.2 GM/DL Albumin 3.4 3.2-4.5 GM/DL Urine Color YELLOW Urine Clarity CLEAR Urine pH 6.5 5-9 Urine Specific [place] 1.015 L 1.016-1.022 Urine Protein NEGATIVE NEGATIVE Urine Glucose (UA) NEGATIVE NEGATIVE Urine Ketones TRACE H NEGATIVE Urine Nitrite NEGATIVE NEGATIVE Urine Bilirubin NEGATIVE NEGATIVE Urine Urobilinogen 1.0 < = 1.0 MG/DL Urine Leukocyte Esterase NEGATIVE NEGATIVE Urine RBC (Auto) NEGATIVE NEGATIVE Urine RBC NONE /HPF Urine WBC RARE /HPF Urine Crystals NONE /LPF Urine Bacteria FEW H /HPF Urine Casts NONE /LPF Urine Mucus NEGATIVE /LPF Urine Culture Indicated NO My Orders Orders - NAMITA DESIR MD Cbc With Automated Diff (09/18/19 16:37) Comprehensive Metabolic Panel (09/18/19 16:37) Blood Culture (09/18/19 16:37) Sputum Culture (09/18/19 16:37) Urinalysis (09/18/19 16:37) Urine Culture (09/18/19 16:37) Protime With Inr (09/18/19 16:37) Partial Thromboplastin Time (09/18/19 16:37) Chest 1 View, Ap/Pa Only (09/18/19 16:37) Ed Iv/Invasive Line Start (09/18/19 16:37) Vital Signs Adult Sepsis Patie Q15M (09/18/19 16:37) O2 (09/18/19 16:37) Remove Rings In Anticipation O (09/18/19 16:37) Lactic Acid Analyzer (09/18/19 16:37) Catheter(Urinary) Insert & Ass 03,15 (09/18/19 16:37) Ns Iv 500 Ml (Sodium Chloride 0.9%) (09/18/19 16:37) Ct Head Wo-R/O Stroke (09/18/19 18:17) Dysphagia Screening Tool (09/18/19 18:17) Medications Given in ED Current Medications Medications Dose Ordered Sig/Wil Route Start Time Stop Time Status Last Admin Dose Admin Sodium Chloride 500 ml @ 0 mls/hr Q0M ONCE IV 09/18/19 16:37 09/18/19 16:39 DC 09/18/19 17:45 500 MLS/HR Vital Signs/I&O 09/18/19 16:28 Temp 36.2 Pulse 61 Resp 20 B/P (MAP) 195/98 (130) Pulse Ox 96 Capillary Refill : Progress Note : Progress Note Seen and evaluated. IV by EMS. Labs, UA and Hernandez catheter ordered. Normal saline 500 mL bolus. Blood cultures and lactic acid ordered. Monitor patient. 1814: Daughter is at bedside and talk with her about the patient's case. She reports that the patient has had increasing decline over the last several days but had markedly increase in problems today and had difficulty with talking at all and was unable to walk. She does have history of stroke. She is a little better now but still having difficulty with forming any words. Patient does have advanced dementia and this may just be a component of that we will go ahead and get CT of the head and evaluated for acute bleed or other acute findings. She wo uld not be a candidate for TPA as the last known well time is greater than 12 hours. 1927: CT head notes subdural hematoma with 3 mm of midline shift. Patient is not a surgical candidate and I talked at length with the daughter regarding care. At this point she would like to pursue comfort care measures only. I think this is appropriate for the patient given her age and underlying comorbidities especially advanced dementia. Patient to be admitted. I discussed the case with Dr. Mckeon who agrees. We will admit the patient inpatient status on comfort care order set. Daughter appreciative of care and concerns and considerations. Diagnostic Imaging Diagonstic Imaging: Xray Plain Films/CT/US/NM/MRI: chest Comments [facility] [place] [place], [place] NAME: GIGI GIRALDO [facility] REC#: [id number] PT STATUS: REG ER : 1930 PHYSICIAN: NAMITA DESIR MD ADMIT DATE: 09/18/19/ER Signed Date of Exam:09/18/19 CHEST 1 VIEW, AP/PA ONLY INDICATION: Dementia, confusion, and cardiac enlargement. COMPARISON: 08/07/2019. FINDINGS: Single view of the chest demonstrates stable cardiac enlargement. There is new effusion and atelectasis in the left base. Underlying infiltrate is not excluded. Right lung is clear. There is no pneumothorax. Osseous structures are stable. IMPRESSION: New effusion and atelectasis in left lung base. Pneumonia not excluded. Follow-up recommended. Dictated by: Dictated on workstation # [id number] Dict: 09/18/191738 Trans: 09/18/191744 [id number] Interpreted by: JANETH CHEN Electronically signed by: JANETH CHEN 09/18/19 1745 Diagonstic Imaging: CT Plain Films/CT/US/NM/MRI: head Comments [facility] [place] [place] NAME: GIGI GIRALDO [facility] REC#: [id number] PT STATUS: REG ER : 1930 PHYSICIAN: NAMITA DESIR MD ADMIT DATE: 09/18/19/ER Draft Date of Exam:09/18/19 CT HEAD WO-R/O STROKE PROCEDURE: CT head wo r/o stroke. TECHNIQUE: Multiple contiguous axial images were obtained through the brain without the use of intravenous contrast. Auto Exposure Controls were utilized during the CT exam to meet ALARA standards for radiation dose reduction. INDICATION: Dementia, increased confusion. COMPARISON: Study compared with head CT 09/23/2018 and MRI brain 11/17/2018. FINDINGS: There is an acute-appearing right hemispheric subdural hematoma along the right frontoparietal and occipital convexities that extends along the right falx at its upper mid to posterior thirds as well as layers along the right tentorium. The blood products along the right frontoparietal convexity measure a maximal transverse thickness of 7.5 mm and along the falx superiorly measure 6 mm. There is mild edematous distortion and mass effect upon the contour of the right lateral ventricle with the midline structures shifted right to left by about 3 mm. There is no hydrocephalus or herniation. Chronic periventricular white matter small vessel sequelae and background cerebral cortical atrophy are unchanged. Underlying atrophy likely helps mitigate the mass effect by the hematoma. No appreciable calvarial fracture deformity. There is no hemo-sinus. No intraventricular blood or appreciable parenchymal hematoma. IMPRESSION: Right hemispheric supratentorial subdural hemorrhage with mild mass effect and right to left shift of 3 mm. No bartolo herniation or hydrocephalus with mass effects mitigated by background atrophy. Critical findings discussed with the ER physician. Dictated on workstation # [id number] Dict: 09/18/19 1840 Trans: 09/18/19 1852 [id number] Interpreted by: CLAUDIA MUIR Electronically signed by: Departure Communication (Admissions) Time/Spoke to Admitting Phy: 19:28 Impression Primary Impression: Subdural hematoma Additional Impression: Need for comfort care Disposition: 09 ADMITTED INPATIENT Condition: Stable Admissions Decision to Admit Reason: Admit from ER (General) Decision to Admit/Date: Sep 18, 2019 Time/Decision to Admit Time: 19:28 Departure-Patient Inst. Referrals: AVANI JARA MD (PCP/Family) Primary Care Physician NAMITA DESIR MD Sep 18, 2019 16:37
[2019-09-18 16:55] LABS: BILIRUBIN,URINE NEGATIVE (NEGATIVE); CLARITY,URINE CLEAR; COLOR,URINE YELLOW; GLUCOSE, URINE (UA) NEGATIVE (NEGATIVE); KETONES,URINE TRACE (NEGATIVE); LEUKOCYTE ESTERASE ,URINE NEGATIVE (NEGATIVE); NITRITE,URINE NEGATIVE (NEGATIVE); PH,URINE 6.5 (5-9); PROTEIN,URINE NEGATIVE (NEGATIVE)
--- NOTE | 2019-09-18 17:00 | NUR ---
UNABLE TO DO NIH D/T DEMENTIA
[2019-09-18 17:01] LABS: BASOPHILS % (AUTO) 0 % (0-10); EOSINOPHILS # (AUTO) 0.2 10^3/uL (0.0-0.3); EOSINOPHILS % (AUTO) 2 % (0-10); HEMATOCRIT 45 % (35-52); HEMOGLOBIN 14.8 G/DL (11.5-16.0); LYMPHOCYTES # (AUTO) 1.3 X 10^3 (1.0-4.0); LYMPHOCYTES % (AUTO) 16 % (12-44); MEAN CORPUSCULAR HEMOGLOBIN 28 PG (25-34); MEAN CORPUSCULAR HGB CONC 33 G/DL (32-36); MEAN CORPUSCULAR VOLUME 86 FL (80-99); MEAN PLATELET VOLUME 11.2 FL (7.4-10.4); MONOCYTES # (AUTO) 0.8 X 10^3 (0.0-1.0); MONOCYTES % (AUTO) 10 % (0-12); NEUTROPHILS # (AUTO) 5.6 X 10^3 (1.8-7.8); NEUTROPHILS % (AUTO) 71 % (42-75); PLATELET COUNT 212 10^3/uL (130-400); RED CELL DISTRIBUTION WIDTH 14.8 % (10.0-14.5); WHITE BLOOD COUNT 7.8 10^3/uL (4.3-11.0)
[2019-09-18 17:16] LABS: ALBUMIN 3.4 GM/DL (3.2-4.5); BILIRUBIN,TOTAL 0.9 MG/DL (0.1-1.0); CALCIUM 9.6 MG/DL (8.5-10.1); CREATININE SERUM 0.91 MG/DL (0.60-1.30); POTASSIUM 3.8 MMOL/L (3.6-5.0); TOTAL PROTEIN 6.5 GM/DL (6.4-8.2)
[2019-09-18 17:27] LABS: PROTHROMBIN TIME PATIENT 13.6 SEC (12.2-14.7)
--- NOTE | 2019-09-18 17:42 | Diagnostic Imaging Report ---
INDICATION: Dementia, confusion, and cardiac enlargement. COMPARISON: 08/07/2019. FINDINGS: Single view of the chest demonstrates stable cardiac enlargement. There is new effusion and atelectasis in the left base. Underlying infiltrate is not excluded. Right lung is clear. There is no pneumothorax. Osseous structures are stable. IMPRESSION: New effusion and atelectasis in left lung base. Pneumonia not excluded. Follow-up recommended. Dictated by: Dictated on workstation # [id number]
[2019-09-18 17:48] LABS: BACTERIA,URINE FEW /HPF; WBC,URINE RARE /HPF
--- NOTE | 2019-09-18 18:53 | Diagnostic Imaging Report ---
PROCEDURE: CT head wo r/o stroke. TECHNIQUE: Multiple contiguous axial images were obtained through the brain without the use of intravenous contrast. Auto Exposure Controls were utilized during the CT exam to meet ALARA standards for radiation dose reduction. INDICATION: Dementia, increased confusion. COMPARISON: Study compared with head CT 09/23/2018 and MRI brain 11/17/2018. FINDINGS: There is an acute-appearing right hemispheric subdural hematoma along the right frontoparietal and occipital convexities that extends along the right falx at its upper mid to posterior thirds as well as layers along the right tentorium. The blood products along the right frontoparietal convexity measure a maximal transverse thickness of 7.5 mm and along the falx superiorly measure 6 mm. There is mild edematous distortion and mass effect upon the contour of the right lateral ventricle with the midline structures shifted right to left by about 3 mm. There is no hydrocephalus or herniation. Chronic periventricular white matter small vessel sequelae and background cerebral cortical atrophy are unchanged. Underlying atrophy likely helps mitigate the mass effect by the hematoma. No appreciable calvarial fracture deformity. There is no hemo-sinus. No intraventricular blood or appreciable parenchymal hematoma. IMPRESSION: Right hemispheric supratentorial subdural hemorrhage with mild mass effect and right to left shift of 3 mm. No bartolo herniation or hydrocephalus with mass effects mitigated by background atrophy. Critical findings discussed with the ER physician. Dictated by: Dictated on workstation # [id number]
--- NOTE | 2019-09-18 19:00 | NUR ---
REPORT TO TYE GABRIEL
--- NOTE | 2019-09-18 21:05 | NUR ---
GIGI GIRALDO admitted to room 425-1, with an admitting diagnosis of SUBDURAL HEMATOMA; COMFORT CARE, on 09/18/19 from ER via BED, accompanied by ER STAFF. The daughter and GIGI GIRALDO introduced to surroundings, call light, bed controls, phone, TV, temperature control, lights, meal times, smoking policy, visitor policy, side rail policy, bathrooms and showers. Patient Rights given to patient in the handbook. The daughter (Dulce) of GIGI GIRALDO verbalizes understanding that [facility] is not responsible for the loss or damage to any personal effects or valuables that are kept in the patients posession during their hospitalization.
[2019-09-18 21:07] VITALS: BP 168/77
[2019-09-18] MEDS ORDERED: LORazepam INJ 2 MG/ML (ATIVAN) VIAL IV PRN (21:45)
[2019-09-18] MEDS ORDERED: ACETAMINOPHEN 650 MG SUPP (TYLENOL) PR PRN (21:45)
[2019-09-18] MEDS ORDERED: SALIVA STIMULANT MOUTH SPRAY (BIOTENE) 1.5 OZ MM PRN (21:45)
[2019-09-18] MEDS ORDERED: GLYCOPYRROLATE 0.2 MG/ML (ROBINUL) 2 ML VIAL IV PRN (21:45)
[2019-09-18] MEDS ORDERED: BISACODYL 10 MG SUPP (DULCOLAX) PR PRN (21:45)
[2019-09-18] MEDS ORDERED: RT-ALBUTEROL/IPRATROPIUM 3 ML (DUONEB) VIAL INH PRN (21:45)
[2019-09-18] MEDS ORDERED: ONDANSETRON 4 MG/2 ML (SDV) Z0FRAN IV PRN (21:45)
[2019-09-18] MEDS ORDERED: morphine INJ 4 MG/ML 1 ML (VIAL/SYRINGE) IV PRN (22:00)
[2019-09-18 22:20] VITALS: BP 168/77
[2019-09-18] MEDS: SCOPOLAMINE 1.5 MG (TRANSDERM-SCOP) PATCH TOP SCH (23:25)
[2019-09-19] MEDS ORDERED: METO-333 PO (02:04)
[2019-09-19] MEDS ORDERED: SENN-109 PO (02:12)
[2019-09-19] MEDS ORDERED: HYDR-3922 PO (02:12)
[2019-09-19] MEDS ORDERED: NITR50CA PO (02:18)
[2019-09-19 08:00] VITALS: BP 186/81
--- NOTE | 2019-09-19 09:29 | History & Physical-Hospitalist ---
History of Present Illness HPI/Chief Complaint Pt is an 89yoCF who was admitted due to subdural hematoma. She is pleasantly confused and unable to provide me any history. She just shrugs her shoulders when asked why she is here. Bus all history is obtained from the records. Per ER visit daughter brought her to the emergency room due to increased confusion for several days and thinking that she had a urinary tract infection. She denies any falls or history of injury. She was afebrile. And patient is unable to endorse any symptoms. CT of head was done which revealed a subdural hematoma with midline shift. Goals of care were discussed with patient's family and per discussions with emergency room physician and family she has not an appropriate surgical candidate and family would not have wanted her to undergo neurosurgery regardless. Instead they opted to admit patient for comfort care. This morning she is quite content and has no complaints. Source: patient Date Seen 09/19/19 Time Seen by a Provider: 10:00 Attending Physician Joel Mckeon MD PCP Annita Haskins MD Referring Physician Date of Admission Sep 18, 2019 at 20:10 Home Medications & Allergies Home Medications Reviewed patient Home Medication Reconciliation performed by pharmacy medication reconciliations industrial ecology technician and/or nursing. Patients Allergies have been reviewed. Allergies Allergies Coded Allergies No Known Drug Allergies (Hvcjeqzvak64/8/19) Past Dgsjbae-Wtqhwh-Rnwyas Hx Past Med/Social Hx: Reviewed Nursing Past Med/Soc Hx Patient Social History Alcohol Use: Denies Use Recreational Drug Use: No Smoking Status: Never a Smoker 2nd Hand Smoke Exposure: No Recent Foreign Travel: No Contact w/other who traveled: No Recent Hopitalizations: Yes (CVA) Recent Infectious Disease Expo: No Immunizations Up To Date Date of Pneumonia Vaccine: Nov 08, 2016 Date of Influenza Vaccine: Jul 02, 2018 Seasonal Allergies Seasonal Allergies: No Past Medical History Surgeries: Abdominal, Hysterectomy Cardiac: High Cholesterol, Hypertension Neurological: Dementia, Stroke Female Reproductive Disorders: Denies Hysterectomy, Menopausal Genitourinary: Bladder Infection Gastrointestinal: Abdominal Hernia, Chronic Constipation Musculoskeletal: Arthritis HEENT: Cataract, Dysphagia Hearing Impairment: Hard of Hearing Psychosocial: Depression History of Blood Disorders: No Family History Patient reports no known family medical history. Heart Disease, Hypertension Review of Systems ROS-Unable to Obtain: dementia Constitutional: see HPI Physical Exam Physical Exam Vital Signs Vital Signs - First Documented 09/18/19 09/18/19 16:28 20:37 Temp 36.2 Pulse 61 Resp 20 B/P (MAP) 195/98 (130) Pulse Ox 96 O2 Delivery Room Air Capillary Refill : Less Than 3 Seconds Height, Weight, BMI Height: 5'0.00" Weight: 158lbs. 6.4oz. 71.843584jp; 26.43 BMI Method:Stated General Appearance: No Apparent Distress, Chronically ill HEENT: PERRL/EOMI, Moist Mucous Membranes; No Scleral Icterus (L), No Scleral Icterus (R) Neck: Supple; No Thyromegaly Respiratory: Lungs Clear, No Accessory Muscle Use, No Respiratory Distress Cardiovascular: Regular Rate, Rhythm, No Murmur Gastrointestinal: Normal Bowel Sounds, Soft Extremity: No Calf Tenderness Neurologic/Psychiatric: Alert, Oriented x3 Skin: Normal Color, Warm/Dry Results Results/Procedures Labs Laboratory Tests 09/18/19 16:35 Patient resulted labs reviewed. Imaging: Reviewed Imaging Report Imaging Date of Exam:09/18/19 CT HEAD WO-R/O STROKE PROCEDURE: CT head wo r/o stroke. TECHNIQUE: Multiple contiguous axial images were obtained through the brain without the use of intravenous contrast. Auto Exposure Controls were utilized during the CT exam to meet ALARA standards for radiation dose reduction. INDICATION: Dementia, increased confusion. COMPARISON: Study compared with head CT 09/23/2018 and MRI brain 11/17/2018. FINDINGS: There is an acute-appearing right hemispheric subdural hematoma along the right frontoparietal and occipital convexities that extends along the right falx at its upper mid to posterior thirds as well as layers along the right tentorium. The blood products along the right frontoparietal convexity measure a maximal transverse thickness of 7.5 mm and along the falx superiorly measure 6 mm. There is mild edematous distortion and mass effect upon the contour of the right lateral ventricle with the midline structures shifted right to left by about 3 mm. There is no hydrocephalus or herniation. Chronic periventricular white matter small vessel sequelae and background cerebral cortical atrophy are unchanged. Underlying atrophy likely helps mitigate the mass effect by the hematoma. No appreciable calvarial fracture deformity. There is no hemo-sinus. No intraventricular blood or appreciable parenchymal hematoma. IMPRESSION: Right hemispheric supratentorial subdural hemorrhage with mild mass effect and right to left shift of 3 mm. No bartolo herniation or hydrocephalus with mass effects mitigated by background atrophy. Assessment/Plan Admission Diagnosis Subdural Hematoma Admission Status: Inpatient Order (span 2 midnights) Reason for Inpatient Admission: subdural hematoma, comfort care Assessment and Plan Subdural Hematoma Dr Anna discussed with family and they did not desire operative intervention Admitted for comfort measures Discussed Dr Cadet with trauma and as is comfort measures no need for trauma consult Hold plavix HTN Jorge L resume home meds Discharge planning Hospice consult Clinical Quality Measures DVT/VTE Risk/Contraindication: Risk Factor Score Per Nursin RFS Level Per Nursing on Admit: 4+=Very High JOEL MCKEON MD Sep 19, 2019 9:29 am
[2019-09-19 15:36] VITALS: BP 182/86
[2019-09-19 19:40] VITALS: BP 142/68
[2019-09-20 08:00] VITALS: BP 161/87
--- NOTE | 2019-09-20 11:45 | Progress Note - Hospitalist ---
Subjective HPI/CC On Admission Date Seen by Provider: Sep 20, 2019 Time Seen by Provider: 11:41 Pt is an 89yoCF who was admitted due to subdural hematoma. She is pleasantly confused and unable to provide me any history. She just shrugs her shoulders when asked why she is here. Bus all history is obtained from the records. Per ER visit daughter brought her to the emergency room due to increased confusion for several days and thinking that she had a urinary tract infection. She denies any falls or history of injury. She was afebrile. And patient is unable to endorse any symptoms. CT of head was done which revealed a subdural hematoma with midline shift. Goals of care were discussed with patient's family and per discussions with emergency room physician and family she has not an appropriate surgical candidate and family would not have wanted her to undergo neurosurgery regardless. Instead they opted to admit patient for comfort care. This morning she is quite content and has no complaints. Subjective/Events-last exam Pt is pleasantly confused. No complaints. No family at bedside. Focused Exam Lactate Level 09/18/19 16:35: Lactic Acid Level 1.30 Objective Exam Vital Signs Vital Signs Date Time Temp Pulse Resp B/P (MAP) Pulse Ox O2 Delivery O2 Flow Rate FiO2 09/20/19 08:00 37.0 76 20 161/87 (111) 95 Room Air Capillary Refill : Less Than 3 SecondsLess Than 3 Seconds General Appearance: No Apparent Distress, WD/WN Respiratory: Lungs Clear, No Respiratory Distress Cardiovascular: Regular Rate, Rhythm, No Murmur Neurologic/Psychiatric: Alert, Disoriented Results/Procedures Lab Patient resulted labs reviewed. Imaging: Reviewed Imaging Report Assessment/Plan Assessment and Plan Assess & Plan/Chief Complaint Subdural Hematoma Dr Anna discussed with family in the ER and they did not desire operative intervention Admitted for comfort measures only Discussed Dr Cadet with trauma and as is comfort measures no need for trauma consult Hold plavix Hospice consult, can likely go home with home hospice HTN Will resume home meds Dementia appears to be at baseline, pleasantly confused Discharge planning Hospice consult Clinical Quality Measures DVT/VTE Risk/Contraindication: Risk Factor Score Per Nursin RFS Level Per Nursing on Admit: 4+=Very High JOEL VAZQUEZ MD Sep 20, 2019 11:45 am
[2019-09-20] MEDS ORDERED: NITROFURANTOIN 50 MG (MACRODANTIN) CAP PO SCH (12:00)
[2019-09-20 19:26] VITALS: BP 172/88
[2019-09-20] MEDS: meTOprolol TARTRATE 25 MG (LOPRESSOR) TABLET PO SCH (19:39)
[2019-09-20 21:08] VITALS: BP 135/79
[2019-09-21 08:00] VITALS: BP 175/73
[2019-09-21] MEDS: meTOprolol TARTRATE 25 MG (LOPRESSOR) TABLET PO SCH (08:33)
[2019-09-21] MEDS: SCOPOLAMINE 1.5 MG (TRANSDERM-SCOP) PATCH TOP SCH (08:40)
[2019-09-21] MEDS ORDERED: SCOPOLAMINE PATCH REMOVAL TP SCH (08:59)
[2019-09-21] MEDS ORDERED: LACTOBACILLUS ACIDOPHILUS (PROBIOTIC) CAPSULE PO SCH (09:00)
[2019-09-21] MEDS ORDERED: RIVASTIGMINE TOP SCH (09:00)
[2019-09-21] MEDS ORDERED: VERAPAMIL 80 MG (ISOPTIN) TAB PO SCH (09:00)
[2019-09-21] MEDS ORDERED: SENNA W/DOCUSATE (SENOKOT S) TABLET PO SCH (09:00)
--- NOTE | 2019-09-21 09:10 | Discharge Summary ---
Diagnosis/Chief Complaint Date of Admission Sep 18, 2019 at 20:10 Date of Discharge Discharge Date: Sep 21, 2019 Discharge Summary Discharge Physical Examination Allergies: Coded Allergies: No Known Drug Allergies (Unverified , 08/07/19) Vitals & I&Os Vital Signs Date Time Temp Pulse Resp B/P (MAP) Pulse Ox O2 Delivery O2 Flow Rate FiO2 09/20/19 21:08 59 135/79 (97) 09/20/19 19:40 Room Air 09/20/19 19:26 36.3 20 96 Discharge Instructions to patient/family Please see electronic discharge instructions given to patient. Discharge Medications Reviewed and agree with Discharge Medication list on patient's Discharge Instruction sheet Clinical Quality Measures DVT/VTE Risk/Contraindication: Risk Factor Score Per Nursin RFS Level Per Nursing on Admit: 4+=Very High AVANI JARA MD Sep 21, 2019 09:10
--- NOTE | 2019-09-21 09:15 | Discharge Inst-Skilled Nursing ---
Discharge Inst-Skilled NF Reconcile Patient Problems Problems Reviewed?: Yes Patient Instructions Patient Problems: subdural hematoma hypertension advanced age dementia gait instability dysphagia hx of stroke Goal: improved strength Consult/Follow Up/Orders Follow Up Appt.: [facility] Skilled NF Admit to: shelter of family choice Certification (SNF) I certify that SNF services are required to be given on an inpatient basis because of the above named patient's need for half-way care on a continuing basis for the conditions(s) for which he/she was receiving inpatient hospital services prior to his/her transfer to the SNF. Snf Facility Order: Nursing Services, Nozzle Operator-Evaluate & Treat, Physical Therapy-Evaluate & Treat, Speech Language-Evaluate & Treat Oxygen Delivery Method: Room Air Discharge Diet: Regular Diet Daily Activity as Tolerated: Yes Resuscitation Status: Do Not Resuscitate New & Resume Previous Orders Avani Haskins Sep 21, 2019 09:13 Medication List: Active Scripts Active Reported Nitrofurantoin (Nitrofurantoin Macrocrystal) 50 Mg Capsule 50 Mg PO Q48H Every other day - last taken 09/18/19 Hydralazine HCl 10 Mg Tablet 10 Mg PO Q6H PRN give if SBP is greater than 170 Senna-S Tablet (Sennosides/Docusate Sodium) 1 Each Tablet 2 Each PO DAILY Hold for diarrhea Metoprolol Tartrate 25 Mg Tablet 25 Mg PO BID Colace (Docusate Sodium) 100 Mg Capsule 100 Mg PO DAILY Probiotic (L.acidoph & Paracasei,B.lactis) 1 Each Capsule 1 Cap PO DAILY Rivastigmine 1 Each Patch.td24 1 Patch TD DAILY Verapamil HCl 120 Mg Tablet 120 Mg PO DAILY Hold for SBP < 100 and/or DBP < 60 Clopidogrel (Clopidogrel Bisulfate) 75 Mg Tablet 75 Mg PO DAILY Glucosamine (Glucosamine Sulfate 2Kcl) 1,000 Mg Tablet 1,000 Mg PO DAILY Citalopram HBr (Citalopram Hydrobromide) 10 Mg Tablet 10 Mg PO DAILY My orders: Orders - AVANI HASKINS MD Nurse Anesthetist Consult (09/21/19 09:04) Attending Discharge Inpt/Inobs (09/21/19 09:11) Physical Therapy Order (09/21/19 09:11) AVANI HASKINS MD Sep 21, 2019 09:15
--- NOTE | 2019-09-21 11:17 | Physical Therapy Evaluation ---
PT Evaluation-General Medical Diagnosis Admission Date Sep 18, 2019 at 20:10 Medical Diagnosis: subdural hematoma/comfort care Onset Date: Sep 18, 2019 Therapy Diagnosis Therapy Diagnosis: debility Height/Weight Height (Feet): 5 Height (Inches): 0.00 Weight (Pounds): 158 Weight (Ounces): 6.4 Precautions Precautions/Isolations: Fall Prevention, Standard Precautions, Pressure Ulcer Referral Physician: Jozef Reason for Referral: Evaluation/Treatment Medical History Pertinent Medical History: CVA, Dementia, HTN, Renal Insufficiency Current History EMS secondary to AMS Reviewed History: Yes Social History Home: Senior Living Prior Prior Level of Function SCALE: Activities may be completed with or without assistive devices. 8-Lusraxbfno-iraskuu completes the activity by him/herself with no assistance from a helper. 5-Set-up or Clean-up Assistance-helper sets up or cleans up; patient completes activity. [place] assists only prior to or following the activity. 4-Supervision or Touching Assistance-helper provides verbal cues and/or touching/steadying and/or contact guard assistance as patient completes activity. Assistance may be provided throughout the activity or intermittently. 3-Partial/Moderate Assistance-helper does LESS THAN HALF the effort. [place] lifts, holds or supports trunk or limbs, but provides less than half the effort. 2-Substantial/Maximal Assistance-helper does MORE THAN HALF the effort. [place] lifts or holds trunk or limbs and provides more than half the effort. 0-[id number] does ALL the effort. Patient does none of the effort to complete the activity. Or, the assistance of 2 or more helpers is required for the patient to complete the activity. If activity was not attempted, code reason: 7-Patient Refused. 9-Not Applicable-not attempted and the patient did not perform the activity before the current illness, exacerbation or injury. 10-Not Attempted due to Environmental Limitations-(lack of equipment, weather restraints, etc.). 88-Not Attempted due to Medical Conditions or Safety Concerns. Bed Mobility: 2 Transfers (B,C,W/C): 2 Indoor Mobility (Ambulation): Not [place] Stairs: Not [place] PT Evaluation-Current Subjective Patient agrees to PT. Objective Patient Orientation: Confused ROM/Strength ROM Lower Extremities bilateral LE WFL Strength Lower Extremities 3-/5 grossly bilateral LE Integumentary/Posture Integumentary refer to nursing notes Bowel Incontinence: Yes Bladder Incontinence: Yes Neuromuscular (Tone, Coordination, Reflexes) diminished with all Sensory Vision: Wears Glasses Hearing: Functional Transfers Roll Left to Right (QC): 2 Sit to Lying (QC): 2 Lying to Sitting/Side of Bed(Q: 2 Gait Does the Patient Walk?: No and Walking Goal NOT indicated Balance Sitting Static: Fair Sitting Dynamic: Fair Standing Static: Poor Standing Dynamic: Poor Assessment/Needs 89 y.o. female, will dismiss to [place] for continued care. Patient demonstrates limited mobility due to weakness and inactivity. Rehab Potential: Guarded PT Plan Treatment/Plan Treatment Plan: Discontinue PT Treatment Plan: Other Treatment Duration: Sep 21, 2019 Frequency: 1 time per week Estimated Hrs Per Day: .25 hour per day Patient and/or Family Agrees t: Yes Time/GCodes Time In: 1032 Time Out: 1044 Total Billed Treatment Time: 12 Total Billed Treatment 1 visit EVModC 12 min RAMSES LOVE PT Sep 21, 2019 11:17
--- NOTE | 2019-09-21 13:54 | NUR ---
Pt s [employer]. Livestock Nutritionist provided small piece of Communion and prayer.
--- NOTE | 2019-09-21 14:08 | NUR ---
Offered compassionate touch and engaged in kind, uplifting presence. The pt responded positively to prayer.
[2019-09-21 14:52] VITALS: BP 175/73
== END 2019-09-21 14:54 | DRG 951 ==
LOC: EDUNIT# 16:26 → ER 16:28 → 4TH 20:10
PROVIDERS: ADMIT Family Medicine; ATTEND Family Medicine
DX: Z51.5 Encounter for palliative care (principal); I62.00 Nontraumatic subdural hemorrhage, unspecified; E78.00 Pure hypercholesterolemia, unspecified; I10 Essential (primary) hypertension; K46.9 Unspecified abdominal hernia without obstruction or gangrene; K59.09 Other constipation; M19.90 Unspecified osteoarthritis, unspecified site; H26.9 Unspecified cataract; R13.10 Dysphagia, unspecified; F32.9 Major depressive disorder, single episode, unspecified; H91.90 Unspecified hearing loss, unspecified ear; F03.90 Unspecified dementia, unspecified severity, without behavioral disturbance, psychotic disturbance, mood disturbance, and anxiety; Z86.73 Personal history of transient ischemic attack (TIA), and cerebral infarction without residual deficits; Z90.710 Acquired absence of both cervix and uterus; Z87.440 Personal history of urinary (tract) infections
CPT/HCPCS: 36415; 70450; 71045; 80053; 81000; 83605; 85025; 85610; 85730; 87040; 87077; 87088; 96360